=== PATIENT | female | born 1930 | race American Indian/Alaskan Native ===

== ENCOUNTER 2016-11-18 17:43 | Inpatient (IN) | payer MEDICARE, MEDICAID ==
[2016-11-18 17:51] VITALS: BMI 23.0
[2016-11-18] MEDS ORDERED: Acetaminophen 650mg/20.3ml solution UD ONE (18:01)
[2016-11-18] MEDS ORDERED: Acetaminophen 650mg/20.3ml solution UD PO STA (18:05)
--- NOTE | 2016-11-18 18:18 | C.PDOC ---
History Of Present Illness 86 y/o F c PMHx Afib on Eliquis, HTN, CHF p/w tactile fever, confusion, dyspnea x 2 days. Mild cough only. Denies pain, vomiting, malodorous urine. Time Seen by Provider: 11/18/16 17:59 Chief Complaint (Nursing): Shortness Of Breath Past Medical History Vital Signs: Last Vital Signs Temp 101.9 F H 11/18/16 18:11 Pulse 102 H 11/18/16 18:11 Resp 39 H 11/18/16 18:11 BP 111/70 11/18/16 17:50 Pulse Ox 100 11/18/16 18:43 - Medical History PMH: Anemia, Atrial Fibrillation, 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'), Gastritis, HTN, Hyperlipidemia Denies: Chronic Kidney Disease Surgical History: Cholecystectomy - [facility] Procedures INSERTION OF INTRALUM DEV INTO R VENTRICLE, PERC APPROACH (02/29/16) MEASURE CARDIAC SAMPL & PRESSURE, BILATERAL, PERC (02/29/16) PERFORMANCE OF CARDIAC PACING, CONTINUOUS (02/29/16) PLAIN RADIOGRAPHY OF MULT COR ART USING OTH CONTRAST (02/29/16) PLAIN RADIOGRAPHY OF RIGHT AND LEFT HEART USING OTH CONTRAST (02/29/16) Family History: States: Unknown Family Hx - Social History Hx Alcohol Use: No Hx Substance Use: No - Immunization History Hx Tetanus Toxoid Vaccination: No Hx Influenza Vaccination: No Hx Pneumococcal Vaccination: No Review Of Systems Except As Marked, All Systems Reviewed And Found Negative. Constitutional: Positive for: Fever Cardiovascular: Negative for: Chest Pain Respiratory: Positive for: Shortness of Breath Physical Exam - Physical Exam Additional Physical Exam Comments: Constitutional: No acute distress. Warm to touch Head: Normocephalic. Atraumatic. Eyes: PERRL. EOMI ENT: Moist mucous membranes. Neck: Supple. Cardiovascular: Radial pulses 2+ bilaterally. Tachycardic, irregular rhythm Chest: No tenderness. Respiratory: Clear to auscultation bilaterally. GI: Soft. Nontender. Nondistended. Back: No CVA tenderness. No midline tenderness. Musculoskeletal: No tenderness or swelling of extremities. Skin: No rash. Neurologic: Alert, no focal deficit. ED Course And Treatment - Laboratory Results Result Diagrams: 11/18/16 18:25 11/18/16 18:25 O2 Sat by Pulse Oximetry: 100 Medical Decision Making Medical Decision Making: EKG shows irregular rhythm, 110 rate, atrial and ventricular beats, no obvious ST elevations. Patient with fever, tachycardia, tachypnea, will send sepsis labs. No hypotension, will not give IVF bolus as patient with CHF and daughter states she does not wish for patient to be intubated again. CXR +PNA as read by me. Started on broad spectrum antibiotics. Lactate negative. +leukocytosis without bandemia. No acidosis. Also severely anemic, transfuse 2 units slowly due to CHF. Lasix administered. Dr. Arteaga accepts patient to his service. Disposition Discussed With : Alvarez Arteaga Doctor Will See Patient In The: Hospital - Disposition Disposition: HOSPITALIZED Disposition Time: 19:15 Condition: GUARDED - POA Core Measure Indicators: Pneumonia - Clinical Impression Clinical Impression: Congestive heart failure, Pneumonia, Sepsis, Anemia
[2016-11-18] MEDS ORDERED: Cefepime IV 2 gm in Dextrose 100 ML IVPB STA (18:26)
[2016-11-18] MEDS ORDERED: Vancomycin 1 gm/NS 200 ml 200 ML IVPB STA (18:26)
[2016-11-18] MEDS ORDERED: Moxifloxacin IV 400mg/250ml NS 250 ML IVPB STA (18:26)
[2016-11-18 18:32] LABS: VENOUS BLOOD GAS BASE EXCESS -12.4 mmol/L (0.0-2.0); VENOUS BLOOD GAS PCO2 16 mmHg (40-60); VENOUS BLOOD PH 7.39 (7.32-7.43)
[2016-11-18 18:35] LABS: HEMATOCRIT 20.2 % (34.0-47.0); LYMPH # 0.8 K/uL (1.0-4.3); MEAN PLATELET VOLUME 8.7 fL (7.2-11.7); PLATELET COUNT 178 K/uL (130-400)
[2016-11-18 18:37] LABS: RBC URINE 3 /hpf (0-3); URINE BACTERIA RARE (<OCC); URINE BILIRUBIN NEGATIVE (NEGATIVE); URINE BLOOD NEGATIVE (NEGATIVE); URINE COLOR Yellow (YELLOW); URINE GLUCOSE (UA) NORMAL (Normal); URINE KETONE NEGATIVE (NEGATIVE); URINE LEUKOCYTE ESTERASE NEG Leu/uL (Negative); URINE PROTEIN NEGATIVE (NEGATIVE); URINE UROBILINOGEN NORMAL mg/dL (0.2-1.0); WBC URINE 2 /hpf (0-5)
[2016-11-18 18:40] LABS: BASO % 0.3 % (0.0-2.0); EOS % 0.1 % (0.0-4.0); LYMPH % 5.1 % (20.0-40.0); MEAN CELL VOLUME 77.8 fL (81.0-99.0); MEAN CORPUSCULAR HGB CONC 30.9 g/dL (33.0-37.0); MONO # 0.7 K/uL (0.0-0.8); MONO % 4.6 % (0.0-10.0); RED CELL DISTRIBUTION WIDTH 22.4 % (11.5-14.5)
[2016-11-18] MEDS ORDERED: Moxifloxacin IV 400mg/250ml NS 250 ML IVPB ONE (18:41)
[2016-11-18 18:43] LABS: INR 1.7; POTASSIUM 4.2 mmol/L (3.6-5.2)
[2016-11-18 18:45] LABS: ALB/GLOB RATIO 0.7 (1.0-2.1); PHOSPHOROUS 3.7 mg/dL (2.5-4.5); TOTAL PROTEIN 6.3 g/dL (6.3-8.3)
[2016-11-18 18:46] LABS: MAGNESIUM 2.1 mg/dL (1.6-2.3)
[2016-11-18 18:58] LABS: TROPONIN I 0.068 ng/mL (0.00-0.120)
[2016-11-18 19:31] LABS: NEUTROPHIL 90 % (50-75); TOTAL CELLS COUNTED 100
[2016-11-18 19:32] LABS: LARGE PLATELETS PRESENT
[2016-11-18] MEDS ORDERED: ELIQUIS 2.5 MG PO SCH (21:15)
--- NOTE | 2016-11-19 08:12 | RAD ---
HISTORY: dyspnea COMPARISON: 03/19/2016 FINDINGS: LUNGS: Moderate to severe venous congestion with confluent airspace opacification in the right hilar region and bilateral lung bases. Small to moderate left and small right pleural effusion. Biapical pleural thickening with upper lobe granulomatous changes. More confluent masslike consolidation in the medial right upper lung zone. PLEURA: As above. CARDIOVASCULAR: Cardiomegaly. Left-sided pacemaker. OSSEOUS STRUCTURES: Degenerative changes in the spine and shoulders. VISUALIZED UPPER ABDOMEN: Normal. OTHER FINDINGS: Curvilinear metallic density projects over the left lung apex of uncertain clinical etiology. Clinical correlation. IMPRESSION: Moderate to severe venous congestion with confluent airspace opacification in the right hilar region and bilateral lung bases. Small to moderate left and small right pleural effusion. Biapical pleural thickening with upper lobe granulomatous changes. More confluent masslike consolidation in the medial right upper lung zone.
--- NOTE | 2016-11-19 08:24 | CP.PCM.HP ---
History of Present Illness - History of Present Illness History of Present Illness: 86 y/o male with Hypertrophic Cardiomyopathy, At fib and OPD. patient had noted to be very weak in days. Pr t daughter did lad and with low Hg. In ER she was noted to have an infiltrate ? mass. Pt asmittied for CHF and Pneumonia. Present on Admission - Present on Admission Any Indicators Present on Admission: Yes History of DVT/PE: No History of Uncontrolled Diabetes: No Urinary Catheter: Yes Decubitus Ulcer Present: Yes Decubitus Ulcer Stage: II Review of Systems - Review of Systems Systems not reviewed;Unavailable: Acuity of Condition - Constitutional Constitutional: Lethargy, Malaise, Weight Loss, Weakness - EENT Eyes: absent: Change in Vision, Loss of Peripheral Vision, Sees Flashes, Loss of Vision Ears: Dizziness. absent: Ear Discharge, Ear Pain - Cardiovascular Cardiovascular: Lightheadedness. absent: Chest Pain, Diaphoresis, Leg Edema, Orthopnea, Palpitations, Pedal Edema - Respiratory Respiratory: Cough, Dyspnea on Exertion, Wheezing, Chest Congestion. absent: Pain on Inspiration, Excessive Mucous Production, Change in Mucous Color - Gastrointestinal Gastrointestinal: Bloating. absent: Coffee Ground Emesis, Dysphagia, Excessive Flatus, Hematochezia - Genitourinary Genitourinary: absent: Dysuria, Urinary Hesitance, Urinary Urgency - Integumentary Integumentary: absent: Change in Hair, Lesions, Striae, Swelling - Neurological Neurological: Abnormal Hearing, Dizziness, Lack of Coordination. absent: Focal Weakness, Loss of Vision, Radicular Pain, Tremor Past Patient History - Infectious Disease Hx of Infectious Diseases: None - Past Medical History & Family History Past Medical History?: Yes - Past Social History Smoking Status: Never Smoked - CARDIAC Hx Atrial Fibrillation: Yes Hx Congestive Heart Failure: Yes ('fluid in lungs and heart years ago') Hx Hypertension: Yes - PULMONARY Hx Respiratory Disorders: No - NEUROLOGICAL Hx Neurological Disorder: Yes Hx Dizziness: Yes - HEENT Hx HEENT Problems: Yes Hx Cataracts: Yes (Had surgery) Other/Comment: uses reading glasses - RENAL Hx Chronic Kidney Disease: No - ENDOCRINE/METABOLIC Hx Endocrine Disorders: No - HEMATOLOGICAL/ONCOLOGICAL Hx Anemia: Yes - INTEGUMENTARY Hx Dermatological Problems: No - MUSCULOSKELETAL/RHEUMATOLOGICAL Hx Musculoskeletal Disorders: Yes Hx Falls: Yes - GASTROINTESTINAL Hx Gastritis: Yes - GENITOURINARY/GYNECOLOGICAL Hx Genitourinary Disorders: No - PSYCHIATRIC Hx Substance Use: No - SURGICAL HISTORY Hx Cholecystectomy: Yes - ANESTHESIA Hx Anesthesia: Yes Hx Anesthesia Reactions: No Hx Malignant Hyperthermia: No Meds Allergies/Adverse Reactions: Allergies Allergy/AdvReac Type Severity Reaction Status Date / Time No Known Allergies Allergy Verified 11/18/16 17:47 Physical Exam - Constitutional Appears: No Acute Distress - Eye Exam Eye Exam: Normal appearance - ENT Exam ENT Exam: Mucous Membranes Moist - Neck Exam Neck exam: Positive for: Full Rom. Negative for: Lymphadenopathy, Thyromegaly - Respiratory Exam Respiratory Exam: Decreased Breath Sounds, Rales, Rhonchi. absent: Wheezes, Respiratory Distress - Cardiovascular Exam Cardiovascular Exam: Irregular Rhythm, JVD, +S1, +S2, Systolic Murmur. absent: Gallop - GI/Abdominal Exam GI & Abdominal Exam: Soft. absent: Mass, Rigid, Tenderness - Extremities Exam Extremities exam: Positive for: normal capillary refill. Negative for: joint swelling, pedal edema, tenderness Results - Vital Signs Recent Vital Signs: Last Vital Signs Temp 97.9 F 11/19/16 08:06 Pulse 79 11/19/16 08:06 Resp 18 11/19/16 08:06 BP 99/53 L 11/19/16 08:06 Pulse Ox 100 11/18/16 23:45 - Labs Result Diagrams: 11/18/16 18:25 11/18/16 18:25 - EKG Data EKG Interpreted by: Myself Rate: Tachycardia - EKG Data EKG comments: AF; Tachycardic w/ aberrant conduction, IVCD w RBBB pattern, no ischemic change noted Assessment & Plan - Assessment and Plan (Free Text) Assessment: Congestive heart Failure; At Fib/ cardiomyopathy Anemia; Sacral Decubitus Pneumonia vs mass Cardio on board; Cont cardiac meds Pulmonary consult On Zozyn + Duo neb Finishing transfusion of 2 units PRBC
[2016-11-19] MEDS: Pantoprazole 40 mg EC Tab PO SCH (09:33)
[2016-11-19] MEDS: Metoprolol Succinate 50 mg XL Tab PO SCH (09:34)
[2016-11-19] MEDS: Silver Sulfadiazine 1% Cream (20 gm) TOP SCH (09:43)
[2016-11-19] MEDS ORDERED: METOPROLOL TARTRATE 50 MG PO SCH (10:00)
[2016-11-19] MEDS ORDERED: Piperacillin/Tazobact 3.375 GM in Sodium Chloride 100 ML IVPB SCH (10:00)
[2016-11-19] MEDS: Albuterol-Ipratrop 3 mg / 0.5 (3 ml) UD INH SCH ×3 (11:19→19:12)
[2016-11-19] MEDS: Piperacill/Tazo 3.375gm in Dex 50 ML IVPB SCH ×2 (13:29→23:54)
[2016-11-19 13:59] LABS: BASO # 0.1 K/uL (0.0-0.2); BASO % 0.7 % (0.0-2.0); EOS # 0.1 K/uL (0.0-0.7); EOS % 1.1 % (0.0-4.0); HEMATOCRIT 24.6 % (34.0-47.0); LYMPH # 1.3 K/uL (1.0-4.3); LYMPH % 11.8 % (20.0-40.0); MEAN CELL VOLUME 79.4 fL (81.0-99.0); MEAN CORPUSCULAR HEMOGLOBIN 26.4 pg (27.0-31.0); MEAN CORPUSCULAR HGB CONC 33.3 g/dL (33.0-37.0); MEAN PLATELET VOLUME 8.6 fL (7.2-11.7); MONO # 0.8 K/uL (0.0-0.8); MONO % 7.4 % (0.0-10.0); NRBC % 0.3 % (0.0-2.0); WHITE BLOOD COUNT 11.1 K/uL (4.8-10.8)
[2016-11-19 14:07] LABS: POTASSIUM 3.9 mmol/L (3.6-5.2)
[2016-11-19 14:09] LABS: ALB/GLOB RATIO 0.6 (1.0-2.1); TOTAL PROTEIN 5.8 g/dL (6.3-8.3)
[2016-11-19 14:10] LABS: CALCIUM 8.3 mg/dl (8.6-10.4)
--- NOTE | 2016-11-19 14:21 | CP.PCM.CON ---
History of Present Illness - History of Present Illness History of Present Illness: 85 F female PMH of HOCM, CHF, HTN, hyperlipidemia, AFib, breast cancer with mets? and pacemaker, who presents with confusion and lethargy. Pt with family at bed side state that for the past few days she has been getting more confused and more lethargic. The family states that her last blood work that her primary doctor did last month showed she was anemic but the patient refused blood transfusion. Family states that the patient also has been losing weight close to 60 pounds in the last 6 months. Denies any chest shyann, or shortness of breath. Denies headaches, dizziness, f/c, cp, abd pain, urinary or bm changes. PMH:: As above PSH: Pericardial window 18 y/o for endocarditis?, Cholecystectomy Med: Refer to [facility]: NKA SH: Denies any smoking, alcohol, or drugs Review of Systems - Review of Systems All systems: reviewed and no additional remarkable complaints except (HPI) Past Patient History - Infectious Disease Hx of Infectious Diseases: None - Past Medical History & Family History Past Medical History?: Yes - Past Social History Smoking Status: Never Smoked Alcohol: None Drugs: Denies - CARDIAC Hx Atrial Fibrillation: Yes Hx Congestive Heart Failure: Yes ('fluid in lungs and heart years ago') Hx Hypertension: Yes - PULMONARY Hx Respiratory Disorders: No - NEUROLOGICAL Hx Neurological Disorder: Yes Hx Dizziness: Yes - HEENT Hx HEENT Problems: Yes Hx Cataracts: Yes (Had surgery) Other/Comment: uses reading glasses - RENAL Hx Chronic Kidney Disease: No - ENDOCRINE/METABOLIC Hx Endocrine Disorders: No - HEMATOLOGICAL/ONCOLOGICAL Hx Anemia: Yes - INTEGUMENTARY Hx Dermatological Problems: No - MUSCULOSKELETAL/RHEUMATOLOGICAL Hx Musculoskeletal Disorders: Yes Hx Falls: Yes - GASTROINTESTINAL Hx Gastritis: Yes - GENITOURINARY/GYNECOLOGICAL Hx Genitourinary Disorders: No - PSYCHIATRIC Hx Substance Use: No - SURGICAL HISTORY Hx Cholecystectomy: Yes - ANESTHESIA Hx Anesthesia: Yes Hx Anesthesia Reactions: No Hx Malignant Hyperthermia: No Meds Allergies/Adverse Reactions: Allergies Allergy/AdvReac Type Severity Reaction Status Date / Time No Known Allergies Allergy Verified 11/18/16 17:47 - Medications Medications: Current Medications Albuterol/Ipratropium (Duoneb 3 Mg/0.5 Mg (3 Ml) Ud) 3 ml INH RQID [facility] Last Admin: 11/19/16 11:19 Dose: 3 ml Apixaban (Eliquis) 2.5 mg PO BID [facility] Last Admin: 11/19/16 09:33 Dose: 2.5 mg Ferrous Sulfate (Feosol) 325 mg PO DAILY [facility] Last Admin: 11/19/16 09:33 Dose: 325 mg Furosemide (Lasix) 20 mg PO DAILY [facility] Last Admin: 11/19/16 09:33 Dose: 20 mg Piperacillin Sod/Tazobactam Sod (Zosyn 3.375 Gm Iv Premix) 50 mls @ 100 mls/hr IVPB Q8H [facility] Last Admin: 11/19/16 13:29 Dose: 100 mls/hr Metoprolol Succinate (Toprol Xl) 50 mg PO DAILY [facility] Last Admin: 11/19/16 09:34 Dose: Not Given Mirtazapine (Remeron) 15 mg PO DAILY [facility] Last Admin: 11/19/16 09:33 Dose: 15 mg Pantoprazole Sodium (Protonix Ec Tab) 40 mg PO DAILY [facility] Last Admin: 11/19/16 09:33 Dose: 40 mg Silver Sulfadiazine (Silvadene 1% 20 Gm) 0 ea TOP DAILY [facility] Stop: 11/22/16 23:59 Last Admin: 11/19/16 09:43 Dose: 1 applic Physical Exam - Constitutional Appears: No Acute Distress - Head Exam Head Exam: ATRAUMATIC, NORMAL INSPECTION, NORMOCEPHALIC - Eye Exam Eye Exam: EOMI, Normal appearance, PERRL Pupil Exam: NORMAL ACCOMODATION, PERRL - ENT Exam ENT Exam: Mucous Membranes Moist, Normal Exam - Neck Exam Neck exam: Positive for: Normal Inspection - Respiratory Exam Respiratory Exam: Clear to Auscultation Bilateral, NORMAL BREATHING PATTERN. absent: Rales, Rhonchi, Wheezes - Cardiovascular Exam Cardiovascular Exam: REGULAR RHYTHM, RRR, +S1, +S2 - GI/Abdominal Exam GI & Abdominal Exam: Normal Bowel Sounds, Soft. absent: Distended, Tenderness - Extremities Exam Extremities exam: Positive for: normal inspection - Back Exam Back exam: NORMAL INSPECTION - Neurological Exam Neurological exam: Alert, CN II-XII Intact, Normal Gait, Oriented x3, Reflexes Normal - Psychiatric Exam Psychiatric exam: Normal Affect, Normal Mood - Skin Skin Exam: Dry, Intact, Normal Color, Warm Results - Vital Signs Recent Vital Signs: Last Vital Signs Temp 97.9 F 11/19/16 08:06 Pulse 79 11/19/16 08:06 Resp 18 11/19/16 08:06 BP 103/60 11/19/16 09:33 Pulse Ox 95 11/19/16 07:15 - Labs Result Diagrams: 11/19/16 13:42 11/18/16 18:25 Labs: Laboratory Results - last 24 hr 11/19/16 13:42 WBC 11.1 H RBC 3.11 L Hgb 8.2 L Hct 24.6 L MCV 79.4 L MCH 26.4 L MCHC 33.3 RDW 19.0 H Plt Count 146 MPV 8.6 Neut % (Auto) 79.0 H Lymph % (Auto) 11.8 L [place] % (Auto) 7.4 Eos % (Auto) 1.1 Baso % (Auto) 0.7 Neut # 8.8 H Lymph # 1.3 [place] # 0.8 Eos # 0.1 Baso # 0.1 Assessment & Plan - Assessment and Plan (Free Text) Assessment: 85 F female PMH of HOCM, CHF, HTN, hyperlipidemia, AFib, breast cancer with mets? and pacemaker, who presents with confusion and lethargy found to be anemic Hb 6.3 s/p 2 units PRBC now hb 8.2. - Hb 8.2 S/p 2 units PRBC - F/u EKG and Echo - CXR - mod to severe pulm vasc congestion, mild- mod L pleural effusion - F/u CT chest official read - Cont Lasix 20mg PO and metoprolol 50mg PO - Cont Eliquis for afib - Cont Zosyn - Cont Ferrous sulfate - GI/DVT ppx with Protonix and Eliquis Thank you for the consult. Will follow closely. Case & plan was seen, reviewed, and discussed with Dr Mendoza.
[2016-11-20] MEDS: Piperacill/Tazo 3.375gm in Dex 50 ML IVPB SCH ×3 (06:07→21:19)
--- NOTE | 2016-11-20 06:37 | CP.PCM.PN ---
Subjective - Date & Time of Evaluation Date of Evaluation: 11/20/16 Time of Evaluation: 06:20 Objective - Vital Signs/Intake and Output Vital Signs (last 24 hours): Temp Pulse Resp BP Pulse Ox 97.6 F 72 20 90/61 L 95 11/19/16 23:50 11/20/16 00:00 11/19/16 23:50 11/19/16 23:50 11/19/16 23:50 Intake and Output: 11/19/16 11/20/16 18:59 06:59 Intake Total 375 Output Total 200 325 Balance 175 -325 - Medications Medications: Current Medications Albuterol/Ipratropium (Duoneb 3 Mg/0.5 Mg (3 Ml) Ud) 3 ml INH RQID [facility] Last Admin: 11/19/16 19:12 Dose: 3 ml Apixaban (Eliquis) 2.5 mg PO BID [facility] Last Admin: 11/19/16 17:29 Dose: 2.5 mg Ferrous Sulfate (Feosol) 325 mg PO DAILY [facility] Last Admin: 11/19/16 09:33 Dose: 325 mg Furosemide (Lasix) 20 mg PO DAILY [facility] Last Admin: 11/19/16 09:33 Dose: 20 mg Piperacillin Sod/Tazobactam Sod (Zosyn 3.375 Gm Iv Premix) 50 mls @ 100 mls/hr IVPB Q8H [facility] Last Admin: 11/20/16 06:07 Dose: 100 mls/hr Metoprolol Succinate (Toprol Xl) 50 mg PO DAILY [facility] Last Admin: 11/19/16 09:34 Dose: Not Given Mirtazapine (Remeron) 15 mg PO DAILY [facility] Last Admin: 11/19/16 09:33 Dose: 15 mg Pantoprazole Sodium (Protonix Ec Tab) 40 mg PO DAILY [facility] Last Admin: 11/19/16 09:33 Dose: 40 mg Silver Sulfadiazine (Silvadene 1% 20 Gm) 0 ea TOP DAILY [facility] Stop: 11/22/16 23:59 Last Admin: 11/19/16 09:43 Dose: 1 applic - Labs Labs: 11/19/16 13:42 11/19/16 13:42 PT 19.1 SECONDS (9.7-12.2) H 11/18/16 18:25 INR 1.7 02/23/17 18:25 APTT 25 SECONDS (21-34) 11/18/16 18:25
[2016-11-20] MEDS: Albuterol-Ipratrop 3 mg / 0.5 (3 ml) UD INH SCH ×4 (07:40→21:55)
--- NOTE | 2016-11-20 07:54 | CP.PCM.PN ---
Subjective - Date & Time of Evaluation Date of Evaluation: 11/20/16 Time of Evaluation: 08:40 - Subjective Subjective: Pt feels weaker today; Denies CP, no SOB, no palpitation; (+) cough but no mucus No diarrhea, no n/v Objective - Vital Signs/Intake and Output Vital Signs (last 24 hours): Temp Pulse Resp BP Pulse Ox 97.6 F 72 20 124/60 95 11/19/16 23:50 11/20/16 06:45 11/19/16 23:50 11/20/16 06:45 11/19/16 23:50 Intake and Output: 11/20/16 11/20/16 06:59 18:59 Output Total 925 Balance -925 - Medications Medications: Current Medications Albuterol/Ipratropium (Duoneb 3 Mg/0.5 Mg (3 Ml) Ud) 3 ml INH RQID [facility] Last Admin: 11/20/16 07:40 Dose: 3 ml Apixaban (Eliquis) 2.5 mg PO BID [facility] Last Admin: 11/19/16 17:29 Dose: 2.5 mg Ferrous Sulfate (Feosol) 325 mg PO DAILY [facility] Last Admin: 11/19/16 09:33 Dose: 325 mg Furosemide (Lasix) 20 mg PO DAILY [facility] Last Admin: 11/19/16 09:33 Dose: 20 mg Piperacillin Sod/Tazobactam Sod (Zosyn 3.375 Gm Iv Premix) 50 mls @ 100 mls/hr IVPB Q8H [facility] Last Admin: 11/20/16 06:07 Dose: 100 mls/hr Metoprolol Succinate (Toprol Xl) 50 mg PO DAILY [facility] Last Admin: 11/19/16 09:34 Dose: Not Given Mirtazapine (Remeron) 15 mg PO DAILY [facility] Last Admin: 11/19/16 09:33 Dose: 15 mg Pantoprazole Sodium (Protonix Ec Tab) 40 mg PO DAILY [facility] Last Admin: 11/19/16 09:33 Dose: 40 mg Silver Sulfadiazine (Silvadene 1% 20 Gm) 0 ea TOP DAILY [facility] Stop: 11/22/16 23:59 Last Admin: 11/19/16 09:43 Dose: 1 applic - Labs Labs: 11/19/16 13:42 11/19/16 13:42 PT 19.1 SECONDS (9.7-12.2) H 11/18/16 18:25 INR 1.7 11/18/16 18:25 APTT 25 SECONDS (21-34) 11/18/16 18:25 - Eye Exam Eye Exam: Normal appearance - ENT Exam ENT Exam: Mucous Membranes Moist - Respiratory Exam Respiratory Exam: Decreased Breath Sounds. absent: Rales, Rhonchi, Wheezes - Cardiovascular Exam Cardiovascular Exam: Irregular Rhythm, JVD, +S1, Murmur. absent: Gallop, REGULAR RHYTHM - GI/Abdominal Exam GI & Abdominal Exam: Soft. absent: Tenderness, Mass - Extremities Exam Extremities Exam: Calf Tenderness, Normal Capillary Refill, Pedal Edema. absent : Full ROM Assessment and Plan - Assessment and Plan (Free Text) Plan: Pneumonia w/ CHF Hypertrophic cardiomyopathy Anemia; Sacral decubitus Cont meds/ Await CT and cardio output
--- NOTE | 2016-11-20 08:13 | CP.PCM.CON ---
History of Present Illness - History of Present Illness History of Present Illness: Reason for consultation: Shortness of breath and cough 85-year-old female with history of hypertrophic cardiomyopathy, CHF, hypertension, atrial fibrillation, breast cancer with metastases, hyperlipidemia and pacemaker presented to emergency room with confusion, shortness of breath, fever and cough for the past few days. Family states that the patient has been losing weight in the last 6 months. Chest x-ray consistent with bilateral infiltrate. PMH:: As above PSH: Pericardial window 18 y/o for endocarditis?, Cholecystectomy Med: Refer to [facility]: NKA SH: Denies any smoking, alcohol, or drugs Review of Systems - Review of Systems Systems not reviewed;Unavailable: Dementia Past Patient History - Infectious Disease Hx of Infectious Diseases: None - Past Medical History & Family History Past Medical History?: Yes - Past Social History Smoking Status: Never Smoked Alcohol: None Drugs: Denies - CARDIAC Hx Atrial Fibrillation: Yes Hx Congestive Heart Failure: Yes ('fluid in lungs and heart years ago') Hx Hypertension: Yes - PULMONARY Hx Respiratory Disorders: No - NEUROLOGICAL Hx Neurological Disorder: Yes Hx Dizziness: Yes - HEENT Hx HEENT Problems: Yes Hx Cataracts: Yes (Had surgery) Other/Comment: uses reading glasses - RENAL Hx Chronic Kidney Disease: No - ENDOCRINE/METABOLIC Hx Endocrine Disorders: No - HEMATOLOGICAL/ONCOLOGICAL Hx Anemia: Yes - INTEGUMENTARY Hx Dermatological Problems: No - MUSCULOSKELETAL/RHEUMATOLOGICAL Hx Musculoskeletal Disorders: Yes Hx Falls: Yes - GASTROINTESTINAL Hx Gastritis: Yes - GENITOURINARY/GYNECOLOGICAL Hx Genitourinary Disorders: No - PSYCHIATRIC Hx Substance Use: No - SURGICAL HISTORY Hx Cholecystectomy: Yes - ANESTHESIA Hx Anesthesia: Yes Hx Anesthesia Reactions: No Hx Malignant Hyperthermia: No Meds Allergies/Adverse Reactions: Allergies Allergy/AdvReac Type Severity Reaction Status Date / Time No Known Allergies Allergy Verified 11/18/16 17:47 - Medications Medications: Current Medications Albuterol/Ipratropium (Duoneb 3 Mg/0.5 Mg (3 Ml) Ud) 3 ml INH RQID [facility] Last Admin: 11/20/16 07:40 Dose: 3 ml Apixaban (Eliquis) 2.5 mg PO BID [facility] Last Admin: 11/19/16 17:29 Dose: 2.5 mg Ferrous Sulfate (Feosol) 325 mg PO DAILY [facility] Last Admin: 11/19/16 09:33 Dose: 325 mg Furosemide (Lasix) 20 mg PO DAILY [facility] Last Admin: 11/19/16 09:33 Dose: 20 mg Piperacillin Sod/Tazobactam Sod (Zosyn 3.375 Gm Iv Premix) 50 mls @ 100 mls/hr IVPB Q8H [facility] Last Admin: 11/20/16 06:07 Dose: 100 mls/hr Metoprolol Succinate (Toprol Xl) 50 mg PO DAILY [facility] Last Admin: 11/19/16 09:34 Dose: Not Given Mirtazapine (Remeron) 15 mg PO DAILY [facility] Last Admin: 11/19/16 09:33 Dose: 15 mg Pantoprazole Sodium (Protonix Ec Tab) 40 mg PO DAILY [facility] Last Admin: 11/19/16 09:33 Dose: 40 mg Silver Sulfadiazine (Silvadene 1% 20 Gm) 0 ea TOP DAILY [facility] Stop: 11/22/16 23:59 Last Admin: 11/19/16 09:43 Dose: 1 applic Physical Exam - Head Exam Head Exam: ATRAUMATIC, NORMOCEPHALIC - ENT Exam ENT Exam: Mucous Membranes Moist - Neck Exam Neck exam: Positive for: Normal Inspection - Respiratory Exam Respiratory Exam: Rales, Rhonchi - Cardiovascular Exam Cardiovascular Exam: Irregular Rhythm - GI/Abdominal Exam GI & Abdominal Exam: Normal Bowel Sounds, Soft - Extremities Exam Extremities exam: Positive for: normal inspection - Neurological Exam Neurological exam: Altered Results - Vital Signs Recent Vital Signs: Last Vital Signs Temp 97.6 F 11/19/16 23:50 Pulse 72 11/20/16 06:45 Resp 20 11/19/16 23:50 BP 124/60 11/20/16 06:45 Pulse Ox 95 11/19/16 23:50 - Labs Result Diagrams: 11/19/16 13:42 11/19/16 13:42 Labs: Laboratory Results - last 24 hr 11/19/16 13:42 WBC 11.1 H RBC 3.11 L Hgb 8.2 L Hct 24.6 L MCV 79.4 L MCH 26.4 L MCHC 33.3 RDW 19.0 H Plt Count 146 MPV 8.6 Neut % (Auto) 79.0 H Lymph % (Auto) 11.8 L [place] % (Auto) 7.4 Eos % (Auto) 1.1 Baso % (Auto) 0.7 Neut # 8.8 H Lymph # 1.3 [place] # 0.8 Eos # 0.1 Baso # 0.1 Sodium 139 Potassium 3.9 Chloride 102 Carbon Dioxide 27 Anion Gap 15 BUN 33 H Creatinine 1.2 Est GFR ( Amer) 52 Est GFR (Non-Af Amer) 43 Random Glucose 99 Calcium 8.3 L Total Bilirubin 1.0 AST 51 H ALT 45 Alkaline Phosphatase 51 Total Protein 5.8 L Albumin 2.1 L Globulin 3.7 Albumin/Globulin Ratio 0.6 L Assessment & Plan (1) Pneumonia Status: Acute Comment: Continue antibiotics. Culture and sensitivity. CAT scan of the chest consistent with bilateral pleural effusion and infiltrate. Consistent with CHF and possible pneumonia (2) Congestive heart failure Status: Acute (3) Cardiomyopathy Status: Acute
[2016-11-20] MEDS: Pantoprazole 40 mg EC Tab PO SCH (11:11)
[2016-11-20] MEDS: Metoprolol Succinate 50 mg XL Tab PO SCH (11:17)
[2016-11-20] MEDS: Silver Sulfadiazine 1% Cream (20 gm) TOP SCH (11:17)
--- NOTE | 2016-11-20 11:54 | CARD ---
APPROVED REPORT EKG Measurement Heart [id number] ID [id number] <Conclusion> Atrial-sensed ventricular-paced rhythm with premature supraventricular complexes Abnormal ECG
[2016-11-20 19:37] LABS: ABG ALLEN TEST UNABLE; ARTERIAL BLOOD HGB O2 SAT 96.6 % (95.0-98.0); CARBOXYHEMOGLOBIN 1.7 % (0.5-1.5); DRAW SITE RR; HHB 0.4 % (0.0-5.0); METHEMOGLOBIN 1.2 % (0.0-3.0)
[2016-11-21] MEDS: Piperacill/Tazo 3.375gm in Dex 50 ML IVPB SCH ×2 (04:31→12:36)
[2016-11-21] MEDS: Albuterol-Ipratrop 3 mg / 0.5 (3 ml) UD INH SCH ×3 (07:42→20:15)
[2016-11-21] MEDS: Pantoprazole 40 mg EC Tab PO SCH (10:59)
[2016-11-21] MEDS: Silver Sulfadiazine 1% Cream (20 gm) TOP SCH (11:00)
[2016-11-21 14:32] LABS: BASO # 0.1 K/uL (0.0-0.2); BASO % 0.8 % (0.0-2.0); EOS # 0.2 K/uL (0.0-0.7); EOS % 1.9 % (0.0-4.0); HEMATOCRIT 24.4 % (34.0-47.0); LYMPH % 12.5 % (20.0-40.0); MEAN CELL VOLUME 81.4 fL (81.0-99.0); MEAN CORPUSCULAR HGB CONC 33.2 g/dL (33.0-37.0); MEAN PLATELET VOLUME 8.7 fL (7.2-11.7); MONO # 0.6 K/uL (0.0-0.8); MONO % 7.4 % (0.0-10.0); NRBC % 0.2 % (0.0-2.0); RED CELL DISTRIBUTION WIDTH 19.3 % (11.5-14.5); WHITE BLOOD COUNT 8.1 K/uL (4.8-10.8)
--- NOTE | 2016-11-21 14:33 | CP.PCM.PN ---
Subjective - Date & Time of Evaluation Date of Evaluation: 11/21/16 Time of Evaluation: 14:30 - Subjective Subjective: S: Bedridden. No complaints. C/o weakness. No SOB. No fever. Objective - Vital Signs/Intake and Output Vital Signs (last 24 hours): Temp Pulse Resp BP Pulse Ox 98 F 69 20 93/51 L 100 11/21/16 11:04 11/21/16 11:04 11/21/16 11:04 11/21/16 11:04 11/21/16 11:04 Intake and Output: 11/21/16 11/21/16 06:59 18:59 Output Total 200 Balance -200 - Medications Medications: Current Medications Albuterol/Ipratropium (Duoneb 3 Mg/0.5 Mg (3 Ml) Ud) 3 ml INH RQID [facility] Last Admin: 11/21/16 13:00 Dose: 3 ml Apixaban (Eliquis) 2.5 mg PO BID [facility] Last Admin: 11/21/16 10:59 Dose: 2.5 mg Ferrous Sulfate (Feosol) 325 mg PO DAILY [facility] Last Admin: 11/21/16 11:01 Dose: 325 mg Furosemide (Lasix) 20 mg PO DAILY [facility] Piperacillin Sod/Tazobactam (Sod 3.375 gm/ Sodium Chloride) 100 mls @ 100 mls/ hr IVPB Q8H [facility] Metoprolol Tartrate (Lopressor) 25 mg PO BID [facility] Mirtazapine (Remeron) 15 mg PO DAILY [facility] Last Admin: 11/21/16 12:26 Dose: Not Given Pantoprazole Sodium (Protonix Ec Tab) 40 mg PO DAILY [facility] Last Admin: 11/21/16 10:59 Dose: 40 mg Silver Sulfadiazine (Silvadene 1% 20 Gm) 0 ea TOP DAILY [facility] Stop: 11/22/16 23:59 Last Admin: 11/21/16 11:00 Dose: 1 applic - Labs Labs: 11/19/16 13:42 11/19/16 13:42 PT 19.1 SECONDS (9.7-12.2) H 11/18/16 18:25 INR 1.7 11/18/16 18:25 APTT 25 SECONDS (21-34) 11/18/16 18:25 - Constitutional Appears: Chronically Ill - Head Exam Head Exam: NORMAL INSPECTION - ENT Exam ENT Exam: Normal Exam - Neck Exam Neck Exam: Normal Inspection - Respiratory Exam Respiratory Exam: Decreased Breath Sounds - Cardiovascular Exam Cardiovascular Exam: REGULAR RHYTHM - GI/Abdominal Exam GI & Abdominal Exam: Soft - Rectal Exam Rectal Exam: Deferred - Extremities Exam Extremities Exam: absent: Pedal Edema Assessment and Plan (1) Bacterial pneumonia Status: Acute (2) Congestive heart failure Status: Acute (3) Anemia Status: Acute (4) Cardiomyopathy Status: Chronic - Assessment and Plan (Free Text) Assessment: A Plan: P: Continue medications. Physical therapy evaluation.
--- NOTE | 2016-11-21 16:41 | CP.PCM.PN ---
Subjective - Date & Time of Evaluation Date of Evaluation: 11/21/16 Time of Evaluation: 16:00 - Subjective Subjective: Patient seen and examined. Lying comfortably in no acute distress More responsive Afebrile Objective - Vital Signs/Intake and Output Vital Signs (last 24 hours): Temp Pulse Resp BP Pulse Ox 98 F 69 20 93/51 L 100 11/21/16 11:04 11/21/16 11:04 11/21/16 11:04 11/21/16 11:04 11/21/16 11:04 Intake and Output: 11/21/16 11/21/16 06:59 18:59 Intake Total 530 Output Total 200 Balance -200 530 - Medications Medications: Current Medications Albuterol/Ipratropium (Duoneb 3 Mg/0.5 Mg (3 Ml) Ud) 3 ml INH RQID [facility] Last Admin: 11/21/16 13:00 Dose: 3 ml Apixaban (Eliquis) 2.5 mg PO BID [facility] Last Admin: 11/21/16 10:59 Dose: 2.5 mg Ferrous Sulfate (Feosol) 325 mg PO DAILY [facility] Last Admin: 11/21/16 11:01 Dose: 325 mg Furosemide (Lasix) 20 mg PO DAILY [facility] Piperacillin Sod/Tazobactam (Sod 3.375 gm/ Sodium Chloride) 100 mls @ 100 mls/ hr IVPB Q8H [facility] Metoprolol Tartrate (Lopressor) 25 mg PO BID [facility] Mirtazapine (Remeron) 15 mg PO DAILY [facility] Last Admin: 11/21/16 12:26 Dose: Not Given Pantoprazole Sodium (Protonix Ec Tab) 40 mg PO DAILY [facility] Last Admin: 11/21/16 10:59 Dose: 40 mg Silver Sulfadiazine (Silvadene 1% 20 Gm) 0 ea TOP DAILY [facility] Stop: 11/22/16 23:59 Last Admin: 11/21/16 11:00 Dose: 1 applic - Labs Labs: 11/21/16 14:20 11/19/16 13:42 PT 19.1 SECONDS (9.7-12.2) H 11/18/16 18:25 INR 1.7 11/18/16 18:25 APTT 25 SECONDS (21-34) 11/18/16 18:25 - Head Exam Head Exam: ATRAUMATIC, NORMOCEPHALIC - ENT Exam ENT Exam: Mucous Membranes Moist - Neck Exam Neck Exam: Normal Inspection - Respiratory Exam Respiratory Exam: Rales - GI/Abdominal Exam GI & Abdominal Exam: Soft, Normal Bowel Sounds - Extremities Exam Extremities Exam: Pedal Edema Assessment and Plan (1) Pneumonia Assessment & Plan: CAT scan of the chest consistent with bilateral pleural effusion and possible infiltrate Continue antibiotics Status: Acute (2) Congestive heart failure Assessment & Plan: Continue Lasix as needed Status: Acute (3) Cardiomyopathy Status: Chronic
--- NOTE | 2016-11-21 20:18 | CP.PCM.PN ---
Subjective - Date & Time of Evaluation Date of Evaluation: 11/21/16 Time of Evaluation: 15:30 - Subjective Subjective: Patient seen and evaluated Feels better today 85-year-old female with history of hypertrophic cardiomyopathy, CHF, hypertension, atrial fibrillation, breast cancer with metastases, hyperlipidemia and pacemaker presented to emergency room with confusion, shortness of breath, fever and cough for the past few days. Family states that the patient has been losing weight in the last 6 months. Chest x-ray consistent with bilateral infiltrate. PMH:: As above PSH: Cholecystectomy Med: Refer to [facility] ALL: NKA SH: Denies any smoking, alcohol, or drugs Review of Systems - Review of Systems Systems not reviewed;Unavailable: Dementia Past Patient History - Infectious Disease Hx of Infectious Diseases: None - Past Medical History & Family History Past Medical History?: Yes - Past Social History Smoking Status: Never Smoked Alcohol: None Drugs: Denies - CARDIAC Hx Atrial Fibrillation: Yes Hx Congestive Heart Failure: Yes ('fluid in lungs and heart years ago') Hx Hypertension: Yes - PULMONARY Hx Respiratory Disorders: No - NEUROLOGICAL Hx Neurological Disorder: Yes Hx Dizziness: Yes - HEENT Hx HEENT Problems: Yes Hx Cataracts: Yes (Had surgery) Other/Comment: uses reading glasses - RENAL Hx Chronic Kidney Disease: No - ENDOCRINE/METABOLIC Hx Endocrine Disorders: No - HEMATOLOGICAL/ONCOLOGICAL Hx Anemia: Yes - INTEGUMENTARY Hx Dermatological Problems: No - MUSCULOSKELETAL/RHEUMATOLOGICAL Hx Musculoskeletal Disorders: Yes Hx Falls: Yes - GASTROINTESTINAL Hx Gastritis: Yes - GENITOURINARY/GYNECOLOGICAL Hx Genitourinary Disorders: No - PSYCHIATRIC Hx Substance Use: No - SURGICAL HISTORY Hx Cholecystectomy: Yes - ANESTHESIA Hx Anesthesia: Yes Hx Anesthesia Reactions: No Hx Malignant Hyperthermia: No Meds Allergies/Adverse Reactions: Allergies Allergy/AdvReac Type Severity Reaction Status Date / Time No Known Allergies Allergy Verified 11/18/16 17:47 - Medications Medications: Current Medications Albuterol/Ipratropium (Duoneb 3 Mg/0.5 Mg (3 Ml) Ud) 3 ml INH RQID [facility] Last Admin: 11/20/16 07:40 Dose: 3 ml Apixaban (Eliquis) 2.5 mg PO BID [facility] Last Admin: 11/19/16 17:29 Dose: 2.5 mg Ferrous Sulfate (Feosol) 325 mg PO DAILY [facility] Last Admin: 02/24/17 09:33 Dose: 325 mg Furosemide (Lasix) 20 mg PO DAILY [facility] Last Admin: 11/19/16 09:33 Dose: 20 mg Piperacillin Sod/Tazobactam Sod (Zosyn 3.375 Gm Iv Premix) 50 mls @ 100 mls/hr IVPB Q8H [facility] Last Admin: 11/20/16 06:07 Dose: 100 mls/hr Metoprolol Succinate (Toprol Xl) 50 mg PO DAILY [facility] Last Admin: 11/19/16 09:34 Dose: Not Given Mirtazapine (Remeron) 15 mg PO DAILY [facility] Last Admin: 11/19/16 09:33 Dose: 15 mg Pantoprazole Sodium (Protonix Ec Tab) 40 mg PO DAILY [facility] Last Admin: 11/19/16 09:33 Dose: 40 mg Silver Sulfadiazine (Silvadene 1% 20 Gm) 0 ea TOP DAILY [facility] Stop: 11/22/16 23:59 Last Admin: 11/19/16 09:43 Dose: 1 applic Physical Exam - Head Exam Head Exam: ATRAUMATIC, NORMOCEPHALIC - ENT Exam ENT Exam: Mucous Membranes Moist - Neck Exam Neck exam: Positive for: Normal Inspection - Respiratory Exam Respiratory Exam: Rales, Rhonchi - Cardiovascular Exam Cardiovascular Exam: Irregular Rhythm - GI/Abdominal Exam GI & Abdominal Exam: Normal Bowel Sounds, Soft - Extremities Exam Extremities exam: Positive for: normal inspection - Neurological Exam Neurological exam: Altered Objective - Vital Signs/Intake and Output Vital Signs (last 24 hours): Temp Pulse Resp BP Pulse Ox 97.9 F 75 20 105/53 L 100 11/21/16 16:40 11/21/16 17:09 11/21/16 16:40 11/21/16 18:06 11/21/16 16:40 Intake and Output: 11/21/16 11/22/16 18:59 06:59 Intake Total 530 Balance 530 - Medications Medications: Current Medications Albuterol/Ipratropium (Duoneb 3 Mg/0.5 Mg (3 Ml) Ud) 3 ml INH RQID [facility] Last Admin: 11/21/16 20:15 Dose: 3 ml Apixaban (Eliquis) 2.5 mg PO BID [facility] Last Admin: 11/21/16 18:06 Dose: 2.5 mg Ferrous Sulfate (Feosol) 325 mg PO DAILY [facility] Last Admin: 11/21/16 11:01 Dose: 325 mg Furosemide (Lasix) 20 mg PO DAILY [facility] Piperacillin Sod/Tazobactam (Sod 3.375 gm/ Sodium Chloride) 100 mls @ 100 mls/ hr IVPB Q8H [facility] Metoprolol Tartrate (Lopressor) 25 mg PO BID [facility] Last Admin: 11/21/16 18:06 Dose: 25 mg Mirtazapine (Remeron) 15 mg PO HS [facility] Pantoprazole Sodium (Protonix Ec Tab) 40 mg PO DAILY [facility] Last Admin: 11/21/16 10:59 Dose: 40 mg Silver Sulfadiazine (Silvadene 1% 20 Gm) 0 ea TOP DAILY [facility] Stop: 11/22/16 23:59 Last Admin: 11/21/16 11:00 Dose: 1 applic - Labs Labs: 11/21/16 14:20 11/19/16 13:42 PT 19.1 SECONDS (9.7-12.2) H 11/18/16 18:25 INR 1.7 11/18/16 18:25 APTT 25 SECONDS (21-34) 11/18/16 18:25 Assessment and Plan - Assessment and Plan (Free Text) Assessment: (1) Pneumonia Status: Acute Comment: Continue antibiotics. Culture and sensitivity. CAT scan of the chest consistent with bilateral pleural effusion and infiltrate. Consistent with CHF and possible pneumonia (2) Congestive heart failure (Distolic Status: Continue Lasix (3) Hypertrophic Cardiomyopathy Status: S/P PPM Medical therapy (4) Atrial Fib Status: On Eliquis 2.5 po bid B blockers (5) Metastatic Ca Status: Medical therapy
[2016-11-21] MEDS: Piperacillin/Tazobact 3.375 GM in Sodium Chloride 100 ML IVPB SCH (20:42)
--- NOTE | 2016-11-21 20:44 | CP.PCM.PN ---
Subjective - Date & Time of Evaluation Date of Evaluation: 11/21/16 Time of Evaluation: 07:10 Objective - Vital Signs/Intake and Output Vital Signs (last 24 hours): Temp Pulse Resp BP Pulse Ox 97.9 F 75 20 105/53 L 100 11/21/16 16:40 11/21/16 17:09 11/21/16 16:40 11/21/16 18:06 11/21/16 16:40 Intake and Output: 11/21/16 11/22/16 18:59 06:59 Intake Total 530 Balance 530 - Medications Medications: Current Medications Albuterol/Ipratropium (Duoneb 3 Mg/0.5 Mg (3 Ml) Ud) 3 ml INH RQID [facility] Last Admin: 11/21/16 20:15 Dose: 3 ml Apixaban (Eliquis) 2.5 mg PO BID [facility] Last Admin: 11/21/16 18:06 Dose: 2.5 mg Ferrous Sulfate (Feosol) 325 mg PO DAILY [facility] Last Admin: 11/21/16 11:01 Dose: 325 mg Furosemide (Lasix) 20 mg PO DAILY [facility] Piperacillin Sod/Tazobactam (Sod 3.375 gm/ Sodium Chloride) 100 mls @ 100 mls/ hr IVPB Q8H [facility] Last Admin: 11/21/16 20:42 Dose: 100 mls/hr Metoprolol Tartrate (Lopressor) 25 mg PO BID [facility] Last Admin: 11/21/16 18:06 Dose: 25 mg Mirtazapine (Remeron) 15 mg PO HS [facility] Pantoprazole Sodium (Protonix Ec Tab) 40 mg PO DAILY [facility] Last Admin: 11/21/16 10:59 Dose: 40 mg Silver Sulfadiazine (Silvadene 1% 20 Gm) 0 ea TOP DAILY [facility] Stop: 11/22/16 23:59 Last Admin: 11/21/16 11:00 Dose: 1 applic - Labs Labs: 11/21/16 14:20 11/19/16 13:42 PT 19.1 SECONDS (9.7-12.2) H 11/18/16 18:25 INR 1.7 11/18/16 18:25 APTT 25 SECONDS (21-34) 11/18/16 18:25
[2016-11-22] MEDS: Piperacillin/Tazobact 3.375 GM in Sodium Chloride 100 ML IVPB SCH (05:03)
[2016-11-22] MEDS: Albuterol-Ipratrop 3 mg / 0.5 (3 ml) UD INH SCH ×4 (07:27→21:51)
[2016-11-22 07:52] LABS: POTASSIUM 3.9 mmol/L (3.6-5.2)
[2016-11-22 07:54] LABS: ALB/GLOB RATIO 0.6 (1.0-2.1); BILIRUBIN,TOTAL 0.6 mg/dL (0.2-1.3); TOTAL PROTEIN 5.8 g/dL (6.3-8.3)
[2016-11-22 07:55] LABS: CALCIUM 8.6 mg/dl (8.6-10.4)
--- NOTE | 2016-11-22 09:00 | CP.PCM.PN ---
Subjective - Date & Time of Evaluation Date of Evaluation: 11/22/16 Time of Evaluation: 08:40 - Subjective Subjective: Pt feels well; no CP, no SOB, no palpitation (+) Still weak w/ fair appetite; (+) dry cough CT noted for no mass; Large infiltrate no N/V, no diarrhea, no abd pain Objective - Vital Signs/Intake and Output Vital Signs (last 24 hours): Temp Pulse Resp BP Pulse Ox 97.5 F L 60 20 93/53 L 100 11/22/16 07:15 11/22/16 07:15 11/22/16 07:15 11/22/16 07:15 11/22/16 07:15 Intake and Output: 11/22/16 11/22/16 06:59 18:59 Intake Total 210 Output Total 600 Balance -390 - Medications Medications: Current Medications Albuterol/Ipratropium (Duoneb 3 Mg/0.5 Mg (3 Ml) Ud) 3 ml INH RQID [facility] Last Admin: 11/22/16 07:27 Dose: 3 ml Ferrous Sulfate (Feosol) 325 mg PO DAILY [facility] Last Admin: 11/21/16 11:01 Dose: 325 mg Furosemide (Lasix) 20 mg PO DAILY [facility] Piperacillin Sod/Tazobactam (Sod 3.375 gm/ Sodium Chloride) 100 mls @ 100 mls/ hr IVPB Q8H [facility] Last Admin: 11/22/16 05:03 Dose: 100 mls/hr Metoprolol Tartrate (Lopressor) 25 mg PO BID [facility] Last Admin: 11/21/16 18:06 Dose: 25 mg Mirtazapine (Remeron) 15 mg PO HS [facility] Last Admin: 11/21/16 21:12 Dose: 15 mg Pantoprazole Sodium (Protonix Ec Tab) 40 mg PO DAILY [facility] Last Admin: 11/21/16 10:59 Dose: 40 mg Silver Sulfadiazine (Silvadene 1% 20 Gm) 0 ea TOP DAILY [facility] Stop: 11/22/16 23:59 Last Admin: 11/21/16 11:00 Dose: 1 applic - Labs Labs: 11/21/16 14:20 11/22/16 07:03 PT 19.1 SECONDS (9.7-12.2) H 11/18/16 18:25 INR 1.7 11/18/16 18:25 APTT 25 SECONDS (21-34) 11/18/16 18:25 - Constitutional Appears: No Acute Distress - Eye Exam Eye Exam: Normal appearance - ENT Exam ENT Exam: Mucous Membranes Moist - Neck Exam Neck Exam: Full ROM. absent: Lymphadenopathy, Thyromegaly - Respiratory Exam Respiratory Exam: Decreased Breath Sounds. absent: Rales, Rhonchi, Wheezes - Cardiovascular Exam Cardiovascular Exam: JVD, +S1, +S2, Murmur. absent: Gallop, REGULAR RHYTHM - GI/Abdominal Exam GI & Abdominal Exam: Soft. absent: Tenderness, Mass - Extremities Exam Extremities Exam: Full ROM, Normal Capillary Refill. absent: Calf Tenderness, Joint Swelling, Pedal Edema Assessment and Plan - Assessment and Plan (Free Text) Assessment: Pneumonia; CHF Cardiomyopathy; Gen Debility Cont meds/ Phy therapy For 2-D Echo
--- NOTE | 2016-11-22 10:15 | CP.PCM.PN ---
Subjective - Date & Time of Evaluation Date of Evaluation: 11/22/16 Time of Evaluation: 09:30 - Subjective Subjective: Progress note for Dr Mendoza: Pt seen and examined at bedside. No acute events overnight. Pt denies any chest pain or sob at this time. Denies any headaches, dizziness, f/c, sob, cp, palpitations, n/v, abd pain, bm or urinary changes. Objective - Vital Signs/Intake and Output Vital Signs (last 24 hours): Temp Pulse Resp BP Pulse Ox 97.5 F L 60 20 93/53 L 100 11/22/16 07:15 11/22/16 07:15 11/22/16 07:15 11/22/16 07:15 11/22/16 07:15 Intake and Output: 11/22/16 11/22/16 06:59 18:59 Intake Total 210 Output Total 600 Balance -390 - Medications Medications: Current Medications Albuterol/Ipratropium (Duoneb 3 Mg/0.5 Mg (3 Ml) Ud) 3 ml INH RQID [facility] Last Admin: 11/22/16 07:27 Dose: 3 ml Ferrous Sulfate (Feosol) 325 mg PO DAILY [facility] Last Admin: 11/21/16 11:01 Dose: 325 mg Furosemide (Lasix) 20 mg PO DAILY [facility] Piperacillin Sod/Tazobactam Sod (Zosyn 2.25 Gm Iv Premix) 50 mls @ 100 mls/hr IVPB Q6H [facility] Metoprolol Tartrate (Lopressor) 25 mg PO BID [facility] Last Admin: 11/21/16 18:06 Dose: 25 mg Mirtazapine (Remeron) 15 mg PO HS [facility] Last Admin: 11/21/16 21:12 Dose: 15 mg Pantoprazole Sodium (Protonix Ec Tab) 40 mg PO DAILY [facility] Last Admin: 11/21/16 10:59 Dose: 40 mg Polyethylene Glycol (Miralax) 17 gm PO HS [facility] Silver Sulfadiazine (Silvadene 1% 20 Gm) 0 ea TOP DAILY [facility] Stop: 11/22/16 23:59 Last Admin: 11/21/16 11:00 Dose: 1 applic - Labs Labs: 11/21/16 14:20 11/22/16 07:03 PT 19.1 SECONDS (9.7-12.2) H 11/18/16 18:25 INR 1.7 02/23/17 18:25 APTT 25 SECONDS (21-34) 11/18/16 18:25 - Constitutional Appears: No Acute Distress - Head Exam Head Exam: ATRAUMATIC, NORMAL INSPECTION, NORMOCEPHALIC - Eye Exam Eye Exam: EOMI, Normal appearance, PERRL Pupil Exam: NORMAL ACCOMODATION, PERRL - ENT Exam ENT Exam: Mucous Membranes Moist, Normal Exam - Neck Exam Neck Exam: Full ROM, Normal Inspection. absent: Lymphadenopathy - Respiratory Exam Respiratory Exam: Clear to Ausculation Bilateral, NORMAL BREATHING PATTERN. absent: Wheezes - Cardiovascular Exam Cardiovascular Exam: REGULAR RHYTHM, RRR, +S1, +S2. absent: Murmur - Extremities Exam Extremities Exam: Full ROM, Normal Capillary Refill, Normal Inspection. absent : Joint Swelling, Pedal Edema - Back Exam Back Exam: NORMAL INSPECTION - Neurological Exam Neurological Exam: Alert, Awake, CN II-XII Intact, Normal Gait, Oriented x3 - Psychiatric Exam Psychiatric exam: Normal Affect, Normal Mood - Skin Skin Exam: Dry, Intact, Normal Color, Warm Assessment and Plan - Assessment and Plan (Free Text) Assessment: 85 F female PMH of HOCM, CHF, HTN, hyperlipidemia, AFib, breast cancer with mets? and pacemaker, who presents with confusion and lethargy found to be anemic Hb 6.3 s/p 2 units PRBC now hb 8.1, with possible pneumonia vs CHF. - F/u Echo today - Cont ABX - Zosyn - Hb 8.2 S/p 2 units PRBC - CXR - mod to severe pulm vasc congestion, mild- mod L pleural effusion and infiltrate - F/u CT chest awaiting official read - Cont Lasix 20mg PO and metoprolol 25mg PO BID - Metastatic dx f/u medical work up - GI/DVT ppx Case & plan was seen, reviewed, and discussed in detail with Dr Mendoza.
[2016-11-22] MEDS: Pantoprazole 40 mg EC Tab PO SCH (10:37)
--- NOTE | 2016-11-22 11:01 | CP.PCM.PN ---
Subjective - Date & Time of Evaluation Date of Evaluation: 11/22/16 Time of Evaluation: 08:20 - Subjective Subjective: Patient seen and examined. Lying comfortably in no acute distress " Afebrile awake Objective - Vital Signs/Intake and Output Vital Signs (last 24 hours): Temp Pulse Resp BP Pulse Ox 97.5 F L 60 20 93/53 L 100 11/22/16 07:15 11/22/16 07:15 11/22/16 07:15 11/22/16 07:15 11/22/16 07:15 Intake and Output: 11/22/16 11/22/16 06:59 18:59 Intake Total 210 Output Total 600 Balance -390 - Medications Medications: Current Medications Albuterol/Ipratropium (Duoneb 3 Mg/0.5 Mg (3 Ml) Ud) 3 ml INH RQID [facility] Last Admin: 11/22/16 07:27 Dose: 3 ml Ferrous Sulfate (Feosol) 325 mg PO DAILY [facility] Last Admin: 11/21/16 11:01 Dose: 325 mg Furosemide (Lasix) 20 mg PO DAILY [facility] Piperacillin Sod/Tazobactam Sod (Zosyn 2.25 Gm Iv Premix) 50 mls @ 100 mls/hr IVPB Q6H [facility] Metoprolol Tartrate (Lopressor) 25 mg PO BID [facility] Last Admin: 11/21/16 18:06 Dose: 25 mg Mirtazapine (Remeron) 15 mg PO HS [facility] Last Admin: 11/21/16 21:12 Dose: 15 mg Pantoprazole Sodium (Protonix Ec Tab) 40 mg PO DAILY [facility] Last Admin: 11/21/16 10:59 Dose: 40 mg Polyethylene Glycol (Miralax) 17 gm PO HS [facility] Silver Sulfadiazine (Silvadene 1% 20 Gm) 0 ea TOP DAILY [facility] Stop: 11/22/16 23:59 Last Admin: 11/21/16 11:00 Dose: 1 applic - Labs Labs: 11/21/16 14:20 11/22/16 07:03 PT 19.1 SECONDS (9.7-12.2) H 11/18/16 18:25 INR 1.7 11/18/16 18:25 APTT 25 SECONDS (21-34) 11/18/16 18:25 - Constitutional Appears: No Acute Distress - Head Exam Head Exam: ATRAUMATIC, NORMOCEPHALIC - Eye Exam Eye Exam: Normal appearance - Neck Exam Neck Exam: Normal Inspection - Respiratory Exam Respiratory Exam: Rales - Cardiovascular Exam Cardiovascular Exam: REGULAR RHYTHM - GI/Abdominal Exam GI & Abdominal Exam: Soft, Normal Bowel Sounds - Extremities Exam Extremities Exam: Normal Inspection - Neurological Exam Neurological Exam: Awake Assessment and Plan (1) Pneumonia Assessment & Plan: Continue Zosyn for now Chest x-ray Continue treatment for CHF Status: Acute (2) Congestive heart failure Status: Acute (3) Cardiomyopathy Status: Chronic
[2016-11-22] MEDS: Piperacill/Tazo 2.25gm in Dex 50 ML IVPB SCH ×3 (11:48→22:36)
[2016-11-22] MEDS: Silver Sulfadiazine 1% Cream (20 gm) TOP SCH (12:04)
--- NOTE | 2016-11-22 17:06 | CT ---
PROCEDURE: CT Chest without contrast HISTORY: lung mass COMPARISON: Comparison is made to the previous study dated 03/09/2016 TECHNIQUE: Contiguous axial images were obtained through the chest without intravenous contrast enhancement. Sagittal and coronal reconstructions were performed. Radiation dose (DLP): 391.04 mGy-cm. FINDINGS: LUNGS: Partial consolidation of the right lower lobe could be atelectasis due to pleural effusion. The possibility of pneumonia cannot be excluded. Small opacities at the left lower lobe. Moderate pulmonary vascular congestion. No evidence of suspicious mass in the upper lobes. MEDIASTINUM: The thoracic aorta is ectatic and tortuous. The heart is moderately enlarged. Main pulmonary artery is moderately to markedly enlarged. Mild mediastinal lymphadenopathy seen. PLEURA: Moderate right and small left pleural effusion BONES: Interval appearance of cortical defects in the mid and lower thoracic spine since the previous exam may represent degenerative changes. Other etiology is not totally excluded. UPPER ABDOMEN: Grossly unremarkable. OTHER FINDINGS: None. IMPRESSION: Cardiomegaly. [id number] right and small left pleural effusion. Right lower lobe airspace consolidation may represent atelectasis due to pleural effusion. Underline infiltrate or pneumonia is not totally excluded. Moderate pulmonary vascular congestion. Opacities at the left lower lobe likely scar tissue and atelectasis. Interval appearance of endplate irregularity and defects at the mid and lower thoracic spine vertebrae since the previous exam of uncertain etiology.
--- NOTE | 2016-11-22 18:42 | CP.PCM.CON ---
History of Present Illness - History of Present Illness History of Present Illness: 85-year-old female with history of hypertrophic cardiomyopathy, CHF, hypertension, atrial fibrillation, breast cancer with metastases, hyperlipidemia and pacemaker presented to emergency room with confusion, shortness of breath, fever and cough for the past few days. Family states that the patient has been losing weight in the last 6 months. Chest x-ray consistent with bilateral infiltrate. PMH:: As above PSH: Pericardial window 18 y/o for endocarditis?, Cholecystectomy Med: Refer to NOV ALL: NKA SH: Denies any smoking, alcohol, or drugs Review of Systems - Review of Systems All systems: reviewed and no additional remarkable complaints except - Constitutional Constitutional: absent: As Per HPI, Anorexia, Chills, Daytime Sleepiness, Excessive Sweating, Fatigue, Fever, Frequent Falls, Headache, Increased Appetite , Lethargy, Malaise, Night Sweats, Snoring, Sleep Apnea, Weight Gain, Weight Loss, Weakness, Other - EENT Eyes: absent: As Per HPI, Blind Spots, Blurred Vision, Change in Vision, Decreased Night Vision, Diplopia, Discharge, Dry Eye, Exophthalmos, Floaters, Irritation, Itchy Eyes, Loss of Peripheral Vision, Pain, Photophobia, Requires Corrective Lenses, Sees Flashes, Spots in Vision, Tunnel Vision, Other Visual Disturbances, Loss of Vision, Other Ears: absent: As Per HPI, Decreased Hearing, Ear Discharge, Ear Pain, Tinnitus, Abnormal Hearing, Disequilibrium, Dizziness, Other Nose/Mouth/Throat: absent: As Per HPI, Epistaxis, Nasal Congestion, Nasal Discharge, Nasal Obstruction, Nasal Trauma, Nose Pain, Post Nasal Drip, Sinus Pain, Sinus Pressure, Bleeding Gums, Change in Voice, Dental Pain, Dry Mouth, Dysphagia, Halitosis, Hoarsness, Lip Swelling, Mouth Lesions, Mouth Pain, Odynophagia, Sore Throat, Throat Swelling, Tongue Swelling, Facial Pain, Neck Pain, Neck Mass, Other - Breasts Breasts: absent: As Per HPI, Change in Shape, Mass, Pain, Nipple Discharge, Nipple Inversion, Skin Changes, Swelling, Other - Cardiovascular Cardiovascular: As Per HPI - Respiratory Respiratory: As Per HPI, Cough. absent: Hemoptysis - Gastrointestinal Gastrointestinal: absent: As Per HPI, Abdominal Pain, Belching, Bloating, Change in Bowel Habits, Change in Stool Character, Coffee Ground Emesis, Constipation, Cramping, Diarrhea, Dyspepsia, Dysphagia, Early Satiety, Excessive Flatus, Fecal Incontinence, Heartburn, Hematemesis, Hematochezia, Loose Stools, Melena, Nausea, Odynophagia, Temesmus, Vomiting, Other - Genitourinary Genitourinary: absent: As Per HPI, Change in Urinary Stream, Difficulty Urinating, Dysuria, Flank Pain, Hematuria, Pyuria, Nocturia, Urinary Incontinence, Urinary Frequency, Urinary Hesitance, Urinary Urgency, Voiding Freq/Small Amts, Freq UTI, Hx Renal/Bladder Calculi, Hx /Renal Surgery, Bladder Distension, Other - Reproductive: Female Reproductive:Female: absent: As Per HPI, Amenorrhea, Amenorrhea/ Control, Currently Menstual, Cycle <21 Days, Cycle >35 Days, Cycle Variable, Menses 1-7 Days, Menses >/= 8 Days, Menses Variable, Cycle > 4 Weeks Between, No Menses for 6 Months, Heavy Menses, Light Menses, Normal Menses, Spotting Between Cycles , S/P Hysterectomy, Menopausal, Post Menopausal, Premenarche, Abnormal Vaginal Bleeding, Dysmenorrhea, Dyspareunia, Genital Lesions, Genital Pruritis, Pelvic Pain, Prolapse Symptoms, Sexual Dysfunction, Vaginal Discharge, Vaginal Dryness , Vaginal Odor, Vaginal Pruritis, Other - Menstruation Menstruation: absent: As Per HPI, Amenorrhea, Amenorrhea/ Control, Currently Menstual, Cycle <21 Days, Cycle >35 Days, Cycle Variable, Menses 1-7 Days, Menses >/= 8 Days, Menses Variable, Cycle > 4 Weeks Between, No Menses for 6 Months, Heavy Menses, Light Menses, Normal Menses, Spotting Between Cycles , S/P Hysterectomy, Menopausal, Post Menopausal, Premenarche, Abnormal Vaginal Bleeding, Dysmenorrhea, Other - Musculoskeletal Musculoskeletal: absent: As Per HPI, Abnormal Gait, Arthralgias, Atrophy, Back Pain, Deformity, Joint Swelling, Limited Range of Motion, Loss of Height, Muscle Cramps, Muscle Weakness, Myalgias, Neck Pain, Numbness, Radiating Pain into Limb, Stiffness, Tingling, Other - Integumentary Integumentary: absent: As Per HPI, Acne, Alopecia, Bleeding Lesions, Change in Hair, Change in Nails, Change in Pigmentation, Changing Lesions, Dry Skin, Erythema, Furuncle, Hirsutism, Lesions, New Lesions, Non-Healing Lesions, Photosensitivity, Pruritus, Rash, Skin Pain, Skin Ulcer, Sores, Striae, Swelling , Unusual Bruising, Wounds, Jaundice, Other - Neurological Neurological: absent: As Per HPI, Abnormal Gait, Abnormal Hearing, Abnormal Movements, Abnormal Speech, Behavioral Changes, Burning Sensations, Confusion, Convulsions, Disequilibrium, Dizziness, Numbness, Focal Weakness, Frequent Falls , Headaches, Lack of Coordination, Loss of Vision, Memory Loss, Paresthesias, Radicular Pain, Restless Legs, Sensory Deficit, Syncope, Tingling, Tremor, Vertigo, Weakness, Other Visual Disturbances, Other - Psychiatric Psychiatric: absent: As Per HPI, Abnormal Sleep Pattern, Anhedonia, Anxiety, Auditory Hallucinations, Behavioral Changes, Change in Appetite, Change in Libido, Confusion, Depression, Difficulty Concentrating, Hallucinations, Homicidal Ideation, Hopelessness, Irritability, Memory Loss, Mood Swings, Panic Attacks, Paranoia, Suicidal Ideation, Visual Hallucinations, Tactile Hallucinations, Other - Endocrine Endocrine: absent: As Per HPI, Change in Body Appearance, Change in Libido, Cold Intolorance, Deepening of Voice, Excessive Sweating, Fatigue, Flushing, Heat Intolorance, Increase in Ring/Shoe/Hat Size, Palpitations, Polydipsia, Polyphagia, Polyuria, Other - Hematologic/Lymphatic Hematologic: absent: As Per HPI, Easy Bleeding, Easy Bruising, Lymphadenopathy, Other Past Patient History - Infectious Disease Hx of Infectious Diseases: None - Past Medical History & Family History Past Medical History?: Yes - Past Social History Smoking Status: Never Smoked Alcohol: None Drugs: Denies - CARDIAC Hx Atrial Fibrillation: Yes Hx Congestive Heart Failure: Yes ('fluid in lungs and heart years ago') Hx Hypertension: Yes - PULMONARY Hx Respiratory Disorders: No - NEUROLOGICAL Hx Neurological Disorder: Yes Hx Dizziness: Yes - HEENT Hx HEENT Problems: Yes Hx Cataracts: Yes (Had surgery) Other/Comment: uses reading glasses - RENAL Hx Chronic Kidney Disease: No - ENDOCRINE/METABOLIC Hx Endocrine Disorders: No - HEMATOLOGICAL/ONCOLOGICAL Hx Anemia: Yes - INTEGUMENTARY Hx Dermatological Problems: No - MUSCULOSKELETAL/RHEUMATOLOGICAL Hx Musculoskeletal Disorders: Yes Hx Falls: Yes - GASTROINTESTINAL Hx Gastritis: Yes - GENITOURINARY/GYNECOLOGICAL Hx Genitourinary Disorders: No - PSYCHIATRIC Hx Substance Use: No - SURGICAL HISTORY Hx Cholecystectomy: Yes - ANESTHESIA Hx Anesthesia: Yes Hx Anesthesia Reactions: No Hx Malignant Hyperthermia: No Meds Allergies/Adverse Reactions: Allergies Allergy/AdvReac Type Severity Reaction Status Date / Time No Known Allergies Allergy Verified 11/18/16 17:47 - Medications Medications: Current Medications Albuterol/Ipratropium (Duoneb 3 Mg/0.5 Mg (3 Ml) Ud) 3 ml INH RQID [facility] Last Admin: 11/22/16 16:23 Dose: 3 ml Ferrous Sulfate (Feosol) 325 mg PO DAILY [facility] Last Admin: 11/22/16 10:37 Dose: 325 mg Furosemide (Lasix) 20 mg PO DAILY [facility] Last Admin: 11/22/16 10:38 Dose: Not Given Piperacillin Sod/Tazobactam Sod (Zosyn 2.25 Gm Iv Premix) 50 mls @ 100 mls/hr IVPB Q6H [facility] Last Admin: 11/22/16 17:00 Dose: 100 mls/hr Metoprolol Tartrate (Lopressor) 25 mg PO BID [facility] Last Admin: 11/22/16 17:58 Dose: Not Given Mirtazapine (Remeron) 15 mg PO HS [facility] Last Admin: 11/21/16 21:12 Dose: 15 mg Pantoprazole Sodium (Protonix Ec Tab) 40 mg PO DAILY [facility] Last Admin: 11/22/16 10:37 Dose: 40 mg Polyethylene Glycol (Miralax) 17 gm PO HS [facility] Silver Sulfadiazine (Silvadene 1% 20 Gm) 0 ea TOP DAILY [facility] Stop: 11/22/16 23:59 Last Admin: 11/22/16 12:04 Dose: 1 applic Physical Exam - Constitutional Appears: Non-toxic, Cachectic, Chronically Ill - Head Exam Head Exam: ATRAUMATIC, NORMAL INSPECTION, NORMOCEPHALIC - Eye Exam Eye Exam: EOMI, PERRL. absent: Scleral icterus - ENT Exam ENT Exam: Mucous Membranes Dry, Normal External Ear Exam, Normal Oropharynx - Neck Exam Neck exam: Negative for: Lymphadenopathy, Thyromegaly - Respiratory Exam Respiratory Exam: Decreased Breath Sounds, Rhonchi - Cardiovascular Exam Cardiovascular Exam: REGULAR RHYTHM, +S1, +S2 - GI/Abdominal Exam GI & Abdominal Exam: Diminished Bowel Sounds, Soft. absent: Tenderness - Rectal Exam Rectal Exam: Deferred - Exam Exam: NORMAL INSPECTION - Extremities Exam Extremities exam: Negative for: calf tenderness, pedal edema - Back Exam Back exam: absent: CVA tenderness (L), CVA tenderness (R) - Neurological Exam Neurological exam: Alert, CN II-XII Intact, Oriented x3 - Psychiatric Exam Psychiatric exam: Normal Mood - Skin Skin Exam: Dry Results - Vital Signs Recent Vital Signs: Last Vital Signs Temp 98.3 F 11/22/16 15:49 Pulse 72 11/22/16 16:00 Resp 20 11/22/16 15:49 BP 122/66 11/22/16 15:49 Pulse Ox 99 11/22/16 15:49 - Labs Result Diagrams: 11/21/16 14:20 11/22/16 07:03 Labs: Laboratory Results - last 24 hr 11/22/16 07:03 Sodium 135 Potassium 3.9 Chloride 99 Carbon Dioxide 28 Anion Gap 12 BUN 20 H Creatinine 1.1 Est GFR ( Amer) 57 Est GFR (Non-Af Amer) 47 Random Glucose 80 Calcium 8.6 Total Bilirubin 0.6 AST 40 H D ALT 40 Alkaline Phosphatase 43 NT-Pro-B Natriuret Pep 50949 H Total Protein 5.8 L Albumin 2.2 L Globulin 3.5 Albumin/Globulin Ratio 0.6 L Assessment & Plan (1) Anemia Status: Acute (2) Bacterial pneumonia Status: Acute (3) Congestive heart failure Status: Acute (4) Pneumonia Status: Acute (5) Sepsis Status: Acute (6) 2Nd degree AV block Status: Acute - Assessment and Plan (Free Text) Assessment: 2/2 SETS + FOR COCCI WILL LIKELY NEED AMNA DR PIRES TO EVALUATE
--- NOTE | 2016-11-22 22:07 | CP.PCM.PN ---
Subjective - Date & Time of Evaluation Date of Evaluation: 11/22/16 Time of Evaluation: 18:00 - Subjective Subjective: Patient seen and evaluated No cardiac events noted Objective - Vital Signs/Intake and Output Vital Signs (last 24 hours): Temp Pulse Resp BP Pulse Ox 98.3 F 72 20 122/66 99 11/22/16 15:49 11/22/16 16:00 11/22/16 15:49 11/22/16 15:49 11/22/16 15:49 Intake and Output: 11/22/16 11/23/16 18:59 06:59 Output Total 400 Balance -400 - Medications Medications: Current Medications Albuterol/Ipratropium (Duoneb 3 Mg/0.5 Mg (3 Ml) Ud) 3 ml INH RQID [facility] Last Admin: 11/22/16 21:51 Dose: Not Given Ferrous Sulfate (Feosol) 325 mg PO DAILY [facility] Last Admin: 11/22/16 10:37 Dose: 325 mg Furosemide (Lasix) 20 mg PO DAILY [facility] Last Admin: 11/22/16 10:38 Dose: Not Given Piperacillin Sod/Tazobactam Sod (Zosyn 2.25 Gm Iv Premix) 50 mls @ 100 mls/hr IVPB Q6H [facility] Last Admin: 11/22/16 17:00 Dose: 100 mls/hr Vancomycin HCl 1,000 mg/ (Sodium Chloride) 250 mls @ 166.667 mls/hr IVPB Q12H [facility] Last Admin: 11/22/16 20:24 Dose: 166.667 mls/hr Metoprolol Tartrate (Lopressor) 25 mg PO BID [facility] Last Admin: 11/22/16 17:58 Dose: Not Given Mirtazapine (Remeron) 15 mg PO HS [facility] Last Admin: 11/21/16 21:12 Dose: 15 mg Pantoprazole Sodium (Protonix Ec Tab) 40 mg PO DAILY [facility] Last Admin: 11/22/16 10:37 Dose: 40 mg Polyethylene Glycol (Miralax) 17 gm PO HS [facility] Silver Sulfadiazine (Silvadene 1% 20 Gm) 0 ea TOP DAILY [facility] Stop: 11/22/16 23:59 Last Admin: 11/22/16 12:04 Dose: 1 applic - Labs Labs: 11/21/16 14:20 11/22/16 07:03 PT 19.1 SECONDS (9.7-12.2) H 11/18/16 18:25 INR 1.7 11/18/16 18:25 APTT 25 SECONDS (21-34) 11/18/16 18:25
[2016-11-22] MEDS: POLYETHYLENE GLYCOL 3350 17 GM/Dose PACKET PO SCH (22:36)
[2016-11-23] MEDS: Piperacill/Tazo 2.25gm in Dex 50 ML IVPB SCH ×4 (06:47→22:18)
[2016-11-23 07:17] LABS: HEMATOCRIT 26.8 % (34.0-47.0); MEAN CORPUSCULAR HEMOGLOBIN 27.4 pg (27.0-31.0); MEAN CORPUSCULAR HGB CONC 33.8 g/dL (33.0-37.0); MEAN PLATELET VOLUME 8.1 fL (7.2-11.7); RED CELL DISTRIBUTION WIDTH 19.8 % (11.5-14.5); WHITE BLOOD COUNT 8.7 K/uL (4.8-10.8)
[2016-11-23] MEDS: Albuterol-Ipratrop 3 mg / 0.5 (3 ml) UD INH SCH ×4 (08:02→20:10)
[2016-11-23 08:10] LABS: CHLORIDE 101 mmol/L (98-107); POTASSIUM 3.8 mmol/L (3.6-5.2); SODIUM 137 mmol/L (132-148)
[2016-11-23 08:13] LABS: BLOOD UREA NITROGEN 14 mg/dL (7-17); CARBON DIOXIDE 26 mmol/L (22-30); GFR AFRICAN-AMERICAN > 60; GLUCOSE,RANDOM 83 mg/dL (65-105)
[2016-11-23 08:14] LABS: CALCIUM 8.7 mg/dl (8.6-10.4)
--- NOTE | 2016-11-23 09:06 | CP.PCM.PN ---
Subjective - Date & Time of Evaluation Date of Evaluation: 11/23/16 Time of Evaluation: 08:40 - Subjective Subjective: Pt seem weaker today; no SOB, no n/v, no diarrhea ID note reviewed and appreciate inc 9.1 Objective - Vital Signs/Intake and Output Vital Signs (last 24 hours): Temp Pulse Resp BP Pulse Ox 98.0 F 83 18 107/48 L 98 11/23/16 07:17 11/23/16 07:17 11/23/16 07:17 11/23/16 07:17 11/23/16 07:17 Intake and Output: 11/23/16 11/23/16 06:59 18:59 Intake Total 250 Output Total 800 Balance -550 - Medications Medications: Current Medications Albuterol/Ipratropium (Duoneb 3 Mg/0.5 Mg (3 Ml) Ud) 3 ml INH RQID [facility] Last Admin: 11/23/16 08:02 Dose: 3 ml Ferrous Sulfate (Feosol) 325 mg PO DAILY [facility] Last Admin: 11/22/16 10:37 Dose: 325 mg Furosemide (Lasix) 20 mg PO DAILY [facility] Last Admin: 11/22/16 10:38 Dose: Not Given Piperacillin Sod/Tazobactam Sod (Zosyn 2.25 Gm Iv Premix) 50 mls @ 100 mls/hr IVPB Q6H [facility] Last Admin: 11/23/16 06:47 Dose: 100 mls/hr Vancomycin HCl 1,000 mg/ (Sodium Chloride) 250 mls @ 166.667 mls/hr IVPB Q12H [facility] Last Admin: 11/23/16 07:31 Dose: 166.667 mls/hr Metoprolol Tartrate (Lopressor) 25 mg PO BID [facility] Last Admin: 11/22/16 17:58 Dose: Not Given Mirtazapine (Remeron) 15 mg PO HS [facility] Last Admin: 11/22/16 22:36 Dose: 15 mg Pantoprazole Sodium (Protonix Ec Tab) 40 mg PO DAILY [facility] Last Admin: 11/22/16 10:37 Dose: 40 mg Polyethylene Glycol (Miralax) 17 gm PO HS [facility] Last Admin: 11/22/16 22:36 Dose: 17 gm - Labs Labs: 11/23/16 07:11 11/23/16 07:11 PT 19.1 SECONDS (9.7-12.2) H 11/18/16 18:25 INR 1.7 11/18/16 18:25 APTT 25 SECONDS (21-34) 11/18/16 18:25 - Constitutional Appears: No Acute Distress - Eye Exam Eye Exam: Normal appearance - ENT Exam ENT Exam: Mucous Membranes Moist - Neck Exam Neck Exam: Full ROM. absent: Lymphadenopathy, Thyromegaly - Respiratory Exam Respiratory Exam: Decreased Breath Sounds, Rhonchi. absent: Rales, Wheezes - Cardiovascular Exam Cardiovascular Exam: Irregular Rhythm, +S1, +S2, Murmur - GI/Abdominal Exam GI & Abdominal Exam: Soft. absent: Tenderness, Mass - Extremities Exam Extremities Exam: Full ROM, Normal Capillary Refill. absent: Calf Tenderness, Joint Swelling, Pedal Edema Assessment and Plan - Assessment and Plan (Free Text) Assessment: Sepsis; Pneumonia Hypertrophic Cardiomyopathy Cont meds/ supportive care Await ID of Gm ( On Vanco & Zosukhiyn)
--- NOTE | 2016-11-23 10:16 | CP.PCM.PN ---
Subjective - Date & Time of Evaluation Date of Evaluation: 11/23/16 Time of Evaluation: 08:40 - Subjective Subjective: Progress note for Dr Mendoza: Pt seen and examined at bedside. No acute events overnight. Pt denies any chest pain or sob at this time. Denies any headaches, dizziness, f/c, sob, cp, palpitations, n/v, abd pain, bm or urinary changes. Objective - Vital Signs/Intake and Output Vital Signs (last 24 hours): Temp Pulse Resp BP Pulse Ox 98.0 F 83 18 107/48 L 98 11/23/16 07:17 11/23/16 07:17 11/23/16 07:17 11/23/16 07:17 11/23/16 07:17 Intake and Output: 11/23/16 11/23/16 06:59 18:59 Intake Total 250 Output Total 800 Balance -550 - Medications Medications: Current Medications Albuterol/Ipratropium (Duoneb 3 Mg/0.5 Mg (3 Ml) Ud) 3 ml INH RQID [facility] Last Admin: 11/23/16 08:02 Dose: 3 ml Ferrous Sulfate (Feosol) 325 mg PO DAILY [facility] Last Admin: 11/22/16 10:37 Dose: 325 mg Furosemide (Lasix) 20 mg PO DAILY [facility] Last Admin: 11/22/16 10:38 Dose: Not Given Piperacillin Sod/Tazobactam Sod (Zosyn 2.25 Gm Iv Premix) 50 mls @ 100 mls/hr IVPB Q6H [facility] Last Admin: 11/23/16 06:47 Dose: 100 mls/hr Vancomycin HCl 1,000 mg/ (Sodium Chloride) 250 mls @ 166.667 mls/hr IVPB Q12H [facility] Last Admin: 11/23/16 07:31 Dose: 166.667 mls/hr Metoprolol Tartrate (Lopressor) 25 mg PO BID [facility] Last Admin: 11/22/16 17:58 Dose: Not Given Mirtazapine (Remeron) 15 mg PO [facility] Last Admin: 11/22/16 22:36 Dose: 15 mg Pantoprazole Sodium (Protonix Ec Tab) 40 mg PO DAILY [facility] Last Admin: 11/22/16 10:37 Dose: 40 mg Polyethylene Glycol (Miralax) 17 gm PO [facility] Last Admin: 11/22/16 22:36 Dose: 17 gm - Labs Labs: 11/23/16 07:11 11/23/16 07:11 PT 19.1 SECONDS (9.7-12.2) H 11/18/16 18:25 INR 1.7 11/18/16 18:25 APTT 25 SECONDS (21-34) 11/18/16 18:25 - Constitutional Appears: No Acute Distress - Head Exam Head Exam: ATRAUMATIC, NORMAL INSPECTION, NORMOCEPHALIC - Eye Exam Eye Exam: EOMI, Normal appearance, PERRL - ENT Exam ENT Exam: Mucous Membranes Moist, Normal Exam - Neck Exam Neck Exam: Full ROM, Normal Inspection. absent: Lymphadenopathy - Respiratory Exam Respiratory Exam: Clear to Ausculation Bilateral, NORMAL BREATHING PATTERN. absent: Wheezes - Cardiovascular Exam Cardiovascular Exam: REGULAR RHYTHM, RRR, +S1, +S2. absent: Murmur - GI/Abdominal Exam GI & Abdominal Exam: Soft, Normal Bowel Sounds. absent: Distended, Tenderness - Extremities Exam Extremities Exam: Full ROM, Normal Capillary Refill, Normal Inspection. absent : Joint Swelling, Pedal Edema - Back Exam Back Exam: NORMAL INSPECTION - Neurological Exam Neurological Exam: Alert, Awake, CN II-XII Intact, Normal Gait, Oriented x3 - Psychiatric Exam Psychiatric exam: Normal Affect, Normal Mood - Skin Skin Exam: Dry, Intact, Normal Color, Warm Assessment and Plan - Assessment and Plan (Free Text) Assessment: 85 F female PMH of HOCM, CHF, HTN, hyperlipidemia, AFib, breast cancer with mets? and pacemaker, who presents with confusion and lethargy found to be anemic Hb 6.3 s/p 2 units PRBC now hb 8.1, with possible pneumonia vs CHF. - Echo done EF 77% f/u read - CT chest - cardiomegally, mod - large R and small L pleural effusion, RLL airspace consolidation may represent atelectasis, underlying pneumonia non excluded mod pul congestion. - Cont ABX - Vanc and Zosyn - Cont Duoneb - H/H stable - CXR - mod to severe pulm vasc congestion, mild- mod L pleural effusion and infiltrate - F/u CT chest awaiting official read - Cont Lasix 20mg PO and metoprolol 25mg PO BID - Metastatic dx f/u medical work up - GI/DVT ppx Case & plan was seen, reviewed, and discussed in detail with Dr Mendoza.
[2016-11-23] MEDS: Pantoprazole 40 mg EC Tab PO SCH (10:24)
[2016-11-23] MEDS ORDERED: Silver Sulfadiazine 1% Cream (20 gm) TOP SCH (10:30)
--- NOTE | 2016-11-23 12:12 | CP.PCM.PN ---
Subjective - Date & Time of Evaluation Date of Evaluation: 11/23/16 Time of Evaluation: 11:00 - Subjective Subjective: Patient was seen and evaluated at bedside. Patient is in no acute distress. Afebrile, cooperative Objective - Vital Signs/Intake and Output Vital Signs (last 24 hours): Temp Pulse Resp BP Pulse Ox 98.0 F 83 18 104/35 L 98 11/23/16 07:17 11/23/16 07:17 11/23/16 07:17 11/23/16 10:23 11/23/16 07:17 Intake and Output: 11/23/16 11/23/16 06:59 18:59 Intake Total 250 Output Total 800 Balance -550 - Medications Medications: Current Medications Albuterol/Ipratropium (Duoneb 3 Mg/0.5 Mg (3 Ml) Ud) 3 ml INH RQID [facility] Last Admin: 11/23/16 11:23 Dose: 3 ml Ferrous Sulfate (Feosol) 325 mg PO DAILY [facility] Last Admin: 11/23/16 10:22 Dose: 325 mg Furosemide (Lasix) 20 mg PO DAILY [facility] Last Admin: 11/23/16 10:23 Dose: 20 mg Piperacillin Sod/Tazobactam Sod (Zosyn 2.25 Gm Iv Premix) 50 mls @ 100 mls/hr IVPB Q6H [facility] Last Admin: 11/23/16 10:24 Dose: 100 mls/hr Vancomycin HCl 1,000 mg/ (Sodium Chloride) 250 mls @ 166.667 mls/hr IVPB Q12H [facility] Last Admin: 11/23/16 07:31 Dose: 166.667 mls/hr Metoprolol Tartrate (Lopressor) 25 mg PO BID [facility] Last Admin: 11/23/16 10:23 Dose: 25 mg Mirtazapine (Remeron) 15 mg PO HS [facility] Last Admin: 11/22/16 22:36 Dose: 15 mg Pantoprazole Sodium (Protonix Ec Tab) 40 mg PO DAILY [facility] Last Admin: 11/23/16 10:24 Dose: 40 mg Polyethylene Glycol (Miralax) 17 gm PO HS [facility] Last Admin: 11/22/16 22:36 Dose: 17 gm Silver Sulfadiazine (Silvadene 1% 20 Gm) 1 ea TOP DAILY [facility] Last Admin: 11/23/16 11:18 Dose: 20 gm - Labs Labs: 11/23/16 07:11 11/23/16 07:11 PT 19.1 SECONDS (9.7-12.2) H 11/18/16 18:25 INR 1.7 11/18/16 18:25 APTT 25 SECONDS (21-34) 11/18/16 18:25 - Constitutional Appears: Confused - Head Exam Head Exam: NORMAL INSPECTION - Eye Exam Eye Exam: Normal appearance - ENT Exam ENT Exam: Mucous Membranes Moist - Respiratory Exam Respiratory Exam: Rales - Cardiovascular Exam Cardiovascular Exam: REGULAR RHYTHM - Neurological Exam Neurological Exam: Awake Assessment and Plan (1) Pneumonia Assessment & Plan: Continue Zosyn Chest x-ray Continue treatment for CHF Status: Acute (2) Congestive heart failure Status: Acute (3) Cardiomyopathy Status: Chronic
--- NOTE | 2016-11-23 12:18 | CP.PCM.PN ---
Subjective - Date & Time of Evaluation Date of Evaluation: 11/23/16 Time of Evaluation: 08:00 - Subjective Subjective: blood + strep viridens needs AMNA r/o endocarditis Objective - Vital Signs/Intake and Output Vital Signs (last 24 hours): Temp Pulse Resp BP Pulse Ox 98.0 F 83 18 104/35 L 98 11/23/16 07:17 11/23/16 07:17 11/23/16 07:17 11/23/16 10:23 11/23/16 07:17 Intake and Output: 11/23/16 11/23/16 06:59 18:59 Intake Total 250 Output Total 800 Balance -550 - Medications Medications: Current Medications Albuterol/Ipratropium (Duoneb 3 Mg/0.5 Mg (3 Ml) Ud) 3 ml INH RQID [facility] Last Admin: 11/23/16 11:23 Dose: 3 ml Ferrous Sulfate (Feosol) 325 mg PO DAILY [facility] Last Admin: 11/23/16 10:22 Dose: 325 mg Furosemide (Lasix) 20 mg PO DAILY [facility] Last Admin: 11/23/16 10:23 Dose: 20 mg Piperacillin Sod/Tazobactam Sod (Zosyn 2.25 Gm Iv Premix) 50 mls @ 100 mls/hr IVPB Q6H [facility] Last Admin: 11/23/16 10:24 Dose: 100 mls/hr Vancomycin HCl 1,000 mg/ (Sodium Chloride) 250 mls @ 166.667 mls/hr IVPB Q12H [facility] Last Admin: 11/23/16 07:31 Dose: 166.667 mls/hr Metoprolol Tartrate (Lopressor) 25 mg PO BID [facility] Last Admin: 11/23/16 10:23 Dose: 25 mg Mirtazapine (Remeron) 15 mg PO HS [facility] Last Admin: 11/22/16 22:36 Dose: 15 mg Pantoprazole Sodium (Protonix Ec Tab) 40 mg PO DAILY [facility] Last Admin: 11/23/16 10:24 Dose: 40 mg Polyethylene Glycol (Miralax) 17 gm PO HS [facility] Last Admin: 11/22/16 22:36 Dose: 17 gm Silver Sulfadiazine (Silvadene 1% 20 Gm) 1 ea TOP DAILY [facility] Last Admin: 11/23/16 11:18 Dose: 20 gm - Labs Labs: 11/23/16 07:11 11/23/16 07:11 PT 19.1 SECONDS (9.7-12.2) H 11/18/16 18:25 INR 1.7 11/18/16 18:25 APTT 25 SECONDS (21-34) 11/18/16 18:25 - Constitutional Appears: Non-toxic, Cachectic, Chronically Ill - Head Exam Head Exam: NORMOCEPHALIC - Eye Exam Eye Exam: absent: Scleral icterus - ENT Exam ENT Exam: Mucous Membranes Dry - Neck Exam Neck Exam: absent: Lymphadenopathy - Respiratory Exam Respiratory Exam: Decreased Breath Sounds, Clear to Ausculation Bilateral - Cardiovascular Exam Cardiovascular Exam: REGULAR RHYTHM, +S1, +S2 - GI/Abdominal Exam GI & Abdominal Exam: Distended, Soft - Rectal Exam Rectal Exam: Deferred - Exam Exam: NORMAL INSPECTION Assessment and Plan (1) Anemia Status: Acute (2) Bacterial pneumonia Status: Acute (3) Congestive heart failure Status: Acute (4) Pneumonia Status: Acute (5) Sepsis Status: Acute (6) 2Nd degree AV block Status: Acute
[2016-11-23] MEDS: POLYETHYLENE GLYCOL 3350 17 GM/Dose PACKET PO SCH (22:16)
--- NOTE | 2016-11-23 22:25 | CP.PCM.PN ---
Subjective - Date & Time of Evaluation Date of Evaluation: 11/23/16 Time of Evaluation: 17:00 - Subjective Subjective: Patient seen and evaluated Feels better Positive blood culture. Strep Viridans ID recommends AMNA Scheduled for tomorrow Objective - Vital Signs/Intake and Output Vital Signs (last 24 hours): Temp Pulse Resp BP Pulse Ox 97.9 F 80 20 113/57 L 99 11/23/16 17:30 11/23/16 17:30 11/23/16 17:30 11/23/16 17:30 11/23/16 17:30 Intake and Output: 11/23/16 11/24/16 18:59 06:59 Intake Total 280 Output Total 320 Balance -40 - Medications Medications: Current Medications Albuterol/Ipratropium (Duoneb 3 Mg/0.5 Mg (3 Ml) Ud) 3 ml INH RQID [facility] Last Admin: 11/23/16 20:10 Dose: 3 ml Ferrous Sulfate (Feosol) 325 mg PO DAILY [facility] Last Admin: 11/23/16 10:22 Dose: 325 mg Furosemide (Lasix) 20 mg PO DAILY [facility] Last Admin: 11/23/16 10:23 Dose: 20 mg Piperacillin Sod/Tazobactam Sod (Zosyn 2.25 Gm Iv Premix) 50 mls @ 100 mls/hr IVPB Q6H [facility] Last Admin: 11/23/16 22:18 Dose: 100 mls/hr Metoprolol Tartrate (Lopressor) 25 mg PO BID [facility] Last Admin: 11/23/16 17:24 Dose: Not Given Mirtazapine (Remeron) 15 mg PO HS [facility] Last Admin: 11/23/16 22:17 Dose: 15 mg Pantoprazole Sodium (Protonix Ec Tab) 40 mg PO DAILY [facility] Last Admin: 11/23/16 10:24 Dose: 40 mg Polyethylene Glycol (Miralax) 17 gm PO HS [facility] Last Admin: 11/23/16 22:16 Dose: 17 gm Silver Sulfadiazine (Silvadene 1% 20 Gm) 1 ea TOP DAILY [facility] Last Admin: 11/23/16 11:18 Dose: 20 gm - Labs Labs: 11/23/16 07:11 11/23/16 07:11 PT 19.1 SECONDS (9.7-12.2) H 11/18/16 18:25 INR 1.7 11/18/16 18:25 APTT 25 SECONDS (21-34) 11/18/16 18:25
[2016-11-24] MEDS: Piperacill/Tazo 2.25gm in Dex 50 ML IVPB SCH ×4 (05:42→22:39)
[2016-11-24 07:27] LABS: INR 1.3
[2016-11-24 07:31] LABS: HEMATOCRIT 25.5 % (34.0-47.0); MEAN CELL VOLUME 81.9 fL (81.0-99.0); MEAN CORPUSCULAR HEMOGLOBIN 27.3 pg (27.0-31.0); MEAN CORPUSCULAR HGB CONC 33.3 g/dL (33.0-37.0); MEAN PLATELET VOLUME 8.7 fL (7.2-11.7); RED CELL DISTRIBUTION WIDTH 20.7 % (11.5-14.5); WHITE BLOOD COUNT 7.4 K/uL (4.8-10.8)
[2016-11-24 07:49] LABS: CHLORIDE 100 mmol/L (98-107); POTASSIUM 3.7 mmol/L (3.6-5.2); SODIUM 137 mmol/L (132-148)
[2016-11-24] MEDS: Albuterol-Ipratrop 3 mg / 0.5 (3 ml) UD INH SCH ×4 (07:49→19:48)
[2016-11-24 07:51] LABS: BLOOD UREA NITROGEN 12 mg/dL (7-17); CARBON DIOXIDE 28 mmol/L (22-30); GFR AFRICAN-AMERICAN > 60
[2016-11-24 07:52] LABS: CALCIUM 8.5 mg/dl (8.6-10.4); GLUCOSE,RANDOM 80 mg/dL (65-105)
--- NOTE | 2016-11-24 08:34 | CP.PCM.PN ---
Subjective - Date & Time of Evaluation Date of Evaluation: 11/24/16 Time of Evaluation: 08:05 - Subjective Subjective: Patient no complain; remains weak but answer simple question States she is alright. No CP, no SOB, no abd pain, no n/V (+) very min cough; no dysuria, (+) incontinent Objective - Vital Signs/Intake and Output Vital Signs (last 24 hours): Temp Pulse Resp BP Pulse Ox 98.7 F 76 18 119/62 99 11/24/16 07:05 11/24/16 07:05 11/24/16 07:05 11/24/16 08:19 11/24/16 07:05 Intake and Output: 11/24/16 11/24/16 06:59 18:59 Output Total 400 Balance -400 - Medications Medications: Current Medications Albuterol/Ipratropium (Duoneb 3 Mg/0.5 Mg (3 Ml) Ud) 3 ml INH RQID [facility] Last Admin: 11/24/16 07:49 Dose: 3 ml Ferrous Sulfate (Feosol) 325 mg PO DAILY [facility] Last Admin: 11/23/16 10:22 Dose: 325 mg Furosemide (Lasix) 20 mg PO DAILY [facility] Last Admin: 11/23/16 10:23 Dose: 20 mg Piperacillin Sod/Tazobactam Sod (Zosyn 2.25 Gm Iv Premix) 50 mls @ 100 mls/hr IVPB Q6H [facility] Last Admin: 11/24/16 05:42 Dose: 100 mls/hr Metoprolol Tartrate (Lopressor) 25 mg PO BID [facility] Last Admin: 11/24/16 08:19 Dose: 25 mg Mirtazapine (Remeron) 15 mg PO HS [facility] Last Admin: 11/23/16 22:17 Dose: 15 mg Pantoprazole Sodium (Protonix Ec Tab) 40 mg PO DAILY [facility] Last Admin: 11/23/16 10:24 Dose: 40 mg Polyethylene Glycol (Miralax) 17 gm PO HS [facility] Last Admin: 11/23/16 22:16 Dose: 17 gm Silver Sulfadiazine (Silvadene 1% 20 Gm) 1 ea TOP DAILY [facility] Last Admin: 11/23/16 11:18 Dose: 20 gm - Labs Labs: 11/24/16 07:15 11/24/16 07:15 PT 14.2 SECONDS (9.7-12.2) H 11/24/16 07:15 INR 1.3 11/24/16 07:15 APTT 25 SECONDS (21-34) 11/18/16 18:25 - Constitutional Appears: No Acute Distress - Eye Exam Eye Exam: Normal appearance - ENT Exam ENT Exam: Mucous Membranes Moist - Neck Exam Neck Exam: Full ROM. absent: Lymphadenopathy, Normal Inspection, Thyromegaly - Respiratory Exam Respiratory Exam: Decreased Breath Sounds, Rhonchi. absent: Rales, Wheezes - Cardiovascular Exam Cardiovascular Exam: Irregular Rhythm, +S1, +S2, Murmur. absent: Gallop, JVD - GI/Abdominal Exam GI & Abdominal Exam: Soft. absent: Tenderness, Mass - Extremities Exam Extremities Exam: Full ROM, Normal Capillary Refill. absent: Calf Tenderness, Joint Swelling, Pedal Edema Assessment and Plan - Assessment and Plan (Free Text) Assessment: Strep viridan Sepsis Pneumonia Cardiomyopathy w/ CHD; Gen Debility Sacral decubitus for AMNA Cont antibiotic/ neb Tx Cont meds/ supportive care
--- NOTE | 2016-11-24 08:48 | CARD ---
APPROVED REPORT EXAM: Two-dimensional and M-mode echocardiogram with Doppler and color Doppler. Other Information Quality : GoodRhythm : NSR INDICATION Fatigue Atrial Fibrillation HYPERTHROPHY CARDIOMYOPATHY Surgery/Intervention Pacemaker: M-Mode DIMENSIONS RVDd2.05 (2.1-3.2cm)Left Atrium (MM)5.59 (2.5-4.0cm) IVSd1.63 (0.7-1.1cm)Aortic Root2.53 (2.2-3.7cm) LVDd4.30 (4.0-5.6cm)Aortic Cusp Exc.1.98 (1.5-2.0cm) PWd1.18 (0.7-1.1cm)FS (%) 45 % LVDs2.36 (2.0-3.8cm)LVEF (%)77 (>50%) Aortic Valve AoV Peak Iihawquq167.9cm/Amna Peak GR.167mmHgLVOT Peak Owlcjcbc879.1cm/s Mitral Valve MV E Srtpofoy279.5cm/sMV A Wshviydf781.9cm/sE/A ratio1.2 TDI E/Lateral E'0.0E/Medial E'0.0 Tricuspid Valve TR Peak Pnlglkpm381ax/sTR Peak Gr.[id number] LEFT VENTRICLE The left ventricle is normal size. There is mild to moderate concentric left ventricular hypertrophy. LV UNDERFILLED WITH COMPLETE COLLAPSE EF = 70-75% The left ventricular function is normal. The left ventricular ejection fraction is within the normal range. There is normal LV segmental wall motion. Transmitral Doppler flow pattern is Grade II-pseudonormal filling dynamics. RIGHT VENTRICLE The right ventricle is normal size. There is normal right ventricular wall thickness. The right ventricular systolic function is normal. DUAL CHAMBER DEVICE LEADS NOTED IN RA AND RV ATRIA The left atrium is severely dilated. The right atrium is MILD TO MOD dilated. The interatrial septum is intact with no evidence for an atrial septal defect. AORTIC VALVE The aortic valve is normal in structure AND FUNCTION. TRILEAFLET No aortic regurgitation is present. There is no aortic valvular stenosis. THERE IS TURBULENT FLOW IN LVOT WITH ELEVATED VELOCITIES HOWEVER NO STEP UP IN GRADIENT THROUGHOUT THE LVOT OR AV. MITRAL VALVE The mitral valve is thickened but opens well. the MV annulous is dilated with poor cusp coaptation and torrential MR. The LV is underfilled leading to late systolic proximity to the anterior MV leaflet, however there is no evidence of early systolic outflow obstruction from MV in outflow tract. NO HOCM THERE IS TURBULENT FLOW IN LVOT WITH ELEVATED VELOCITIES HOWEVER NO STEP UP IN GRADIENT THROUGHOUT THE LVOT OR AV. There is no evidence of mitral valve prolapse. There is no mitral valve stenosis. TRICUSPID VALVE The tricuspid valve is normal in structure. There is mild tricuspid regurgitation. There is moderate pulmonary hypertension. PAP 50-60 PULMONIC VALVE The pulmonary valve is normal in structure. There is trace pulmonic valvular regurgitation. There is no pulmonic valvular stenosis. GREAT VESSELS The aortic root is normal in size. The pulmonary artery is normal. The IVC is normal in size and collapses >50% with inspiration. PERICARDIAL EFFUSION There is no pericardial effusion. <Conclusion> EF = 70-75% There is mild to moderate concentric left ventricular hypertrophy. LV UNDERFILLED WITH COMPLETE COLLAPSE Transmitral Doppler flow pattern is Grade II-pseudonormal filling dynamics. The left atrium is severely dilated. The right atrium is MILD TO MOD dilated. The mitral valve is thickened but opens well. the MV annulous is dilated with poor cusp coaptation and torrential MR. The LV is underfilled leading to late systolic proximity to the anterior MV leaflet, however there is no evidence of early systolic outflow obstruction from MV in outflow tract. NO HOCM The aortic valve is normal in structure AND FUNCTION. TRILEAFLET THERE IS TURBULENT FLOW IN LVOT WITH ELEVATED VELOCITIES HOWEVER NO STEP UP IN GRADIENT THROUGHOUT THE LVOT OR AV. There is mild tricuspid regurgitation. There is moderate pulmonary hypertension. PAP 50-60
--- NOTE | 2016-11-24 10:23 | CP.PCM.PN ---
Subjective - Date & Time of Evaluation Date of Evaluation: 11/24/16 Time of Evaluation: 08:40 - Subjective Subjective: Progress note for Dr Mendoza: Pt seen and examined at bedside. No acute events overnight. Pt denies any chest pain or sob. NPO after midnight plan. Plan for AMNA for positive blood cx with strep viridins. Denies any headaches, dizziness, f/c, sob, cp, palpitations, n/v , abd pain, bm or urinary changes. Objective - Vital Signs/Intake and Output Vital Signs (last 24 hours): Temp Pulse Resp BP Pulse Ox 98.7 F 76 18 119/62 99 11/24/16 07:05 11/24/16 08:30 11/24/16 07:05 11/24/16 08:19 11/24/16 07:05 Intake and Output: 11/24/16 11/24/16 06:59 18:59 Output Total 400 Balance -400 - Medications Medications: Current Medications Albuterol/Ipratropium (Duoneb 3 Mg/0.5 Mg (3 Ml) Ud) 3 ml INH RQID [facility] Last Admin: 11/24/16 07:49 Dose: 3 ml Ferrous Sulfate (Feosol) 325 mg PO DAILY [facility] Last Admin: 11/23/16 10:22 Dose: 325 mg Furosemide (Lasix) 20 mg PO DAILY [facility] Last Admin: 11/23/16 10:23 Dose: 20 mg Piperacillin Sod/Tazobactam Sod (Zosyn 2.25 Gm Iv Premix) 50 mls @ 100 mls/hr IVPB Q6H [facility] Last Admin: 11/24/16 05:42 Dose: 100 mls/hr Metoprolol Tartrate (Lopressor) 25 mg PO BID [facility] Last Admin: 11/24/16 08:19 Dose: 25 mg Mirtazapine (Remeron) 15 mg PO HS [facility] Last Admin: 11/23/16 22:17 Dose: 15 mg Pantoprazole Sodium (Protonix Ec Tab) 40 mg PO DAILY [facility] Last Admin: 11/23/16 10:24 Dose: 40 mg Polyethylene Glycol (Miralax) 17 gm PO HS [facility] Last Admin: 11/23/16 22:16 Dose: 17 gm Silver Sulfadiazine (Silvadene 1% 20 Gm) 1 ea TOP DAILY [facility] Last Admin: 11/23/16 11:18 Dose: 20 gm - Labs Labs: 11/24/16 07:15 11/24/16 07:15 PT 14.2 SECONDS (9.7-12.2) H 11/24/16 07:15 INR 1.3 11/24/16 07:15 APTT 25 SECONDS (21-34) 11/18/16 18:25 - Constitutional Appears: No Acute Distress - Head Exam Head Exam: ATRAUMATIC, NORMAL INSPECTION, NORMOCEPHALIC - Eye Exam Eye Exam: EOMI, Normal appearance, PERRL Pupil Exam: NORMAL ACCOMODATION, PERRL - ENT Exam ENT Exam: Mucous Membranes Moist, Normal Exam - Neck Exam Neck Exam: Full ROM, Normal Inspection. absent: Lymphadenopathy - Respiratory Exam Respiratory Exam: Clear to Ausculation Bilateral, NORMAL BREATHING PATTERN. absent: Wheezes - Cardiovascular Exam Cardiovascular Exam: REGULAR RHYTHM, +S1, +S2. absent: Murmur - GI/Abdominal Exam GI & Abdominal Exam: Soft, Normal Bowel Sounds. absent: Distended - Extremities Exam Extremities Exam: Full ROM, Normal Capillary Refill, Normal Inspection. absent : Joint Swelling, Pedal Edema - Back Exam Back Exam: NORMAL INSPECTION - Neurological Exam Neurological Exam: Alert, Awake, CN II-XII Intact, Normal Gait, Oriented x3 - Psychiatric Exam Psychiatric exam: Normal Affect, Normal Mood - Skin Skin Exam: Dry, Intact, Normal Color, Warm Assessment and Plan - Assessment and Plan (Free Text) Assessment: 85 F with PMHx of HOCM, CHF, HTN, hyperlipidemia, AFib, breast cancer with mets ? and pacemaker, who presents with confusion and lethargy found to be anemic Hb 6.3 s/p 2 units PRBC now hb 8.1, with possible pneumonia vs CHF. Pt also bacteremic with Strep Viridins. Plan for AMNA today. - Blood cx positive for Strep viridins. ID recommends AMNA. - NPO after midnight Plan for AMNA today - Echo done EF 77% f/u read - CT chest - cardiomegally, mod - large R and small L pleural effusion, RLL airspace consolidation may represent atelectasis, underlying pneumonia non excluded mod pul congestion. - Cont ABX - Zosyn per medical team - Cont Duoneb, Lasix 20mg PO and metoprolol 25mg PO BID - Metastatic dx f/u medical work up - GI/DVT ppx Case & plan was seen, reviewed, and discussed in detail with Dr Mendoza.
[2016-11-24] MEDS ORDERED: Propofol 10 mg/ml Inj (20 ML) ONE (11:13)
[2016-11-24] MEDS ORDERED: Lidocaine 4% (Laryng-O-Jet) Kit MM ONE (11:19)
[2016-11-24] MEDS: Pantoprazole 40 mg EC Tab PO SCH (12:26)
--- NOTE | 2016-11-24 15:01 | CP.PCM.PN ---
Subjective - Date & Time of Evaluation Date of Evaluation: 11/24/16 Time of Evaluation: 09:00 - Subjective Subjective: Patient seen and examined. Lying comfortably in no acute distress possible AMNA today to rule out endocarditis for positive blood cultures strep viridans No respiratory distress Objective - Vital Signs/Intake and Output Vital Signs (last 24 hours): Temp Pulse Resp BP Pulse Ox 98.7 F 76 18 119/62 99 11/24/16 07:05 11/24/16 14:09 11/24/16 07:05 11/24/16 08:19 11/24/16 07:05 Intake and Output: 11/24/16 11/24/16 06:59 18:59 Output Total 400 Balance -400 - Medications Medications: Current Medications Albuterol/Ipratropium (Duoneb 3 Mg/0.5 Mg (3 Ml) Ud) 3 ml INH RQID [facility] Last Admin: 11/24/16 11:25 Dose: Not Given Ferrous Sulfate (Feosol) 325 mg PO DAILY [facility] Last Admin: 11/24/16 12:25 Dose: Not Given Furosemide (Lasix) 20 mg PO DAILY [facility] Last Admin: 11/24/16 12:25 Dose: Not Given Piperacillin Sod/Tazobactam Sod (Zosyn 2.25 Gm Iv Premix) 50 mls @ 100 mls/hr IVPB Q6H [facility] Last Admin: 11/24/16 12:40 Dose: 100 mls/hr Metoprolol Tartrate (Lopressor) 25 mg PO BID [facility] Last Admin: 11/24/16 08:19 Dose: 25 mg Mirtazapine (Remeron) 15 mg PO HS [facility] Last Admin: 11/23/16 22:17 Dose: 15 mg Pantoprazole Sodium (Protonix Ec Tab) 40 mg PO DAILY [facility] Last Admin: 11/24/16 12:26 Dose: Not Given Polyethylene Glycol (Miralax) 17 gm PO HS [facility] Last Admin: 11/23/16 22:16 Dose: 17 gm Silver Sulfadiazine (Silvadene 1% 20 Gm) 1 ea TOP DAILY [facility] Last Admin: 11/23/16 11:18 Dose: 20 gm - Labs Labs: 11/24/16 07:15 11/24/16 07:15 PT 14.2 SECONDS (9.7-12.2) H 11/24/16 07:15 INR 1.3 03/01/17 07:15 APTT 25 SECONDS (21-34) 11/18/16 18:25 - Head Exam Head Exam: ATRAUMATIC, NORMOCEPHALIC - Eye Exam Eye Exam: Normal appearance, PERRL - ENT Exam ENT Exam: Mucous Membranes Moist - Neck Exam Neck Exam: Normal Inspection - Respiratory Exam Respiratory Exam: Clear to Ausculation Bilateral - Cardiovascular Exam Cardiovascular Exam: REGULAR RHYTHM - GI/Abdominal Exam GI & Abdominal Exam: Soft, Normal Bowel Sounds Assessment and Plan (1) Pneumonia Assessment & Plan: Continue antibiotics per ID Blood culture positive for strep viridans For AMNA Status: Acute (2) Congestive heart failure Status: Acute (3) Cardiomyopathy Status: Chronic
--- NOTE | 2016-11-24 15:11 | CP.PCM.PN ---
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 Obstructive Cardiomyopathy 4. Normal EF D/W Roula (Daughter who is a RN at [employer]) about the findings. She does not want surgery for Mitral valve disease or Obstructive CMP Medical management for now Endocarditis treatment as per Dr. Swain Full AMNA report to follow Objective - Vital Signs/Intake and Output Vital Signs (last 24 hours): Temp Pulse Resp BP Pulse Ox 98.7 F 76 18 119/62 99 11/24/16 07:05 11/24/16 14:09 11/24/16 07:05 11/24/16 08:19 11/24/16 07:05 Intake and Output: 11/24/16 11/24/16 06:59 18:59 Output Total 400 Balance -400 - Medications Medications: Current Medications Albuterol/Ipratropium (Duoneb 3 Mg/0.5 Mg (3 Ml) Ud) 3 ml INH RQID [facility] Last Admin: 11/24/16 11:25 Dose: Not Given Ferrous Sulfate (Feosol) 325 mg PO DAILY [facility] Last Admin: 11/24/16 12:25 Dose: Not Given Furosemide (Lasix) 20 mg PO DAILY [facility] Last Admin: 11/24/16 12:25 Dose: Not Given Piperacillin Sod/Tazobactam Sod (Zosyn 2.25 Gm Iv Premix) 50 mls @ 100 mls/hr IVPB Q6H [facility] Last Admin: 11/24/16 12:40 Dose: 100 mls/hr Metoprolol Tartrate (Lopressor) 25 mg PO BID [facility] Last Admin: 11/24/16 08:19 Dose: 25 mg Mirtazapine (Remeron) 15 mg PO HS [facility] Last Admin: 11/23/16 22:17 Dose: 15 mg Pantoprazole Sodium (Protonix Ec Tab) 40 mg PO DAILY [facility] Last Admin: 11/24/16 12:26 Dose: Not Given Polyethylene Glycol (Miralax) 17 gm PO HS [facility] Last Admin: 11/23/16 22:16 Dose: 17 gm Silver Sulfadiazine (Silvadene 1% 20 Gm) 1 ea TOP DAILY [facility] Last Admin: 11/23/16 11:18 Dose: 20 gm - Labs Labs: 11/24/16 07:15 11/24/16 07:15 PT 14.2 SECONDS (9.7-12.2) H 11/24/16 07:15 INR 1.3 11/24/16 07:15 APTT 25 SECONDS (21-34) 11/18/16 18:25
--- NOTE | 2016-11-24 18:34 | CARD ---
APPROVED REPORT EXAM: Transesophageal echocardiogram with color flow Doppler. INDICATION Infection : Rule out subacute bacterial endocarditis Mitral Valve E/A ratio0.0 TDI E/Lateral E'0.0E/Medial E'0.0 Reason For Test : Rule out endocarditis. PROCEDURE After obtaining informed consent, patient underwent transesophageal echo in the [employer]. Type of Sedation : Conscious Sedation Sedation was provided by anesthesiologist. Sedation was administered by Dr. Weaver. Sedation was achieved with intravenously. The AMNA was performed complications. Throughout the procedure, the blood pressure, pulse oximetry, cardiac rhythm, and rate were monitored. The patient tolerated the procedure without adverse effects. Recovery from conscious sedation was uneventful and vital signs were stable. LEFT VENTRICLE The left ventricle is normal size. There is moderate concentric left ventricular hypertrophy. The left ventricular function is normal. The left ventricular ejection fraction is within the normal range. There is normal LV segmental wall motion. No left ventricle thrombus noted on this study. There is no ventricular septal defect visualized. There is no left ventricular aneurysm. RIGHT VENTRICLE The right ventricle is normal size. The right ventricular systolic function is normal. ATRIA Left Atrium dilated The right atrium is moderately dilated. The interatrial septum is intact with no evidence for an atrial septal defect. AORTIC VALVE The aortic valve is mildly thickened. No aortic regurgitation is present. There is no aortic valvular stenosis. There is no aortic valvular vegetation. MITRAL VALVE Vegetation 1.1cm x 1cm vegetation noted on Anterior Mitral Leaflet suggestive of Endocarditis There is no evidence of mitral valve prolapse. There is no mitral valve stenosis. Mitral regurgitation is severe. TRICUSPID VALVE The tricuspid valve is normal in structure. There is mild tricuspid regurgitation. There is no tricuspid valve prolapse or vegetation. PULMONIC VALVE The pulmonary valve is normal in structure. There is mild pulmonic valvular regurgitation. There is no pulmonic valvular stenosis. GREAT VESSELS The aortic root is normal in size. The ascending aorta is normal in size. Moderate Pulmonary HTN <Conclusion> There is moderate concentric left ventricular hypertrophy. The left ventricular function is normal. The left ventricular ejection fraction is within the normal range. Left Atrium dilated Left Atrium dilated Vegetation 1.1cm x 1cm noted on Anterior Mitral Leaflet suggestive of Endocarditis Mitral regurgitation is severe.
--- NOTE | 2016-11-24 19:10 | CP.PCM.PN ---
Subjective - Date & Time of Evaluation Date of Evaluation: 11/24/16 Time of Evaluation: 07:00 - Subjective Subjective: no new complaints +AMNA Objective - Vital Signs/Intake and Output Vital Signs (last 24 hours): Temp Pulse Resp BP Pulse Ox 98.3 F 65 18 104/65 99 11/24/16 15:25 11/24/16 16:21 11/24/16 16:21 11/24/16 16:21 11/24/16 16:21 - Medications Medications: Current Medications Albuterol/Ipratropium (Duoneb 3 Mg/0.5 Mg (3 Ml) Ud) 3 ml INH RQID [facility] Last Admin: 11/24/16 15:55 Dose: 3 ml Ferrous Sulfate (Feosol) 325 mg PO DAILY [facility] Last Admin: 11/24/16 12:25 Dose: Not Given Furosemide (Lasix) 20 mg PO DAILY [facility] Last Admin: 11/24/16 12:25 Dose: Not Given Piperacillin Sod/Tazobactam Sod (Zosyn 2.25 Gm Iv Premix) 50 mls @ 100 mls/hr IVPB Q6H [facility] Last Admin: 11/24/16 17:33 Dose: 100 mls/hr Metoprolol Tartrate (Lopressor) 25 mg PO BID [facility] Last Admin: 11/24/16 08:19 Dose: 25 mg Mirtazapine (Remeron) 15 mg PO HS [facility] Last Admin: 11/23/16 22:17 Dose: 15 mg Pantoprazole Sodium (Protonix Ec Tab) 40 mg PO DAILY [facility] Last Admin: 11/24/16 12:26 Dose: Not Given Polyethylene Glycol (Miralax) 17 gm PO HS [facility] Last Admin: 11/23/16 22:16 Dose: 17 gm Silver Sulfadiazine (Silvadene 1% 20 Gm) 1 ea TOP DAILY [facility] Last Admin: 11/23/16 11:18 Dose: 20 gm - Labs Labs: 11/24/16 07:15 11/24/16 07:15 PT 14.2 SECONDS (9.7-12.2) H 11/24/16 07:15 INR 1.3 11/24/16 07:15 APTT 25 SECONDS (21-34) 11/18/16 18:25 - Constitutional Appears: Non-toxic - Head Exam Head Exam: NORMOCEPHALIC - Eye Exam Eye Exam: absent: Scleral icterus - ENT Exam ENT Exam: Mucous Membranes Dry - Neck Exam Neck Exam: absent: Lymphadenopathy - Respiratory Exam Respiratory Exam: Decreased Breath Sounds, Clear to Ausculation Bilateral - Cardiovascular Exam Cardiovascular Exam: REGULAR RHYTHM, +S1, +S2 - GI/Abdominal Exam GI & Abdominal Exam: Distended, Soft - Rectal Exam Rectal Exam: Deferred - Exam Exam: NORMAL INSPECTION - Extremities Exam Extremities Exam: absent: Pedal Edema - Back Exam Back Exam: absent: CVA tenderness (L), CVA tenderness (R) - Neurological Exam Neurological Exam: Alert, Awake, Oriented x3 Assessment and Plan (1) Anemia Status: Acute (2) Bacterial pneumonia Status: Acute (3) Congestive heart failure Status: Acute (4) Pneumonia Status: Acute (5) Sepsis Status: Acute (6) 2Nd degree AV block Status: Acute
[2016-11-24] MEDS: POLYETHYLENE GLYCOL 3350 17 GM/Dose PACKET PO SCH (21:21)
[2016-11-25] MEDS: Piperacill/Tazo 2.25gm in Dex 50 ML IVPB SCH ×3 (05:10→17:16)
--- NOTE | 2016-11-25 08:33 | CP.PCM.PN ---
Subjective - Date & Time of Evaluation Date of Evaluation: 11/25/16 Time of Evaluation: 08:25 - Subjective Subjective: Pt (+) weak but oriented No CP, no SOB, no edema, (+) min cough Objective - Vital Signs/Intake and Output Vital Signs (last 24 hours): Temp Pulse Resp BP Pulse Ox 98.1 F 72 18 106/54 L 100 11/25/16 07:05 11/25/16 07:05 11/25/16 07:05 11/25/16 07:05 11/25/16 07:05 Intake and Output: 11/25/16 11/25/16 06:59 18:59 Output Total 600 Balance -600 - Medications Medications: Current Medications Albuterol/Ipratropium (Duoneb 3 Mg/0.5 Mg (3 Ml) Ud) 3 ml INH RQID [facility] Last Admin: 11/24/16 19:48 Dose: 3 ml Ferrous Sulfate (Feosol) 325 mg PO DAILY [facility] Last Admin: 11/24/16 12:25 Dose: Not Given Furosemide (Lasix) 20 mg PO DAILY [facility] Last Admin: 11/24/16 12:25 Dose: Not Given Piperacillin Sod/Tazobactam Sod (Zosyn 2.25 Gm Iv Premix) 50 mls @ 100 mls/hr IVPB Q6H [facility] Last Admin: 11/25/16 05:10 Dose: 100 mls/hr Metoprolol Tartrate (Lopressor) 25 mg PO BID [facility] Last Admin: 11/24/16 19:59 Dose: Not Given Mirtazapine (Remeron) 15 mg PO HS [facility] Last Admin: 11/24/16 21:20 Dose: 15 mg Pantoprazole Sodium (Protonix Ec Tab) 40 mg PO DAILY [facility] Last Admin: 11/24/16 12:26 Dose: Not Given Polyethylene Glycol (Miralax) 17 gm PO HS [facility] Last Admin: 11/24/16 21:21 Dose: 17 gm Silver Sulfadiazine (Silvadene 1% 20 Gm) 1 ea TOP DAILY [facility] Last Admin: 11/23/16 11:18 Dose: 20 gm - Labs Labs: 11/24/16 07:15 11/24/16 07:15 PT 14.2 SECONDS (9.7-12.2) H 11/24/16 07:15 INR 1.3 11/24/16 07:15 APTT 25 SECONDS (21-34) 11/18/16 18:25 - Constitutional Appears: No Acute Distress - Eye Exam Eye Exam: Normal appearance - ENT Exam ENT Exam: Mucous Membranes Moist - Neck Exam Neck Exam: absent: Full ROM, Lymphadenopathy, Tenderness - Respiratory Exam Respiratory Exam: Clear to Ausculation Bilateral. absent: Rales, Rhonchi, Wheezes - Cardiovascular Exam Cardiovascular Exam: Diastolic murmur, Irregular Rhythm, +S1, +S2, Murmur. absent: Gallop - GI/Abdominal Exam GI & Abdominal Exam: Soft. absent: Tenderness, Mass - Extremities Exam Extremities Exam: Full ROM, Normal Capillary Refill. absent: Calf Tenderness, Pedal Edema Assessment and Plan - Assessment and Plan (Free Text) Assessment: Mtral Valve endocarditis ; Pneumonia Cardiomyopathy; anemia For terminal manager Antibiotic as per ID choice for Pick line
[2016-11-25] MEDS: Albuterol-Ipratrop 3 mg / 0.5 (3 ml) UD INH SCH ×4 (08:34→20:40)
--- NOTE | 2016-11-25 10:34 | CP.PCM.PN ---
Subjective - Date & Time of Evaluation Date of Evaluation: 11/25/16 Time of Evaluation: 09:00 - Subjective Subjective: Patient seen and examined. Lying comfortably in no acute distress but having slight cough Being treated for mitral valve endocarditis Blood culture positive strep viridans Objective - Vital Signs/Intake and Output Vital Signs (last 24 hours): Temp Pulse Resp BP Pulse Ox 98.1 F 72 18 106/54 L 100 11/25/16 07:05 11/25/16 07:05 11/25/16 07:05 11/25/16 07:05 11/25/16 07:05 Intake and Output: 11/25/16 11/25/16 06:59 18:59 Output Total 600 Balance -600 - Medications Medications: Current Medications Albuterol/Ipratropium (Duoneb 3 Mg/0.5 Mg (3 Ml) Ud) 3 ml INH RQID [facility] Last Admin: 11/25/16 08:34 Dose: 3 ml Ferrous Sulfate (Feosol) 325 mg PO DAILY [facility] Last Admin: 11/24/16 12:25 Dose: Not Given Furosemide (Lasix) 20 mg PO DAILY [facility] Last Admin: 11/24/16 12:25 Dose: Not Given Piperacillin Sod/Tazobactam Sod (Zosyn 2.25 Gm Iv Premix) 50 mls @ 100 mls/hr IVPB Q6H [facility] Last Admin: 11/25/16 05:10 Dose: 100 mls/hr Metoprolol Tartrate (Lopressor) 25 mg PO BID [facility] Last Admin: 11/24/16 19:59 Dose: Not Given Mirtazapine (Remeron) 15 mg PO HS [facility] Last Admin: 11/24/16 21:20 Dose: 15 mg Pantoprazole Sodium (Protonix Ec Tab) 40 mg PO DAILY [facility] Last Admin: 11/24/16 12:26 Dose: Not Given Polyethylene Glycol (Miralax) 17 gm PO HS [facility] Last Admin: 11/24/16 21:21 Dose: 17 gm - Labs Labs: 11/24/16 07:15 11/24/16 07:15 PT 14.2 SECONDS (9.7-12.2) H 11/24/16 07:15 INR 1.3 11/24/16 07:15 APTT 25 SECONDS (21-34) 11/18/16 18:25 - Constitutional Appears: No Acute Distress - Head Exam Head Exam: ATRAUMATIC, NORMOCEPHALIC - Eye Exam Eye Exam: Normal appearance - ENT Exam ENT Exam: Mucous Membranes Moist - Neck Exam Neck Exam: Normal Inspection - Respiratory Exam Respiratory Exam: Clear to Ausculation Bilateral - GI/Abdominal Exam GI & Abdominal Exam: Soft, Normal Bowel Sounds - Extremities Exam Extremities Exam: Normal Inspection - Neurological Exam Neurological Exam: Awake Assessment and Plan (1) Endocarditis Assessment & Plan: Being treated for mitral valve endocarditis having slight cough Continue antibiotics Status: Acute (2) Pneumonia Status: Acute (3) Congestive heart failure Status: Acute (4) Cardiomyopathy Status: Chronic
[2016-11-25] MEDS: Pantoprazole 40 mg EC Tab PO SCH (11:36)
--- NOTE | 2016-11-25 19:08 | CP.PCM.PN ---
Subjective - Date & Time of Evaluation Date of Evaluation: 11/25/16 Time of Evaluation: 08:00 - Subjective Subjective: Lying comfortably in no acute distress but having slight cough Being treated for mitral valve endocarditis Blood culture positive strep viridans Objective - Vital Signs/Intake and Output Vital Signs (last 24 hours): Temp Pulse Resp BP Pulse Ox 98.5 F 72 20 117/61 100 11/25/16 15:07 11/25/16 15:07 11/25/16 15:07 11/25/16 15:07 11/25/16 15:07 Intake and Output: 11/25/16 11/26/16 18:59 06:59 Intake Total 290 Balance 290 - Medications Medications: Current Medications Albuterol/Ipratropium (Duoneb 3 Mg/0.5 Mg (3 Ml) Ud) 3 ml INH RQID [facility] Last Admin: 11/25/16 11:52 Dose: 3 ml Ferrous Sulfate (Feosol) 325 mg PO DAILY [facility] Last Admin: 11/25/16 11:34 Dose: 325 mg Furosemide (Lasix) 20 mg PO DAILY [facility] Last Admin: 11/25/16 11:35 Dose: Not Given Piperacillin Sod/Tazobactam Sod (Zosyn 2.25 Gm Iv Premix) 50 mls @ 100 mls/hr IVPB Q6H [facility] Last Admin: 11/25/16 17:16 Dose: 100 mls/hr Metoprolol Tartrate (Lopressor) 25 mg PO BID [facility] Last Admin: 11/25/16 11:35 Dose: Not Given Mirtazapine (Remeron) 15 mg PO HS [facility] Last Admin: 11/24/16 21:20 Dose: 15 mg Pantoprazole Sodium (Protonix Ec Tab) 40 mg PO DAILY [facility] Last Admin: 11/25/16 11:36 Dose: 40 mg Polyethylene Glycol (Miralax) 17 gm PO HS [facility] Last Admin: 11/24/16 21:21 Dose: 17 gm - Labs Labs: 11/24/16 07:15 11/24/16 07:15 PT 14.2 SECONDS (9.7-12.2) H 11/24/16 07:15 INR 1.3 11/24/16 07:15 APTT 25 SECONDS (21-34) 11/18/16 18:25 - Constitutional Appears: Non-toxic, Chronically Ill - Head Exam Head Exam: NORMOCEPHALIC - Eye Exam Eye Exam: PERRL. absent: Scleral icterus - ENT Exam ENT Exam: Mucous Membranes Dry - Neck Exam Neck Exam: absent: Lymphadenopathy - Respiratory Exam Respiratory Exam: Decreased Breath Sounds, Clear to Ausculation Bilateral - Cardiovascular Exam Cardiovascular Exam: REGULAR RHYTHM - GI/Abdominal Exam GI & Abdominal Exam: Distended, Soft - Rectal Exam Rectal Exam: Deferred - Exam Exam: NORMAL INSPECTION - Extremities Exam Extremities Exam: absent: Pedal Edema - Back Exam Back Exam: absent: CVA tenderness (L), CVA tenderness (R) - Neurological Exam Neurological Exam: Alert, Awake Assessment and Plan (1) Anemia Status: Acute (2) Bacterial pneumonia Status: Acute (3) Congestive heart failure Status: Acute (4) Pneumonia Status: Acute (5) Sepsis Status: Acute (6) 2Nd degree AV block Status: Acute
[2016-11-25] MEDS: POLYETHYLENE GLYCOL 3350 17 GM/Dose PACKET PO SCH (21:32)
--- NOTE | 2016-11-26 00:21 | CP.PCM.PN ---
Subjective - Date & Time of Evaluation Date of Evaluation: 11/25/16 Time of Evaluation: 10:10 - Subjective Subjective: Patient seen and evaluated Denies chest pain and dyspnea Objective - Vital Signs/Intake and Output Vital Signs (last 24 hours): Temp Pulse Resp BP Pulse Ox 98.5 F 72 20 117/61 100 11/25/16 15:07 11/25/16 15:07 11/25/16 15:07 11/25/16 19:32 11/25/16 15:07 Intake and Output: 11/25/16 11/26/16 18:59 06:59 Intake Total 290 300 Output Total 100 Balance 290 200 - Medications Medications: Current Medications Albuterol/Ipratropium (Duoneb 3 Mg/0.5 Mg (3 Ml) Ud) 3 ml INH RQID [facility] Last Admin: 11/25/16 20:40 Dose: 3 ml Ferrous Sulfate (Feosol) 325 mg PO DAILY [facility] Last Admin: 11/25/16 11:34 Dose: 325 mg Furosemide (Lasix) 20 mg PO DAILY [facility] Last Admin: 11/25/16 11:35 Dose: Not Given Ceftriaxone Sodium 2 gm/ (Sodium Chloride) 100 mls @ 100 mls/hr IVPB DAILY [facility] Metoprolol Tartrate (Lopressor) 25 mg PO BID [facility] Last Admin: 11/25/16 19:32 Dose: 25 mg Mirtazapine (Remeron) 15 mg PO HS [facility] Last Admin: 11/25/16 21:32 Dose: 15 mg Pantoprazole Sodium (Protonix Ec Tab) 40 mg PO DAILY [facility] Last Admin: 11/25/16 11:36 Dose: 40 mg Polyethylene Glycol (Miralax) 17 gm PO HS [facility] Last Admin: 11/25/16 21:32 Dose: 17 gm - Labs Labs: 11/24/16 07:15 11/24/16 07:15 PT 14.2 SECONDS (9.7-12.2) H 11/24/16 07:15 INR 1.3 11/24/16 07:15 APTT 25 SECONDS (21-34) 11/18/16 18:25
[2016-11-26] MEDS: Albuterol-Ipratrop 3 mg / 0.5 (3 ml) UD INH SCH ×4 (08:05→19:43)
--- NOTE | 2016-11-26 08:27 | CP.PCM.PN ---
Subjective - Date & Time of Evaluation Date of Evaluation: 11/26/16 Time of Evaluation: 08:15 - Subjective Subjective: Pt no complain exc cold; no CP, no SOB, no palpitation Appetite is "fair", almost no cough Objective - Vital Signs/Intake and Output Vital Signs (last 24 hours): Temp Pulse Resp BP Pulse Ox 98.0 F 68 18 126/67 100 11/26/16 07:15 11/26/16 07:15 11/26/16 07:15 11/26/16 07:15 11/26/16 07:15 Intake and Output: 11/26/16 11/26/16 06:59 18:59 Intake Total 300 Output Total 300 Balance 0 - Medications Medications: Current Medications Albuterol/Ipratropium (Duoneb 3 Mg/0.5 Mg (3 Ml) Ud) 3 ml INH RQID [facility] Last Admin: 11/26/16 08:05 Dose: 3 ml Ferrous Sulfate (Feosol) 325 mg PO DAILY [facility] Last Admin: 11/25/16 11:34 Dose: 325 mg Furosemide (Lasix) 20 mg PO DAILY [facility] Last Admin: 11/25/16 11:35 Dose: Not Given Ceftriaxone Sodium 2 gm/ (Sodium Chloride) 100 mls @ 100 mls/hr IVPB DAILY [facility] Metoprolol Tartrate (Lopressor) 25 mg PO BID [facility] Last Admin: 11/25/16 19:32 Dose: 25 mg Mirtazapine (Remeron) 15 mg PO HS [facility] Last Admin: 11/25/16 21:32 Dose: 15 mg Pantoprazole Sodium (Protonix Ec Tab) 40 mg PO DAILY [facility] Last Admin: 11/25/16 11:36 Dose: 40 mg Polyethylene Glycol (Miralax) 17 gm PO HS [facility] Last Admin: 11/25/16 21:32 Dose: 17 gm - Labs Labs: 11/24/16 07:15 11/24/16 07:15 PT 14.2 SECONDS (9.7-12.2) H 11/24/16 07:15 INR 1.3 11/24/16 07:15 APTT 25 SECONDS (21-34) 11/18/16 18:25 - Constitutional Appears: No Acute Distress - Eye Exam Eye Exam: Normal appearance - ENT Exam ENT Exam: Mucous Membranes Moist - Neck Exam Neck Exam: Full ROM. absent: Lymphadenopathy, Meningismus, Normal Inspection - Respiratory Exam Respiratory Exam: Decreased Breath Sounds. absent: Rales, Rhonchi, Wheezes - Cardiovascular Exam Cardiovascular Exam: Diastolic murmur, Gallop, Irregular Rhythm, +S1, +S2, Murmur. absent: JVD - GI/Abdominal Exam GI & Abdominal Exam: Soft. absent: Tenderness, Mass - Extremities Exam Extremities Exam: Full ROM, Normal Capillary Refill. absent: Calf Tenderness, Joint Swelling Assessment and Plan - Assessment and Plan (Free Text) Assessment: Mitral Valve Endocarditis Pneumonia; COPD Cardiomyopathy; Sacral Decubitus Cont meds C/C reviewed and S to all PCN group & [facility]
[2016-11-26] MEDS: Pantoprazole 40 mg EC Tab PO SCH (10:06)
[2016-11-26] MEDS: cefTRIAXone 2 GM in Sodium Chloride 0.9% 100 ML IVPB SCH (10:18)
--- NOTE | 2016-11-26 11:23 | CP.PCM.PN ---
Subjective - Date & Time of Evaluation Date of Evaluation: 11/26/16 Time of Evaluation: 10:00 - Subjective Subjective: Patient seen and evaluated at bedside Patient appears to be in No Acute Distress. Patient undergoing antibiotic treatment for strep Viridans endocarditis. Patient is resting comfortably, and denies any symptoms of CP or SOB. Patient states that she rested well and maintains an apatite. Objective - Vital Signs/Intake and Output Vital Signs (last 24 hours): Temp Pulse Resp BP Pulse Ox 98.0 F 68 18 120/53 L 100 11/26/16 07:15 11/26/16 07:15 11/26/16 07:15 11/26/16 10:07 11/26/16 07:15 Intake and Output: 11/26/16 11/26/16 06:59 18:59 Intake Total 300 Output Total 300 Balance 0 - Medications Medications: Current Medications Albuterol/Ipratropium (Duoneb 3 Mg/0.5 Mg (3 Ml) Ud) 3 ml INH RQID [facility] Last Admin: 11/26/16 08:05 Dose: 3 ml Ferrous Sulfate (Feosol) 325 mg PO DAILY [facility] Last Admin: 11/26/16 10:06 Dose: 325 mg Furosemide (Lasix) 20 mg PO DAILY [facility] Last Admin: 11/26/16 10:06 Dose: 20 mg Ceftriaxone Sodium 2 gm/ (Sodium Chloride) 100 mls @ 100 mls/hr IVPB DAILY [facility] Last Admin: 11/26/16 10:18 Dose: 100 mls/hr Metoprolol Tartrate (Lopressor) 25 mg PO BID [facility] Last Admin: 11/26/16 10:07 Dose: 25 mg Mirtazapine (Remeron) 15 mg PO HS [facility] Last Admin: 11/25/16 21:32 Dose: 15 mg Pantoprazole Sodium (Protonix Ec Tab) 40 mg PO DAILY [facility] Last Admin: 11/26/16 10:06 Dose: 40 mg Polyethylene Glycol (Miralax) 17 gm PO HS [facility] Last Admin: 11/25/16 21:32 Dose: 17 gm - Labs Labs: 11/24/16 07:15 11/24/16 07:15 PT 14.2 SECONDS (9.7-12.2) H 11/24/16 07:15 INR 1.3 11/24/16 07:15 APTT 25 SECONDS (21-34) 11/18/16 18:25 - Constitutional Appears: Non-toxic - Head Exam Head Exam: NORMAL INSPECTION - Eye Exam Eye Exam: Normal appearance - ENT Exam ENT Exam: Mucous Membranes Moist - Respiratory Exam Respiratory Exam: Clear to Ausculation Bilateral. absent: Chest Wall Tenderness - Cardiovascular Exam Cardiovascular Exam: +S1, +S2 - Neurological Exam Neurological Exam: Alert, Awake Assessment and Plan (1) Endocarditis Assessment & Plan: Continue antibiotic regiment for endocarditis monitor patient for changes in respiratory symptoms, CP, or SOB Status: Acute (2) Pneumonia Status: Acute (3) Congestive heart failure Status: Acute (4) Cardiomyopathy Status: Chronic
--- NOTE | 2016-11-26 12:24 | RAD ---
HISTORY: verify right PICC COMPARISON: 11/18/2016 FINDINGS: LUNGS: Hazy opacity in the right lung base. PLEURA: Layering pleural effusions bilaterally. CARDIOVASCULAR: Enlarged cardiomediastinal silhouette. Findings likely consistent with enlarged pulmonary artery. OSSEOUS STRUCTURES: The osseous structures demonstrate degenerative changes. VISUALIZED UPPER ABDOMEN: Upper abdomen is suboptimally evaluated. OTHER FINDINGS: Interval introduction of right-sided PICC with the distal tip of the catheter overlying the projection of the SVC/right atrial junction. Curvilinear wirelike object projecting over the left upper lung remains stable. Stable left-sided pacemaker. IMPRESSION: Interval reduction of right-sided PICC with the distal tip of the catheter overlying the projection of the SVC/right atrial junction. Bilateral pleural effusions with associated compressive atelectasis and/or pneumonia. This remains unchanged.
--- NOTE | 2016-11-26 17:38 | CP.PCM.PN ---
Subjective - Date & Time of Evaluation Date of Evaluation: 11/26/16 Time of Evaluation: 08:00 - Subjective Subjective: Patient comfortable On IV antibiotics for Endocarditis Severe MR on medical management Patient and family do not want surgery due to high rsik particularly age Continue current medical therapy Objective - Vital Signs/Intake and Output Vital Signs (last 24 hours): Temp Pulse Resp BP Pulse Ox 98.5 F 67 20 127/61 100 11/26/16 16:00 11/26/16 17:15 11/26/16 16:00 11/26/16 17:15 11/26/16 16:00 Intake and Output: 11/26/16 11/26/16 06:59 18:59 Intake Total 300 500 Output Total 300 600 Balance 0 -100 - Medications Medications: Current Medications Albuterol/Ipratropium (Duoneb 3 Mg/0.5 Mg (3 Ml) Ud) [address] [facility] Last Admin: 11/26/16 11:30 Dose: 3 ml Ferrous Sulfate (Feosol) [address] [facility] Last Admin: 11/26/16 10:06 Dose: 325 mg Furosemide (Lasix) [address] [facility] Last Admin: 11/26/16 10:06 Dose: 20 mg Ceftriaxone Sodium 2 gm/ (Sodium Chloride) 100 mls @ 100 mls/hr IVPB DAILY [facility] Last Admin: 11/26/16 10:18 Dose: 100 mls/hr Metoprolol Tartrate (Lopressor) [address] [facility] Last Admin: 11/26/16 17:34 Dose: Not Given Mirtazapine (Remeron) [address] [facility] Last Admin: 11/25/16 21:32 Dose: 15 mg Pantoprazole Sodium (Protonix Ec Tab) [address] [facility] Last Admin: 11/26/16 10:06 Dose: 40 mg Polyethylene Glycol (Miralax) [address] [facility] Last Admin: 11/25/16 21:32 Dose: 17 gm - Labs Labs: 11/24/16 07:15 11/24/16 07:15 PT 14.2 SECONDS (9.7-12.2) H 11/24/16 07:15 INR 1.3 11/24/16 07:15 APTT 25 SECONDS (21-34) 11/18/16 18:25
--- NOTE | 2016-11-26 17:59 | CP.PCM.PN ---
Subjective - Date & Time of Evaluation Date of Evaluation: 11/26/16 Time of Evaluation: 09:00 - Subjective Subjective: rx in progress for endocarditis awake and responsive appetitte fair cont rx Objective - Vital Signs/Intake and Output Vital Signs (last 24 hours): Temp Pulse Resp BP Pulse Ox 98.5 F 67 20 127/61 100 11/26/16 16:00 11/26/16 17:15 11/26/16 16:00 11/26/16 17:15 11/26/16 16:00 Intake and Output: 11/26/16 11/26/16 06:59 18:59 Intake Total 300 500 Output Total 300 600 Balance 0 -100 - Medications Medications: Current Medications Albuterol/Ipratropium (Duoneb 3 Mg/0.5 Mg (3 Ml) Ud) 3 ml INH RQID [facility] Last Admin: 11/26/16 11:30 Dose: 3 ml Ferrous Sulfate (Feosol) 325 mg PO DAILY [facility] Last Admin: 11/26/16 10:06 Dose: 325 mg Furosemide (Lasix) 20 mg PO DAILY [facility] Last Admin: 11/26/16 10:06 Dose: 20 mg Ceftriaxone Sodium 2 gm/ (Sodium Chloride) 100 mls @ 100 mls/hr IVPB DAILY [facility] Last Admin: 11/26/16 10:18 Dose: 100 mls/hr Metoprolol Tartrate (Lopressor) 25 mg PO BID [facility] Last Admin: 11/26/16 17:34 Dose: Not Given Mirtazapine (Remeron) 15 mg PO [facility] Last Admin: 11/25/16 21:32 Dose: 15 mg Pantoprazole Sodium (Protonix Ec Tab) 40 mg PO DAILY [facility] Last Admin: 11/26/16 10:06 Dose: 40 mg Polyethylene Glycol (Miralax) 17 gm PO HS [facility] Last Admin: 11/25/16 21:32 Dose: 17 gm - Labs Labs: 11/24/16 07:15 11/24/16 07:15 PT 14.2 SECONDS (9.7-12.2) H 11/24/16 07:15 INR 1.3 11/24/16 07:15 APTT 25 SECONDS (21-34) 11/18/16 18:25 - Constitutional Appears: Non-toxic, Cachectic, Chronically Ill - Head Exam Head Exam: NORMOCEPHALIC - Eye Exam Eye Exam: PERRL. absent: Scleral icterus - Neck Exam Neck Exam: absent: Lymphadenopathy - Respiratory Exam Respiratory Exam: Decreased Breath Sounds, Clear to Ausculation Bilateral - Cardiovascular Exam Cardiovascular Exam: REGULAR RHYTHM, +S1, +S2, Murmur - GI/Abdominal Exam GI & Abdominal Exam: Distended, Soft. absent: Tenderness - Rectal Exam Rectal Exam: Deferred - Exam Exam: NORMAL INSPECTION - Extremities Exam Extremities Exam: absent: Calf Tenderness, Pedal Edema - Back Exam Back Exam: absent: CVA tenderness (L), CVA tenderness (R) - Neurological Exam Neurological Exam: Alert, Awake, CN II-XII Intact - Psychiatric Exam Psychiatric exam: Normal Mood Assessment and Plan (1) Anemia Status: Acute (2) Bacterial pneumonia Status: Acute (3) Congestive heart failure Status: Acute (4) Pneumonia Status: Acute (5) Sepsis Status: Acute (6) 2Nd degree AV block Status: Acute
[2016-11-26] MEDS: POLYETHYLENE GLYCOL 3350 17 GM/Dose PACKET PO SCH (21:46)
[2016-11-27] MEDS: Albuterol-Ipratrop 3 mg / 0.5 (3 ml) UD INH SCH ×4 (08:10→20:30)
--- NOTE | 2016-11-27 08:33 | CP.PCM.PN ---
Subjective - Date & Time of Evaluation Date of Evaluation: 11/27/16 Time of Evaluation: 08:30 - Subjective Subjective: Pt with better appetite on antibiotics. No VT Objective - Vital Signs/Intake and Output Vital Signs (last 24 hours): Temp Pulse Resp BP Pulse Ox 98.4 F 87 20 151/70 H 100 11/27/16 08:02 11/27/16 08:02 11/27/16 08:02 11/27/16 08:02 11/27/16 08:02 Intake and Output: 11/27/16 11/27/16 06:59 18:59 Intake Total 350 Output Total 450 Balance -100 - Medications Medications: Current Medications Albuterol/Ipratropium (Duoneb 3 Mg/0.5 Mg (3 Ml) Ud) 3 ml INH RQID [facility] Last Admin: 11/27/16 08:10 Dose: 3 ml Ferrous Sulfate (Feosol) 325 mg PO DAILY [facility] Last Admin: 11/26/16 10:06 Dose: 325 mg Furosemide (Lasix) 20 mg PO DAILY [facility] Last Admin: 11/26/16 10:06 Dose: 20 mg Ceftriaxone Sodium 2 gm/ (Sodium Chloride) 100 mls @ 100 mls/hr IVPB DAILY [facility] Last Admin: 11/26/16 10:18 Dose: 100 mls/hr Metoprolol Tartrate (Lopressor) 25 mg PO BID [facility] Last Admin: 11/26/16 17:34 Dose: Not Given Mirtazapine (Remeron) 15 mg PO [facility] Last Admin: 11/26/16 21:46 Dose: 15 mg Pantoprazole Sodium (Protonix Ec Tab) 40 mg PO DAILY [facility] Last Admin: 11/26/16 10:06 Dose: 40 mg Polyethylene Glycol (Miralax) 17 gm PO [facility] Last Admin: 11/26/16 21:46 Dose: 17 gm - Labs Labs: 11/24/16 07:15 11/24/16 07:15 PT 14.2 SECONDS (9.7-12.2) H 11/24/16 07:15 INR 1.3 11/24/16 07:15 APTT 25 SECONDS (21-34) 11/18/16 18:25 - Constitutional Appears: Non-toxic - Eye Exam Eye Exam: Normal appearance - ENT Exam ENT Exam: Mucous Membranes Moist - Respiratory Exam Respiratory Exam: NORMAL BREATHING PATTERN - Cardiovascular Exam Cardiovascular Exam: REGULAR RHYTHM, +S1, +S2, Murmur - GI/Abdominal Exam GI & Abdominal Exam: Normal Bowel Sounds - Exam External exam: absent: Ecchymosis - Extremities Exam Extremities Exam: Pedal Edema - Neurological Exam Neurological Exam: Alert - Psychiatric Exam Psychiatric exam: Normal Mood - Skin Skin Exam: Intact Assessment and Plan (1) Congestive heart failure Assessment & Plan: No vegetration on tricuspid RV lead stable on AMNA vegetation on mitral valve continue abx IV strep viridans Status: Acute (2) Endocarditis Status: Acute (3) 2Nd degree AV block Status: Acute
[2016-11-27] MEDS: Pantoprazole 40 mg EC Tab PO SCH (09:50)
[2016-11-27] MEDS: cefTRIAXone 2 GM in Sodium Chloride 0.9% 100 ML IVPB SCH (09:51)
[2016-11-27 13:20] LABS: BASO # 0.1 K/uL (0.0-0.2); BASO % 0.7 % (0.0-2.0); EOS % 0.6 % (0.0-4.0); HEMATOCRIT 26.8 % (34.0-47.0); LYMPH # 0.6 K/uL (1.0-4.3); LYMPH % 7.1 % (20.0-40.0); MEAN CELL VOLUME 82.5 fL (81.0-99.0); MEAN CORPUSCULAR HEMOGLOBIN 25.8 pg (27.0-31.0); MEAN CORPUSCULAR HGB CONC 31.3 g/dL (33.0-37.0); MEAN PLATELET VOLUME 8.2 fL (7.2-11.7); MONO # 0.4 K/uL (0.0-0.8); MONO % 5.5 % (0.0-10.0); PLATELET COUNT 163 K/uL (130-400); RED CELL DISTRIBUTION WIDTH 19.3 % (11.5-14.5)
[2016-11-27 13:34] LABS: CHLORIDE 100 mmol/L (98-107); SODIUM 138 mmol/L (132-148)
[2016-11-27 13:35] LABS: POTASSIUM 3.5 mmol/L (3.6-5.2)
[2016-11-27 13:37] LABS: ALB/GLOB RATIO 0.7 (1.0-2.1); ALKALINE PHOSPHATASE 42 U/L (38-126); ALT/SGPT 23 U/L (9-52); AST/SGOT 25 U/L (14-36); BILIRUBIN,TOTAL 0.2 mg/dL (0.2-1.3); BLOOD UREA NITROGEN 12 mg/dL (7-17); CARBON DIOXIDE 29 mmol/L (22-30); GFR AFRICAN-AMERICAN > 60; GLUCOSE,RANDOM 115 mg/dL (65-105); TOTAL PROTEIN 5.8 g/dL (6.3-8.3)
[2016-11-27 13:38] LABS: CALCIUM 8.4 mg/dl (8.6-10.4)
[2016-11-27 13:41] LABS: NEUTROPHIL 89 % (50-75); TOTAL CELLS COUNTED 100
[2016-11-27 13:42] LABS: LARGE PLATELETS PRESENT
--- NOTE | 2016-11-27 16:06 | CP.PCM.PN ---
Subjective - Date & Time of Evaluation Date of Evaluation: 11/27/16 Time of Evaluation: 16:04 - Subjective Subjective: S: Awake. Confuse. Bedridden Objective - Vital Signs/Intake and Output Vital Signs (last 24 hours): Temp Pulse Resp BP Pulse Ox 98.4 F 91 H 20 148/64 100 11/27/16 08:02 11/27/16 08:41 11/27/16 08:02 11/27/16 11:56 11/27/16 08:02 Intake and Output: 11/27/16 11/27/16 06:59 18:59 Intake Total 350 Output Total 450 Balance -100 - Medications Medications: Current Medications Albuterol/Ipratropium (Duoneb 3 Mg/0.5 Mg (3 Ml) Ud) 3 ml INH RQID [facility] Last Admin: 11/27/16 11:25 Dose: Not Given Ferrous Sulfate (Feosol) 325 mg PO DAILY [facility] Last Admin: 11/27/16 09:50 Dose: 325 mg Furosemide (Lasix) 20 mg PO DAILY [facility] Last Admin: 11/27/16 09:50 Dose: 20 mg Ceftriaxone Sodium 2 gm/ (Sodium Chloride) 100 mls @ 100 mls/hr IVPB DAILY [facility] Last Admin: 11/27/16 09:51 Dose: 100 mls/hr Metoprolol Tartrate (Lopressor) 25 mg PO BID [facility] Last Admin: 11/27/16 11:56 Dose: 25 mg Pantoprazole Sodium (Protonix Ec Tab) 40 mg PO DAILY [facility] Last Admin: 11/27/16 09:50 Dose: 40 mg - Labs Labs: 11/27/16 13:15 11/27/16 13:15 PT 14.2 SECONDS (9.7-12.2) H 11/24/16 07:15 INR 1.3 11/24/16 07:15 APTT 25 SECONDS (21-34) 11/18/16 18:25 - Constitutional Appears: Cachectic, Chronically Ill - Head Exam Head Exam: NORMAL INSPECTION - Eye Exam Eye Exam: Normal appearance - ENT Exam ENT Exam: Normal External Ear Exam - Neck Exam Neck Exam: Normal Inspection - Respiratory Exam Respiratory Exam: NORMAL BREATHING PATTERN - Cardiovascular Exam Cardiovascular Exam: REGULAR RHYTHM, Murmur - GI/Abdominal Exam GI & Abdominal Exam: Soft - Rectal Exam Rectal Exam: Deferred - Extremities Exam Extremities Exam: absent: Pedal Edema - Back Exam Back Exam: tenderness (sacral decubitus noted) Assessment and Plan (1) Bacterial pneumonia Status: Acute (2) Congestive heart failure Status: Acute (3) Anemia Status: Acute (4) Cardiomyopathy Status: Chronic (5) Diarrhea Status: Acute (6) Endocarditis Status: Acute - Assessment and Plan (Free Text) Plan: P: D/c Miralax, Remerone. Continue IV antibiotic. Continue medications
--- NOTE | 2016-11-28 00:49 | CP.PCM.PN ---
Subjective - Date & Time of Evaluation Date of Evaluation: 11/27/16 Time of Evaluation: 18:00 - Subjective Subjective: Patient seen and evaluated Eliquis stopped due to Guiac positive stool Endocarditis and Severe MR Family reluctant for surgery eval Objective - Vital Signs/Intake and Output Vital Signs (last 24 hours): Temp Pulse Resp BP Pulse Ox 98.0 F 85 20 110/60 96 11/27/16 23:05 11/27/16 23:05 11/27/16 23:05 11/27/16 23:05 11/27/16 23:05 Intake and Output: 11/27/16 11/28/16 18:59 06:59 Output Total 725 Balance -725 - Medications Medications: Current Medications Albuterol/Ipratropium (Duoneb 3 Mg/0.5 Mg (3 Ml) Ud) 3 ml INH RQID [facility] Last Admin: 11/27/16 20:30 Dose: 3 ml Ferrous Sulfate (Feosol) 325 mg PO DAILY [facility] Last Admin: 11/27/16 09:50 Dose: 325 mg Furosemide (Lasix) 20 mg PO DAILY [facility] Last Admin: 11/27/16 09:50 Dose: 20 mg Ceftriaxone Sodium 2 gm/ (Sodium Chloride) 100 mls @ 100 mls/hr IVPB DAILY [facility] Last Admin: 11/27/16 09:51 Dose: 100 mls/hr Metoprolol Tartrate (Lopressor) 25 mg PO BID [facility] Last Admin: 11/27/16 18:34 Dose: 25 mg Pantoprazole Sodium (Protonix Ec Tab) 40 mg PO DAILY [facility] Last Admin: 11/27/16 09:50 Dose: 40 mg - Labs Labs: 11/27/16 13:15 11/27/16 13:15 PT 14.2 SECONDS (9.7-12.2) H 11/24/16 07:15 INR 1.3 11/24/16 07:15 APTT 25 SECONDS (21-34) 11/18/16 18:25
[2016-11-28 01:09] LABS: FOLATE 17.4 ng/mL
--- NOTE | 2016-11-28 06:52 | CP.PCM.PN ---
Subjective - Date & Time of Evaluation Date of Evaluation: 11/28/16 Time of Evaluation: 06:50 - Subjective Subjective: Pt more awake tolerating PO Objective - Vital Signs/Intake and Output Vital Signs (last 24 hours): Temp Pulse Resp BP Pulse Ox 98.9 F 86 20 93/44 L 100 11/27/16 23:52 11/28/16 00:15 11/27/16 23:52 11/27/16 23:52 11/27/16 23:52 Intake and Output: 11/27/16 11/28/16 18:59 06:59 Output Total 825 Balance -825 - Medications Medications: Current Medications Albuterol/Ipratropium (Duoneb 3 Mg/0.5 Mg (3 Ml) Ud) 3 ml INH RQID [facility] Last Admin: 11/27/16 20:30 Dose: 3 ml Ferrous Sulfate (Feosol) 325 mg PO DAILY [facility] Last Admin: 11/27/16 09:50 Dose: 325 mg Furosemide (Lasix) 20 mg PO DAILY [facility] Last Admin: 11/27/16 09:50 Dose: 20 mg Ceftriaxone Sodium 2 gm/ (Sodium Chloride) 100 mls @ 100 mls/hr IVPB DAILY [facility] Last Admin: 11/27/16 09:51 Dose: 100 mls/hr Metoprolol Tartrate (Lopressor) 25 mg PO BID [facility] Last Admin: 11/27/16 18:34 Dose: 25 mg Pantoprazole Sodium (Protonix Ec Tab) 40 mg PO DAILY [facility] Last Admin: 11/27/16 09:50 Dose: 40 mg - Labs Labs: 11/27/16 13:15 11/27/16 13:15 PT 14.2 SECONDS (9.7-12.2) H 11/24/16 07:15 INR 1.3 11/24/16 07:15 APTT 25 SECONDS (21-34) 11/18/16 18:25 - Constitutional Appears: Well - Head Exam Head Exam: ATRAUMATIC - Eye Exam Eye Exam: Normal appearance - ENT Exam ENT Exam: Mucous Membranes Moist - Respiratory Exam Respiratory Exam: NORMAL BREATHING PATTERN - Cardiovascular Exam Cardiovascular Exam: REGULAR RHYTHM, RRR, +S1, +S2, Murmur - GI/Abdominal Exam GI & Abdominal Exam: Normal Bowel Sounds - Exam External exam: absent: Ecchymosis - Extremities Exam Extremities Exam: absent: Pedal Edema - Neurological Exam Neurological Exam: Alert - Psychiatric Exam Psychiatric exam: Depressed - Skin Skin Exam: Dry Assessment and Plan (1) Congestive heart failure Assessment & Plan: Pt with PICC line tolerating IV antibiotics NO VT PPM function appr Status: Acute (2) Endocarditis Status: Acute (3) 2Nd degree AV block Status: Acute
[2016-11-28 06:59] LABS: CHLORIDE 99 mmol/L (98-107); POTASSIUM 3.6 mmol/L (3.6-5.2); SODIUM 141 mmol/L (132-148)
[2016-11-28 07:02] LABS: ALB/GLOB RATIO 0.6 (1.0-2.1); ALKALINE PHOSPHATASE 43 U/L (38-126); ALT/SGPT 27 U/L (9-52); AST/SGOT 28 U/L (14-36); BILIRUBIN,TOTAL 0.5 mg/dL (0.2-1.3); BLOOD UREA NITROGEN 11 mg/dL (7-17); CARBON DIOXIDE 31 mmol/L (22-30); GFR AFRICAN-AMERICAN > 60; GLUCOSE,RANDOM 77 mg/dL (65-105); TOTAL PROTEIN 5.9 g/dL (6.3-8.3)
[2016-11-28 07:03] LABS: CALCIUM 8.7 mg/dl (8.6-10.4)
[2016-11-28] MEDS: Albuterol-Ipratrop 3 mg / 0.5 (3 ml) UD INH SCH (07:38)
--- NOTE | 2016-11-28 09:15 | CT ---
PROCEDURE: CT HEAD WITHOUT CONTRAST. HISTORY: stroke Vs degeneration COMPARISON: Comparison is made to the previous study dated 03/19/2016 TECHNIQUE: Axial computed tomography images were obtained through the head/brain without intravenous contrast. Radiation dose: Total exam DLP = 835.02 mGy-cm. FINDINGS: HEMORRHAGE: No intracranial hemorrhage. BRAIN: No mass effect or edema. No atrophy or chronic microvascular ischemic changes. VENTRICLES: Unremarkable. No hydrocephalus. CALVARIUM: Unremarkable. PARANASAL SINUSES: Unremarkable as visualized. No significant inflammatory changes. MASTOID AIR CELLS: Unremarkable as visualized. No inflammatory changes. OTHER FINDINGS: None. IMPRESSION: No evidence of acute intracranial hemorrhage intracranial collection mass effect or midline shift. No CT evidence of territorial acute infarct. If clinically warranted further assessment by follow-up CT may be obtained.
[2016-11-28] MEDS: Pantoprazole 40 mg EC Tab PO SCH (09:50)
[2016-11-28] MEDS: cefTRIAXone 2 GM in Sodium Chloride 0.9% 100 ML IVPB SCH (09:52)
--- NOTE | 2016-11-28 10:37 | PN ---
DATE: 11/28/2016 LOCATION: 651, bed B. This is an 86-year-old female seen for GI consultation originally on 11/27/2016, examined again today, appears to be awake and alert, tolerating oral intake. The entire chart is reviewed, including but not limited to most recent lab and radiology study result s, current and previous medication lists, current and the previous medical events. Case discussed at length with the staff on the floor. Most recent lab results showed hemoglobin low of 8.4, hematocrit 26.8 with normal platelet count wit h increased sedimentation rate as well as mildly elevated PT 14.2 with increased CO2 content 31, tee cative of mild respiratory alkalosis with low total protein 5.6 and low albumin 2.2 with stool positi ve for occult blood. CAT scan of the head done yesterday indicative of no evidence of acute intracranial bleeding. PHYSICAL EXAMINATION: GENERAL: An 86-year-old female, awake, alert, oriented. VITAL SIGNS: Afebrile with pulse of 74, respiratory rate 20-22, blood pressure of 120/72. HEENT: Showed pale, dry oral mucoid membrane. Nonicteric sclerae. LUNGS: Few scattered crepitation, decreased air entry at bases. HEART: Positive S1 and S2. ABDOMEN: Soft. Bowel sounds are present. No mass or organomegaly. No rebound tenderness or guardi ng. EXTREMITIES: No reported new neurologic deficits, sensory or motor. IMPRESSION: 1. Anemia with guaiac positive stool indicative of gastrointestinal blood loss, upper versus lower. 2. Known past medical history including but not limited to hypertension, hyperlipidemia, congestive heart failure, atrial fibrillation and anemia as well as status post cholecystectomy. 3. Reported history of endocarditis. 4. Reported history of secondary degree AV block. It has to be mentioned that the case was discussed at length with the [facility] consultant, Dr. Anibal Cruz. SUGGESTION: 1. Cancer markers. 2. Proton pump inhibitors 3. Endoscopic evaluation of the upper GI tract, then subsequent evaluation of the colon if the patie nt is able to tolerate the preparation. Further recommendations to follow. Zuleika Garcia MD cc: 14 TT: 11/28/2016 10:36:52 Confirmation # [id number] Dictation # [id number] rn
[2016-11-28 12:39] LABS: CARCINOEMBRYONIC ANTIGEN 2.7 ng/mL (0-3.0)
--- NOTE | 2016-11-28 15:14 | CP.PCM.PN ---
Subjective - Date & Time of Evaluation Date of Evaluation: 11/28/16 Time of Evaluation: 08:00 - Subjective Subjective: Eliquis stopped due to Guiac positive stool Endocarditis and Severe MR Family reluctant for surgery eval Objective - Vital Signs/Intake and Output Vital Signs (last 24 hours): Temp Pulse Resp BP Pulse Ox 97.7 F 79 20 124/70 98 11/28/16 07:23 11/28/16 12:37 11/28/16 07:23 11/28/16 09:51 11/28/16 07:23 Intake and Output: 11/28/16 11/28/16 06:59 18:59 Intake Total 200 Output Total 1175 Balance -975 - Medications Medications: Current Medications Ferrous Sulfate (Feosol) 325 mg PO DAILY [facility] Last Admin: 11/28/16 09:50 Dose: 325 mg Furosemide (Lasix) 20 mg PO DAILY [facility] Last Admin: 11/28/16 09:50 Dose: 20 mg Ceftriaxone Sodium 2 gm/ (Sodium Chloride) 100 mls @ 100 mls/hr IVPB DAILY [facility] Last Admin: 11/28/16 09:52 Dose: 100 mls/hr Metoprolol Tartrate (Lopressor) 25 mg PO BID [facility] Last Admin: 11/28/16 09:51 Dose: 25 mg Pantoprazole Sodium (Protonix Ec Tab) 40 mg PO DAILY [facility] Last Admin: 11/28/16 09:50 Dose: 40 mg - Labs Labs: 11/27/16 13:15 11/28/16 06:35 PT 14.2 SECONDS (9.7-12.2) H 11/24/16 07:15 INR 1.3 11/24/16 07:15 APTT 25 SECONDS (21-34) 11/18/16 18:25 - Constitutional Appears: Non-toxic, Chronically Ill - Head Exam Head Exam: NORMOCEPHALIC - Eye Exam Eye Exam: absent: Scleral icterus - Neck Exam Neck Exam: absent: Lymphadenopathy - Respiratory Exam Respiratory Exam: Decreased Breath Sounds, Clear to Ausculation Bilateral - Cardiovascular Exam Cardiovascular Exam: REGULAR RHYTHM - GI/Abdominal Exam GI & Abdominal Exam: Distended, Soft - Rectal Exam Rectal Exam: Deferred - Exam Exam: NORMAL INSPECTION - Extremities Exam Extremities Exam: absent: Pedal Edema - Back Exam Back Exam: absent: CVA tenderness (L), CVA tenderness (R) Assessment and Plan (1) Anemia Status: Acute (2) Bacterial pneumonia Status: Acute (3) Congestive heart failure Status: Acute (4) Pneumonia Status: Acute (5) Sepsis Status: Acute (6) 2Nd degree AV block Status: Acute
--- NOTE | 2016-11-28 15:40 | CON ---
DATE: 11/28/2016 ATTENDING PHYSICIAN: Israel Cruz MD ROOM: 651, bed B. REASON FOR CONSULTATION: Change in mental status. CHIEF COMPLAINT: The patient was brought in to [facility] with a history of shortness of breath with a change in mental status. During the hospital course, patient was found to have her mental status is unchanged. From neurological point of view, I was called in to evaluate her for further management. HISTORY OF PRESENTING ILLNESS: The patient is an 86-year-old, right-handed, cachectic, -[place] Citizen female brought into [facility] with a history of change in mental status. No history of fall, no history of trauma, no history of involuntary movements have been documented. No similar episodes happened in the past. At present, the patient is arousable and she is complaining of weak. Speech is intact. PAST MEDICAL HISTORY: Anemia, congestive heart failure, endocarditis, pneumonia , heart block, status post pacemaker, cardiomyopathy. MEDICATIONS: Ceftriaxone, iron supplement, Lasix, metoprolol, pantoprazole. PHYSICAL EXAMINATION: VITAL SIGNS: Blood pressure 124/70, mean arterial pressure of 88, respiratory rate 18, temperature 97.7 with a pulse rate of 79, irregular. NECK: Supple, no carotid bruit. HEART SOUNDS: Ejection systolic murmur. EXTREMITIES: Under splint. NEUROLOGIC EXAMINATION: MENTAL STATUS: She is arousable on calling her name. She does not know where she is. However, she admits she is tired. She follows 1-step commands. Significant right and left confusion. MOTOR: She moves all 4 extremities. However, the upper extremities are better than the lower extremities. Increased tone in both lower extremities. Deep tendon reflexes are absent. Plantars are downgoing. SENSORY: Responds to pain symmetrically on both sides. CRANIAL NERVES: Visual field intact. Pupils reactive to light. No facial sensory deficit. No facial asymmetry. Hearing seems to be intact. COORDINATION AND GAIT: Deferred at this time. 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 No evidence of infectious process now . WORKUP: CT of the head reviewed, no acute pathology. BLOOD WORKUP: WBC 8.0, hemoglobin 8.4, hematocrit 26.8, platelets 163. PT 14.2 , INR 1.3. Sodium 141, potassium 3.6, chloride 99, bicarbonate 31, BUN 11, creatinine 0.8, GFR more than 60. CRP 5.9. Ammonia level 9. CA 19-9, 7.0. CA -125, 19.2. B12, 946. Prolactin 16.6. RPR nonreactive. RECOMMENDATIONS: 1. Continue the present management. Keep the optimum blood pressure. I agree with no antiplatelets for now because of her anemia associating with occult blood in the stool. 2. Electroencephalogram as requested. From neurological point of view, no further intervention is needed except electroencephalogram. The patient will be followed closely with you. Willis Rhoades MD cc: [id number] TT: 11/28/2016 15:40:05 Confirmation # [id number] Dictation # [id number] MTDD
--- NOTE | 2016-11-28 16:58 | CP.PCM.PN ---
Subjective - Date & Time of Evaluation Date of Evaluation: 11/28/16 Time of Evaluation: 16:56 - Subjective Subjective: S: Sleeping. No diarrhea. No fever Objective - Vital Signs/Intake and Output Vital Signs (last 24 hours): Temp Pulse Resp BP Pulse Ox 97.7 F 79 20 124/70 98 11/28/16 07:23 11/28/16 12:37 11/28/16 07:23 11/28/16 09:51 11/28/16 07:23 Intake and Output: 11/28/16 11/28/16 06:59 18:59 Intake Total 200 Output Total 1175 Balance -975 - Medications Medications: Current Medications Ferrous Sulfate (Feosol) 325 mg PO DAILY [facility] Last Admin: 11/28/16 09:50 Dose: 325 mg Furosemide (Lasix) 20 mg PO DAILY [facility] Last Admin: 11/28/16 09:50 Dose: 20 mg Ceftriaxone Sodium 2 gm/ (Sodium Chloride) 100 mls @ 100 mls/hr IVPB DAILY [facility] Last Admin: 11/28/16 09:52 Dose: 100 mls/hr Metoprolol Tartrate (Lopressor) 25 mg PO BID [facility] Last Admin: 11/28/16 09:51 Dose: 25 mg Pantoprazole Sodium (Protonix Ec Tab) 40 mg PO DAILY [facility] Last Admin: 11/28/16 09:50 Dose: 40 mg - Labs Labs: 11/27/16 13:15 11/28/16 06:35 PT 14.2 SECONDS (9.7-12.2) H 11/24/16 07:15 INR 1.3 11/24/16 07:15 APTT 25 SECONDS (21-34) 11/18/16 18:25 - Constitutional Appears: Chronically Ill - Head Exam Head Exam: NORMAL INSPECTION - Eye Exam Eye Exam: Normal appearance - ENT Exam ENT Exam: Normal Exam - Neck Exam Neck Exam: Normal Inspection - Respiratory Exam Respiratory Exam: NORMAL BREATHING PATTERN - Cardiovascular Exam Cardiovascular Exam: REGULAR RHYTHM, Murmur - GI/Abdominal Exam GI & Abdominal Exam: Soft - Rectal Exam Rectal Exam: Deferred - Extremities Exam Extremities Exam: absent: Pedal Edema Assessment and Plan (1) Bacterial pneumonia Status: Acute (2) Congestive heart failure Status: Acute (3) Anemia Status: Acute (4) Cardiomyopathy Status: Chronic (5) Diarrhea Status: Acute (6) Endocarditis Status: Acute - Assessment and Plan (Free Text) Plan: P: Continue medications
--- NOTE | 2016-11-28 20:01 | CP.PCM.PN ---
Subjective - Date & Time of Evaluation Date of Evaluation: 11/28/16 Time of Evaluation: 09:00 - Subjective Subjective: Patient seen and evaluated Resting comfortably. Not in distress Objective - Vital Signs/Intake and Output Vital Signs (last 24 hours): Temp Pulse Resp BP Pulse Ox 97.3 F L 68 20 118/64 100 11/28/16 16:00 11/28/16 19:11 11/28/16 16:00 11/28/16 18:13 11/28/16 16:00 - Medications Medications: Current Medications Ferrous Sulfate (Feosol) 325 mg PO DAILY [facility] Last Admin: 11/28/16 09:50 Dose: 325 mg Furosemide (Lasix) 20 mg PO DAILY [facility] Last Admin: 11/28/16 09:50 Dose: 20 mg Ceftriaxone Sodium 2 gm/ (Sodium Chloride) 100 mls @ 100 mls/hr IVPB DAILY [facility] Last Admin: 11/28/16 09:52 Dose: 100 mls/hr Metoprolol Tartrate (Lopressor) 25 mg PO BID [facility] Last Admin: 11/28/16 18:13 Dose: 25 mg Pantoprazole Sodium (Protonix Ec Tab) 40 mg PO DAILY [facility] Last Admin: 11/28/16 09:50 Dose: 40 mg - Labs Labs: 11/27/16 13:15 11/28/16 06:35 PT 14.2 SECONDS (9.7-12.2) H 11/24/16 07:15 INR 1.3 11/24/16 07:15 APTT 25 SECONDS (21-34) 11/18/16 18:25
--- NOTE | 2016-11-28 22:14 | CON ---
DATE: 11/27/[address] Zuleika Garcia to Dr. Pietro Arteaga I was called for GI consultation by the admitting medical team. The patient is seen and fully examin ed on 11/27/16 for GI consultation. The entire chart is reviewed, including but not limited to most recent lab and radiology study results, current and the previous medication list, current and the pre vious medical events, allergies to medications list as well as all the available current and the prev ious medical records. Case discussed at length with the admitting MD, as well as the retail sales consultant on the case. HISTORY OF PRESENT ILLNESS: This is an 86-year-old female with multiple past medical history, who wa s admitted to the hospital with intermittent period of mild chest tightness and cough with a complain t of less oral intake, mild generalized weakness and malaise. Was found to have a very low hemoglobi n and hematocrit at the time of the admission and reported to have guaiac positive stool. No hemetemesis reported. The patient reported also mild but recent body weight loss. PAST MEDICAL HISTORY: Including but not limited to: 1. Hypertension. 2. Atrial fibrillation. 3. Congestive heart failure. 4. Peptic ulcer disease. 5. Hyperlipidemia. 6. Status post cholecystectomy. FAMILY HISTORY: Unknown. SOCIAL HISTORY: Denied any recent history of cigarette smoking or alcohol intake. CURRENT MEDICATIONS: Medication lists were reviewed. ALLERGY TO MEDICATION: Unclear. LABORATORY DATA: Initial blood workup showed hemoglobin of 6.3 with hematocrit 20.2 and leukocytosis of 15.0 with subsequent drop of hemoglobin and hematocrit furthermore, required blood transfusion. There was increase of blood glucose level with increased BUN to 37, but creatinine 1.2 initially. PHYSICAL EXAMINATION: GENERAL: An 86-year-old female, appeared to be for me awake, alert, oriented at the time of my physi david examination. VITAL SIGNS: Afebrile with pulse of 96, respiratory rate of 22-24 with blood pressure 126/74. HEENT: Showed pale, dry mucoid membrane. Nonicteric sclerae. LUNGS: Few scattered crepitation, decreased air entry at bases. HEART: Positive S1 and S2. ABDOMEN: Soft with mild generalized tenderness. No mass or organomegaly. No rebound tenderness or guarding. RECTAL: The patient refused. EXTREMITIES: With mild lower extremity edematous changes. No clubbing or cyanosis. NEUROLOGIC: No focal neurological deficit, sensory or motor. IMPRESSION: 1. Severe anemia with guaiac positive stool, rule out upper versus lower gastrointestinal blood loss . 2. Rule out occult gastrointestinal malignancy. 3. Known history of, but not limited to, atrial fibrillation, hypertension, congestive heart failure as well as hyperlipidemia. 4. Episodes of hyperglycemia. SUGGESTION: 1. Agree with your plan. 2. Cancer markers including CEA. 3. Abdominal ultrasound. 4. Proton pump inhibitors. 5. The patient may need endoscopic evaluation of the GI tract when she is more stable, mainly upper GI endoscopy in the meantime. Thank you for letting me participate in your patient's case management. Further recommendation to jodi hammond. Zuleika Garcia MD cc: 14 TT: 11/28/2016 22:13:39 Confirmation # [id number] Dictation # [id number]
--- NOTE | 2016-11-29 08:01 | PN ---
DATE: 11/29/2016 TIME OF EVALUATION: 6:55 a.m. 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 PHYSICAL EXAMINATION: VITAL SIGNS: Blood pressure 107/61, mean arterial pressure of 76, respiratory rate 16, temperature 9 7.5, pulse rate 73. NEUROLOGIC: The patient is awake. Eyes are open. Speech is mumbling. She claims her leg pain, kiley k pain. She did not have sleep. She moves upper extremities more than lower extremities. The patient's examination is unchanged. The patient is requested to have an electroencephalogram and metabolic workup as requested earlier. The patient will be followed closely with you. Willis Rhoades MD cc: [id number] TT: 11/29/2016 08:00:48 Confirmation # [id number] Dictation # [id number] radha
--- NOTE | 2016-11-29 08:16 | CP.PCM.PN ---
Subjective - Date & Time of Evaluation Date of Evaluation: 11/29/16 Time of Evaluation: 08:00 - Subjective Subjective: Pt complain of low back and right d foot pain. pain is continuous, 05/05 Scheduled for EGD after 11 AM No CP, no SOB, no palpitation, no cough Objective - Vital Signs/Intake and Output Vital Signs (last 24 hours): Temp Pulse Resp BP Pulse Ox 98 F 78 20 100/58 L 100 11/29/16 07:15 11/29/16 07:15 11/29/16 07:15 11/29/16 07:15 11/29/16 07:15 Intake and Output: 11/29/16 11/29/16 06:59 18:59 Intake Total 200 Output Total 600 Balance -400 - Medications Medications: Current Medications Acetaminophen (Tylenol 325mg Tab) 325 mg PO BID [facility] Ferrous Sulfate (Feosol) 325 mg PO DAILY [facility] Last Admin: 11/28/16 09:50 Dose: 325 mg Furosemide (Lasix) 20 mg PO DAILY [facility] Last Admin: 11/28/16 09:50 Dose: 20 mg Ceftriaxone Sodium 2 gm/ (Sodium Chloride) 100 mls @ 100 mls/hr IVPB DAILY [facility] Last Admin: 11/28/16 09:52 Dose: 100 mls/hr Metoprolol Tartrate (Lopressor) 25 mg PO BID [facility] Last Admin: 11/28/16 18:13 Dose: 25 mg Pantoprazole Sodium (Protonix Ec Tab) 40 mg PO DAILY [facility] Last Admin: 11/28/16 09:50 Dose: 40 mg Tramadol HCl (Ultram) 50 mg PO BID [facility] - Labs Labs: 11/27/16 13:15 11/28/16 06:35 PT 14.2 SECONDS (9.7-12.2) H 11/24/16 07:15 INR 1.3 11/24/16 07:15 APTT 25 SECONDS (21-34) 11/18/16 18:25 - Constitutional Appears: No Acute Distress - Eye Exam Eye Exam: Normal appearance - ENT Exam ENT Exam: Mucous Membranes Moist - Neck Exam Neck Exam: Full ROM. absent: Normal Inspection, Tenderness - Respiratory Exam Respiratory Exam: Decreased Breath Sounds. absent: Rales, Rhonchi, Wheezes, Respiratory Distress - Cardiovascular Exam Cardiovascular Exam: Diastolic murmur, Irregular Rhythm, +S1, +S2. absent: Gallop, JVD, Rubs - GI/Abdominal Exam GI & Abdominal Exam: Soft. absent: Tenderness, Mass - Extremities Exam Extremities Exam: Full ROM, Normal Capillary Refill. absent: Calf Tenderness, Joint Swelling, Pedal Edema Assessment and Plan - Assessment and Plan (Free Text) Assessment: GI Bleed; Mitral Valve Endocarditis Cardiomyopathy s/p PM placement LBP; R foot pain Add Ultracet Continue IV Rocephin' On going GI work up
[2016-11-29] MEDS: Tramadol 25 mg PO SCH ×2 (09:56→17:28)
[2016-11-29] MEDS: cefTRIAXone 2 GM in Sodium Chloride 0.9% 100 ML IVPB SCH (09:57)
--- NOTE | 2016-11-29 10:58 | CP.PCM.PN ---
Subjective - Date & Time of Evaluation Date of Evaluation: 11/29/16 Time of Evaluation: 08:00 - Subjective Subjective: Progress note for Dr Mendoza: Pt seen and examined at bedside. No acute events overnight. NPO for EGD this AM. Pt denies any shortness of breath or chest pain. Denies any headaches, dizziness, f/c, sob, cp, palpitations, abd pain, n/v, urinary or bm changes. Objective - Vital Signs/Intake and Output Vital Signs (last 24 hours): Temp Pulse Resp BP Pulse Ox 98 F 76 20 93/45 L 100 11/29/16 07:15 11/29/16 10:03 11/29/16 07:15 11/29/16 10:04 11/29/16 07:15 Intake and Output: 11/29/16 11/29/16 06:59 18:59 Intake Total 200 Output Total 600 Balance -400 - Medications Medications: Current Medications Acetaminophen (Tylenol 325mg Tab) 325 mg PO BID [facility] Last Admin: 11/29/16 09:56 Dose: 325 mg Ferrous Sulfate (Feosol) 325 mg PO DAILY [facility] Last Admin: 11/28/16 09:50 Dose: 325 mg Furosemide (Lasix) 20 mg PO DAILY [facility] Last Admin: 11/29/16 10:04 Dose: Not Given Ceftriaxone Sodium 2 gm/ (Sodium Chloride) 100 mls @ 100 mls/hr IVPB DAILY [facility] Last Admin: 11/29/16 09:57 Dose: 100 mls/hr Metoprolol Tartrate (Lopressor) 25 mg PO BID [facility] Last Admin: 11/29/16 10:04 Dose: Not Given Pantoprazole Sodium (Protonix Ec Tab) 40 mg PO DAILY [facility] Last Admin: 11/28/16 09:50 Dose: 40 mg Tramadol HCl (Ultram) 25 mg PO BID [facility] Last Admin: 11/29/16 09:56 Dose: 25 mg - Labs Labs: 11/27/16 13:15 11/28/16 06:35 PT 14.2 SECONDS (9.7-12.2) H 11/24/16 07:15 INR 1.3 11/24/16 07:15 APTT 25 SECONDS (21-34) 11/18/16 18:25 - Constitutional Appears: No Acute Distress - Head Exam Head Exam: ATRAUMATIC, NORMAL INSPECTION, NORMOCEPHALIC - Eye Exam Eye Exam: EOMI, Normal appearance, PERRL Pupil Exam: NORMAL ACCOMODATION, PERRL - ENT Exam ENT Exam: Mucous Membranes Moist, Normal Exam - Neck Exam Neck Exam: Full ROM, Normal Inspection. absent: Lymphadenopathy - Respiratory Exam Respiratory Exam: Clear to Ausculation Bilateral, NORMAL BREATHING PATTERN. absent: Wheezes - Cardiovascular Exam Cardiovascular Exam: REGULAR RHYTHM, RRR, +S1, +S2. absent: Murmur - GI/Abdominal Exam GI & Abdominal Exam: Soft, Normal Bowel Sounds. absent: Distended, Tenderness - Extremities Exam Extremities Exam: Full ROM, Normal Capillary Refill, Normal Inspection. absent : Joint Swelling, Pedal Edema - Back Exam Back Exam: NORMAL INSPECTION - Neurological Exam Neurological Exam: Alert, Awake, CN II-XII Intact, Normal Gait, Oriented x3 - Psychiatric Exam Psychiatric exam: Normal Affect, Normal Mood - Skin Skin Exam: Dry, Intact, Normal Color, Warm Assessment and Plan - Assessment and Plan (Free Text) Assessment: 85 F with PMHx of HOCM, CHF, HTN, hyperlipidemia, AFib, breast cancer with mets ? and pacemaker, who presents with confusion and lethargy found to be anemic Hb 6.3 s/p 2 units PRBC now hb 8.4, with possible pneumonia vs CHF. Pt found to be bacteremic with Strep Viridins. AMNA showed vegetation on ant Mitral leaflet suggesting endocarditis requiring [employer] antibiotics. Pt is now NPO for EGD this AM due to GI bleed + Guaic test. - AMNA showed vegetation on ant Mitral leaflet suggesting endocarditis requiring assisted antibiotics - + Guaic - NPO after midnight Plan for EGD today - Echo done EF 77% f/u read - Cont ABX - Rocephin per medical team - Cont Lasix 20mg PO and metoprolol 25mg PO BID - Metastatic dx f/u medical work up - GI/DVT ppx Case & plan was seen, reviewed, and discussed in detail with Dr Mendoza.
--- NOTE | 2016-11-29 11:57 | CP.PCM.PN ---
Subjective - Date & Time of Evaluation Date of Evaluation: 11/29/16 Time of Evaluation: 09:00 - Subjective Subjective: family refuseds surgery rx in progress repeated blood c/s Objective - Vital Signs/Intake and Output Vital Signs (last 24 hours): Temp Pulse Resp BP Pulse Ox 98.4 F 70 20 102/56 L 100 11/29/16 10:45 11/29/16 10:45 11/29/16 10:45 11/29/16 10:45 11/29/16 10:45 Intake and Output: 11/29/16 11/29/16 06:59 18:59 Intake Total 200 Output Total 600 Balance -400 - Medications Medications: Current Medications Acetaminophen (Tylenol 325mg Tab) [address] [facility] Last Admin: 11/29/16 09:56 Dose: 325 mg Ferrous Sulfate (Feosol) [address] [facility] Last Admin: 11/28/16 09:50 Dose: 325 mg Furosemide (Lasix) [address] [facility] Last Admin: 11/29/16 10:04 Dose: Not Given Ceftriaxone Sodium 2 gm/ (Sodium Chloride) 100 mls @ 100 mls/hr IVPB DAILY [facility] Last Admin: 11/29/16 09:57 Dose: 100 mls/hr Metoprolol Tartrate (Lopressor) [address] [facility] Last Admin: 11/29/16 10:04 Dose: Not Given Pantoprazole Sodium (Protonix Ec Tab) [address] [facility] Last Admin: 11/28/16 09:50 Dose: 40 mg Tramadol HCl (Ultram) [address] [facility] Last Admin: 11/29/16 09:56 Dose: 25 mg - Labs Labs: 11/27/16 13:15 11/28/16 06:35 PT 14.2 SECONDS (9.7-12.2) H 11/24/16 07:15 INR 1.3 11/24/16 07:15 APTT 25 SECONDS (21-34) 11/18/16 18:25 - Constitutional Appears: Cachectic, Chronically Ill - Head Exam Head Exam: NORMOCEPHALIC - Eye Exam Eye Exam: absent: Scleral icterus - ENT Exam ENT Exam: Mucous Membranes Dry - Neck Exam Neck Exam: absent: Lymphadenopathy - Respiratory Exam Respiratory Exam: Decreased Breath Sounds, Rhonchi - Cardiovascular Exam Cardiovascular Exam: REGULAR RHYTHM, +S1, +S2 - GI/Abdominal Exam GI & Abdominal Exam: Distended, Soft - Rectal Exam Rectal Exam: Deferred - Exam Exam: NORMAL INSPECTION - Extremities Exam Extremities Exam: absent: Pedal Edema - Back Exam Back Exam: absent: CVA tenderness (L), CVA tenderness (R) Assessment and Plan (1) Anemia Status: Acute (2) Bacterial pneumonia Status: Acute (3) Congestive heart failure Status: Acute (4) Pneumonia Status: Acute (5) Sepsis Status: Acute (6) 2Nd degree AV block Status: Acute
[2016-11-29] MEDS: Pantoprazole 40 mg EC Tab PO SCH (12:50)
[2016-11-29] MEDS ORDERED: Peg-Electrolyte Oral Soln 4L (Golytely) PO ONE (13:00)
--- NOTE | 2016-11-29 14:06 | CP.PCM.PN ---
Subjective - Date & Time of Evaluation Date of Evaluation: 11/29/16 Time of Evaluation: 10:00 - Subjective Subjective: Patient seen and evaluated at bedside Patient appears to be in No Acute Distress and is breathing comfortably. Patient vaguely points to her chest as a source of discomfort, describing it as "clogged" Patient continues to undergo antibiotic treatment for strep Viridans endocarditis. Patient scheduled for Upper GI Endoscopy today Objective - Vital Signs/Intake and Output Vital Signs (last 24 hours): Temp Pulse Resp BP Pulse Ox 97.3 F L 70 18 121/63 100 11/29/16 12:52 11/29/16 12:52 11/29/16 12:52 11/29/16 12:52 11/29/16 12:52 Intake and Output: 11/29/16 11/29/16 06:59 18:59 Intake Total 200 100 Output Total 600 Balance -400 100 - Medications Medications: Current Medications Acetaminophen (Tylenol 325mg Tab) 325 mg PO BID [facility] Last Admin: 11/29/16 09:56 Dose: 325 mg Bisacodyl (Dulcolax) 10 mg PO ONCE ONE Stop: 11/29/16 17:01 Ferrous Sulfate (Feosol) 325 mg PO DAILY [facility] Last Admin: 11/29/16 12:50 Dose: 325 mg Furosemide (Lasix) 20 mg PO DAILY [facility] Last Admin: 11/29/16 10:04 Dose: Not Given Ceftriaxone Sodium 2 gm/ (Sodium Chloride) 100 mls @ 100 mls/hr IVPB DAILY [facility] Last Admin: 11/29/16 09:57 Dose: 100 mls/hr Metoclopramide HCl (Reglan) 5 mg IVP ACHS [facility] Metoprolol Tartrate (Lopressor) 25 mg PO BID [facility] Last Admin: 11/29/16 10:04 Dose: Not Given Pantoprazole Sodium (Protonix Ec Tab) 40 mg PO DAILY [facility] Last Admin: 11/29/16 12:50 Dose: 40 mg Tramadol HCl (Ultram) 25 mg PO BID [facility] Last Admin: 11/29/16 09:56 Dose: 25 mg - Labs Labs: 11/27/16 13:15 11/28/16 06:35 PT 14.2 SECONDS (9.7-12.2) H 11/24/16 07:15 INR 1.3 11/24/16 07:15 APTT 25 SECONDS (21-34) 11/18/16 18:25 - Constitutional Appears: No Acute Distress - Head Exam Head Exam: NORMAL INSPECTION - Eye Exam Eye Exam: Normal appearance - ENT Exam ENT Exam: Mucous Membranes Moist - Respiratory Exam Respiratory Exam: Clear to Ausculation Bilateral, NORMAL BREATHING PATTERN - Cardiovascular Exam Cardiovascular Exam: REGULAR RHYTHM, +S1, +S2 - Neurological Exam Neurological Exam: Alert, Awake. absent: Oriented x3 - Skin Skin Exam: Dry, Intact, Normal Color, Warm Assessment and Plan (1) Endocarditis Assessment & Plan: Continue ABX regiment for endocarditis Follow up with results of Upper GI Endoscopy continue to monitor for symptoms of CP and SOB Status: Acute (2) Pneumonia Status: Acute (3) Congestive heart failure Status: Acute (4) Cardiomyopathy Status: Chronic
[2016-11-29] MEDS ORDERED: Bisacodyl 5mg EC Tab PO ONE (17:00)
--- NOTE | 2016-11-29 22:58 | CP.PCM.PN ---
Subjective - Date & Time of Evaluation Date of Evaluation: 11/29/16 Time of Evaluation: 12:10 - Subjective Subjective: Patient seen and evaluated Comfortable Hypotensive this morning and now resolved Objective - Vital Signs/Intake and Output Vital Signs (last 24 hours): Temp Pulse Resp BP Pulse Ox 97.5 F L 70 20 144/77 100 11/29/16 15:09 11/29/16 16:00 11/29/16 15:09 11/29/16 17:29 11/29/16 15:09 Intake and Output: 11/29/16 11/30/16 18:59 06:59 Intake Total 400 Output Total 200 Balance 200 - Medications Medications: Current Medications Acetaminophen (Tylenol 325mg Tab) 325 mg PO BID [facility] Last Admin: 11/29/16 17:29 Dose: 325 mg Ferrous Sulfate (Feosol) 325 mg PO DAILY [facility] Last Admin: 11/29/16 12:50 Dose: 325 mg Furosemide (Lasix) 20 mg PO DAILY [facility] Last Admin: 11/29/16 10:04 Dose: Not Given Ceftriaxone Sodium 2 gm/ (Sodium Chloride) 100 mls @ 100 mls/hr IVPB DAILY [facility] Last Admin: 11/29/16 09:57 Dose: 100 mls/hr Metoclopramide HCl (Reglan) 5 mg IVP ACHS [facility] Last Admin: 11/29/16 21:37 Dose: 5 mg Metoprolol Tartrate (Lopressor) 25 mg PO BID [facility] Last Admin: 11/29/16 17:29 Dose: 25 mg Pantoprazole Sodium (Protonix Ec Tab) 40 mg PO DAILY [facility] Last Admin: 11/29/16 12:50 Dose: 40 mg Tramadol HCl (Ultram) 25 mg PO BID [facility] Last Admin: 11/29/16 17:28 Dose: 25 mg - Labs Labs: 11/27/16 13:15 11/28/16 06:35 PT 14.2 SECONDS (9.7-12.2) H 11/24/16 07:15 INR 1.3 11/24/16 07:15 APTT 25 SECONDS (21-34) 11/18/16 18:25
--- NOTE | 2016-11-30 08:34 | CP.PCM.PN ---
Subjective - Date & Time of Evaluation Date of Evaluation: 11/30/16 Time of Evaluation: 08:15 - Subjective Subjective: Pt confuse; talking in aust[place] language Hypotension yesterday but resolve by stoping med Unable to get ROS c/o very confuse Objective - Vital Signs/Intake and Output Vital Signs (last 24 hours): Temp Pulse Resp BP Pulse Ox 99.0 F 99 H 20 167/72 H 99 11/30/16 07:20 11/30/16 07:20 11/30/16 07:20 11/30/16 07:20 11/30/16 07:20 Intake and Output: 11/30/16 11/30/16 06:59 18:59 Intake Total 0 Output Total 250 Balance -250 - Medications Medications: Current Medications Acetaminophen (Tylenol 325mg Tab) 325 mg PO BID [facility] Last Admin: 11/29/16 17:29 Dose: 325 mg Ferrous Sulfate (Feosol) 325 mg PO DAILY [facility] Last Admin: 11/29/16 12:50 Dose: 325 mg Furosemide (Lasix) 20 mg PO DAILY [facility] Last Admin: 11/29/16 10:04 Dose: Not Given Ceftriaxone Sodium 2 gm/ (Sodium Chloride) 100 mls @ 100 mls/hr IVPB DAILY [facility] Last Admin: 11/29/16 09:57 Dose: 100 mls/hr Metoclopramide HCl (Reglan) 5 mg IVP ACHS [facility] Last Admin: 11/30/16 08:22 Dose: 5 mg Metoprolol Tartrate (Lopressor) 25 mg PO BID [facility] Last Admin: 11/29/16 17:29 Dose: 25 mg Pantoprazole Sodium (Protonix Ec Tab) 40 mg PO DAILY [facility] Last Admin: 11/29/16 12:50 Dose: 40 mg Tramadol HCl (Ultram) 25 mg PO BID [facility] Last Admin: 11/29/16 17:28 Dose: 25 mg - Labs Labs: 11/27/16 13:15 11/28/16 06:35 PT 14.2 SECONDS (9.7-12.2) H 11/24/16 07:15 INR 1.3 11/24/16 07:15 APTT 25 SECONDS (21-34) 11/18/16 18:25 - Constitutional Appears: No Acute Distress - Eye Exam Eye Exam: Normal appearance - ENT Exam ENT Exam: Mucous Membranes Moist - Neck Exam Neck Exam: Full ROM. absent: Normal Inspection, Tenderness - Respiratory Exam Respiratory Exam: Decreased Breath Sounds. absent: Rales, Rhonchi, Wheezes - Cardiovascular Exam Cardiovascular Exam: REGULAR RHYTHM, +S1, +S2, Murmur. absent: Gallop, JVD, Rubs - GI/Abdominal Exam GI & Abdominal Exam: Soft. absent: Tenderness, Mass - Extremities Exam Extremities Exam: Full ROM, Normal Capillary Refill. absent: Calf Tenderness, Joint Swelling, Pedal Edema Assessment and Plan - Assessment and Plan (Free Text) Assessment: Dementia w/ Confusion Cardiomyopathy; Endocarditis w/ Abn CXR h/o o Breast cancer Family definitely - "nothing too invasive c/o surgery" Want procrit ? but unsure c/o if appropriate - Call [facility] Continue meds/ supportive care on going GI work up
[2016-11-30] MEDS ORDERED: Propofol 10 mg/ml Inj (20 ML) ONE (09:56)
[2016-11-30] MEDS ORDERED: Magnesium Citrate Oral SOL (300 ml) PO ONE (10:12)
--- NOTE | 2016-11-30 10:49 | CP.PCM.PN ---
Subjective - Date & Time of Evaluation Date of Evaluation: 11/30/16 Time of Evaluation: 08:00 - Subjective Subjective: Progress note for Dr Mendoza: Pt seen and examined at bedside. No acute events overnight. Pt is confused and disoriented but she denies any shortness of breath or chest pain at this time. NPO for colonsocopy this AM. Denies any headaches, dizziness, f/c, sob, cp, palpitations, abd pain, n/v, urinary or bm changes. Objective - Vital Signs/Intake and Output Vital Signs (last 24 hours): Temp Pulse Resp BP Pulse Ox 97.8 F 90 21 140/59 L 100 11/30/16 10:20 11/30/16 10:35 11/30/16 10:35 11/30/16 10:35 11/30/16 10:35 Intake and Output: 11/30/16 11/30/16 06:59 18:59 Intake Total 0 200 Output Total 250 Balance -250 200 - Medications Medications: Current Medications Acetaminophen (Tylenol 325mg Tab) 325 mg PO BID [facility] Last Admin: 11/29/16 17:29 Dose: 325 mg Bisacodyl (Dulcolax) 10 mg PO ONCE ONE Stop: 12/01/16 13:01 Ferrous Sulfate (Feosol) 325 mg PO DAILY [facility] Last Admin: 11/29/16 12:50 Dose: 325 mg Furosemide (Lasix) 20 mg PO DAILY [facility] Last Admin: 11/29/16 10:04 Dose: Not Given Ceftriaxone Sodium 2 gm/ (Sodium Chloride) 100 mls @ 100 mls/hr IVPB DAILY [facility] Last Admin: 11/29/16 09:57 Dose: 100 mls/hr Metoclopramide HCl (Reglan) 5 mg IVP ACHS [facility] Last Admin: 11/30/16 08:20 Dose: Not Given Metoprolol Tartrate (Lopressor) 25 mg PO BID [facility] Last Admin: 11/29/16 17:29 Dose: 25 mg Pantoprazole Sodium (Protonix Ec Tab) 40 mg PO DAILY [facility] Last Admin: 11/29/16 12:50 Dose: 40 mg Tramadol HCl (Ultram) 25 mg PO BID [facility] Last Admin: 11/29/16 17:28 Dose: 25 mg - Labs Labs: 11/27/16 13:15 03/05/17 06:35 PT 14.2 SECONDS (9.7-12.2) H 11/24/16 07:15 INR 1.3 11/24/16 07:15 APTT 25 SECONDS (21-34) 11/18/16 18:25 - Constitutional Appears: No Acute Distress - Head Exam Head Exam: ATRAUMATIC, NORMAL INSPECTION, NORMOCEPHALIC - Eye Exam Eye Exam: EOMI, Normal appearance, PERRL Pupil Exam: NORMAL ACCOMODATION, PERRL - ENT Exam ENT Exam: Mucous Membranes Moist, Normal Exam - Neck Exam Neck Exam: Full ROM, Normal Inspection. absent: Lymphadenopathy - Respiratory Exam Respiratory Exam: Accessory Muscle Use, Clear to Ausculation Bilateral. absent : Rales, Wheezes - Cardiovascular Exam Cardiovascular Exam: REGULAR RHYTHM, RRR, +S1, +S2. absent: Murmur - GI/Abdominal Exam GI & Abdominal Exam: Soft, Normal Bowel Sounds. absent: Distended, Tenderness - Back Exam Back Exam: NORMAL INSPECTION - Neurological Exam Neurological Exam: Alert, Awake, CN II-XII Intact, Normal Gait Additional comments: Alert only to person - Psychiatric Exam Psychiatric exam: Normal Affect, Normal Mood - Skin Skin Exam: Dry, Intact, Normal Color, Warm Assessment and Plan - Assessment and Plan (Free Text) Assessment: 85 F with PMHx of HOCM, CHF, HTN, hyperlipidemia, AFib, breast cancer with mets ? and pacemaker, who presented with confusion and lethargy found to be anemic Hb 6.3 s/p 2 units PRBC now hb 8.4, with possible pneumonia vs CHF. Pt found to be bacteremic with Strep Viridins. AMNA showed vegetation on ant Mitral leaflet suggesting endocarditis requiring long-term antibiotics. EGD revealed LA grade B candidiasis esophagitis, small hiatal hernia, erythromatous mucosa in antrum, and single gastric polyp. NPO for colonscopy today. - + Guaic - NPO for colonscopy this AM - EGD - revealed LA grade B candidiasis esophagitis, small hiatal hernia, erythromatous mucousa in antrum, and single gastric polyp - F/u GI recs - AMNA showed vegetation on ant Mitral leaflet suggesting endocarditis requiring long-term antibiotics - Cont ABX - Rocephin per medical team - Cont Lasix 20mg PO and Metoprolol - Metastatic dx f/u medical work up - GI/DVT ppx Case & plan was seen, reviewed, and discussed in detail with Dr Mendoza.
[2016-11-30] MEDS: cefTRIAXone 2 GM in Sodium Chloride 0.9% 100 ML IVPB SCH (11:55)
[2016-11-30] MEDS: Pantoprazole 40 mg EC Tab PO SCH (11:56)
[2016-11-30] MEDS: Tramadol 25 mg PO SCH ×2 (12:04→17:10)
[2016-11-30 14:11] LABS: IMMUNOGLOBULIN G 1846.1 mg/dL (700.0-1600.0)
--- NOTE | 2016-11-30 22:29 | CP.PCM.PN ---
Subjective - Date & Time of Evaluation Date of Evaluation: 11/30/16 Time of Evaluation: 10:00 - Subjective Subjective: Patient seen and evaluated Not in distress Patient and family refusing CT surgery for MVR Continue medical management Objective - Vital Signs/Intake and Output Vital Signs (last 24 hours): Temp Pulse Resp BP Pulse Ox 98.2 F 79 20 131/64 99 11/30/16 15:00 11/30/16 16:00 11/30/16 15:00 11/30/16 17:11 11/30/16 15:00 Intake and Output: 11/30/16 12/01/16 18:59 06:59 Intake Total 550 Output Total 250 Balance 300 - Medications Medications: Current Medications Acetaminophen (Tylenol 325mg Tab) 325 mg PO BID [facility] Last Admin: 11/30/16 17:11 Dose: Not Given Ferrous Sulfate (Feosol) 325 mg PO DAILY [facility] Last Admin: 11/30/16 11:57 Dose: 325 mg Furosemide (Lasix) 20 mg PO DAILY [facility] Last Admin: 11/30/16 11:56 Dose: 20 mg Ceftriaxone Sodium 2 gm/ (Sodium Chloride) 100 mls @ 100 mls/hr IVPB DAILY [facility] Last Admin: 11/30/16 11:55 Dose: 100 mls/hr Metoclopramide HCl (Reglan) 5 mg IVP ACHS [facility] Last Admin: 11/30/16 21:35 Dose: Not Given Metoprolol Tartrate (Lopressor) 25 mg PO BID [facility] Last Admin: 11/30/16 17:11 Dose: 25 mg Pantoprazole Sodium (Protonix Ec Tab) 40 mg PO DAILY [facility] Last Admin: 11/30/16 11:56 Dose: 40 mg Tramadol HCl (Ultram) 25 mg PO BID [facility] Last Admin: 11/30/16 17:10 Dose: 25 mg - Labs Labs: 11/27/16 13:15 11/28/16 06:35 PT 14.2 SECONDS (9.7-12.2) H 11/24/16 07:15 INR 1.3 11/24/16 07:15 APTT 25 SECONDS (21-34) 11/18/16 18:25
[2016-12-01 04:30] LABS: IGG,SERUM 1900 mg/dL (694-1618); IGM,SERUM 129 mg/dL (48-271)
--- NOTE | 2016-12-01 08:43 | CP.PCM.PN ---
Subjective - Date & Time of Evaluation Date of Evaluation: 12/01/16 Time of Evaluation: 08:25 - Subjective Subjective: Pt answer appropriately to simple question; No counh, no CP, no SOB, no diarrhea, no palpitatio; Refuse repeat colonoscopy Objective - Vital Signs/Intake and Output Vital Signs (last 24 hours): Temp Pulse Resp BP Pulse Ox 99.0 F 67 20 122/61 100 12/01/16 07:02 12/01/16 07:02 12/01/16 07:02 12/01/16 07:02 12/01/16 07:02 Intake and Output: 12/01/16 12/01/16 06:59 18:59 Intake Total 150 Output Total 300 Balance -150 - Medications Medications: Current Medications Acetaminophen (Tylenol 325mg Tab) 325 mg PO BID [facility] Last Admin: 11/30/16 17:11 Dose: Not Given Ferrous Sulfate (Feosol) 325 mg PO DAILY [facility] Last Admin: 11/30/16 11:57 Dose: 325 mg Furosemide (Lasix) 20 mg PO DAILY [facility] Last Admin: 11/30/16 11:56 Dose: 20 mg Ceftriaxone Sodium 2 gm/ (Sodium Chloride) 100 mls @ 100 mls/hr IVPB DAILY [facility] Last Admin: 11/30/16 11:55 Dose: 100 mls/hr Metoclopramide HCl (Reglan) 5 mg IVP ACHS [facility] Last Admin: 12/01/16 08:27 Dose: 5 mg Metoprolol Tartrate (Lopressor) 25 mg PO BID [facility] Last Admin: 11/30/16 17:11 Dose: 25 mg Pantoprazole Sodium (Protonix Ec Tab) 40 mg PO DAILY [facility] Last Admin: 11/30/16 11:56 Dose: 40 mg Tramadol HCl (Ultram) 25 mg PO BID [facility] Last Admin: 11/30/16 17:10 Dose: 25 mg - Labs Labs: 11/27/16 13:15 11/28/16 06:35 PT 14.2 SECONDS (9.7-12.2) H 11/24/16 07:15 INR 1.3 11/24/16 07:15 APTT 25 SECONDS (21-34) 11/18/16 18:25 - Constitutional Appears: No Acute Distress - Eye Exam Eye Exam: Normal appearance - ENT Exam ENT Exam: Mucous Membranes Moist - Neck Exam Neck Exam: Full ROM. absent: Lymphadenopathy, Thyromegaly - Respiratory Exam Respiratory Exam: Chest Wall Tenderness, Decreased Breath Sounds. absent: Rales , Rhonchi, Wheezes - Cardiovascular Exam Cardiovascular Exam: +S1, +S2. absent: Gallop - GI/Abdominal Exam GI & Abdominal Exam: Soft, Normal Bowel Sounds. absent: Tenderness - Extremities Exam Extremities Exam: Full ROM, Normal Capillary Refill. absent: Calf Tenderness, Joint Swelling, Pedal Edema Assessment and Plan - Assessment and Plan (Free Text) Assessment: Mitral valve Endocarditis Hypertensive Cardiomyopathy GI Bleed ? Gastric Polyps Discuss w/ Roula - Want EGD w/ removal of Polyps Cont meds
--- NOTE | 2016-12-01 09:05 | PN ---
DATE: 12/01/2016 DATE OF EVALUATION: 12/01/2016 TIME OF EVALUATION: 6:05 a.m. NEUROLOGICAL PROBLEM: Change in mental status. PHYSICAL EXAMINATION: VITAL SIGNS: Blood pressure 127/61,, respiratory rate 16, temperature afebrile. The patient is sleepy, not arousable verbally. On tactile stimulation, the patient is arousable mumbling. He does not want to answer complex question. The patient seems to be lethargic. NECK: Supple. We EEG shows diffuse slow activities. There are no paroxysmal activity is noted. RECOMMENDATIONS: Continue the present management. The patient will be followed closely with you. Willis Rhoades MD cc: [id number] TT: 12/01/2016 09:04:04 Confirmation # [id number] Dictation # [id number] MTDD
[2016-12-01] MEDS ORDERED: Tramadol 25 mg PO PRN (09:23)
--- NOTE | 2016-12-01 10:19 | CP.PCM.PN ---
Subjective - Date & Time of Evaluation Date of Evaluation: 12/01/16 Time of Evaluation: 07:50 - Subjective Subjective: Progress note for Dr Mendoza: Pt seen and examined at bedside. No acute events overnight. Pt less confused today. Denies any shortness of breath or chest pain at this time. Denies any headaches, dizziness, f/c, sob, cp, palpitations, abd pain, n/v, urinary or bm changes. Objective - Vital Signs/Intake and Output Vital Signs (last 24 hours): Temp Pulse Resp BP Pulse Ox 99.0 F 67 20 122/61 100 12/01/16 07:02 12/01/16 07:02 12/01/16 07:02 12/01/16 07:02 12/01/16 07:02 Intake and Output: 12/01/16 12/01/16 06:59 18:59 Intake Total 150 Output Total 300 Balance -150 - Medications Medications: Current Medications Acetaminophen (Tylenol 325mg Tab) 325 mg PO Q12 PRN PRN Reason: Pain Ferrous Sulfate (Feosol) 325 mg PO DAILY [facility] Last Admin: 11/30/16 11:57 Dose: 325 mg Furosemide (Lasix) 20 mg PO DAILY [facility] Last Admin: 11/30/16 11:56 Dose: 20 mg Ceftriaxone Sodium 2 gm/ (Sodium Chloride) 100 mls @ 100 mls/hr IVPB DAILY [facility] Last Admin: 11/30/16 11:55 Dose: 100 mls/hr Metoclopramide HCl (Reglan) 5 mg IVP ACHS [facility] Last Admin: 12/01/16 08:27 Dose: 5 mg Metoprolol Tartrate (Lopressor) 25 mg PO BID [facility] Last Admin: 11/30/16 17:11 Dose: 25 mg Pantoprazole Sodium (Protonix Ec Tab) 40 mg PO DAILY [facility] Last Admin: 11/30/16 11:56 Dose: 40 mg Tramadol HCl (Ultram) 25 mg PO Q12 PRN PRN Reason: Pain - Labs Labs: 11/27/16 13:15 11/28/16 06:35 PT 14.2 SECONDS (9.7-12.2) H 11/24/16 07:15 INR 1.3 11/24/16 07:15 APTT 25 SECONDS (21-34) 11/18/16 18:25 - Constitutional Appears: No Acute Distress - Head Exam Head Exam: ATRAUMATIC, NORMAL INSPECTION, NORMOCEPHALIC - Eye Exam Eye Exam: EOMI, Normal appearance, PERRL Pupil Exam: NORMAL ACCOMODATION, PERRL - ENT Exam ENT Exam: Mucous Membranes Moist, Normal Exam - Neck Exam Neck Exam: Full ROM, Normal Inspection. absent: Lymphadenopathy - Respiratory Exam Respiratory Exam: Clear to Ausculation Bilateral, NORMAL BREATHING PATTERN. absent: Wheezes - Cardiovascular Exam Cardiovascular Exam: REGULAR RHYTHM, RRR, +S1, +S2. absent: Murmur - GI/Abdominal Exam GI & Abdominal Exam: Soft, Normal Bowel Sounds. absent: Tenderness - Extremities Exam Extremities Exam: Full ROM, Normal Capillary Refill, Normal Inspection. absent : Joint Swelling, Pedal Edema - Back Exam Back Exam: NORMAL INSPECTION - Neurological Exam Neurological Exam: Alert, Awake, CN II-XII Intact, Normal Gait, Oriented x3 - Psychiatric Exam Psychiatric exam: Normal Affect, Normal Mood - Skin Skin Exam: Dry, Intact, Normal Color, Warm Assessment and Plan - Assessment and Plan (Free Text) Assessment: 85 F with PMHx of HOCM, CHF, HTN, hyperlipidemia, AFib, breast cancer with mets ? and pacemaker, who presented with confusion and lethargy found to be anemic Hb 6.3 s/p 2 units PRBC now hb 8.4, with possible pneumonia vs CHF. Pt found to be bacteremic with Strep Viridins. AMNA showed vegetation on ant Mitral leaflet suggesting endocarditis requiring terminal carman antibiotics. EGD revealed LA grade B candidiasis esophagitis, small hiatal hernia, erythromatous mucosa in antrum, and single gastric polyp. Repeat colonoscopy was recommended due to poor bowel prep. -+ [place] -Repeat colonoscopy was recommended due to poor bowel prep - EGD - revealed LA grade B candidiasis esophagitis, small hiatal hernia, erythromatous mucousa in antrum, and single gastric polyp - F/u GI recs - AMNA showed vegetation on ant Mitral leaflet suggesting endocarditis requiring [facility] antibiotics - Cont ABX - Rocephin per medical team - Blood cx x 48hr negative thus far - Cont Lasix 20mg PO and Metoprolol - Metastatic dx f/u medical work up - GI/DVT ppx Case & plan was seen, reviewed, and discussed in detail with Dr Mendoza.
[2016-12-01] MEDS: cefTRIAXone 2 GM in Sodium Chloride 0.9% 100 ML IVPB SCH (10:38)
[2016-12-01] MEDS: Pantoprazole 40 mg EC Tab PO SCH (10:38)
--- NOTE | 2016-12-01 10:46 | PN ---
DATE: 12/01/2016 LOCATION: 651, bed B. This is an 86-year-old female seen and examined in rounds today without significant clinical changes and no reported active bleeding. Case discussed at length with the building consultant on the case , Dr. Israel Cruz, as well as the patient's daughters who refused to repeat colonoscopy. There was a main concern about the findings of the upper endoscopy of a gastric polyp for which surgical consul tation to be ordered. Biopsy from the gastric mucosa showed positive for Helicobacter pylori and the patient is to receive brief PEG. The entire chart is reviewed including, but not limited to, the most recent lab and radiology study r esults, current and previous medication lists, current and the previous medical events as well as all the available current and the previous medical records, and the patient still has low albumin and lo w total protein as well as low hemoglobin and hematocrit. Case discussed with the staff at length. PHYSICAL EXAMINATION: GENERAL: An 86-year-old female, appears to be awake, alert. Reported no chest or abdominal pain at this point. HEENT: Showed pale, dry oral mucoid membrane. Nonicteric sclerae. LUNGS: A few scattered crepitations. Decreased air entry at bases. HEART: Positive S1 and S2. ABDOMEN: Soft with positive bowel sounds. No mass or organomegaly. No rebound tenderness or guardi ng. EXTREMITIES: Without significant edema, clubbing or cyanosis. NEUROLOGIC: No reported neurological deficits, sensory or motor. IMPRESSION: 1. Known history of hypertensive cardiomyopathy. 2. Mitral valve endocarditis as per cardiology evaluation. 3. Anemia with gastrointestinal blood loss. 4. Left-sided colitis with internal hemorrhoids. 5. Gastritis with gastric polyps of unclear etiology. 6. Malnutrition with hypoalbuminemia, hypoproteinemia. 7. Second degree atrioventricular block by history. 8. Known history of atrial fibrillation, congestive heart failure, hyperlipidemia as well as status post cholecystectomy. SUGGESTION: 1. Agree with your plan. 2. Brief PEG if it is available in the hospital. 3. Surgical consultation. Continue current management with peripheral hyperalimentation. Zuleika Garcia MD cc: 14 TT: 12/01/2016 10:45:30 Confirmation # [id number] Dictation # [id number] mn
--- NOTE | 2016-12-01 12:49 | EEG ---
DATE: 11/29/2016 This is a 16-channel electroencephalogram of awake and lethargic adult. During the study, photic sti mulation was performed. Hyperventilation was not performed. The resting electroencephalogram consists of 30-40 microvolt, 5-6 Hz theta activities followed with h igh amplitude delta activity seen in bilateral cortical leads. Intermittent muscle artifact contamin ated the background rhythm. The photic stimulation did not evoke driving response noted at 2-20 Hz. IMPRESSION: This is abnormal electroencephalogram because of persistent slowing throughout the recor d suggestive of bilateral cerebral dysfunction. This is probably secondary to metabolic, vascular or degenerative process. Please correlate the finding with the neurological and radiological studies. Willis Rhoades MD cc: [id number] TT: 12/01/2016 10:54:09 Confirmation # [id number] Dictation # [id number] tn
[2016-12-01] MEDS ORDERED: Bisacodyl 5mg EC Tab PO ONE (13:00)
--- NOTE | 2016-12-01 15:30 | CP.PCM.PN ---
Subjective - Date & Time of Evaluation Date of Evaluation: 12/01/16 Time of Evaluation: 10:00 - Subjective Subjective: blood cultures positive will repeat blood c/s Objective - Vital Signs/Intake and Output Vital Signs (last 24 hours): Temp Pulse Resp BP Pulse Ox 99.0 F 66 20 113/65 100 12/01/16 07:02 12/01/16 10:36 12/01/16 07:02 12/01/16 10:38 12/01/16 07:02 Intake and Output: 12/01/16 12/01/16 06:59 18:59 Intake Total 150 350 Output Total 300 300 Balance -150 50 - Medications Medications: Current Medications Acetaminophen (Tylenol 325mg Tab) 325 mg PO Q12 PRN PRN Reason: Pain Ferrous Sulfate (Feosol) 325 mg PO DAILY [facility] Last Admin: 12/01/16 10:38 Dose: 325 mg Furosemide (Lasix) 20 mg PO DAILY [facility] Last Admin: 12/01/16 10:37 Dose: 20 mg Ceftriaxone Sodium 2 gm/ (Sodium Chloride) 100 mls @ 100 mls/hr IVPB DAILY [facility] Last Admin: 12/01/16 10:38 Dose: 100 mls/hr Metoclopramide HCl (Reglan) 5 mg IVP ACHS [facility] Last Admin: 12/01/16 10:38 Dose: 5 mg Metoprolol Tartrate (Lopressor) 25 mg PO BID [facility] Last Admin: 12/01/16 10:38 Dose: 25 mg Pantoprazole Sodium (Protonix Ec Tab) 40 mg PO DAILY [facility] Last Admin: 12/01/16 10:38 Dose: 40 mg Tramadol HCl (Ultram) 25 mg PO Q12 PRN PRN Reason: Pain - Labs Labs: 11/27/16 13:15 11/28/16 06:35 PT 14.2 SECONDS (9.7-12.2) H 11/24/16 07:15 INR 1.3 11/24/16 07:15 APTT 25 SECONDS (21-34) 11/18/16 18:25 - Constitutional Appears: Non-toxic, Cachectic, Chronically Ill - Head Exam Head Exam: NORMOCEPHALIC - Eye Exam Eye Exam: absent: Scleral icterus - ENT Exam ENT Exam: Mucous Membranes Dry - Neck Exam Neck Exam: absent: Lymphadenopathy - Respiratory Exam Respiratory Exam: Decreased Breath Sounds, Rhonchi - Cardiovascular Exam Cardiovascular Exam: REGULAR RHYTHM, +S1, +S2 - GI/Abdominal Exam GI & Abdominal Exam: Distended, Soft. absent: Tenderness - Rectal Exam Rectal Exam: Deferred - Exam Exam: NORMAL INSPECTION - Extremities Exam Extremities Exam: absent: Calf Tenderness, Pedal Edema - Back Exam Back Exam: absent: CVA tenderness (L), CVA tenderness (R) - Neurological Exam Neurological Exam: Alert, Altered, Awake - Psychiatric Exam Psychiatric exam: Normal Mood Assessment and Plan (1) Anemia Status: Acute (2) Bacterial pneumonia Status: Acute (3) Congestive heart failure Status: Acute (4) Pneumonia Status: Acute (5) Sepsis Status: Acute (6) 2Nd degree AV block Status: Acute
--- NOTE | 2016-12-01 15:56 | CON ---
DATE: 12/01/2016 The patient is an 86-year-old woman with anemia. She gives a very poor history, she is not really ab le to tell me much. PHYSICAL EXAMINATION: SKIN: No petechiae, no bruises. HEENT: Anicteric. No telangiectasia noted. NODES: None palpable in the axillary, cervical or supraclavicular regions. LUNGS: Clear at present. No vertebral tenderness. The patient is able to lie flat. HEART: S1, S2, irregularly irregular. ABDOMEN: Shows ____. BREAST: No mass, discharge. EXTREMITIES: Shows no edema. CENTRAL NERVOUS SYSTEM: Plantars are downgoing bilaterally. On 11/18, the patient had a hemoglobin of 6.3, MCV of 77 and positive for occult blood. She is on Xa relto for the atrial fibrillation and she underwent an endoscopy yesterday, we will see how the resul ts are. In the meantime, the patient now has hemoglobin of 8.5 and MCV of 82. The renal function is normal with a GFR of 60. 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 So at this point, I think she had a GI bleed causing the anemia and a combination of Xarelt o, Eliquis etc., and we will observe her. Consideration should be given to possibly giving her iron in pill form or as an intravenous 1 or 2 injections just to keep her hemoglobin up, but otherwise, we will await the GI evaluation. Mamadou Del Castillo MD cc: [id number] TT: 12/01/2016 11:12:30 Confirmation # [id number] Dictation # [id number] 12/01/2016 14:55:35
[2016-12-01 21:20] LABS: IRON 77 ug/dL (37-170)
--- NOTE | 2016-12-01 21:28 | CP.PCM.PN ---
Subjective - Date & Time of Evaluation Date of Evaluation: 12/01/16 Time of Evaluation: 11:00 - Subjective Subjective: Patient seen and evaluated Denies chest pain and dyspnea Objective - Vital Signs/Intake and Output Vital Signs (last 24 hours): Temp Pulse Resp BP Pulse Ox 97.5 F L 60 20 108/51 L 99 12/01/16 15:51 12/01/16 15:51 12/01/16 15:51 12/01/16 18:45 12/01/16 15:51 Intake and Output: 12/01/16 12/02/16 18:59 06:59 Intake Total 350 Output Total 300 Balance 50 - Medications Medications: Current Medications Acetaminophen (Tylenol 325mg Tab) 325 mg PO Q12 PRN PRN Reason: Pain Ferrous Sulfate (Feosol) 325 mg PO DAILY [facility] Last Admin: 12/01/16 10:38 Dose: 325 mg Furosemide (Lasix) 20 mg PO DAILY [facility] Last Admin: 12/01/16 10:37 Dose: 20 mg Ceftriaxone Sodium 2 gm/ (Sodium Chloride) 100 mls @ 100 mls/hr IVPB DAILY [facility] Last Admin: 12/01/16 10:38 Dose: 100 mls/hr Metoclopramide HCl (Reglan) 5 mg IVP ACHS [facility] Last Admin: 12/01/16 18:02 Dose: 5 mg Metoprolol Tartrate (Lopressor) 25 mg PO BID [facility] Last Admin: 12/01/16 18:45 Dose: Not Given Pantoprazole Sodium (Protonix Ec Tab) 40 mg PO DAILY [facility] Last Admin: 12/01/16 10:38 Dose: 40 mg Tramadol HCl (Ultram) 25 mg PO Q12 PRN PRN Reason: Pain - Labs Labs: 11/27/16 13:15 11/28/16 06:35 PT 14.2 SECONDS (9.7-12.2) H 11/24/16 07:15 INR 1.3 11/24/16 07:15 APTT 25 SECONDS (21-34) 11/18/16 18:25
--- NOTE | 2016-12-02 08:33 | CP.PCM.PN ---
Subjective - Date & Time of Evaluation Date of Evaluation: 12/02/16 Time of Evaluation: 08:30 - Subjective Subjective: Pt no complain; want to go home Denies CP, (+) feels weak, no SOB, no cough. no diarrhea, no n/v Objective - Vital Signs/Intake and Output Vital Signs (last 24 hours): Temp Pulse Resp BP Pulse Ox 98.8 F 20 L 20 127/67 100 12/02/16 07:57 12/02/16 07:57 12/02/16 07:57 12/02/16 07:57 12/02/16 00:10 Intake and Output: 12/02/16 12/02/16 06:59 18:59 Intake Total 220 Output Total 300 Balance -80 - Medications Medications: Current Medications Acetaminophen (Tylenol 325mg Tab) 325 mg PO Q12 PRN PRN Reason: Pain Ferrous Sulfate (Feosol) 325 mg PO DAILY [facility] Last Admin: 12/01/16 10:38 Dose: 325 mg Furosemide (Lasix) 20 mg PO DAILY [facility] Last Admin: 12/01/16 10:37 Dose: 20 mg Ceftriaxone Sodium 2 gm/ (Sodium Chloride) 100 mls @ 100 mls/hr IVPB DAILY [facility] Last Admin: 12/01/16 10:38 Dose: 100 mls/hr Metoclopramide HCl (Reglan) 5 mg IVP ACHS [facility] Last Admin: 12/01/16 21:33 Dose: 5 mg Metoprolol Tartrate (Lopressor) 25 mg PO BID [facility] Last Admin: 12/01/16 18:45 Dose: Not Given Pantoprazole Sodium (Protonix Ec Tab) 40 mg PO DAILY [facility] Last Admin: 12/01/16 10:38 Dose: 40 mg Tramadol HCl (Ultram) 25 mg PO Q12 PRN PRN Reason: Pain - Labs Labs: 11/27/16 13:15 11/28/16 06:35 PT 14.2 SECONDS (9.7-12.2) H 11/24/16 07:15 INR 1.3 11/24/16 07:15 APTT 25 SECONDS (21-34) 11/18/16 18:25 - Constitutional Appears: No Acute Distress - Eye Exam Eye Exam: Normal appearance - ENT Exam ENT Exam: Mucous Membranes Moist - Neck Exam Neck Exam: Full ROM. absent: Lymphadenopathy, Normal Inspection, Tenderness - Respiratory Exam Respiratory Exam: Decreased Breath Sounds. absent: Rales, Rhonchi, Wheezes - Cardiovascular Exam Cardiovascular Exam: Diastolic murmur, +S1, +S2, Murmur. absent: Gallop, JVD - GI/Abdominal Exam GI & Abdominal Exam: Soft. absent: Tenderness, Mass - Extremities Exam Extremities Exam: Full ROM, Normal Capillary Refill. absent: Calf Tenderness, Joint Swelling, Pedal Edema Assessment and Plan - Assessment and Plan (Free Text) Assessment: Endocarditis; Cardiomyopath Gastric polyps For excision of Gastric polyp cont meds
[2016-12-02] MEDS: Pantoprazole 40 mg EC Tab PO SCH (09:36)
[2016-12-02] MEDS: cefTRIAXone 2 GM in Sodium Chloride 0.9% 100 ML IVPB SCH (09:36)
[2016-12-02] MEDS ORDERED: Phytonadione 10 mg/ml Inj (Adult) SC STA (10:11)
--- NOTE | 2016-12-02 10:11 | CP.PCM.PN ---
Subjective - Date & Time of Evaluation Date of Evaluation: 12/02/16 Time of Evaluation: 07:00 - Subjective Subjective: Progress note for Dr Mendoza: Pt seen and examined at bedside. No acute events overnight. Denies any shortness of breath or chest pain. Denies any headaches, dizziness, f/c, sob, cp , palpitations, abd pain, n/v, urinary or bm changes. Objective - Vital Signs/Intake and Output Vital Signs (last 24 hours): Temp Pulse Resp BP Pulse Ox 98.8 F 20 L 20 131/63 100 12/02/16 07:57 12/02/16 07:57 12/02/16 07:57 12/02/16 09:44 12/02/16 00:10 Intake and Output: 12/02/16 12/02/16 06:59 18:59 Intake Total 220 Output Total 300 Balance -80 - Medications Medications: Current Medications Acetaminophen (Tylenol 325mg Tab) 325 mg PO Q12 PRN PRN Reason: Pain Ferrous Sulfate (Feosol) 325 mg PO DAILY [facility] Last Admin: 12/02/16 09:36 Dose: 325 mg Furosemide (Lasix) 20 mg PO DAILY [facility] Last Admin: 12/02/16 09:44 Dose: 20 mg Ceftriaxone Sodium 2 gm/ (Sodium Chloride) 100 mls @ 100 mls/hr IVPB DAILY [facility] Last Admin: 12/02/16 09:36 Dose: 100 mls/hr Metoclopramide HCl (Reglan) 5 mg IVP ACHS [facility] Last Admin: 12/02/16 08:00 Dose: Not Given Metoprolol Tartrate (Lopressor) 25 mg PO BID [facility] Last Admin: 12/02/16 09:36 Dose: 25 mg Pantoprazole Sodium (Protonix Ec Tab) 40 mg PO DAILY [facility] Last Admin: 12/02/16 09:36 Dose: 40 mg Tramadol HCl (Ultram) 25 mg PO Q12 PRN PRN Reason: Pain - Labs Labs: 11/27/16 13:15 11/28/16 06:35 PT 14.2 SECONDS (9.7-12.2) H 11/24/16 07:15 INR 1.3 11/24/16 07:15 APTT 25 SECONDS (21-34) 11/18/16 18:25 - Constitutional Appears: No Acute Distress - Head Exam Head Exam: ATRAUMATIC, NORMAL INSPECTION, NORMOCEPHALIC - Eye Exam Eye Exam: EOMI, Normal appearance, PERRL - ENT Exam ENT Exam: Mucous Membranes Moist, Normal Exam - Neck Exam Neck Exam: Full ROM, Normal Inspection. absent: Lymphadenopathy - Respiratory Exam Respiratory Exam: Clear to Ausculation Bilateral, NORMAL BREATHING PATTERN. absent: Wheezes - Cardiovascular Exam Cardiovascular Exam: REGULAR RHYTHM, RRR, +S1, +S2. absent: Murmur - GI/Abdominal Exam GI & Abdominal Exam: Soft, Normal Bowel Sounds. absent: Distended, Tenderness - Extremities Exam Extremities Exam: Full ROM, Normal Capillary Refill, Normal Inspection. absent : Joint Swelling, Pedal Edema - Back Exam Back Exam: NORMAL INSPECTION - Neurological Exam Neurological Exam: Alert, Awake, CN II-XII Intact, Normal Gait, Oriented x3 - Psychiatric Exam Psychiatric exam: Normal Affect, Normal Mood - Skin Skin Exam: Dry, Intact, Normal Color, Warm Assessment and Plan - Assessment and Plan (Free Text) Assessment: 85 F with PMHx of HOCM, CHF, HTN, hyperlipidemia, AFib, breast cancer with mets ? and pacemaker, who presented with confusion and lethargy found to be anemic Hb 6.3 s/p 2 units PRBC now hb 8.4, with possible pneumonia vs CHF. Pt found to be bacteremic with Strep Viridins. AMNA showed vegetation on ant Mitral leaflet suggesting endocarditis requiring retirement antibiotics. EGD revealed LA grade B candidiasis esophagitis, small hiatal hernia, erythromatous mucosa in antrum, and single gastric polyp. Repeat colonoscopy was recommended due to poor bowel prep. - HR been stable 60-90s - F/u Repeat colonoscopy which was recommended by GI due to poor bowel prep - EGD - revealed LA grade B candidiasis esophagitis, small hiatal hernia, erythromatous mucousa in antrum, and single gastric polyp - F/u GI recs - AMNA showed vegetation on anterior Mitral leaflet suggesting endocarditis requiring retirement antibiotics - Cont ABX - Rocephin per medical team - As per ID will repeat blood cx - Cont Lasix 20mg PO and Metoprolol - GI/DVT ppx Case & plan was seen, reviewed, and discussed in detail with Dr Mendoza.
--- NOTE | 2016-12-02 10:50 | PN ---
DATE: 12/02/2016 LOCATION: 651, bed B. This is an 86-year-old female seen and examined in rounds without significant clinical changes or rep orted active bleeding. The entire chart is reviewed, including but not limited to the most recent la b and radiology study results, current and the previous medication list, current and the previous med ical events, and the case was discussed at length with the staff on the floor, as well as Dr. Alec chambers, the systems management consultant on the case, and the patient for an upper endoscopy tomorrow in the OR in the presence of Dr. Serrano. Case is to be discussed again with the family. PHYSICAL EXAMINATION: GENERAL: Showed no significant clinical changes and no reported active bleeding or chest pain. VITAL SIGNS: The patient has stable vital signs so far. She is afebrile with pulse of 64, respiratory rate 20-22 with blood pressure of 136/66. IMPRESSION: 1. Anemia. 2. Gastric polyp, to be removed endoscopically. 3. Mitral valve endocarditis. 4. Left-sided colitis with internal hemorrhoids. 5. Hypoalbuminemia with malnutrition. 6. Known history of atrial fibrillation, congestive heart failure secondary degree atrioventricular block, hyperlipidemia with status post cholecystectomy. Case is to be discussed with the family. Zuleika Garcia MD cc: 14 TT: 12/02/2016 10:49:01 Confirmation # [id number] Dictation # [id number] niki
[2016-12-02 11:35] LABS: BASO # 0.1 K/uL (0.0-0.2); BASO % 1.8 % (0.0-2.0); EOS # 0.1 K/uL (0.0-0.7); EOS % 1.5 % (0.0-4.0); HEMATOCRIT 26.6 % (34.0-47.0); LYMPH # 0.9 K/uL (1.0-4.3); LYMPH % 13.9 % (20.0-40.0); MEAN CELL VOLUME 81.5 fL (81.0-99.0); MEAN CORPUSCULAR HEMOGLOBIN 26.4 pg (27.0-31.0); MEAN CORPUSCULAR HGB CONC 32.4 g/dL (33.0-37.0); MEAN PLATELET VOLUME 8.3 fL (7.2-11.7); MONO # 0.3 K/uL (0.0-0.8); MONO % 5.3 % (0.0-10.0); RED CELL DISTRIBUTION WIDTH 18.3 % (11.5-14.5); WHITE BLOOD COUNT 6.4 K/uL (4.8-10.8)
[2016-12-02 11:43] LABS: CHLORIDE 98 mmol/L (98-107); POTASSIUM 3.3 mmol/L (3.6-5.2); SODIUM 138 mmol/L (132-148)
[2016-12-02 11:45] LABS: BILIRUBIN,TOTAL 0.5 mg/dL (0.2-1.3); GFR AFRICAN-AMERICAN > 60
[2016-12-02 11:46] LABS: ALB/GLOB RATIO 0.7 (1.0-2.1); ALKALINE PHOSPHATASE 55 U/L (38-126); ALT/SGPT 22 U/L (9-52); AST/SGOT 30 U/L (14-36); BLOOD UREA NITROGEN 10 mg/dL (7-17); CARBON DIOXIDE 29 mmol/L (22-30); GLUCOSE,RANDOM 129 mg/dL (65-105); TOTAL PROTEIN 6.1 g/dL (6.3-8.3)
[2016-12-02 11:47] LABS: CALCIUM 8.6 mg/dl (8.6-10.4)
--- NOTE | 2016-12-02 16:37 | PN ---
DATE: 12/02/2016 TIME OF EVALUATION: 6:45 a.m. NEUROLOGICAL PROBLEM: Change in mental status, possible metabolic Vs toxic encephalopathy. PHYSICAL EXAMINATION: VITAL SIGNS: Blood pressure 127/67, mean arterial pressure of 87, respiratory rate 16, temperature afebrile. NEUROLOGIC: The patient is awake, communicable. Speech is intact. She moves all 4 extremities. She is somewhat improved to compare with my previous exam. Rest of the examination is unchanged. We will continue the present management. The patient will be followed closely while she is in the hospital. Willis Rhoades MD cc: [id number] TT: 12/02/2016 16:36:08 Confirmation # [id number] Dictation # [id number] MTDD
[2016-12-02] MEDS ORDERED: Potassium Chloride 20 mEq 100 ML IVPB ONE ×2 (20:00→22:00)
--- NOTE | 2016-12-02 23:20 | CP.PCM.PN ---
Subjective - Date & Time of Evaluation Date of Evaluation: 12/02/16 Time of Evaluation: 07:10 - Subjective Subjective: Patient seen and evaluated Denies chest pain and dyspnea Objective - Vital Signs/Intake and Output Vital Signs (last 24 hours): Temp Pulse Resp BP Pulse Ox 98.9 F 69 18 112/66 100 12/02/16 15:25 12/02/16 15:25 12/02/16 15:25 12/02/16 18:21 12/02/16 15:25 Intake and Output: 12/02/16 12/03/16 18:59 06:59 Intake Total 350 440 Output Total 300 150 Balance 50 290 - Medications Medications: Current Medications Acetaminophen (Tylenol 325mg Tab) 325 mg PO Q12 PRN PRN Reason: Pain Ferrous Sulfate (Feosol) 325 mg PO DAILY [facility] Last Admin: 12/02/16 09:36 Dose: 325 mg Furosemide (Lasix) 20 mg PO DAILY [facility] Last Admin: 12/02/16 09:44 Dose: 20 mg Ceftriaxone Sodium 2 gm/ (Sodium Chloride) 100 mls @ 100 mls/hr IVPB DAILY [facility] Last Admin: 12/02/16 09:36 Dose: 100 mls/hr Potassium Chloride (Potassium Chloride 20 Meq/100 Ml) 100 mls @ 50 mls/hr IVPB ONCE ONE Stop: 12/02/16 23:59 Last Admin: 12/02/16 22:08 Dose: 50 mls/hr Metoclopramide HCl (Reglan) 5 mg IVP ACHS [facility] Last Admin: 12/02/16 22:09 Dose: 5 mg Metoprolol Tartrate (Lopressor) 25 mg PO BID [facility] Last Admin: 12/02/16 18:21 Dose: 25 mg Pantoprazole Sodium (Protonix Ec Tab) 40 mg PO DAILY [facility] Last Admin: 12/02/16 09:36 Dose: 40 mg Tramadol HCl (Ultram) 25 mg PO Q12 PRN PRN Reason: Pain - Labs Labs: 12/02/16 11:27 12/02/16 11:27 PT 14.2 SECONDS (9.7-12.2) H 11/24/16 07:15 INR 1.3 11/24/16 07:15 APTT 25 SECONDS (21-34) 11/18/16 18:25
--- NOTE | 2016-12-03 08:14 | CP.PCM.PN ---
Subjective - Date & Time of Evaluation Date of Evaluation: 12/03/16 Time of Evaluation: 07:55 - Subjective Subjective: Pt no complain; minimal pain on low back but not moving No CP, no SOB, no palpitation, no more cough, no n/v, no diarrhea Objective - Vital Signs/Intake and Output Vital Signs (last 24 hours): Temp Pulse Resp BP Pulse Ox 98.8 F 68 20 125/59 L 100 12/02/16 23:05 12/02/16 23:05 12/02/16 23:05 12/02/16 23:05 12/02/16 23:05 Intake and Output: 12/03/16 12/03/16 06:59 18:59 Intake Total 440 Output Total 290 Balance 150 - Medications Medications: Current Medications Acetaminophen (Tylenol 325mg Tab) 325 mg PO Q12 PRN PRN Reason: Pain Ferrous Sulfate (Feosol) 325 mg PO DAILY [facility] Last Admin: 12/02/16 09:36 Dose: 325 mg Furosemide (Lasix) 20 mg PO DAILY [facility] Last Admin: 12/02/16 09:44 Dose: 20 mg Ceftriaxone Sodium 2 gm/ (Sodium Chloride) 100 mls @ 100 mls/hr IVPB DAILY [facility] Last Admin: 12/02/16 09:36 Dose: 100 mls/hr Metoclopramide HCl (Reglan) 5 mg IVP ACHS [facility] Last Admin: 12/02/16 22:09 Dose: 5 mg Metoprolol Tartrate (Lopressor) 25 mg PO BID [facility] Last Admin: 12/02/16 18:21 Dose: 25 mg Pantoprazole Sodium (Protonix Ec Tab) 40 mg PO DAILY [facility] Last Admin: 12/02/16 09:36 Dose: 40 mg Tramadol HCl (Ultram) 25 mg PO Q12 PRN PRN Reason: Pain - Labs Labs: 12/02/16 11:27 12/02/16 11:27 PT 14.2 SECONDS (9.7-12.2) H 11/24/16 07:15 INR 1.3 11/24/16 07:15 APTT 25 SECONDS (21-34) 11/18/16 18:25 - Constitutional Appears: No Acute Distress - Eye Exam Eye Exam: Normal appearance - ENT Exam ENT Exam: Mucous Membranes Moist - Neck Exam Neck Exam: Full ROM. absent: Lymphadenopathy, Normal Inspection - Respiratory Exam Respiratory Exam: Clear to Ausculation Bilateral. absent: Rales, Rhonchi, Wheezes - Cardiovascular Exam Cardiovascular Exam: Diastolic murmur, +S1, +S2, Murmur. absent: Gallop, REGULAR RHYTHM - GI/Abdominal Exam GI & Abdominal Exam: Soft. absent: Tenderness, Mass - Extremities Exam Extremities Exam: Full ROM, Normal Capillary Refill. absent: Joint Swelling, Pedal Edema Assessment and Plan - Assessment and Plan (Free Text) Assessment: Cardiomyopathy; Mitral valve Endocarditis Hypokalemia; anemia w/ GI bleed Cont meds; still waiting for repeat EGD
[2016-12-03 09:21] LABS: CHLORIDE 101 mmol/L (98-107); POTASSIUM 3.9 mmol/L (3.6-5.2); SODIUM 139 mmol/L (132-148)
[2016-12-03 09:24] LABS: BLOOD UREA NITROGEN 9 mg/dL (7-17); CARBON DIOXIDE 30 mmol/L (22-30); GFR AFRICAN-AMERICAN > 60; GLUCOSE,RANDOM 77 mg/dL (65-105)
[2016-12-03 09:25] LABS: CALCIUM 8.9 mg/dl (8.6-10.4)
[2016-12-03] MEDS: Pantoprazole 40 mg EC Tab PO SCH (09:46)
[2016-12-03] MEDS: cefTRIAXone 2 GM in Sodium Chloride 0.9% 100 ML IVPB SCH (09:47)
--- NOTE | 2016-12-03 10:40 | CP.PCM.PN ---
<Angelo Song - Last Filed: 12/03/16 10:36> Subjective - Date & Time of Evaluation Date of Evaluation: 12/03/16 Time of Evaluation: 08:10 - Subjective Subjective: Progress note for Dr Mendoza: Pt seen and examined at bedside. No acute events overnight. No shortness of breath or chest pain. NPO after midnight for repeat endoscopy. Denies any headaches, dizziness, f/c, sob, cp, palpitations, abd pain, n/v, urinary or bm changes. Objective - Vital Signs/Intake and Output Vital Signs (last 24 hours): Temp Pulse Resp BP Pulse Ox 98.6 F 75 18 105/49 L 100 12/03/16 07:05 12/03/16 09:57 12/03/16 07:05 12/03/16 09:57 12/03/16 07:05 Intake and Output: 12/03/16 12/03/16 06:59 18:59 Intake Total 440 Output Total 290 Balance 150 - Medications Medications: Current Medications Acetaminophen (Tylenol 325mg Tab) 325 mg PO Q12 PRN PRN Reason: Pain Ferrous Sulfate (Feosol) 325 mg PO DAILY [facility] Last Admin: 12/03/16 09:46 Dose: 325 mg Furosemide (Lasix) 20 mg PO DAILY [facility] Last Admin: 12/03/16 09:47 Dose: 20 mg Ceftriaxone Sodium 2 gm/ (Sodium Chloride) 100 mls @ 100 mls/hr IVPB DAILY [facility] Last Admin: 12/03/16 09:47 Dose: 100 mls/hr Metoclopramide HCl (Reglan) 5 mg IVP ACHS [facility] Last Admin: 12/03/16 08:22 Dose: 5 mg Metoprolol Tartrate (Lopressor) 25 mg PO BID [facility] Last Admin: 12/03/16 09:48 Dose: Not Given Pantoprazole Sodium (Protonix Ec Tab) 40 mg PO DAILY [facility] Last Admin: 12/03/16 09:46 Dose: 40 mg Tramadol HCl (Ultram) 25 mg PO Q12 PRN PRN Reason: Pain - Labs Labs: 12/02/16 11:27 12/03/16 09:07 PT 14.2 SECONDS (9.7-12.2) H 11/24/16 07:15 INR 1.3 11/24/16 07:15 APTT 25 SECONDS (21-34) 11/18/16 18:25 - Constitutional Appears: No Acute Distress - Head Exam Head Exam: ATRAUMATIC, NORMAL INSPECTION, NORMOCEPHALIC - Eye Exam Eye Exam: EOMI, Normal appearance, PERRL Pupil Exam: NORMAL ACCOMODATION, PERRL - ENT Exam ENT Exam: Mucous Membranes Moist, Normal Exam - Neck Exam Neck Exam: Full ROM, Normal Inspection. absent: Lymphadenopathy - Respiratory Exam Respiratory Exam: Clear to Ausculation Bilateral, NORMAL BREATHING PATTERN. absent: Wheezes - Cardiovascular Exam Cardiovascular Exam: REGULAR RHYTHM, +S1, +S2. absent: Murmur - GI/Abdominal Exam GI & Abdominal Exam: Soft, Normal Bowel Sounds. absent: Distended, Tenderness - Extremities Exam Extremities Exam: Full ROM, Normal Capillary Refill, Normal Inspection. absent : Joint Swelling, Pedal Edema - Back Exam Back Exam: NORMAL INSPECTION - Neurological Exam Neurological Exam: Alert, Awake, CN II-XII Intact, Normal Gait, Oriented x3 - Psychiatric Exam Psychiatric exam: Normal Affect, Normal Mood - Skin Skin Exam: Dry, Intact, Normal Color, Warm Assessment and Plan - Assessment and Plan (Free Text) Assessment: 85 F with PMHx of HOCM, CHF, HTN, hyperlipidemia, AFib, breast cancer with mets ? and pacemaker, who presented with confusion and lethargy found to be anemic Hb 6.3 s/p 2 units PRBC now hb 8.4, with possible pneumonia vs CHF. Pt found to be bacteremic with Strep Viridins. AMNA showed vegetation on ant Mitral leaflet suggesting endocarditis requiring vermin exterminator antibiotics. EGD revealed LA grade B candidiasis esophagitis, small hiatal hernia, erythromatous mucosa in antrum, and single gastric polyp. Repeat colonoscopy was recommended due to poor bowel prep. - NPO after midnight for repeat endoscopy today - HR been stable 60-95s - F/u Repeat colonoscopy which was recommended by GI due to poor bowel prep - EGD - revealed LA grade B candidiasis esophagitis, small hiatal hernia, erythromatous mucousa in antrum, and single gastric polyp - F/u GI recs - AMNA showed vegetation on anterior Mitral leaflet suggesting endocarditis requiring long-term antibiotics - Cont ABX - Rocephin per medical team - As per ID will repeat blood cx - Cont Lasix 20mg PO and Metoprolol - GI/DVT ppx Case & plan was seen, reviewed, and discussed in detail with Dr Mendoza. <Alana Mendoza - Last Filed: 12/08/16 09:47> Objective - Vital Signs/Intake and Output Vital Signs (last 24 hours): Temp Pulse Resp BP Pulse Ox 97.4 F L 88 16 126/63 100 12/08/16 08:00 12/08/16 06:52 12/08/16 06:52 12/08/16 06:52 12/08/16 06:52 Intake and Output: 12/08/16 12/08/16 06:59 18:59 Intake Total 1700 200 Output Total 1005 80 Balance 695 120 - Medications Medications: Current Medications Acetaminophen (Tylenol 325mg Tab) 325 mg PO Q12 PRN PRN Reason: Pain Famotidine (Pepcid) 20 mg IVP Q12 [facility] Last Admin: 12/07/16 22:04 Dose: 20 mg Hydromorphone HCl (Dilaudid) 0.5 mg IVP Q3H PRN PRN Reason: Pain, moderate (4-7) Last Admin: 12/07/16 22:56 Dose: 0.5 mg Ceftriaxone Sodium 2 gm/ (Sodium Chloride) 100 mls @ 100 mls/hr IVPB Q24H [facility] Last Admin: 12/07/16 09:49 Dose: 100 mls/hr Lactated Ringer's (Lactated Ringer's) 1,000 mls @ 100 mls/hr IV .Q10H [facility] Last Admin: 12/08/16 02:05 Dose: 100 mls/hr Potassium Chloride (Potassium Chloride 20 Meq/100 Ml) 100 mls @ 50 mls/hr IVPB ONCE ONE Stop: 12/08/16 10:59 Metoclopramide HCl (Reglan) 5 mg IVP Q8H [facility] Last Admin: 12/06/16 16:18 Dose: Not Given Sucralfate (Carafate Oral Susp) 1 gm PO ACBD [facility] Last Admin: 12/06/16 07:49 Dose: 1 gm Tetrahydrozoline HCl/Zinc Sulfate (Visine 0.05% Opht Soln) 0.01 ml OU BID PRN PRN Reason: Dry eyes Last Admin: 12/04/16 15:00 Dose: 1 drop Tramadol HCl (Ultram) 25 mg PO Q12 PRN PRN Reason: Pain - Labs Labs: 12/08/16 06:08 12/08/16 06:08 PT 14.2 SECONDS (9.7-12.2) H 11/24/16 07:15 INR 1.3 11/24/16 07:15 APTT 25 SECONDS (21-34) 11/18/16 18:25 Assessment and Plan (1) Congestive heart failure Status: Acute (2) Endocarditis Status: Acute (3) 2Nd degree AV block Status: Acute Attending/Attestation - Attestation I have personally seen and examined this patient.: Yes I have fully participated in the care of the patient.: Yes I have reviewed all pertinent clinical information, including history, physical exam and plan: Yes Notes (Text): 12/08/16 09:46 pt stable strep viridans continue abx IV no vt
[2016-12-03] MEDS ORDERED: Etomidate 20 mg/10ml Inj IV ONE (13:21)
[2016-12-03] MEDS ORDERED: Succinylcholine Chloride 20 mg/ml Syr (5 ml) IV ONE (13:23)
[2016-12-03] MEDS ORDERED: Propofol 10 mg/ml Inj (20 ML) ONE (13:35)
--- NOTE | 2016-12-03 14:16 | CP.PCM.PN ---
Subjective - Date & Time of Evaluation Date of Evaluation: 12/03/16 Time of Evaluation: 12:00 - Subjective Subjective: Patient seen and evaluated Comfortable Patient going for GI procedure today D/W Daughter and Son at bedside Objective - Vital Signs/Intake and Output Vital Signs (last 24 hours): Temp Pulse Resp BP Pulse Ox 98.6 F 75 18 105/49 L 100 12/03/16 13:22 12/03/16 13:22 12/03/16 13:22 12/03/16 13:22 12/03/16 13:22 Intake and Output: 12/03/16 12/03/16 06:59 18:59 Intake Total 440 300 Output Total 290 Balance 150 300 - Medications Medications: Current Medications Acetaminophen (Tylenol 325mg Tab) 325 mg PO Q12 PRN PRN Reason: Pain Ferrous Sulfate (Feosol) 325 mg PO DAILY [facility] Last Admin: 12/03/16 09:46 Dose: 325 mg Furosemide (Lasix) 20 mg PO DAILY [facility] Last Admin: 12/03/16 09:47 Dose: 20 mg Ceftriaxone Sodium 2 gm/ (Sodium Chloride) 100 mls @ 100 mls/hr IVPB DAILY [facility] Last Admin: 12/03/16 09:47 Dose: 100 mls/hr Metoclopramide HCl (Reglan) 5 mg IVP ACHS [facility] Last Admin: 12/03/16 08:22 Dose: 5 mg Metoprolol Tartrate (Lopressor) 25 mg PO BID [facility] Last Admin: 12/03/16 09:48 Dose: Not Given Pantoprazole Sodium (Protonix Ec Tab) 40 mg PO DAILY [facility] Last Admin: 12/03/16 09:46 Dose: 40 mg Sucralfate (Carafate Oral Susp) 1 gm PO ACBD [facility] Tramadol HCl (Ultram) 25 mg PO Q12 PRN PRN Reason: Pain - Labs Labs: 12/02/16 11:27 12/03/16 09:07 PT 14.2 SECONDS (9.7-12.2) H 11/24/16 07:15 INR 1.3 11/24/16 07:15 APTT 25 SECONDS (21-34) 11/18/16 18:25
--- NOTE | 2016-12-03 16:02 | CP.PCM.PN ---
Subjective - Date & Time of Evaluation Date of Evaluation: 12/03/16 Time of Evaluation: 08:00 - Subjective Subjective: comfortable nad vss weak blood c/s repeated Objective - Vital Signs/Intake and Output Vital Signs (last 24 hours): Temp Pulse Resp BP Pulse Ox 97.9 F 79 20 123/61 100 12/03/16 15:15 12/03/16 15:15 12/03/16 15:15 12/03/16 15:15 12/03/16 15:15 Intake and Output: 12/03/16 12/03/16 06:59 18:59 Intake Total 440 350 Output Total 290 700 Balance 150 -350 - Medications Medications: Current Medications Acetaminophen (Tylenol 325mg Tab) 325 mg PO Q12 PRN PRN Reason: Pain Ferrous Sulfate (Feosol) 325 mg PO DAILY [facility] Last Admin: 12/03/16 09:46 Dose: 325 mg Furosemide (Lasix) 20 mg PO DAILY [facility] Last Admin: 12/03/16 09:47 Dose: 20 mg Ceftriaxone Sodium 2 gm/ (Sodium Chloride) 100 mls @ 100 mls/hr IVPB DAILY [facility] Last Admin: 12/03/16 09:47 Dose: 100 mls/hr Metoclopramide HCl (Reglan) 5 mg IVP ACHS [facility] Last Admin: 12/03/16 08:22 Dose: 5 mg Metoprolol Tartrate (Lopressor) 25 mg PO BID [facility] Last Admin: 12/03/16 09:48 Dose: Not Given Pantoprazole Sodium (Protonix Ec Tab) 40 mg PO DAILY [facility] Last Admin: 12/03/16 09:46 Dose: 40 mg Sucralfate (Carafate Oral Susp) 1 gm PO ACBD [facility] Tramadol HCl (Ultram) 25 mg PO Q12 PRN PRN Reason: Pain - Labs Labs: 12/02/16 11:27 12/03/16 09:07 PT 14.2 SECONDS (9.7-12.2) H 11/24/16 07:15 INR 1.3 11/24/16 07:15 APTT 25 SECONDS (21-34) 11/18/16 18:25 - Constitutional Appears: Non-toxic, Cachectic, Chronically Ill - Head Exam Head Exam: NORMOCEPHALIC - Eye Exam Eye Exam: absent: Scleral icterus - ENT Exam ENT Exam: Mucous Membranes Dry - Neck Exam Neck Exam: absent: Lymphadenopathy - Respiratory Exam Respiratory Exam: Decreased Breath Sounds, Rhonchi - Cardiovascular Exam Cardiovascular Exam: REGULAR RHYTHM, +S1, +S2 - GI/Abdominal Exam GI & Abdominal Exam: Distended, Soft. absent: Tenderness - Rectal Exam Rectal Exam: Deferred - Exam Exam: NORMAL INSPECTION - Extremities Exam Extremities Exam: absent: Pedal Edema - Back Exam Back Exam: absent: CVA tenderness (L), CVA tenderness (R) - Neurological Exam Neurological Exam: Awake, CN II-XII Intact - Psychiatric Exam Psychiatric exam: Depressed - Skin Skin Exam: Dry Assessment and Plan (1) Anemia Status: Acute (2) Bacterial pneumonia Status: Acute (3) Congestive heart failure Status: Acute (4) Pneumonia Status: Acute (5) Sepsis Status: Acute (6) 2Nd degree AV block Status: Acute
[2016-12-03] MEDS: Sucralfate 1 gm/10 ml Oral Susp UD PO SCH (17:22)
[2016-12-04] MEDS: Sucralfate 1 gm/10 ml Oral Susp UD PO SCH ×2 (06:53→17:19)
--- NOTE | 2016-12-04 07:19 | CP.PCM.PN ---
Subjective - Date & Time of Evaluation Date of Evaluation: 12/04/16 Time of Evaluation: 07:18 - Subjective Subjective: Pt bp stable no cp Objective - Vital Signs/Intake and Output Vital Signs (last 24 hours): Temp Pulse Resp BP Pulse Ox 98.8 F 71 20 126/57 L 100 12/03/16 23:05 12/03/16 23:05 12/03/16 23:05 12/03/16 23:05 12/03/16 23:05 Intake and Output: 12/04/16 12/04/16 06:59 18:59 Intake Total 320 Output Total 500 Balance -180 - Medications Medications: Current Medications Acetaminophen (Tylenol 325mg Tab) 325 mg PO Q12 PRN PRN Reason: Pain Ferrous Sulfate (Feosol) 325 mg PO DAILY [facility] Last Admin: 12/03/16 09:46 Dose: 325 mg Furosemide (Lasix) 20 mg PO DAILY [facility] Last Admin: 12/03/16 09:47 Dose: 20 mg Ceftriaxone Sodium 2 gm/ (Sodium Chloride) 100 mls @ 100 mls/hr IVPB DAILY [facility] Last Admin: 12/03/16 09:47 Dose: 100 mls/hr Metoclopramide HCl (Reglan) 5 mg IVP ACHS [facility] Last Admin: 12/04/16 06:53 Dose: 5 mg Metoprolol Tartrate (Lopressor) 25 mg PO BID [facility] Last Admin: 12/03/16 17:23 Dose: 25 mg Pantoprazole Sodium (Protonix Ec Tab) 40 mg PO DAILY [facility] Last Admin: 12/03/16 09:46 Dose: 40 mg Sucralfate (Carafate Oral Susp) 1 gm PO ACBD [facility] Last Admin: 12/04/16 06:53 Dose: 1 gm Tramadol HCl (Ultram) 25 mg PO Q12 PRN PRN Reason: Pain - Labs Labs: 12/02/16 11:27 12/03/16 09:07 PT 14.2 SECONDS (9.7-12.2) H 11/24/16 07:15 INR 1.3 11/24/16 07:15 APTT 25 SECONDS (21-34) 11/18/16 18:25 - Constitutional Appears: Well - Head Exam Head Exam: ATRAUMATIC, NORMOCEPHALIC - Eye Exam Eye Exam: Normal appearance - ENT Exam ENT Exam: Mucous Membranes Moist - Respiratory Exam Respiratory Exam: NORMAL BREATHING PATTERN. absent: Rales - Cardiovascular Exam Cardiovascular Exam: REGULAR RHYTHM, RRR - GI/Abdominal Exam GI & Abdominal Exam: Soft, Normal Bowel Sounds - Extremities Exam Extremities Exam: absent: Pedal Edema - Neurological Exam Neurological Exam: Alert, Awake - Psychiatric Exam Psychiatric exam: Normal Affect, Normal Mood - Skin Skin Exam: Intact Assessment and Plan (1) Congestive heart failure Assessment & Plan: Pt feeling ok tolerating po ppm nl function abx as per medicine possible or Status: Acute (2) Endocarditis Status: Acute (3) 2Nd degree AV block Status: Acute
--- NOTE | 2016-12-04 07:57 | CP.PCM.PN ---
Subjective - Date & Time of Evaluation Date of Evaluation: 12/04/16 Time of Evaluation: 07:35 - Subjective Subjective: Pt no complain; want to go home. No CP, no SOB, no cough, no diarrhea, no n/v Had EGD w/ Dr Serrano - pulsatile mass and need surgery - Objective - Vital Signs/Intake and Output Vital Signs (last 24 hours): Temp Pulse Resp BP Pulse Ox 98.8 F 71 20 126/57 L 100 12/03/16 23:05 12/03/16 23:05 12/03/16 23:05 12/03/16 23:05 12/03/16 23:05 Intake and Output: 12/04/16 12/04/16 06:59 18:59 Intake Total 320 Output Total 500 Balance -180 - Medications Medications: Current Medications Acetaminophen (Tylenol 325mg Tab) 325 mg PO Q12 PRN PRN Reason: Pain Ferrous Sulfate (Feosol) 325 mg PO DAILY [facility] Last Admin: 12/03/16 09:46 Dose: 325 mg Furosemide (Lasix) 20 mg PO DAILY [facility] Last Admin: 12/03/16 09:47 Dose: 20 mg Ceftriaxone Sodium 2 gm/ (Sodium Chloride) 100 mls @ 100 mls/hr IVPB DAILY [facility] Last Admin: 12/03/16 09:47 Dose: 100 mls/hr Metoclopramide HCl (Reglan) 5 mg IVP ACHS [facility] Last Admin: 12/04/16 06:53 Dose: 5 mg Metoprolol Tartrate (Lopressor) 25 mg PO BID [facility] Last Admin: 12/03/16 17:23 Dose: 25 mg Pantoprazole Sodium (Protonix Ec Tab) 40 mg PO DAILY [facility] Last Admin: 12/03/16 09:46 Dose: 40 mg Sucralfate (Carafate Oral Susp) 1 gm PO ACBD [facility] Last Admin: 12/04/16 06:53 Dose: 1 gm Tramadol HCl (Ultram) 25 mg PO Q12 PRN PRN Reason: Pain - Labs Labs: 12/02/16 11:27 12/03/16 09:07 PT 14.2 SECONDS (9.7-12.2) H 11/24/16 07:15 INR 1.3 11/24/16 07:15 APTT 25 SECONDS (21-34) 11/18/16 18:25 - Constitutional Appears: Younger Than Stated Age - Eye Exam Eye Exam: Normal appearance - ENT Exam ENT Exam: Mucous Membranes Moist - Neck Exam Neck Exam: Full ROM, Normal Inspection. absent: Lymphadenopathy - Respiratory Exam Respiratory Exam: Clear to Ausculation Bilateral. absent: Decreased Breath Sounds, Rales, Rhonchi, Wheezes - Cardiovascular Exam Cardiovascular Exam: Diastolic murmur, +S1, +S2, Murmur. absent: Gallop, JVD - GI/Abdominal Exam GI & Abdominal Exam: Soft. absent: Tenderness, Mass - Extremities Exam Extremities Exam: Full ROM, Normal Capillary Refill. absent: Joint Swelling, Pedal Edema Assessment and Plan - Assessment and Plan (Free Text) Assessment: GI Bleed Cardiomyopathy; Mitral valve Endocarditis Cont meds supplement Need prep for surgery
--- NOTE | 2016-12-04 08:14 | CP.PCM.CON ---
History of Present Illness - History of Present Illness History of Present Illness: Surgery: Dr. Serrano Reason for consult: gastric polyp HPI: 86 F with PMH of Afib, CHF, hypertrophic cardiomyopathy, gastritis, HTN, hyperlipidemia, anemia and PSH of cholecystectomy who was referred to surgery team for evaluation of gastric polyp. Patient reportedly experienced epigastric pain and was subsequently sent for an EGD which revealed a single 15mm pedunculated sessile non-bleeding gastric polyp which could not be excised at that time. Polyp was tattooed upon second EGD for appropriate indentification upon surgical intervetnion. Patient is unable to provide history ; history obtained from prior notes. PMH: Afib, CHF, hypertrophic cardiomyopathy, gastritis, HTN, hyperlipidemia, anemia PSH: cholecystectomy All: NKDA Review of Systems - Review of Systems Systems not reviewed;Unavailable: Dementia Past Patient History - Infectious Disease Hx of Infectious Diseases: None - Past Medical History & Family History Past Medical History?: Yes - Past Social History Smoking Status: Never Smoked Alcohol: None Drugs: Denies - CARDIAC Hx Atrial Fibrillation: Yes Hx Congestive Heart Failure: Yes ('fluid in lungs and heart years ago') Hx Hypertension: Yes - PULMONARY Hx Respiratory Disorders: No - NEUROLOGICAL Hx Neurological Disorder: Yes Hx Dizziness: Yes - HEENT Hx HEENT Problems: Yes Hx Cataracts: Yes (Had surgery) Other/Comment: uses reading glasses - RENAL Hx Chronic Kidney Disease: No - ENDOCRINE/METABOLIC Hx Endocrine Disorders: No - HEMATOLOGICAL/ONCOLOGICAL Hx Anemia: Yes - INTEGUMENTARY Hx Dermatological Problems: No - MUSCULOSKELETAL/RHEUMATOLOGICAL Hx Musculoskeletal Disorders: Yes Hx Falls: Yes - GASTROINTESTINAL Hx Gastritis: Yes - GENITOURINARY/GYNECOLOGICAL Hx Genitourinary Disorders: No - PSYCHIATRIC Hx Substance Use: No - SURGICAL HISTORY Hx Cholecystectomy: Yes - ANESTHESIA Hx Anesthesia: Yes Hx Anesthesia Reactions: No Hx Malignant Hyperthermia: No Meds Allergies/Adverse Reactions: Allergies Allergy/AdvReac Type Severity Reaction Status Date / Time No Known Allergies Allergy Verified 11/18/16 17:47 - Medications Medications: Current Medications Acetaminophen (Tylenol 325mg Tab) 325 mg PO Q12 PRN PRN Reason: Pain Ferrous Sulfate (Feosol) 325 mg PO DAILY [facility] Last Admin: 12/03/16 09:46 Dose: 325 mg Furosemide (Lasix) 20 mg PO DAILY [facility] Last Admin: 12/03/16 09:47 Dose: 20 mg Ceftriaxone Sodium 2 gm/ (Sodium Chloride) 100 mls @ 100 mls/hr IVPB DAILY [facility] Last Admin: 12/03/16 09:47 Dose: 100 mls/hr Metoclopramide HCl (Reglan) 5 mg IVP ACHS [facility] Last Admin: 12/04/16 06:53 Dose: 5 mg Metoprolol Tartrate (Lopressor) 25 mg PO BID [facility] Last Admin: 12/03/16 17:23 Dose: 25 mg Pantoprazole Sodium (Protonix Ec Tab) 40 mg PO DAILY [facility] Last Admin: 12/03/16 09:46 Dose: 40 mg Sucralfate (Carafate Oral Susp) 1 gm PO ACBD [facility] Last Admin: 12/04/16 06:53 Dose: 1 gm Tramadol HCl (Ultram) 25 mg PO Q12 PRN PRN Reason: Pain Physical Exam - Constitutional Appears: Non-toxic, No Acute Distress, Cachectic - Head Exam Head Exam: ATRAUMATIC, NORMOCEPHALIC - Eye Exam Eye Exam: EOMI, Normal appearance - ENT Exam ENT Exam: Mucous Membranes Moist - Respiratory Exam Respiratory Exam: NORMAL BREATHING PATTERN. absent: Respiratory Distress - Cardiovascular Exam Cardiovascular Exam: REGULAR RHYTHM. absent: Tachycardia - GI/Abdominal Exam GI & Abdominal Exam: Hernia, Soft. absent: Distended, Tenderness - Extremities Exam Extremities exam: Negative for: calf tenderness - Neurological Exam Neurological exam: Alert Additional comments: not oriented - Skin Skin Exam: Dry, Intact, Warm Results - Vital Signs Recent Vital Signs: Last Vital Signs Temp 98.8 F 12/03/16 23:05 Pulse 71 12/03/16 23:05 Resp 20 12/03/16 23:05 BP 126/57 L 12/03/16 23:05 Pulse Ox 100 12/03/16 23:05 - Labs Result Diagrams: 12/02/16 11:27 12/03/16 09:07 Labs: Laboratory Results - last 24 hr 11/30/16 12/03/16 13:42 09:07 Sodium 139 Potassium 3.9 Chloride 101 Carbon Dioxide 30 Anion Gap 12 BUN 9 Creatinine 0.7 Est GFR ( Amer) > 60 Est GFR (Non-Af Amer) > 60 Random Glucose 77 Calcium 8.9 Urine Immunofixation See note Assessment & Plan - Assessment and Plan (Free Text) Assessment: 86 F with solitary gastric polyp Plan: -plan for OR on Tuesday -polyp tattooed upon recent EGD -NPO MN tuesday -type and cross -daily labs -medical management per primary -further recs per Dr. Zach Snider PGY1
[2016-12-04] MEDS: cefTRIAXone 2 GM in Sodium Chloride 0.9% 100 ML IVPB SCH (09:41)
[2016-12-04] MEDS: Pantoprazole 40 mg EC Tab PO SCH (09:43)
--- NOTE | 2016-12-04 13:39 | PN ---
DATE: 12/04/2016 LOCATION: 651, bed B. This is an 86-year-old female post upper endoscopy done in the OR in the presence of Dr. Serrano yes terday with blue ink tattooing of the gastric lesion, appears to be awake, alert, comfortable in bed and no reported significant abdominal pain, nausea, vomiting or active bleeding. The entire chart is reviewed including, but not limited to most recent lab and radiology study results, current and the previous medication lists, current and the previous medical events and the patient still has low hemo globin and hematocrit with low albumin and low total protein, but normal SMA-7 upper endoscopy. Case discussed at length with the staff on the floor as well as the patient's own family. PHYSICAL EXAMINATION: GENERAL: An 86-year-old female. VITAL SIGNS: Afebrile with pulse of 75, respiratory rate 20-22, blood pressure of 132/74. HEENT: Showed pale, dry oral mucoid membrane. Nonicteric sclerae. LUNGS: Few scattered crepitation, decreased air entry at bases. HEART: Positive S1 and S2. ABDOMEN: Soft. Bowel sounds are present with slight generalized tenderness. No mass or organomegal y. No rebound tenderness or guarding. EXTREMITIES: Without significant edema, clubbing or cyanosis. NEUROLOGIC: No reported new neurological deficits, sensory or motor. IMPRESSION: 1. Gastric polypoid mass lesion which could be a source of her gastrointestinal blood loss and anemi a. 2. Peptic ulcer disease. 3. Anemia. 4. Mitral valve endocarditis by history. 5. Malnutrition with hypoalbuminemia. 6. Left-sided colitis with internal hemorrhoids. 7. Past medical history of, but not limited to, atrial fibrillation, congestive heart failure, hyper lipidemia as well as second degree AV block. 8. Known history of status post cholecystectomy. SUGGESTION: 1. Agree with your plan. 2. The patient for potential surgically resecting gastric polypoid mass lesion as per Dr. Serrano. Case discussed with the family at length. Zuleika Garcia MD cc: 14 TT: 12/04/2016 13:38:49 Confirmation # [id number] Dictation # [id number] tn
[2016-12-04] MEDS: Tetrahydrozoline Opht 0.05% Sol (15 ml) OU PRN (15:00)
--- NOTE | 2016-12-04 18:06 | CP.PCM.PN ---
Subjective - Date & Time of Evaluation Date of Evaluation: 12/04/16 Time of Evaluation: 15:15 - Subjective Subjective: Patient seen and evaluated No chest pain or dyspnea For Polypectomy Tuesday Objective - Vital Signs/Intake and Output Vital Signs (last 24 hours): Temp Pulse Resp BP Pulse Ox 97.2 F L 67 20 133/57 L 95 12/04/16 15:46 12/04/16 15:46 12/04/16 15:46 12/04/16 15:46 12/04/16 15:46 Intake and Output: 12/04/16 12/04/16 06:59 18:59 Intake Total 320 340 Output Total 500 250 Balance -180 90 - Medications Medications: Current Medications Acetaminophen (Tylenol 325mg Tab) 325 mg PO Q12 PRN PRN Reason: Pain Furosemide (Lasix) 20 mg PO DAILY [facility] Last Admin: 12/04/16 09:41 Dose: 20 mg Ceftriaxone Sodium 2 gm/ (Sodium Chloride) 100 mls @ 100 mls/hr IVPB DAILY [facility] Last Admin: 12/04/16 09:41 Dose: 100 mls/hr Lactated Ringer's (Lactated Ringer's) 1,000 mls @ 65 mls/hr IV .[id number] [facility] Metoclopramide HCl (Reglan) 5 mg IVP ACHS [facility] Last Admin: 12/04/16 17:19 Dose: 5 mg Metoprolol Tartrate (Lopressor) 25 mg PO BID [facility] Last Admin: 12/04/16 09:42 Dose: 25 mg Sucralfate (Carafate Oral Susp) 1 gm PO ACBD [facility] Last Admin: 12/04/16 17:19 Dose: 1 gm Tetrahydrozoline HCl/Zinc Sulfate (Visine 0.05% Opht Soln) 0.01 ml OU BID PRN PRN Reason: Dry eyes Last Admin: 12/04/16 15:00 Dose: 1 drop Tramadol HCl (Ultram) 25 mg PO Q12 PRN PRN Reason: Pain - Labs Labs: 12/02/16 11:27 12/03/16 09:07 PT 14.2 SECONDS (9.7-12.2) H 11/24/16 07:15 INR 1.3 11/24/16 07:15 APTT 25 SECONDS (21-34) 11/18/16 18:25
--- NOTE | 2016-12-05 07:05 | CP.PCM.PN ---
Subjective - Date & Time of Evaluation Date of Evaluation: 12/05/16 Time of Evaluation: 07:30 - Subjective Subjective: Gen Surg Progress Note: Dr. Serrano Pt S&E this AM. Denies any abdominal pain. Denies n/v. NAEO. Scheduled for partial gastric resection Tuesday AM. Review of vitals is normal. +BM Objective - Vital Signs/Intake and Output Vital Signs (last 24 hours): Temp Pulse Resp BP Pulse Ox 97.9 F 67 20 157/71 H 97 12/04/16 23:15 12/04/16 23:30 12/04/16 23:15 12/04/16 23:15 12/04/16 23:15 Intake and Output: 12/05/16 12/05/16 06:59 18:59 Intake Total Output Total Balance - Medications Medications: Current Medications Acetaminophen (Tylenol 325mg Tab) 325 mg PO Q12 PRN PRN Reason: Pain Furosemide (Lasix) 20 mg PO DAILY [facility] Last Admin: 12/04/16 09:41 Dose: 20 mg Ceftriaxone Sodium 2 gm/ (Sodium Chloride) 100 mls @ 100 mls/hr IVPB DAILY [facility] Last Admin: 12/04/16 09:41 Dose: 100 mls/hr Lactated Ringer's (Lactated Ringer's) 1,000 mls @ 65 mls/hr IV .[id number] [facility] Metoclopramide HCl (Reglan) 5 mg IVP ACHS [facility] Last Admin: 12/04/16 21:46 Dose: 5 mg Metoprolol Tartrate (Lopressor) 25 mg PO BID [facility] Last Admin: 12/04/16 18:00 Dose: 25 mg Sucralfate (Carafate Oral Susp) 1 gm PO ACBD [facility] Last Admin: 12/04/16 17:19 Dose: 1 gm Tetrahydrozoline HCl/Zinc Sulfate (Visine 0.05% Opht Soln) 0.01 ml OU BID PRN PRN Reason: Dry eyes Last Admin: 12/04/16 15:00 Dose: 1 drop Tramadol HCl (Ultram) 25 mg PO Q12 PRN PRN Reason: Pain - Labs Labs: 12/02/16 11:27 12/03/16 09:07 PT 14.2 SECONDS (9.7-12.2) H 11/24/16 07:15 INR 1.3 11/24/16 07:15 APTT 25 SECONDS (21-34) 11/18/16 18:25 - Constitutional Appears: No Acute Distress - ENT Exam ENT Exam: Mucous Membranes Moist - Respiratory Exam Respiratory Exam: NORMAL BREATHING PATTERN - Cardiovascular Exam Cardiovascular Exam: +S1, +S2 - GI/Abdominal Exam GI & Abdominal Exam: Soft. absent: Tenderness - Neurological Exam Neurological Exam: Alert, Awake - Psychiatric Exam Psychiatric exam: Normal Mood - Skin Skin Exam: Dry, Intact Assessment and Plan - Assessment and Plan (Free Text) Assessment: 86 F with solitary gastric polyp -NPO after -OR Tuesday -C/w medical management per primary -D/w Dr. Serrano
[2016-12-05] MEDS: Sucralfate 1 gm/10 ml Oral Susp UD PO SCH ×2 (07:30→18:06)
[2016-12-05] MEDS: cefTRIAXone 2 GM in Sodium Chloride 0.9% 100 ML IVPB SCH (10:00)
--- NOTE | 2016-12-05 11:39 | PN ---
DATE: 12/05/2016 LOCATION: 653, bed B. This is an 86-year-old female, seen and examined in rounds early today without reported significant c linical changes, without reported active bleeding. The entire chart is reviewed including, but not limited to, the most recent lab and radiology study r esults, current and previous medication list, current and previous medical events and the case discus sed with the staff as well as the family members at bedside. Case discussed also at length again with the integrity consultant on the case, Dr. Serrano, for [facility] OR at a.m. The patient reported no nausea or vomiting this morning, tolerating oral intake well so far. Appeare d to be more awake and alert. PHYSICAL EXAMINATION: GENERAL: An 86-year-old female. VITAL SIGNS: Afebrile with pulse of 72, respiratory rate 20-22, blood pressure 164/66. HEENT: Showed pale, dry oral mucoid membrane. Nonicteric sclerae. LUNGS: Few scattered crepitation, decreased air entry at bases. HEART: Positive S1 and S2. ABDOMEN: Soft with mild generalized tenderness. No mass or organomegaly. No rebound tenderness or guarding. RECTAL: Positive tone. Vault is empty. EXTREMITIES: Without significant clubbing, cyanosis or edema. NEUROLOGIC: No new reported neurological deficits, sensory or motor. IMPRESSION: 1. Anemia, most likely secondary to gastrointestinal blood loss. 2. Gastric polypoid mass lesion, to be removed surgically. 3. Reexacerbation of peptic ulcer disease. 4. Malnutrition with hypoalbuminemia by recent history. 5. Known history of mitral valve endocarditis. 6. Left-sided colitis with internal hemorrhoids. 7. Known history of status post cholecystectomy. 8. Past medical history including mainly, but not limited to, atrial fibrillation, hypertension, con gestive heart failure, hyperlipidemia as well as reported second degree atrioventricular block. SUGGESTION: 1. Continue current management. 2. Cardiology reevaluation prior to surgery, took place already. 3. Further recommendation to follow post surgery. Zuleika Garcia MD cc: 14 TT: 12/05/2016 11:38:11 Confirmation # [id number] Dictation # [id number] en
--- NOTE | 2016-12-05 14:34 | PN ---
DATE: 12/05/2016 TIME OF EVALUATION: 1:45 p.m. NEUROLOGICAL PROBLEM: Metabolic encephalopathy superimposed with underlying senile dementia. PHYSICAL EXAMINATION: VITAL SIGNS: Blood pressure 128/65, pulse rate 68. GENERAL: The patient is sleepy. The patient is examined in the presence of her daughter. NEUROLOGIC: Verbally arousable, communicable, voice is low. Still, she follows commands. The rest of the examination is unchanged. Continue the present management. The patient tolerating present management. The patient will be fol lowed closely with you. Willis Rhoades MD cc: [id number] TT: 12/05/2016 14:33:24 Confirmation # [id number] Dictation # [id number] en
--- NOTE | 2016-12-05 15:07 | CP.PCM.PN ---
Subjective - Date & Time of Evaluation Date of Evaluation: 12/05/16 Time of Evaluation: 09:00 - Subjective Subjective: blood c/s still positive repeat c/s sent iv rx ordered prognosis remains guarded Objective - Vital Signs/Intake and Output Vital Signs (last 24 hours): Temp Pulse Resp BP Pulse Ox 98.5 F 68 20 128/65 97 12/05/16 07:20 12/05/16 07:30 12/05/16 07:20 12/05/16 10:15 12/05/16 07:20 Intake and Output: 12/05/16 12/05/16 06:59 18:59 Intake Total Output Total 450 Balance -450 - Medications Medications: Current Medications Acetaminophen (Tylenol 325mg Tab) 325 mg PO Q12 PRN PRN Reason: Pain Furosemide (Lasix) 20 mg PO DAILY [facility] Last Admin: 12/05/16 10:14 Dose: 20 mg Lactated Ringer's (Lactated Ringer's) 1,000 mls @ 65 mls/hr IV .[id number] [facility] Metoclopramide HCl (Reglan) 5 mg IVP ACHS [facility] Last Admin: 12/05/16 11:30 Dose: 5 mg Metoprolol Tartrate (Lopressor) 25 mg PO BID [facility] Last Admin: 12/05/16 10:15 Dose: 25 mg Sucralfate (Carafate Oral Susp) 1 gm PO ACBD [facility] Last Admin: 12/05/16 07:30 Dose: 1 gm Tetrahydrozoline HCl/Zinc Sulfate (Visine 0.05% Opht Soln) 0.01 ml OU BID PRN PRN Reason: Dry eyes Last Admin: 12/04/16 15:00 Dose: 1 drop Tramadol HCl (Ultram) 25 mg PO Q12 PRN PRN Reason: Pain - Labs Labs: 12/02/16 11:27 12/03/16 09:07 PT 14.2 SECONDS (9.7-12.2) H 11/24/16 07:15 INR 1.3 11/24/16 07:15 APTT 25 SECONDS (21-34) 11/18/16 18:25 - Constitutional Appears: Non-toxic, Cachectic, Chronically Ill - Head Exam Head Exam: NORMOCEPHALIC - Eye Exam Eye Exam: PERRL. absent: Scleral icterus - ENT Exam ENT Exam: Mucous Membranes Dry - Neck Exam Neck Exam: absent: Lymphadenopathy - Respiratory Exam Respiratory Exam: Decreased Breath Sounds, Clear to Ausculation Bilateral - Cardiovascular Exam Cardiovascular Exam: REGULAR RHYTHM, +S1, +S2, Murmur - GI/Abdominal Exam GI & Abdominal Exam: Distended, Soft. absent: Tenderness - Rectal Exam Rectal Exam: Deferred - Exam Exam: NORMAL INSPECTION - Extremities Exam Extremities Exam: absent: Calf Tenderness, Pedal Edema - Back Exam Back Exam: absent: CVA tenderness (L), CVA tenderness (R) - Neurological Exam Neurological Exam: Alert, Awake, Oriented x3 - Psychiatric Exam Psychiatric exam: Normal Mood - Skin Skin Exam: Dry Assessment and Plan (1) Anemia Status: Acute (2) Bacterial pneumonia Status: Acute (3) Congestive heart failure Status: Acute (4) Pneumonia Status: Acute (5) Sepsis Status: Acute (6) 2Nd degree AV block Status: Acute
--- NOTE | 2016-12-05 15:33 | CP.PCM.PN ---
Subjective - Date & Time of Evaluation Date of Evaluation: 12/05/16 Time of Evaluation: 15:31 - Subjective Subjective: S: Bedridden. No fever. Objective - Vital Signs/Intake and Output Vital Signs (last 24 hours): Temp Pulse Resp BP Pulse Ox 98.5 F 68 20 128/65 97 12/05/16 07:20 12/05/16 07:30 12/05/16 07:20 12/05/16 10:15 12/05/16 07:20 Intake and Output: 12/05/16 12/05/16 06:59 18:59 Intake Total Output Total 450 Balance -450 - Medications Medications: Current Medications Acetaminophen (Tylenol 325mg Tab) 325 mg PO Q12 PRN PRN Reason: Pain Furosemide (Lasix) 20 mg PO DAILY [facility] Last Admin: 12/05/16 10:14 Dose: 20 mg Lactated Ringer's (Lactated Ringer's) 1,000 mls @ 65 mls/hr IV .[id number] [facility] Ceftriaxone Sodium 2 gm/ (Sodium Chloride) 100 mls @ 100 mls/hr IVPB Q24H [facility] Metoclopramide HCl (Reglan) 5 mg IVP ACHS [facility] Last Admin: 12/05/16 11:30 Dose: 5 mg Metoprolol Tartrate (Lopressor) 25 mg PO BID [facility] Last Admin: 12/05/16 10:15 Dose: 25 mg Sucralfate (Carafate Oral Susp) 1 gm PO ACBD [facility] Last Admin: 12/05/16 07:30 Dose: 1 gm Tetrahydrozoline HCl/Zinc Sulfate (Visine 0.05% Opht Soln) 0.01 ml OU BID PRN PRN Reason: Dry eyes Last Admin: 12/04/16 15:00 Dose: 1 drop Tramadol HCl (Ultram) 25 mg PO Q12 PRN PRN Reason: Pain - Labs Labs: 12/02/16 11:27 12/03/16 09:07 PT 14.2 SECONDS (9.7-12.2) H 11/24/16 07:15 INR 1.3 11/24/16 07:15 APTT 25 SECONDS (21-34) 11/18/16 18:25 - Constitutional Appears: Chronically Ill - Head Exam Head Exam: NORMAL INSPECTION - Eye Exam Eye Exam: Normal appearance - Neck Exam Neck Exam: Normal Inspection - Respiratory Exam Respiratory Exam: Decreased Breath Sounds - Cardiovascular Exam Cardiovascular Exam: REGULAR RHYTHM - GI/Abdominal Exam GI & Abdominal Exam: Soft - Rectal Exam Rectal Exam: Deferred Assessment and Plan (1) Bacterial pneumonia Status: Acute (2) Congestive heart failure Status: Acute (3) Anemia Status: Acute (4) Cardiomyopathy Status: Chronic (5) Diarrhea Status: Acute (6) Endocarditis Status: Acute - Assessment and Plan (Free Text) Plan: Continue medications.
--- NOTE | 2016-12-05 21:36 | CP.PCM.PN ---
Subjective - Date & Time of Evaluation Date of Evaluation: 12/05/16 Time of Evaluation: 18:10 - Subjective Subjective: Patient seen and evaluated Comfortable Denies chest pain and dyspnea On antiobiotic therapy for Endocarditis Physical Examination - Constitutional Appears: No Acute Distress - Head Exam Head Exam: ATRAUMATIC, NORMAL INSPECTION, NORMOCEPHALIC - Eye Exam Eye Exam: EOMI, Normal appearance, PERRL Pupil Exam: NORMAL ACCOMODATION, PERRL - ENT Exam ENT Exam: Mucous Membranes Moist, Normal Exam - Neck Exam Neck Exam: Full ROM, Normal Inspection. absent: Lymphadenopathy - Respiratory Exam Respiratory Exam: Clear to Ausculation Bilateral, NORMAL BREATHING PATTERN. absent: Wheezes - Cardiovascular Exam Cardiovascular Exam: REGULAR RHYTHM, +S1, +S2. - GI/Abdominal Exam GI & Abdominal Exam: Soft, Normal Bowel Sounds. absent: Distended, Tenderness - Extremities Exam Extremities Exam: Full ROM, Normal Capillary Refill, Normal Inspection. absent : Joint Swelling, Pedal Edema - Back Exam Back Exam: NORMAL INSPECTION - Neurological Exam Neurological Exam: Alert, Awake, CN II-XII Intact, Normal Gait, Oriented x3 - Psychiatric Exam Psychiatric exam: Normal Affect, Normal Mood - Skin Skin Exam: Dry, Intact, Normal Color, Warm Objective - Vital Signs/Intake and Output Vital Signs (last 24 hours): Temp Pulse Resp BP Pulse Ox 97.3 F L 66 20 110/60 97 12/05/16 15:31 12/05/16 15:31 12/05/16 15:31 12/05/16 18:08 12/05/16 15:31 Intake and Output: 12/05/16 12/06/16 18:59 06:59 Output Total 450 Balance -450 - Medications Medications: Current Medications Acetaminophen (Tylenol 325mg Tab) 325 mg PO Q12 PRN PRN Reason: Pain Furosemide (Lasix) 20 mg PO DAILY [facility] Last Admin: 12/05/16 10:14 Dose: 20 mg Lactated Ringer's (Lactated Ringer's) 1,000 mls @ 65 mls/hr IV .[id number] [facility] Ceftriaxone Sodium 2 gm/ (Sodium Chloride) 100 mls @ 100 mls/hr IVPB Q24H [facility] Metoclopramide HCl (Reglan) 5 mg IVP ACHS [facility] Last Admin: 12/05/16 21:31 Dose: 5 mg Metoprolol Tartrate (Lopressor) 25 mg PO BID [facility] Last Admin: 12/05/16 18:08 Dose: 25 mg Sucralfate (Carafate Oral Susp) 1 gm PO ACBD [facility] Last Admin: 12/05/16 18:06 Dose: 1 gm Tetrahydrozoline HCl/Zinc Sulfate (Visine 0.05% Opht Soln) 0.01 ml OU BID PRN PRN Reason: Dry eyes Last Admin: 12/04/16 15:00 Dose: 1 drop Tramadol HCl (Ultram) 25 mg PO Q12 PRN PRN Reason: Pain - Labs Labs: 12/02/16 11:27 12/03/16 09:07 PT 14.2 SECONDS (9.7-12.2) H 11/24/16 07:15 INR 1.3 11/24/16 07:15 APTT 25 SECONDS (21-34) 11/18/16 18:25 Assessment and Plan - Assessment and Plan (Free Text) Assessment: (1) MV Endocarditis Status: Acute Comment: Continue antibiotics. (3) Hypertensive Heart Disease Status: S/P PPM Medical therapy (4) Hx Atrial Fib Status: Eliquis 2.5 po bid Held due to GI bleeding B blockers (5) ? Gastric Polyp/Ca Status: Medical therapy Vs. Surgery Patient has normal coronaries and normal EF. However has Severe MR and significant Pulmonary HTN Considered intermediate to high risk for cardiac events: include but not limited to Pulmonary edema, Respiratory Failure, Prolonged intubation, cardiac arrest and If benefits outweighs the risk please proceed with surgery (Gastric resection under general anaesthesia)
[2016-12-06] MEDS ORDERED: Lactated Ringer's 1,000 ML IV SCH ×4 (00:05→22:00)
[2016-12-06 07:40] LABS: CHLORIDE 99 mmol/L (98-107); POTASSIUM 3.4 mmol/L (3.6-5.2); SODIUM 140 mmol/L (132-148)
[2016-12-06 07:42] LABS: GFR AFRICAN-AMERICAN > 60
[2016-12-06 07:43] LABS: BLOOD UREA NITROGEN 8 mg/dL (7-17); CALCIUM 8.8 mg/dl (8.6-10.4); CARBON DIOXIDE 34 mmol/L (22-30); GLUCOSE,RANDOM 75 mg/dL (65-105)
[2016-12-06] MEDS: Sucralfate 1 gm/10 ml Oral Susp UD PO SCH (07:49)
[2016-12-06 08:21] LABS: BASO # 0.1 K/uL (0.0-0.2); EOS # 0.1 K/uL (0.0-0.7)
[2016-12-06 08:30] LABS: BASO % 1.5 % (0.0-2.0); EOS % 3.5 % (0.0-4.0); LYMPH # 0.9 K/uL (1.0-4.3); MEAN CELL VOLUME 82.7 fL (81.0-99.0); MEAN CORPUSCULAR HEMOGLOBIN 26.9 pg (27.0-31.0); MEAN CORPUSCULAR HGB CONC 32.5 g/dL (33.0-37.0); MEAN PLATELET VOLUME 8.4 fL (7.2-11.7); MONO # 0.4 K/uL (0.0-0.8); MONO % 9.3 % (0.0-10.0); NRBC % 0.2 % (0.0-2.0); RED CELL DISTRIBUTION WIDTH 17.4 % (11.5-14.5); WHITE BLOOD COUNT 4.3 K/uL (4.8-10.8)
--- NOTE | 2016-12-06 08:43 | CP.PCM.PN ---
Subjective - Date & Time of Evaluation Date of Evaluation: 12/06/16 Time of Evaluation: 08:20 - Subjective Subjective: Pt asleep and for surgery No events overnight and for surgery today Objective - Vital Signs/Intake and Output Vital Signs (last 24 hours): Temp Pulse Resp BP Pulse Ox 98.6 F 78 20 105/58 L 99 12/05/16 23:11 12/05/16 23:11 12/05/16 23:11 12/05/16 23:11 12/05/16 23:11 Intake and Output: 12/06/16 12/06/16 06:59 18:59 Intake Total 520 Output Total 600 Balance -80 - Medications Medications: Current Medications Acetaminophen (Tylenol 325mg Tab) 325 mg PO Q12 PRN PRN Reason: Pain Furosemide (Lasix) 20 mg PO DAILY [facility] Last Admin: 12/05/16 10:14 Dose: 20 mg Lactated Ringer's (Lactated Ringer's) 1,000 mls @ 65 mls/hr IV .[id number] [facility] Last Admin: 12/06/16 00:49 Dose: 65 mls/hr Ceftriaxone Sodium 2 gm/ (Sodium Chloride) 100 mls @ 100 mls/hr IVPB Q24H [facility] Metoclopramide HCl (Reglan) 5 mg IVP ACHS [facility] Last Admin: 12/06/16 07:50 Dose: 5 mg Metoprolol Tartrate (Lopressor) 25 mg PO BID [facility] Last Admin: 12/05/16 18:08 Dose: 25 mg Sucralfate (Carafate Oral Susp) 1 gm PO ACBD [facility] Last Admin: 12/06/16 07:49 Dose: 1 gm Tetrahydrozoline HCl/Zinc Sulfate (Visine 0.05% Opht Soln) 0.01 ml OU BID PRN PRN Reason: Dry eyes Last Admin: 12/04/16 15:00 Dose: 1 drop Tramadol HCl (Ultram) 25 mg PO Q12 PRN PRN Reason: Pain - Labs Labs: 12/06/16 08:03 12/06/16 07:16 PT 14.2 SECONDS (9.7-12.2) H 11/24/16 07:15 INR 1.3 11/24/16 07:15 APTT 25 SECONDS (21-34) 11/18/16 18:25 - Constitutional Appears: No Acute Distress - Eye Exam Eye Exam: Normal appearance - ENT Exam ENT Exam: Mucous Membranes Moist - Respiratory Exam Respiratory Exam: Decreased Breath Sounds. absent: Rales, Rhonchi, Wheezes - GI/Abdominal Exam GI & Abdominal Exam: Soft. absent: Tenderness, Mass - Extremities Exam Extremities Exam: Full ROM, Normal Capillary Refill. absent: Calf Tenderness, Joint Swelling, Pedal Edema Assessment and Plan - Assessment and Plan (Free Text) Assessment: GI Bleed; Gastric pulsatile polyp Cardiomyopathy; Mitral valve Endocarditis DJD Cont meds/ For Surgery
[2016-12-06] MEDS ORDERED: Potassium Chloride 20 mEq 100 ML IVPB ONE (09:12)
[2016-12-06] MEDS: cefTRIAXone 2 GM in Sodium Chloride 0.9% 100 ML IVPB SCH (09:57)
[2016-12-06] MEDS ORDERED: Lactated Ringer's 1,000 ML IV ONE ×3 (10:20→14:19)
[2016-12-06] MEDS ORDERED: Midazolam 2 MG/2 ML VIAL ONE (10:24)
[2016-12-06] MEDS ORDERED: Propofol 10 mg/ml Inj (20 ML) ONE (10:24)
[2016-12-06] MEDS ORDERED: Phenylephrine 10 mg/ml Inj ONE (10:25)
[2016-12-06] MEDS ORDERED: ePHEDrine 50 mg/ml Inj ONE (10:25)
[2016-12-06] MEDS ORDERED: Lidocaine Hydrochloride 5 ML INJ ONE (10:25)
[2016-12-06] MEDS ORDERED: Etomidate 20 mg/10ml Inj IV ONE (10:31)
[2016-12-06] MEDS ORDERED: ceFAZolin IV 1 gm in Dextrose 50 ML IVPB ONE (10:51)
--- NOTE | 2016-12-06 11:00 | PN ---
DATE: 12/06/2016 LOCATION: 653, bed B. This is an 86-year-old female, seen and examined in rounds without reported active bleeding or signif icant changes of clinical status. The patient is for OR today due to the polypoid mass lesion in her stomach. The entire chart is reviewed, including, but not limited to, most recent lab and radiology study resu lts, current and previous medication list, current and previous medical events. Case discussed at [facility] with the staff as well as the business intelligence consultant on the case. The latest blood workup today sh owed pancytopenia with low white blood cells 4.3, low hemoglobin 8.4, low hematocrit 26.[address] atelet counts 118, but normal blood glucose level with low albumin and low total protein. PHYSICAL EXAMINATION: GENERAL: An 86-year-old female. VITAL SIGNS: Afebrile with a pulse of 80, respiratory rate 20-22, blood pressure of 118/76. HEENT: Showed pale, dry oral mucoid membrane. Nonicteric sclerae. LUNGS: Scattered mild crepitation, decreased air entry at bases. HEART: Positive S1 and S2. ABDOMEN: Soft with slight generalized tenderness. No mass or organomegaly. No rebound tenderness o r guarding. EXTREMITIES: With lower extremity mild edematous changes. IMPRESSION: 1. Gastric polypoid mass lesion for operating room today. 2. Anemia, most likely secondary to above. 3. Peptic ulcer disease. 4. Known history of mitral valve endocarditis. 5. Known history of status post cholecystectomy. 6. Past medical history including mainly, but not limited to, hypertension, atrial fibrillation, con gestive heart failure with hyperlipidemia. SUGGESTION: 1. Continue current management. 2. IV Flagyl. 3. I will follow up post surgery. Zuleika Garcia MD cc: 14 TT: 12/06/2016 10:59:27 Confirmation # [id number] Dictation # [id number] en
--- NOTE | 2016-12-06 11:38 | CP.PCM.PN ---
Subjective - Date & Time of Evaluation Date of Evaluation: 12/05/16 Time of Evaluation: 09:00 - Subjective Subjective: Pt no complaints tolerating PO Objective - Vital Signs/Intake and Output Vital Signs (last 24 hours): Temp Pulse Resp BP Pulse Ox 98.6 F 78 20 124/73 99 12/05/16 23:11 12/05/16 23:11 12/05/16 23:11 12/06/16 09:51 12/05/16 23:11 Intake and Output: 12/06/16 12/06/16 06:59 18:59 Intake Total 520 Output Total 600 Balance -80 - Medications Medications: Current Medications Acetaminophen (Tylenol 325mg Tab) 325 mg PO Q12 PRN PRN Reason: Pain Lactated Ringer's (Lactated Ringer's) 1,000 mls @ 65 mls/hr IV .[id number] [facility] Last Admin: 12/06/16 00:49 Dose: 65 mls/hr Ceftriaxone Sodium 2 gm/ (Sodium Chloride) 100 mls @ 100 mls/hr IVPB Q24H [facility] Last Admin: 12/06/16 09:57 Dose: 100 mls/hr Metoclopramide HCl (Reglan) 5 mg IVP ACHS [facility] Last Admin: 12/06/16 07:50 Dose: 5 mg Sucralfate (Carafate Oral Susp) 1 gm PO ACBD [facility] Last Admin: 12/06/16 07:49 Dose: 1 gm Tetrahydrozoline HCl/Zinc Sulfate (Visine 0.05% Opht Soln) 0.01 ml OU BID PRN PRN Reason: Dry eyes Last Admin: 12/04/16 15:00 Dose: 1 drop Tramadol HCl (Ultram) 25 mg PO Q12 PRN PRN Reason: Pain - Labs Labs: 12/06/16 08:03 12/06/16 07:16 PT 14.2 SECONDS (9.7-12.2) H 11/24/16 07:15 INR 1.3 11/24/16 07:15 APTT 25 SECONDS (21-34) 11/18/16 18:25 - Constitutional Appears: Well - Head Exam Head Exam: ATRAUMATIC - Eye Exam Eye Exam: Normal appearance - ENT Exam ENT Exam: Mucous Membranes Moist - Respiratory Exam Respiratory Exam: NORMAL BREATHING PATTERN - Cardiovascular Exam Cardiovascular Exam: REGULAR RHYTHM - GI/Abdominal Exam GI & Abdominal Exam: Normal Bowel Sounds - Extremities Exam Extremities Exam: Normal Inspection. absent: Pedal Edema - Back Exam Back Exam: Full ROM. absent: rash noted - Neurological Exam Neurological Exam: Alert, Awake - Psychiatric Exam Psychiatric exam: Normal Affect - Skin Skin Exam: Intact. absent: Erythema Assessment and Plan (1) Congestive heart failure Assessment & Plan: Pt stable no VT tolerating PO Status: Acute (2) Endocarditis Status: Acute (3) 2Nd degree AV block Status: Acute
--- NOTE | 2016-12-06 11:57 | CP.PCM.PN ---
Subjective - Date & Time of Evaluation Date of Evaluation: 12/06/16 Time of Evaluation: 08:00 - Subjective Subjective: LATEST CULTURES STILL + Objective - Vital Signs/Intake and Output Vital Signs (last 24 hours): Temp Pulse Resp BP Pulse Ox 98.6 F 69 18 124/73 99 12/05/16 23:11 12/06/16 09:50 12/06/16 09:50 12/06/16 09:55 12/06/16 09:50 Intake and Output: 12/06/16 12/06/16 06:59 18:59 Intake Total 520 Output Total 600 Balance -80 - Medications Medications: Current Medications Acetaminophen (Tylenol 325mg Tab) 325 mg PO Q12 PRN PRN Reason: Pain Lactated Ringer's (Lactated Ringer's) 1,000 mls @ 65 mls/hr IV .[id number] [facility] Last Admin: 12/06/16 00:49 Dose: 65 mls/hr Ceftriaxone Sodium 2 gm/ (Sodium Chloride) 100 mls @ 100 mls/hr IVPB Q24H [facility] Last Admin: 12/06/16 09:57 Dose: 100 mls/hr Metoclopramide HCl (Reglan) 5 mg IVP ACHS [facility] Last Admin: 12/06/16 11:34 Dose: Not Given Sucralfate (Carafate Oral Susp) 1 gm PO ACBD [facility] Last Admin: 12/06/16 07:49 Dose: 1 gm Tetrahydrozoline HCl/Zinc Sulfate (Visine 0.05% Opht Soln) 0.01 ml OU BID PRN PRN Reason: Dry eyes Last Admin: 12/04/16 15:00 Dose: 1 drop Tramadol HCl (Ultram) 25 mg PO Q12 PRN PRN Reason: Pain - Labs Labs: 12/06/16 08:03 12/06/16 07:16 PT 14.2 SECONDS (9.7-12.2) H 11/24/16 07:15 INR 1.3 11/24/16 07:15 APTT 25 SECONDS (21-34) 11/18/16 18:25 - Constitutional Appears: Non-toxic, Chronically Ill - Head Exam Head Exam: NORMOCEPHALIC - Eye Exam Eye Exam: absent: Scleral icterus - Neck Exam Neck Exam: absent: Lymphadenopathy - Respiratory Exam Respiratory Exam: Decreased Breath Sounds - Cardiovascular Exam Cardiovascular Exam: REGULAR RHYTHM - GI/Abdominal Exam GI & Abdominal Exam: Distended, Soft Assessment and Plan (1) Anemia Status: Acute (2) Bacterial pneumonia Status: Acute (3) Congestive heart failure Status: Acute (4) Pneumonia Status: Acute (5) Sepsis Status: Acute (6) 2Nd degree AV block Status: Acute (7) Endocarditis determined by echocardiography Status: Acute
--- NOTE | 2016-12-06 12:13 | OP ---
PROCEDURE DATE: 12/06/2016 PREOPERATIVE DIAGNOSIS: Gastric polyp. POSTOPERATIVE DIAGNOSIS: Gastric polyp. PROCEDURE CARRIED OUT: 1. Partial gastrectomy. 2. Repair of chronically incarcerated incisional/ventral hernia. SURGEON: Ayan Serrano Jr., MD. DRILL PRESS OPERATOR NUMERICAL CONTROL: ____ and Dr. Rogers, residents. ANESTHESIOLOGIST: ____ and Mr. Holland. INDICATIONS: The patient is an elderly woman who presents with bleeding, found to have a large gastr ic polyp, and after evaluation by the copier operator, with my visualization, this was felt this w as not amenable to endoscopic polypectomy. OPERATIVE FINDINGS: This was on the greater curvature. It was excised with clean margins. It was s ent to the pathologist for frozen section, and they recommended against frozen section saying it woul d contaminate the permanent markings, but margins appeared to be clear. Due to the patient's poor general condition, we did not plan to proceed with a gastrectomy at this po int, regardless of the diagnosis. OPERATIVE FINDINGS: The liver and intra-abdominal cavity were free of significant occlusive disease . There were a lot of adhesions around the hiatus from the patient's previous pericardial window. T here were adhesions on the anterior abdominal wall, and a chronically incarcerated ventral hernia to the patient's right side, which was resected. The rest of the intraoperative findings were unremarka ble. PROCEDURE: The patient was given general anesthesia, intravenous antibiotics. Venodyne boots were a pplied. ____ midline incision was carried out. The ____ was identified, the greater omentum dissect ed away on the greater curvature. The area that had been marked, the polyp was identified. This was grasped. A TA 90 stapler was put across this, and this was excised. It was sent for examination by the pathologist with the above-mentioned discussion. We then checked for an air leak, and there was none. We then repaired the hernia without the use of a mesh, then resected the hernia sac. The abd omen was then closed with running sutures of V-Loc suture, and the skin was closed with skin clips. Blood loss for the procedure was less than 100 mL. OPERATION CARRIED OUT: Partial gastrectomy, repair of chronically incarcerated ventral incisional he rnia. Ayan Serrano Jr., MD cc: 56 TT: 12/06/2016 12:12:16 jn
[2016-12-06] MEDS ORDERED: HYDROmorphone 0.5 mg/0.5 ml ISec IVP PRN ×2 (12:18→12:19)
[2016-12-06] MEDS ORDERED: Naloxone 0.4 mg/ml Inj (Adult) IVP PRN (12:18)
--- NOTE | 2016-12-06 12:19 | PCM.SURG1 ---
Surgeon's Initial Post Op Note - Surgeon's Notes Surgeon: Dr. Serrano Escrow Manager: Dr. Bullard PGY3; Ken PGY2 Type of Anesthesia: General Endo Anesthesia Administered By: Fahad Pre-Operative Diagnosis: Gastric polyp Operative Findings: same Post-Operative Diagnosis: same Operation Performed: Partial Gastrectomy with wedge resection of stomach. Repair of chronically incarcerated ventral hernia Specimen/Specimens Removed: hernia sac. portion of stomach Estimated Blood Loss: EBL {In ML}: 100 Blood Products Given: N/A Drains Used: No Drains Post-Op Condition: Good Date of Surgery/Procedure: 12/06/16 Time of Surgery/Procedure: 11:00
--- NOTE | 2016-12-06 12:40 | CP.PCM.PN ---
<Daryl Sebastian - Last Filed: 12/06/16 15:07> Subjective - Date & Time of Evaluation Date of Evaluation: 12/06/16 Time of Evaluation: 09:00 - Subjective Subjective: Cardiology note- Dr. Mendoza' service Patient was seen and examined at bedside. Patient reports no acute complaints. No events overnight. Patient is scheduled for OR today. Objective - Vital Signs/Intake and Output Vital Signs (last 24 hours): Temp Pulse Resp BP Pulse Ox 98.6 F 69 18 124/73 99 12/05/16 23:11 12/06/16 09:50 12/06/16 09:50 12/06/16 09:55 12/06/16 09:50 Intake and Output: 12/06/16 12/06/16 06:59 18:59 Intake Total 520 Output Total 600 Balance -80 - Medications Medications: Current Medications Acetaminophen (Tylenol 325mg Tab) 325 mg PO Q12 PRN PRN Reason: Pain Hydromorphone HCl (Dilaudid) 0.5 mg IVP Q15M PRN PRN Reason: Pain, severe (8-10) Stop: 12/06/16 12:50 Hydromorphone HCl (Dilaudid) 0.5 mg IVP Q3H PRN PRN Reason: Pain, moderate (4-7) Lactated Ringer's (Lactated Ringer's) 1,000 mls @ 65 mls/hr IV .[id number] [facility] Last Admin: 12/06/16 00:49 Dose: 65 mls/hr Ceftriaxone Sodium 2 gm/ (Sodium Chloride) 100 mls @ 100 mls/hr IVPB Q24H [facility] Last Admin: 12/06/16 09:57 Dose: 100 mls/hr Metoclopramide HCl (Reglan) 5 mg IVP ACHS [facility] Last Admin: 12/06/16 11:34 Dose: Not Given Naloxone HCl (Narcan) 0.1 mg IVP Q2M PRN PRN Reason: Opiate reversal Stop: 12/06/16 14:20 Ondansetron HCl (Zofran Inj) 4 mg IVP ONCE PRN PRN Reason: Nausea/Vomiting Stop: 12/06/16 14:19 Sucralfate (Carafate Oral Susp) 1 gm PO ACBD [facility] Last Admin: 12/06/16 07:49 Dose: 1 gm Tetrahydrozoline HCl/Zinc Sulfate (Visine 0.05% Opht Soln) 0.01 ml OU BID PRN PRN Reason: Dry eyes Last Admin: 12/04/16 15:00 Dose: 1 drop Tramadol HCl (Ultram) 25 mg PO Q12 PRN PRN Reason: Pain - Labs Labs: 12/06/16 08:03 12/06/16 07:16 PT 14.2 SECONDS (9.7-12.2) H 11/24/16 07:15 INR 1.3 11/24/16 07:15 APTT 25 SECONDS (21-34) 11/18/16 18:25 - Constitutional Appears: Non-toxic, No Acute Distress - Head Exam Head Exam: ATRAUMATIC, NORMAL INSPECTION, NORMOCEPHALIC - Eye Exam Pupil Exam: NORMAL ACCOMODATION, PERRL - ENT Exam ENT Exam: Mucous Membranes Moist - Respiratory Exam Respiratory Exam: Clear to Ausculation Bilateral, NORMAL BREATHING PATTERN. absent: Prolonged Expiratory Phase, Rales, Rhonchi, Wheezes - Cardiovascular Exam Cardiovascular Exam: REGULAR RHYTHM, +S1, +S2 - GI/Abdominal Exam GI & Abdominal Exam: Soft, Normal Bowel Sounds. absent: Tenderness, Diminished Bowel Sounds, Hypoactive Bowel Sounds - Extremities Exam Extremities Exam: Normal Capillary Refill - Neurological Exam Neurological Exam: Alert, Awake, Oriented x3 - Psychiatric Exam Psychiatric exam: Normal Affect, Normal Mood - Skin Skin Exam: Dry, Intact, Normal Color, Warm Assessment and Plan - Assessment and Plan (Free Text) Assessment: 85 F with PMHx of HOCM, CHF, HTN, hyperlipidemia, AFib, breast cancer with mets ? and pacemaker, who presented with confusion and lethargy found to be anemic Hb 6.3 s/p 2 units PRBC now hb 8.4, with possible pneumonia vs CHF. Pt found to be bacteremic with Strep Viridins. AMNA showed vegetation on ant Mitral leaflet suggesting endocarditis requiring detention antibiotics. EGD revealed LA grade B candidiasis esophagitis, small hiatal hernia, erythromatous mucosa in antrum, and single gastric polyp. Repeat colonoscopy was recommended due to poor bowel prep. - Scheduled for OR today- partial gastrectomy- with Dr. Serrano - HR been stable 60-95s - F/u Repeat colonoscopy which was recommended by GI due to poor bowel prep - EGD - revealed LA grade B candidiasis esophagitis, small hiatal hernia, erythromatous mucousa in antrum, and single gastric polyp - F/u GI recs - AMNA showed vegetation on anterior Mitral leaflet suggesting endocarditis requiring oysterman antibiotics - Cont ABX - Rocephin per medical team - As per ID will repeat blood cx - Cont Lasix 20mg PO and Metoprolol - GI/DVT ppx Case & plan was seen, reviewed, and discussed in detail with Dr Mendoza. <Alana Mendoza - Last Filed: 12/08/16 09:42> Objective - Vital Signs/Intake and Output Vital Signs (last 24 hours): Temp Pulse Resp BP Pulse Ox 97.4 F L 88 16 126/63 100 12/08/16 08:00 12/08/16 06:52 12/08/16 06:52 12/08/16 06:52 12/08/16 06:52 Intake and Output: 12/08/16 12/08/16 06:59 18:59 Intake Total 1700 200 Output Total 1005 80 Balance 695 120 - Medications Medications: Current Medications Acetaminophen (Tylenol 325mg Tab) 325 mg PO Q12 PRN PRN Reason: Pain Famotidine (Pepcid) 20 mg IVP Q12 [facility] Last Admin: 12/07/16 22:04 Dose: 20 mg Hydromorphone HCl (Dilaudid) 0.5 mg IVP Q3H PRN PRN Reason: Pain, moderate (4-7) Last Admin: 12/07/16 22:56 Dose: 0.5 mg Ceftriaxone Sodium 2 gm/ (Sodium Chloride) 100 mls @ 100 mls/hr IVPB Q24H [facility] Last Admin: 12/07/16 09:49 Dose: 100 mls/hr Lactated Ringer's (Lactated Ringer's) 1,000 mls @ 100 mls/hr IV .Q10H [facility] Last Admin: 12/08/16 02:05 Dose: 100 mls/hr Potassium Chloride (Potassium Chloride 20 Meq/100 Ml) 100 mls @ 50 mls/hr IVPB ONCE ONE Stop: 12/08/16 10:59 Metoclopramide HCl (Reglan) 5 mg IVP Q8H [facility] Last Admin: 12/06/16 16:18 Dose: Not Given Sucralfate (Carafate Oral Susp) 1 gm PO ACBD [facility] Last Admin: 12/06/16 07:49 Dose: 1 gm Tetrahydrozoline HCl/Zinc Sulfate (Visine 0.05% Opht Soln) 0.01 ml OU BID PRN PRN Reason: Dry eyes Last Admin: 12/04/16 15:00 Dose: 1 drop Tramadol HCl (Ultram) 25 mg PO Q12 PRN PRN Reason: Pain - Labs Labs: 12/08/16 06:08 12/08/16 06:08 PT 14.2 SECONDS (9.7-12.2) H 11/24/16 07:15 INR 1.3 11/24/16 07:15 APTT 25 SECONDS (21-34) 11/18/16 18:25 Assessment and Plan (1) Congestive heart failure Status: Acute (2) Endocarditis Status: Acute (3) 2Nd degree AV block Status: Acute Attending/Attestation - Attestation I have personally seen and examined this patient.: Yes I have fully participated in the care of the patient.: Yes I have reviewed all pertinent clinical information, including history, physical exam and plan: Yes Notes (Text): 12/08/16 09:42 Pt stable schedule for OR today no cp
--- NOTE | 2016-12-06 16:26 | CP.PCM.CON ---
History of Present Illness - History of Present Illness History of Present Illness: ICU Consult Note 86 F with PMHx significant for Afib, CHF, hypertrophic cardiomyopathy, gastritis, HTN, hyperlipidemia, anemia and PSH of cholecystectomy presents s/p partial gastrectomy with wedge resection of stomach and repair of chronically incarcerated ventral hernia. Prior to surgery, patient reportedly experienced epigastric pain and was subsequently sent for an EGD which revealed a single 15mm pedunculated sessile non-bleeding gastric polyp which could not be excised at that time. Polyp was tattooed upon second EGD for appropriate indentification upon surgical intervetnion. Patient is unable to provide history follwing procedure but is able to nod accordingly. A thorough ROS could not be obtained as a result. History was supplemented with notes provided in chart. PMH: Afib, CHF, hypertrophic cardiomyopathy, gastritis, HTN, hyperlipidemia, anemia PSH: cholecystectomy All: NKDA Meds- Refer to medical chart Social Hx- Denies any smoking, alcohol or illicit drug use PMD- Unsure Review of Systems - Review of Systems Systems not reviewed;Unavailable: Language Barrier Review of Systems: Could not obtain at this time due to patient's grogginess post op. Patient was able to deny any pain at the time of evaluation. Past Patient History - Infectious Disease Hx of Infectious Diseases: None - Past Medical History & Family History Past Medical History?: Yes - Past Social History Smoking Status: Never Smoked Alcohol: None Drugs: Denies - CARDIAC Hx Atrial Fibrillation: Yes Hx Congestive Heart Failure: Yes ('fluid in lungs and heart years ago') Hx Hypertension: Yes - PULMONARY Hx Respiratory Disorders: No - NEUROLOGICAL Hx Neurological Disorder: Yes Hx Dizziness: Yes - HEENT Hx HEENT Problems: Yes Hx Cataracts: Yes (Had surgery) Other/Comment: uses reading glasses - RENAL Hx Chronic Kidney Disease: No - ENDOCRINE/METABOLIC Hx Endocrine Disorders: No - HEMATOLOGICAL/ONCOLOGICAL Hx Anemia: Yes - INTEGUMENTARY Hx Dermatological Problems: No - MUSCULOSKELETAL/RHEUMATOLOGICAL Hx Musculoskeletal Disorders: Yes Hx Falls: Yes - GASTROINTESTINAL Hx Gastritis: Yes - GENITOURINARY/GYNECOLOGICAL Hx Genitourinary Disorders: No - PSYCHIATRIC Hx Substance Use: No - SURGICAL HISTORY Hx Cholecystectomy: Yes - ANESTHESIA Hx Anesthesia: Yes Hx Anesthesia Reactions: No Hx Malignant Hyperthermia: No Meds Allergies/Adverse Reactions: Allergies Allergy/AdvReac Type Severity Reaction Status Date / Time No Known Allergies Allergy Verified 11/18/16 17:47 - Medications Medications: Current Medications Acetaminophen (Tylenol 325mg Tab) 325 mg PO Q12 PRN PRN Reason: Pain Hydromorphone HCl (Dilaudid) 0.5 mg IVP Q3H PRN PRN Reason: Pain, moderate (4-7) Ceftriaxone Sodium 2 gm/ (Sodium Chloride) 100 mls @ 100 mls/hr IVPB Q24H [facility] Last Admin: 12/06/16 09:57 Dose: 100 mls/hr Lactated Ringer's (Lactated Ringer's) 1,000 mls @ 65 mls/hr IV .[id number] [facility] Last Admin: 12/06/16 15:31 Dose: 65 mls/hr Metoclopramide HCl (Reglan) 5 mg IVP Q8H [facility] Last Admin: 12/06/16 16:18 Dose: Not Given Sucralfate (Carafate Oral Susp) 1 gm PO ACBD [facility] Last Admin: 12/06/16 07:49 Dose: 1 gm Tetrahydrozoline HCl/Zinc Sulfate (Visine 0.05% Opht Soln) 0.01 ml OU BID PRN PRN Reason: Dry eyes Last Admin: 12/04/16 15:00 Dose: 1 drop Tramadol HCl (Ultram) 25 mg PO Q12 PRN PRN Reason: Pain Physical Exam - Constitutional Appears: Non-toxic - Head Exam Head Exam: ATRAUMATIC, NORMAL INSPECTION, NORMOCEPHALIC - Eye Exam Eye Exam: EOMI, Normal appearance, PERRL Pupil Exam: NORMAL ACCOMODATION, PERRL - ENT Exam ENT Exam: Mucous Membranes Moist, Normal Exam - Neck Exam Neck exam: Positive for: Full Rom - Respiratory Exam Respiratory Exam: Clear to Auscultation Bilateral, NORMAL BREATHING PATTERN - Cardiovascular Exam Cardiovascular Exam: +S1, +S2 - GI/Abdominal Exam GI & Abdominal Exam: Soft Additional comments: midline abdominal scar noted. dressing site, c/d/i - Exam Additional comments: shaw cath in place - Extremities Exam Extremities exam: Positive for: pedal pulses present. Negative for: tenderness - Neurological Exam Neurological exam: CN II-XII Intact (grossly intact) Additional comments: groggy at time of evaluation- post op - Psychiatric Exam Psychiatric exam: Flat Affect - Skin Skin Exam: Dry, Intact Results - Vital Signs Recent Vital Signs: Last Vital Signs Temp 95.7 F L 12/06/16 15:00 Pulse 100 H 12/06/16 15:00 Resp 20 12/06/16 15:00 BP 107/57 L 12/06/16 15:00 Pulse Ox 100 12/06/16 15:00 - Labs Result Diagrams: 12/06/16 08:03 12/06/16 07:16 Labs: Laboratory Results - last 24 hr 12/06/16 12/06/16 12/06/16 07:16 08:03 09:55 WBC 4.3 L RBC 3.14 L Hgb 8.4 L Hct 26.0 L MCV 82.7 MCH 26.9 L MCHC 32.5 L RDW 17.4 H Plt Count 118 L D MPV 8.4 Neut % (Auto) 63.7 Lymph % (Auto) 22.0 [place] % (Auto) 9.3 Eos % (Auto) 3.5 Baso % (Auto) 1.5 Neut # 2.7 Lymph # 0.9 L [place] # 0.4 Eos # 0.1 Baso # 0.1 Differential Comment Sodium 140 Potassium 3.4 L Chloride 99 Carbon Dioxide 34 H Anion Gap 10 BUN 8 Creatinine 0.8 Est GFR ( Amer) > 60 Est GFR (Non-Af Amer) > 60 POC Glucose (mg/dL) 101 Random Glucose 75 Calcium 8.8 Assessment & Plan - Assessment and Plan (Free Text) Assessment: 86 year old female with PMHx significant for Afib, CHF, hypertrophic cardiomyopathy, gastritis, HTN, hyperlipidemia, anemia and PSH of cholecystectomy presents s/p day 0 partial gastrectomy with wedge resection of stomach and repair of chronically incarcerated ventral hernia. Plan: Neuro- awake and groggy post-op, cont to monitor Patient with known AMS changes prior to admission and during hospital course- No known history of falls or trauma. Management per Neuro/ Primary team- No antiplatelets due to anemia and stool occult positive Continue to monitor. 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 Mendoza recommendations- F/U Pulm- Incentive spirometer encouraged Endo- maintain euglycemia GI- s/p gastrectomy today Management per Surgery Dr. Serrano Cont to monitor vitals and responsiveness Carafate held Reglan held - shaw cath in place Monitor ins and outer Renal- BUN/Cr- stable Continue to monitor ID- Ceftriaxone 2 gm daily for positive blood venous cultures. MSK/Integument- Turn Q2H to prevent bed sores Prophylaxis- Incentive spirometer Pepcid Q12 Anticoag held due to positive stool occult
[2016-12-06] MEDS: Lactated Ringer's 1,000 ML IV SCH (21:00)
[2016-12-06 22:25] LABS: CHLORIDE 100 mmol/L (98-107); POTASSIUM 4.3 mmol/L (3.6-5.2); SODIUM 137 mmol/L (132-148)
[2016-12-06 22:28] LABS: BLOOD UREA NITROGEN 10 mg/dL (7-17); CARBON DIOXIDE 25 mmol/L (22-30); GFR AFRICAN-AMERICAN > 60; GLUCOSE,RANDOM 101 mg/dL (65-105)
[2016-12-06 22:29] LABS: CALCIUM 8.5 mg/dl (8.6-10.4); MAGNESIUM 1.4 mg/dL (1.6-2.3); PHOSPHOROUS 3.8 mg/dL (2.5-4.5)
--- NOTE | 2016-12-07 00:52 | CP.PCM.PN ---
Subjective - Date & Time of Evaluation Date of Evaluation: 12/06/16 Time of Evaluation: 18:00 - Subjective Subjective: Patient s/p surgery No cardiac events noted Objective - Vital Signs/Intake and Output Vital Signs (last 24 hours): Temp Pulse Resp BP Pulse Ox 97.6 F 92 H 18 128/44 L 100 12/06/16 20:00 12/07/16 00:00 12/07/16 00:00 12/06/16 23:55 12/07/16 00:00 Intake and Output: 12/06/16 12/07/16 18:59 06:59 Intake Total 905 2465 Output Total 280 35 Balance 625 2430 - Medications Medications: Current Medications Acetaminophen (Tylenol 325mg Tab) 325 mg PO Q12 PRN PRN Reason: Pain Famotidine (Pepcid) 20 mg IVP Q12 [facility] Hydromorphone HCl (Dilaudid) 0.5 mg IVP Q3H PRN PRN Reason: Pain, moderate (4-7) Ceftriaxone Sodium 2 gm/ (Sodium Chloride) 100 mls @ 100 mls/hr IVPB Q24H [facility] Last Admin: 12/06/16 09:57 Dose: 100 mls/hr Lactated Ringer's (Lactated Ringer's) 1,000 mls @ 100 mls/hr IV .Q10H [facility] Last Admin: 12/06/16 21:00 Dose: Not Given Metoclopramide HCl (Reglan) 5 mg IVP Q8H [facility] Last Admin: 12/06/16 16:18 Dose: Not Given Sucralfate (Carafate Oral Susp) 1 gm PO ACBD [facility] Last Admin: 12/06/16 07:49 Dose: 1 gm Tetrahydrozoline HCl/Zinc Sulfate (Visine 0.05% Opht Soln) 0.01 ml OU BID PRN PRN Reason: Dry eyes Last Admin: 12/04/16 15:00 Dose: 1 drop Tramadol HCl (Ultram) 25 mg PO Q12 PRN PRN Reason: Pain - Labs Labs: 12/06/16 08:03 12/06/16 22:09 PT 14.2 SECONDS (9.7-12.2) H 11/24/16 07:15 INR 1.3 11/24/16 07:15 APTT 25 SECONDS (21-34) 11/18/16 18:25
[2016-12-07] MEDS: Lactated Ringer's 1,000 ML IV SCH ×3 (03:40→15:50)
[2016-12-07 06:19] LABS: BASO % 0.5 % (0.0-2.0); EOS % 0.5 % (0.0-4.0); HEMATOCRIT 29.9 % (34.0-47.0); LYMPH # 1.2 K/uL (1.0-4.3); LYMPH % 14.3 % (20.0-40.0); MEAN CELL VOLUME 83.4 fL (81.0-99.0); MEAN CORPUSCULAR HEMOGLOBIN 26.6 pg (27.0-31.0); MEAN CORPUSCULAR HGB CONC 31.9 g/dL (33.0-37.0); MEAN PLATELET VOLUME 8.9 fL (7.2-11.7); MONO # 0.6 K/uL (0.0-0.8); MONO % 6.6 % (0.0-10.0); NRBC % 0.1 % (0.0-2.0); RED CELL DISTRIBUTION WIDTH 17.8 % (11.5-14.5); WHITE BLOOD COUNT 8.5 K/uL (4.8-10.8)
[2016-12-07] MEDS ORDERED: Lactated Ringer's 1,000 ML IV SCH ×2 (06:30→07:13)
[2016-12-07 06:35] LABS: CHLORIDE 101 mmol/L (98-107); POTASSIUM 4.5 mmol/L (3.6-5.2); SODIUM 138 mmol/L (132-148)
[2016-12-07 06:37] LABS: GFR AFRICAN-AMERICAN > 60
[2016-12-07 06:38] LABS: BLOOD UREA NITROGEN 11 mg/dL (7-17); CALCIUM 8.7 mg/dl (8.6-10.4); CARBON DIOXIDE 25 mmol/L (22-30); GLUCOSE,RANDOM 96 mg/dL (65-105); MAGNESIUM 1.4 mg/dL (1.6-2.3); PHOSPHOROUS 3.4 mg/dL (2.5-4.5)
--- NOTE | 2016-12-07 09:00 | CP.PCM.PN ---
Subjective - Date & Time of Evaluation Date of Evaluation: 12/07/16 Time of Evaluation: 07:20 - Subjective Subjective: General Surgery Pt S&E, Minimal UOP overnight. Received 3L fluid bolus in ICU, labs still look volume contracted. BP stable, BUN/Cr WNL. Pt offers no complaints. Objective - Vital Signs/Intake and Output Vital Signs (last 24 hours): Temp Pulse Resp BP Pulse Ox 98 F 103 H 23 151/62 H 100 12/07/16 08:00 12/07/16 08:00 12/07/16 08:00 12/07/16 07:51 12/07/16 08:00 Intake and Output: 12/07/16 12/07/16 06:59 18:59 Intake Total 4065 200 Output Total 80 0 Balance 3985 200 - Medications Medications: Current Medications Acetaminophen (Tylenol 325mg Tab) 325 mg PO Q12 PRN PRN Reason: Pain Famotidine (Pepcid) 20 mg IVP Q12 [facility] Hydromorphone HCl (Dilaudid) 0.5 mg IVP Q3H PRN PRN Reason: Pain, moderate (4-7) Ceftriaxone Sodium 2 gm/ (Sodium Chloride) 100 mls @ 100 mls/hr IVPB Q24H [facility] Last Admin: 12/06/16 09:57 Dose: 100 mls/hr Lactated Ringer's (Lactated Ringer's) 1,000 mls @ 100 mls/hr IV .Q10H [facility] Last Admin: 12/07/16 07:23 Dose: Not Given Magnesium Sulfate/Dextrose (Magnesium Sulfate 1 Gm/100 Ml D5w) 100 mls @ 100 mls/hr IVPB ONCE ONE Stop: 12/07/16 09:59 Last Admin: 12/07/16 08:22 Dose: 100 mls/hr Metoclopramide HCl (Reglan) 5 mg IVP Q8H [facility] Last Admin: 12/06/16 16:18 Dose: Not Given Sucralfate (Carafate Oral Susp) 1 gm PO ACBD [facility] Last Admin: 12/06/16 07:49 Dose: 1 gm Tetrahydrozoline HCl/Zinc Sulfate (Visine 0.05% Opht Soln) 0.01 ml OU BID PRN PRN Reason: Dry eyes Last Admin: 12/04/16 15:00 Dose: 1 drop Tramadol HCl (Ultram) 25 mg PO Q12 PRN PRN Reason: Pain - Labs Labs: 12/07/16 06:08 12/07/16 06:08 PT 14.2 SECONDS (9.7-12.2) H 11/24/16 07:15 INR 1.3 11/24/16 07:15 APTT 25 SECONDS (21-34) 11/18/16 18:25 - Constitutional Appears: Non-toxic, No Acute Distress - Head Exam Head Exam: ATRAUMATIC, NORMOCEPHALIC - Eye Exam Eye Exam: EOMI. absent: Scleral icterus - Respiratory Exam Respiratory Exam: NORMAL BREATHING PATTERN. absent: Respiratory Distress - Cardiovascular Exam Cardiovascular Exam: Tachycardia, +S1, +S2 - GI/Abdominal Exam GI & Abdominal Exam: Soft, Tenderness (at incision site). absent: Distended, Firm, Guarding, Rigid, Rebound - Neurological Exam Neurological Exam: Awake - Skin Skin Exam: Dry, Warm Assessment and Plan - Assessment and Plan (Free Text) Assessment: 86F with stomach polyp S/P Partial Gastrectomy with wedge resection of stomach. Repair of chronically incarcerated ventral hernia POD#1 Plan: Continue IVF Monitor UOP closely and bolus as needed Pain control NPO D/W Dr Zach Bullard PGY3
[2016-12-07] MEDS ORDERED: Sodium Chloride 0.9% 1,000 ML IV ONE ×2 (09:12→12:36)
[2016-12-07] MEDS: cefTRIAXone 2 GM in Sodium Chloride 0.9% 100 ML IVPB SCH (09:49)
[2016-12-07] MEDS ORDERED: Albumin Human 25% (12.5 gm/50 ml) IV ONE (10:00)
--- NOTE | 2016-12-07 17:22 | CP.CCUPN ---
CCU Subjective - Physician Review Subjective (Free Text): 12/07/16 17:51 Patient seen and examined in no acute distress. Patient attempting to speak in creole but unable to translate at the moment. Patient had minimal urine output overnight per nursing despite 3 liters of fluid bolus administered. An additional 1 liter given. Asked for bladder scan to be performed however patient only retaining 22cc. Otherwise no fevers, chills, nausea, vomiting or dyspnea noted. Critical Care Time Spent (in minutes): 33 CCU Objective - Vital Signs / Intake & Output Vital Signs (Last 4 hours): Vital Signs Temp Pulse Resp BP Pulse Ox 12/07/16 17:00 101 H 28 H 100 12/07/16 16:51 101 H 31 H 138/53 L 100 12/07/16 16:24 92 H 24 100 12/07/16 16:00 97.5 F L 93 H 25 H 100 12/07/16 15:51 94 H 24 128/55 L 100 12/07/16 15:05 95 H 25 H 100 12/07/16 15:00 94 H 27 H 100 12/07/16 14:52 94 H 21 127/50 L 100 12/07/16 14:35 94 H 24 100 12/07/16 14:00 95 H 26 H 100 12/07/16 13:55 94 H 25 H 133/61 100 12/07/16 13:53 96 H 25 H 100 12/07/16 13:52 99 H 25 H 133/61 100 12/07/16 13:42 147/59 L Intake and Output (Last 8hrs): Intake & Output 12/07/16 12/07/16 12/07/16 06:59 14:59 22:59 Intake Total 2800 2850 300 Output Total 45 38 995 Balance 2755 2812 -695 Weight 147 lb Intake: Intake, IV Amount 2800 2850 300 Right Upper arm 2800 800 300 Right Distal Port Upper 2050 arm Output: Gastric Amount 0 Right Nares 0 Urine 45 38 995 Urethral (Shaw) 45 38 995 Other: # Bowel Movements 0 0 - Physical Exam Head: Positive for: Atraumatic, Normocephalic Pupils: Positive for: PERRL Extroacular Muscles: Positive for: EOMI Conjunctiva: Positive for: Normal Ears: Positive for: Normal Mouth: Positive for: Moist Mucous Membranes Neck: Positive for: Normal Range of Motion Respiratory/Chest: Positive for: Clear to Auscultation Cardiovascular: Positive for: Regular Rate and Rhythm, Murmurs, Normal S1, S2 Abdomen: Positive for: Other (midline abdominal scar noted. dressing site, c/d/i , no erythema noted). Negative for: Tenderness, Distention Upper Extremity: Positive for: Normal Inspection Lower Extremity: Positive for: Normal Inspection Neurological: Positive for: CN II-XII Intact Skin: Positive for: Warm, Dry, Normal Color Psychiatric: Positive for: Alert - Medications Active Medications: Active Medications Generic Name Dose Route Start Last Admin Trade Name Freq PRN Reason Stop Dose Admin Acetaminophen 325 mg 12/01/16 09:24 Tylenol 325mg Tab PO Q12 PRN Pain Famotidine 20 mg 12/07/16 10:00 12/07/16 09:49 Pepcid IVP 20 mg Q12 BHAKTI Administration Hydromorphone HCl 0.5 mg 12/06/16 12:20 Dilaudid IVP Q3H PRN Pain, moderate (4-7) Ceftriaxone Sodium 2 gm/ 100 mls @ 100 mls/hr 12/06/16 10:00 12/07/16 09:49 Sodium Chloride IVPB 100 mls/hr Q24H BHAKTI Administration Lactated Ringer's 1,000 mls @ 100 mls/hr 12/06/16 20:49 12/07/16 15:50 Lactated Ringer's IV 100 mls/hr .Q10H BHAKTI Administration Metoclopramide HCl 5 mg 12/06/16 15:45 12/06/16 16:18 Reglan IVP Not Given Q8H BHAKTI Sucralfate 1 gm 12/03/16 16:30 12/06/16 07:49 Carafate Oral Susp PO 1 gm ACBD BHAKTI Administration Tetrahydrozoline HCl/Zinc Sulfate 0.01 ml 12/04/16 14:07 12/04/16 15:00 Visine 0.05% Opht Soln OU 1 drop BID PRN Administration Dry eyes Tramadol HCl 25 mg 12/01/16 09:23 Ultram PO Q12 PRN Pain - Patient Studies Lab Studies: Microbiology Studies 12/06/16 16:13 MRSA Culture (Admit) - Final Naris MRSA NOT DETECTED 12/04/16 14:15 Blood Culture - Preliminary Blood-Venous NO GROWTH AFTER 3 DAYS Lab Studies 12/07/16 12/06/16 Range/Units 06:08 22:09 WBC 8.5 D (4.8-10.8) K/uL RBC 3.58 L (3.80-5.20) Mil/uL Hgb 9.5 L (11.0-16.0) g/dL Hct 29.9 L (34.0-47.0) % MCV 83.4 (81.0-99.0) fL MCH 26.6 L (27.0-31.0) pg MCHC 31.9 L (33.0-37.0) g/dL RDW 17.8 H (11.5-14.5) % Plt Count 120 L (130-400) K/uL MPV 8.9 (7.2-11.7) fL Neut % (Auto) 78.1 H (50.0-75.0) % Lymph % (Auto) 14.3 L (20.0-40.0) % [place] % (Auto) 6.6 (0.0-10.0) % Eos % (Auto) 0.5 (0.0-4.0) % Baso % (Auto) 0.5 (0.0-2.0) % Neut # 6.7 (1.8-7.0) K/uL Lymph # 1.2 (1.0-4.3) K/uL [place] # 0.6 (0.0-0.8) K/uL Eos # 0.0 (0.0-0.7) K/uL Baso # 0.0 (0.0-0.2) K/uL Sodium 138 137 (132-148) mmol/L Potassium 4.5 4.3 (3.6-5.2) mmol/L Chloride 101 100 (98-107) mmol/L Carbon Dioxide 25 25 (22-30) mmol/L Anion Gap 17 16 (10-20) BUN 11 10 (7-17) mg/dL Creatinine 0.9 0.9 (0.7-1.2) MG/DL Est GFR ( Amer) > 60 > 60 Est GFR (Non-Af Amer) 60 60 Random Glucose 96 101 (65-105) mg/dL Calcium 8.7 8.5 L (8.6-10.4) mg/dl Phosphorus 3.4 3.8 (2.5-4.5) mg/dL Magnesium 1.4 L 1.4 L (1.6-2.3) mg/dL Albumin 2.2 L (3.5-5.0) g/dL Laboratory Results - last 24 hr 12/06/16 12/07/16 22:09 06:08 WBC 8.5 D RBC 3.58 L Hgb 9.5 L Hct 29.9 L MCV 83.4 MCH 26.6 L MCHC 31.9 L RDW 17.8 H Plt Count 120 L MPV 8.9 Neut % (Auto) 78.1 H Lymph % (Auto) 14.3 L [place] % (Auto) 6.6 Eos % (Auto) 0.5 Baso % (Auto) 0.5 Neut # 6.7 Lymph # 1.2 [place]land # 0.6 Eos # 0.0 Baso # 0.0 Sodium 137 138 Potassium 4.3 4.5 Chloride 100 101 Carbon Dioxide 25 25 Anion Gap 16 17 BUN 10 11 Creatinine 0.9 0.9 Est GFR ( Amer) > 60 > 60 Est GFR (Non-Af Amer) 60 60 Random Glucose 101 96 Calcium 8.5 L 8.7 Phosphorus 3.8 3.4 Magnesium 1.4 L 1.4 L Albumin 2.2 L Fingerstick Blood Sugar Results: 101 Review of Systems - Review of Systems Systems not reviewed;Unavailable: Language Barrier Review of Systems: as documented in the subjective- language barrier noted as well - EENT Eyes: absent: Change in Vision - Cardiovascular Cardiovascular: absent: Chest Pain, Chest Pain at Rest - Respiratory Respiratory: absent: Wheezing Critical Care Progress Note - Prophylaxis GI Prophylaxis GI: Pepsid - Nutrition Nutrition: Nutrition Category Date Time Status NPO Diet [DIET] Diets 12/06/16 Breakfast Active Assessment/Plan - Assessment and Plan (Free Text) Assessment: 86 year old female with PMHx significant for Afib, CHF, hypertrophic cardiomyopathy, gastritis, HTN, hyperlipidemia, anemia and PSH of cholecystectomy presents s/p day 1 partial gastrectomy with wedge resection of stomach and repair of chronically incarcerated ventral hernia. Plan: Neuro- awake, alert Patient with known AMS changes prior to admission and during hospital course- No known history of falls or trauma. Management per Neuro/ Primary team- No antiplatelets due to anemia and stool occult positive Continue to monitor. 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 Mendoza recommendations- F/U Pulm- Incentive spirometer encouraged Endo- maintain euglycemia GI- s/p gastrectomy 12/06/[address] Serrano: Pain control and NPO. Feeding advancements per surgery. Cont to monitor vitals and responsiveness Carafate held Reglan held - shaw cath in place Monitor ins and outs- decreased today; patient not retaining Renal- BUN/Cr- stable. Continue to monitor Hypomagnesemia- repleted ID- Ceftriaxone 2 gm daily for positive blood venous cultures. MSK/Integument- Turn Q2H to prevent bed sores Prophylaxis- Incentive spirometer Pepcid Q12 Anticoag held due to positive stool occult
--- NOTE | 2016-12-07 20:41 | CP.PCM.PN ---
Subjective - Date & Time of Evaluation Date of Evaluation: 12/07/16 Time of Evaluation: 16:00 - Subjective Subjective: Patient seen and evaluated Patient responded to hydration. Now able to make urine Denies chest pain and dyspnea Objective - Vital Signs/Intake and Output Vital Signs (last 24 hours): Temp Pulse Resp BP Pulse Ox 98 F 102 H 24 160/55 H 100 12/07/16 20:00 12/07/16 20:16 12/07/16 20:16 12/07/16 19:52 12/07/16 20:16 Intake and Output: 12/07/16 12/08/16 18:59 06:59 Intake Total 3250 200 Output Total 1148 475 Balance 2102 -275 - Medications Medications: Current Medications Acetaminophen (Tylenol 325mg Tab) 325 mg PO Q12 PRN PRN Reason: Pain Famotidine (Pepcid) 20 mg IVP Q12 [facility] Last Admin: 12/07/16 09:49 Dose: 20 mg Hydromorphone HCl (Dilaudid) 0.5 mg IVP Q3H PRN PRN Reason: Pain, moderate (4-7) Ceftriaxone Sodium 2 gm/ (Sodium Chloride) 100 mls @ 100 mls/hr IVPB Q24H [facility] Last Admin: 12/07/16 09:49 Dose: 100 mls/hr Lactated Ringer's (Lactated Ringer's) 1,000 mls @ 100 mls/hr IV .Q10H [facility] Last Admin: 12/07/16 15:50 Dose: 100 mls/hr Metoclopramide HCl (Reglan) 5 mg IVP Q8H [facility] Last Admin: 12/06/16 16:18 Dose: Not Given Sucralfate (Carafate Oral Susp) 1 gm PO ACBD [facility] Last Admin: 12/06/16 07:49 Dose: 1 gm Tetrahydrozoline HCl/Zinc Sulfate (Visine 0.05% Opht Soln) 0.01 ml OU BID PRN PRN Reason: Dry eyes Last Admin: 12/04/16 15:00 Dose: 1 drop Tramadol HCl (Ultram) 25 mg PO Q12 PRN PRN Reason: Pain - Labs Labs: 12/07/16 06:08 12/07/16 06:08 PT 14.2 SECONDS (9.7-12.2) H 11/24/16 07:15 INR 1.3 11/24/16 07:15 APTT 25 SECONDS (21-34) 11/18/16 18:25
[2016-12-07] MEDS: HYDROmorphone 0.5 mg/0.5 ml ISec IVP PRN (22:56)
[2016-12-08] MEDS: Lactated Ringer's 1,000 ML IV SCH ×2 (02:05→12:49)
[2016-12-08] MEDS ORDERED: Sodium Chloride 0.9% 500 ML IV ONE (04:08)
[2016-12-08 06:20] LABS: BASO % 0.7 % (0.0-2.0); EOS # 0.2 K/uL (0.0-0.7); EOS % 2.8 % (0.0-4.0); HEMATOCRIT 23.6 % (34.0-47.0); LYMPH # 0.8 K/uL (1.0-4.3); LYMPH % 13.2 % (20.0-40.0); MEAN CELL VOLUME 82.9 fL (81.0-99.0); MEAN CORPUSCULAR HEMOGLOBIN 26.5 pg (27.0-31.0); MEAN PLATELET VOLUME 8.8 fL (7.2-11.7); MONO # 0.5 K/uL (0.0-0.8); MONO % 7.9 % (0.0-10.0); RED CELL DISTRIBUTION WIDTH 17.3 % (11.5-14.5); WHITE BLOOD COUNT 5.8 K/uL (4.8-10.8)
[2016-12-08 06:29] LABS: CHLORIDE 101 mmol/L (98-107); POTASSIUM 3.4 mmol/L (3.6-5.2); SODIUM 139 mmol/L (132-148)
[2016-12-08 06:31] LABS: AST/SGOT 43 U/L (14-36); BILIRUBIN,TOTAL 0.3 mg/dL (0.2-1.3); CARBON DIOXIDE 27 mmol/L (22-30); GFR AFRICAN-AMERICAN > 60
[2016-12-08 06:32] LABS: ALKALINE PHOSPHATASE 60 U/L (38-126); ALT/SGPT 27 U/L (9-52); BLOOD UREA NITROGEN 8 mg/dL (7-17); CALCIUM 8.1 mg/dl (8.6-10.4); GLUCOSE,RANDOM 72 mg/dL (65-105); TOTAL PROTEIN 5.1 g/dL (6.3-8.3)
[2016-12-08 06:33] LABS: MAGNESIUM 1.6 mg/dL (1.6-2.3)
[2016-12-08 06:42] LABS: ALB/GLOB RATIO 0.6 (1.0-2.1)
--- NOTE | 2016-12-08 07:41 | CP.PCM.PN ---
Subjective - Date & Time of Evaluation Date of Evaluation: 12/08/16 Time of Evaluation: 07:37 - Subjective Subjective: General Surgery - Dr. Serrano Pt S&E. HERMELINDOO. Pt had low UOP yesterday, received total of 5L IVF over the past 24hrs, urine output has since improved >40cc/hr. Pt lethargic this morning , denies any significant abdominal pain. She remains NPO. No N/V, F/C, SOB/CP. Objective - Vital Signs/Intake and Output Vital Signs (last 24 hours): Temp Pulse Resp BP Pulse Ox 98.2 F 88 16 126/63 100 12/08/16 04:00 12/08/16 06:52 12/08/16 06:52 12/08/16 06:52 12/08/16 06:52 Intake and Output: 12/08/16 12/08/16 06:59 18:59 Intake Total 1700 100 Output Total 1005 45 Balance 695 55 - Medications Medications: Current Medications Acetaminophen (Tylenol 325mg Tab) 325 mg PO Q12 PRN PRN Reason: Pain Famotidine (Pepcid) 20 mg IVP Q12 [facility] Last Admin: 12/07/16 22:04 Dose: 20 mg Hydromorphone HCl (Dilaudid) 0.5 mg IVP Q3H PRN PRN Reason: Pain, moderate (4-7) Last Admin: 12/07/16 22:56 Dose: 0.5 mg Ceftriaxone Sodium 2 gm/ (Sodium Chloride) 100 mls @ 100 mls/hr IVPB Q24H [facility] Last Admin: 12/07/16 09:49 Dose: 100 mls/hr Lactated Ringer's (Lactated Ringer's) 1,000 mls @ 100 mls/hr IV .Q10H [facility] Last Admin: 12/08/16 02:05 Dose: 100 mls/hr Metoclopramide HCl (Reglan) 5 mg IVP Q8H [facility]AKTI Last Admin: 12/06/16 16:18 Dose: Not Given Sucralfate (Carafate Oral Susp) 1 gm PO ACBD [facility]AKTI Last Admin: 12/06/16 07:49 Dose: 1 gm Tetrahydrozoline HCl/Zinc Sulfate (Visine 0.05% Opht Soln) 0.01 ml OU BID PRN PRN Reason: Dry eyes Last Admin: 12/04/16 15:00 Dose: 1 drop Tramadol HCl (Ultram) 25 mg PO Q12 PRN PRN Reason: Pain - Labs Labs: 12/08/16 06:08 12/08/16 06:08 PT 14.2 SECONDS (9.7-12.2) H 11/24/16 07:15 INR 1.3 11/24/16 07:15 APTT 25 SECONDS (21-34) 11/18/16 18:25 - Constitutional Appears: No Acute Distress - Head Exam Head Exam: ATRAUMATIC, NORMAL INSPECTION, NORMOCEPHALIC - GI/Abdominal Exam GI & Abdominal Exam: Soft. absent: Distended, Guarding, Tenderness Additional comments: midline incision c/d/i with surgical dressing - Neurological Exam Neurological Exam: absent: Alert, Awake - Psychiatric Exam Psychiatric exam: Normal Affect, Normal Mood - Skin Skin Exam: Dry, Intact Assessment and Plan - Assessment and Plan (Free Text) Assessment: 86F s/p Partial Gastrectomy with wedge resection of stomach and repair of chronically incarcerated ventral hernia, POD#2 Plan: -Continue IVF and monitor urine output -Maintain NPO -Pain control -D/W Dr Zach Rogers PGY2
--- NOTE | 2016-12-08 08:53 | CP.PCM.PN ---
<Daryl Sebastian - Last Filed: 12/08/16 08:49> Subjective - Date & Time of Evaluation Date of Evaluation: 12/08/16 Time of Evaluation: 08:00 - Subjective Subjective: Cardiology Note- Dr. Mendoza' service Patient was seen and examined at bedside. Patient reports no acute complaints at this time. No events overnight, per nursing. Currently in ICU being observed post op day 2 from partial gastrectomy with wedge resection of stomach and repair of chronically incarcerated ventral hernia. Objective - Vital Signs/Intake and Output Vital Signs (last 24 hours): Temp Pulse Resp BP Pulse Ox 98.2 F 88 16 126/63 100 12/08/16 04:00 12/08/16 06:52 12/08/16 06:52 12/08/16 06:52 12/08/16 06:52 Intake and Output: 12/08/16 12/08/16 06:59 18:59 Intake Total 1700 200 Output Total 1005 80 Balance 695 120 - Medications Medications: Current Medications Acetaminophen (Tylenol 325mg Tab) 325 mg PO Q12 PRN PRN Reason: Pain Famotidine (Pepcid) 20 mg IVP Q12 [facility] Last Admin: 12/07/16 22:04 Dose: 20 mg Hydromorphone HCl (Dilaudid) 0.5 mg IVP Q3H PRN PRN Reason: Pain, moderate (4-7) Last Admin: 12/07/16 22:56 Dose: 0.5 mg Ceftriaxone Sodium 2 gm/ (Sodium Chloride) 100 mls @ 100 mls/hr IVPB Q24H [facility] Last Admin: 12/07/16 09:49 Dose: 100 mls/hr Lactated Ringer's (Lactated Ringer's) 1,000 mls @ 100 mls/hr IV .Q10H [facility] Last Admin: 12/08/16 02:05 Dose: 100 mls/hr Metoclopramide HCl (Reglan) 5 mg IVP Q8H [facility] Last Admin: 12/06/16 16:18 Dose: Not Given Sucralfate (Carafate Oral Susp) 1 gm PO ACBD [facility] Last Admin: 12/06/16 07:49 Dose: 1 gm Tetrahydrozoline HCl/Zinc Sulfate (Visine 0.05% Opht Soln) 0.01 ml OU BID PRN PRN Reason: Dry eyes Last Admin: 12/04/16 15:00 Dose: 1 drop Tramadol HCl (Ultram) 25 mg PO Q12 PRN PRN Reason: Pain - Labs Labs: 12/08/16 06:08 12/08/16 06:08 PT 14.2 SECONDS (9.7-12.2) H 11/24/16 07:15 INR 1.3 11/24/16 07:15 APTT 25 SECONDS (21-34) 11/18/16 18:25 - Constitutional Appears: Non-toxic, No Acute Distress - Head Exam Head Exam: ATRAUMATIC, NORMAL INSPECTION, NORMOCEPHALIC - Eye Exam Pupil Exam: NORMAL ACCOMODATION - ENT Exam ENT Exam: Mucous Membranes Moist - Respiratory Exam Respiratory Exam: Clear to Ausculation Bilateral, NORMAL BREATHING PATTERN. absent: Rhonchi, Wheezes - Cardiovascular Exam Cardiovascular Exam: REGULAR RHYTHM, +S1, +S2 - GI/Abdominal Exam GI & Abdominal Exam: Soft, Normal Bowel Sounds Additional comments: midline abdominal scar noted. dressing site, c/d/i, no erythema noted - Extremities Exam Extremities Exam: Normal Capillary Refill, Normal Inspection - Neurological Exam Neurological Exam: Alert, Awake, Oriented x3 - Psychiatric Exam Psychiatric exam: Normal Affect, Normal Mood - Skin Skin Exam: Dry, Intact, Normal Color, Warm Assessment and Plan - Assessment and Plan (Free Text) Assessment: 85 F with PMHx of HOCM, CHF, HTN, hyperlipidemia, AFib, breast cancer with mets ? and pacemaker, who presented with confusion and lethargy found to be anemic Hb 6.3 s/p 2 units PRBC now hb 8.4, with possible pneumonia vs CHF. Pt found to be bacteremic with Strep Viridins. AMNA showed vegetation on ant Mitral leaflet suggesting endocarditis requiring exterminator helper termite antibiotics. EGD revealed LA grade B candidiasis esophagitis, small hiatal hernia, erythromatous mucosa in antrum, and single gastric polyp. Patient underwent partial gastrectomy with wedge resection of stomach and repair of chronically incarcerated ventral hernia - POD #2 partial gastrectomy with hernia repair with Dr. Serrano - HR been stable 60-95s - EGD - revealed LA grade B candidiasis esophagitis, small hiatal hernia, erythromatous mucousa in antrum, and single gastric polyp - F/u GI recs - AMNA showed vegetation on anterior Mitral leaflet suggesting endocarditis requiring exterminator helper termite antibiotics - Cont ABX - Rocephin per medical team - As per ID will repeat blood cx - Cont Lasix 20mg PO and Metoprolol - GI/DVT ppx Case & plan was seen, reviewed, and discussed in detail with Dr Mendoza. <Alana Mendoza - Last Filed: 12/08/16 09:41> Objective - Vital Signs/Intake and Output Vital Signs (last 24 hours): Temp Pulse Resp BP Pulse Ox 97.4 F L 88 16 126/63 100 12/08/16 08:00 12/08/16 06:52 12/08/16 06:52 12/08/16 06:52 12/08/16 06:52 Intake and Output: 12/08/16 12/08/16 06:59 18:59 Intake Total 1700 200 Output Total 1005 80 Balance 695 120 - Medications Medications: Current Medications Acetaminophen (Tylenol 325mg Tab) 325 mg PO Q12 PRN PRN Reason: Pain Famotidine (Pepcid) 20 mg IVP Q12 [facility] Last Admin: 12/07/16 22:04 Dose: 20 mg Hydromorphone HCl (Dilaudid) 0.5 mg IVP Q3H PRN PRN Reason: Pain, moderate (4-7) Last Admin: 12/07/16 22:56 Dose: 0.5 mg Ceftriaxone Sodium 2 gm/ (Sodium Chloride) 100 mls @ 100 mls/hr IVPB Q24H [facility] Last Admin: 12/07/16 09:49 Dose: 100 mls/hr Lactated Ringer's (Lactated Ringer's) 1,000 mls @ 100 mls/hr IV .Q10H [facility] Last Admin: 12/08/16 02:05 Dose: 100 mls/hr Potassium Chloride (Potassium Chloride 20 Meq/100 Ml) 100 mls @ 50 mls/hr IVPB ONCE ONE Stop: 12/08/16 10:59 Metoclopramide HCl (Reglan) 5 mg IVP Q8H [facility] Last Admin: 12/06/16 16:18 Dose: Not Given Sucralfate (Carafate Oral Susp) 1 gm PO ACBD [facility] Last Admin: 12/06/16 07:49 Dose: 1 gm Tetrahydrozoline HCl/Zinc Sulfate (Visine 0.05% Opht Soln) 0.01 ml OU BID PRN PRN Reason: Dry eyes Last Admin: 12/04/16 15:00 Dose: 1 drop Tramadol HCl (Ultram) 25 mg PO Q12 PRN PRN Reason: Pain - Labs Labs: 12/08/16 06:08 12/08/16 06:08 PT 14.2 SECONDS (9.7-12.2) H 11/24/16 07:15 INR 1.3 11/24/16 07:15 APTT 25 SECONDS (21-34) 11/18/16 18:25 Assessment and Plan (1) Congestive heart failure Status: Acute (2) Endocarditis Status: Acute (3) 2Nd degree AV block Status: Acute Attending/Attestation - Attestation I have personally seen and examined this patient.: Yes I have fully participated in the care of the patient.: Yes I have reviewed all pertinent clinical information, including history, physical exam and plan: Yes Notes (Text): 12/08/16 09:40 Pt in good spirits this am after surgery path pending slightly tachy in ICU 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
--- NOTE | 2016-12-08 08:57 | CP.PCM.PN ---
Subjective - Date & Time of Evaluation Date of Evaluation: 12/08/16 Time of Evaluation: 08:30 - Subjective Subjective: Pt feels weak; no CP, no SOB, min cough, no n/v, no diarrhea Had fluid challenge; now/ good urine out put Objective - Vital Signs/Intake and Output Vital Signs (last 24 hours): Temp Pulse Resp BP Pulse Ox 97.4 F L 88 16 126/63 100 12/08/16 08:00 12/08/16 06:52 12/08/16 06:52 12/08/16 06:52 12/08/16 06:52 Intake and Output: 12/08/16 12/08/16 06:59 18:59 Intake Total 1700 200 Output Total 1005 80 Balance 695 120 - Medications Medications: Current Medications Acetaminophen (Tylenol 325mg Tab) 325 mg PO Q12 PRN PRN Reason: Pain Famotidine (Pepcid) 20 mg IVP Q12 [facility] Last Admin: 12/07/16 22:04 Dose: 20 mg Hydromorphone HCl (Dilaudid) 0.5 mg IVP Q3H PRN PRN Reason: Pain, moderate (4-7) Last Admin: 12/07/16 22:56 Dose: 0.5 mg Ceftriaxone Sodium 2 gm/ (Sodium Chloride) 100 mls @ 100 mls/hr IVPB Q24H [facility] Last Admin: 12/07/16 09:49 Dose: 100 mls/hr Lactated Ringer's (Lactated Ringer's) 1,000 mls @ 100 mls/hr IV .Q10H [facility] Last Admin: 12/08/16 02:05 Dose: 100 mls/hr Metoclopramide HCl (Reglan) 5 mg IVP Q8H [facility] Last Admin: 12/06/16 16:18 Dose: Not Given Sucralfate (Carafate Oral Susp) 1 gm PO ACBD [facility] Last Admin: 12/06/16 07:49 Dose: 1 gm Tetrahydrozoline HCl/Zinc Sulfate (Visine 0.05% Opht Soln) 0.01 ml OU BID PRN PRN Reason: Dry eyes Last Admin: 12/04/16 15:00 Dose: 1 drop Tramadol HCl (Ultram) 25 mg PO Q12 PRN PRN Reason: Pain - Labs Labs: 12/08/16 06:08 12/08/16 06:08 PT 14.2 SECONDS (9.7-12.2) H 11/24/16 07:15 INR 1.3 11/24/16 07:15 APTT 25 SECONDS (21-34) 11/18/16 18:25 - Constitutional Appears: No Acute Distress - Eye Exam Eye Exam: Normal appearance - ENT Exam ENT Exam: Mucous Membranes Moist - Neck Exam Neck Exam: Full ROM, Normal Inspection. absent: Lymphadenopathy - Respiratory Exam Respiratory Exam: Decreased Breath Sounds, Rales. absent: Rhonchi, Wheezes - Cardiovascular Exam Cardiovascular Exam: Tachycardia, Diastolic murmur, REGULAR RHYTHM, JVD, +S1, + S2. absent: Gallop - GI/Abdominal Exam GI & Abdominal Exam: Soft, Tenderness. absent: Mass - Extremities Exam Extremities Exam: Full ROM, Normal Capillary Refill. absent: Calf Tenderness, Joint Swelling, Pedal Edema Assessment and Plan - Assessment and Plan (Free Text) Assessment: s/p Excision of Gastric polyps w/ Ac kidney injury Cardiomyopathy Endocarditis ; DJD of L/S Cont meds recheck labs ?Marisa
[2016-12-08] MEDS ORDERED: Potassium Chloride 20 mEq 100 ML IVPB ONE (09:00)
--- NOTE | 2016-12-08 09:01 | RAD ---
HISTORY: rule out atelectasis, post op COMPARISON: 11/26/2016 FINDINGS: LUNGS: Increasing hazy opacity involving the entire right lung. PLEURA: Layering effusion seen bilaterally right greater than left.Biapical pleural parenchymal thickening noted. CARDIOVASCULAR: Enlarged cardiomediastinal silhouette slightly increased since the prior radiograph. There may be an element of pericardial effusion. OSSEOUS STRUCTURES: The osseous structures demonstrate degenerative changes. VISUALIZED UPPER ABDOMEN: Upper abdomen is suboptimally evaluated. Surgical caden projecting over the left upper quadrant of the abdomen. OTHER FINDINGS: Right-sided PICC with the distal tip overlying the projection of the expected location of the SVC. Left-sided dual lead pacemaker. Stable appearance of curvilinear wirelike opacity overlying the projection of the left upper lobe. IMPRESSION: Increasing hazy opacity involving the entire right lung. Bilateral layering pleural effusions right greater than left with associated compressive atelectasis and/or pneumonia. Possible pericardial effusion as there is an increase in size of the cardiomediastinal silhouette when compared to prior radiograph from 11/26/2016. Correlation with chest CT can be obtained if indicated. The findings as above.
[2016-12-08] MEDS: cefTRIAXone 2 GM in Sodium Chloride 0.9% 100 ML IVPB SCH (09:56)
--- NOTE | 2016-12-08 10:48 | CP.CCUPN ---
<CarleyAngelajeremy - Last Filed: 12/08/16 11:07> CCU Subjective - Physician Review Subjective (Free Text): 12/07/16 17:51 Patient seen and examined in no acute distress. Patient attempting to speak in creole but unable to translate at the moment. Patient had minimal urine output overnight per nursing despite 3 liters of fluid bolus administered. An additional 1 liter given. Asked for bladder scan to be performed however patient only retaining 22cc. Otherwise no fevers, chills, nausea, vomiting or dyspnea noted. 12/08/16 10:45 Pt seen and examined in no acute distress. Patient's urine output has improved; responding to fluids given. Patient somnolent for most of evaluation; however nursing noted moments of confusion and disorientation. Otherwise, no fevers, chills,nausea, vomiting, diarrhea or constipation noted. Critical Care Time Spent (in minutes): 35 CCU Objective - Vital Signs / Intake & Output Vital Signs (Last 4 hours): Vital Signs Temp Pulse Resp BP Pulse Ox 12/08/16 08:00 97.4 F L 12/08/16 06:52 88 16 126/63 100 Intake and Output (Last 8hrs): Intake & Output 12/07/16 12/08/16 12/08/16 22:59 06:59 14:59 Intake Total 800 1300 200 Output Total 1795 320 80 Balance -995 980 120 Weight 155 lb 3.2 oz Intake: Intake, IV Amount 800 1300 200 Right Upper arm 800 800 200 Right Distal Port Upper 500 arm Output: Urine 1795 320 80 Urethral (Shaw) 1795 320 80 Other: # Bowel Movements 0 - Physical Exam Physical Exam Limitations: Positive for: Other (altered at times) Head: Positive for: Atraumatic, Normocephalic Pupils: Positive for: PERRL Extroacular Muscles: Positive for: EOMI Conjunctiva: Positive for: Normal Ears: Positive for: Normal Mouth: Positive for: Moist Mucous Membranes Neck: Positive for: Normal Range of Motion Respiratory/Chest: Positive for: Clear to Auscultation Cardiovascular: Positive for: Regular Rate and Rhythm, Murmurs, Normal S1, S2 Abdomen: Positive for: Other (midline abdominal scar noted. dressing site, c/d/i , no erythema noted). Negative for: Tenderness, Distention Upper Extremity: Positive for: Normal Inspection Lower Extremity: Positive for: Normal Inspection, Edema (trace b/l) Neurological: Positive for: CN II-XII Intact Skin: Positive for: Warm, Dry, Normal Color Psychiatric: Positive for: Alert - Medications Active Medications: Active Medications Generic Name Dose Route Start Last Admin Trade Name Freq PRN Reason Stop Dose Admin Acetaminophen 325 mg 12/01/16 09:24 Tylenol 325mg Tab PO Q12 PRN Pain Famotidine 20 mg 12/07/16 10:00 12/08/16 09:55 Pepcid IVP 20 mg Q12 BHAKTI Administration Hydromorphone HCl 0.5 mg 12/06/16 12:20 12/07/16 22:56 Dilaudid IVP 0.5 mg Q3H PRN Administration Pain, moderate (4-7) Ceftriaxone Sodium 2 gm/ 100 mls @ 100 mls/hr 12/06/16 10:00 12/08/16 09:56 Sodium Chloride IVPB 100 mls/hr Q24H BHAKTI Administration Lactated Ringer's 1,000 mls @ 100 mls/hr 12/06/16 20:49 12/08/16 02:05 Lactated Ringer's IV 100 mls/hr .Q10H BHAKTI Administration Potassium Chloride 100 mls @ 50 mls/hr 12/08/16 09:00 12/08/16 09:54 Potassium Chloride 20 Meq/100 Ml IVPB 12/08/16 10:59 50 mls/hr ONCE ONE Administration Metoclopramide HCl 5 mg 12/06/16 15:45 12/06/16 16:18 Reglan IVP Not Given Q8H BHAKTI Sucralfate 1 gm 12/03/16 16:30 12/06/16 07:49 Carafate Oral Susp PO 1 gm ACBD BHAKTI Administration Tetrahydrozoline HCl/Zinc Sulfate 0.01 ml 12/04/16 14:07 12/04/16 15:00 Visine 0.05% Opht Soln OU 1 drop BID PRN Administration Dry eyes Tramadol HCl 25 mg 12/01/16 09:23 Ultram PO Q12 PRN Pain - Patient Studies Lab Studies: Microbiology Studies 12/07/16 04:30 Blood Culture - Preliminary Blood-Venous NO GROWTH AFTER 24 HOURS 12/07/16 04:00 Blood Culture - Preliminary Blood-Venous NO GROWTH AFTER 24 HOURS 12/06/16 16:13 MRSA Culture (Admit) - Final Naris MRSA NOT DETECTED 12/04/16 14:15 Blood Culture - Preliminary Blood-Venous NO GROWTH AFTER 3 DAYS Lab Studies 12/08/16 12/07/16 Range/Units 06:08 06:08 WBC 5.8 (4.8-10.8) K/uL RBC 2.85 L (3.80-5.20) Mil/uL Hgb 7.5 L D (11.0-16.0) g/dL Hct 23.6 L (34.0-47.0) % MCV 82.9 (81.0-99.0) fL MCH 26.5 L (27.0-31.0) pg MCHC 32.0 L (33.0-37.0) g/dL RDW 17.3 H (11.5-14.5) % Plt Count 100 L D (130-400) K/uL MPV 8.8 (7.2-11.7) fL Neut % (Auto) 75.4 H (50.0-75.0) % Lymph % (Auto) 13.2 L (20.0-40.0) % [place] % (Auto) 7.9 (0.0-10.0) % Eos % (Auto) 2.8 (0.0-4.0) % Baso % (Auto) 0.7 (0.0-2.0) % Neut # 4.4 (1.8-7.0) K/uL Lymph # 0.8 L (1.0-4.3) K/uL [place] # 0.5 (0.0-0.8) K/uL Eos # 0.2 (0.0-0.7) K/uL Baso # 0.0 (0.0-0.2) K/uL Sodium 139 (132-148) mmol/L Potassium 3.4 L (3.6-5.2) mmol/L Chloride 101 (98-107) mmol/L Carbon Dioxide 27 (22-30) mmol/L Anion Gap 14 (10-20) BUN 8 (7-17) mg/dL Creatinine 0.9 (0.7-1.2) MG/DL Est GFR ( Amer) > 60 Est GFR (Non-Af Amer) 60 Random Glucose 72 (65-105) mg/dL Calcium 8.1 L (8.6-10.4) mg/dl Phosphorus 3.0 (2.5-4.5) mg/dL Magnesium 1.6 (1.6-2.3) mg/dL Total Bilirubin 0.3 (0.2-1.3) mg/dL AST 43 H D (14-36) U/L ALT 27 (9-52) U/L Alkaline Phosphatase 60 (38-126) U/L Total Protein 5.1 L (6.3-8.3) g/dL Albumin 2.0 L 2.2 L (3.5-5.0) g/dL Globulin 3.1 (2.2-3.9) gm/dL Albumin/Globulin Ratio 0.6 L (1.0-2.1) Laboratory Results - last 24 hr 12/07/16 12/08/16 06:08 06:08 WBC 5.8 RBC 2.85 L Hgb 7.5 L D Hct 23.6 L MCV 82.9 MCH 26.5 L MCHC 32.0 L RDW 17.3 H Plt Count 100 L D MPV 8.8 Neut % (Auto) 75.4 H Lymph % (Auto) 13.2 L [place] % (Auto) 7.9 Eos % (Auto) 2.8 Baso % (Auto) 0.7 Neut # 4.4 Lymph # 0.8 L [place] # 0.5 Eos # 0.2 Baso # 0.0 Sodium 139 Potassium 3.4 L Chloride 101 Carbon Dioxide 27 Anion Gap 14 BUN 8 Creatinine 0.9 Est GFR ( Amer) > 60 Est GFR (Non-Af Amer) 60 Random Glucose 72 Calcium 8.1 L Phosphorus 3.0 Magnesium 1.6 Total Bilirubin 0.3 AST 43 H D ALT 27 Alkaline Phosphatase 60 Total Protein 5.1 L Albumin 2.2 L 2.0 L Globulin 3.1 Albumin/Globulin Ratio 0.6 L Fingerstick Blood Sugar Results: 101 Review of Systems - Review of Systems Review of Systems: as noted in subjective Critical Care Progress Note - Nutrition Nutrition: Nutrition Category Date Time Status NPO Diet [DIET] Diets 12/06/16 Breakfast Active Assessment/Plan - Assessment and Plan (Free Text) Assessment: 86 year old female with PMHx significant for Afib, CHF, hypertrophic cardiomyopathy, gastritis, HTN, hyperlipidemia, anemia and PSH of cholecystectomy presents s/p day 2 partial gastrectomy with wedge resection of stomach and repair of chronically incarcerated ventral hernia. Plan: Neuro- awake, alert; however altered at times Patient with known AMS changes prior to admission and during hospital course- No known history of falls or trauma. Management per Neuro/Primary team- No antiplatelets due to anemia and stool occult positive Continue to monitor. Cardio- HR and BP stable AMNA showed vegetation on anterior mitral valve leaflet suggestive of endocarditis which will require fdc abx Cont to monitor Dr. Mendoza recommendations- F/U Pulm- Incentive spirometer encouraged Endo- maintain euglycemia GI- s/p gastrectomy 12/06/[address] Serrano: Pain control and NPO. Feeding advancements per surgery. Cont to monitor vitals and responsiveness Carafate held Reglan held Heme Hgb/Hct- 7.5/23.6 -> 7.8/24.7 (will transfuse 1 unit PRBC) - shaw cath in place Monitor ins and outs- mildly improved Renal- BUN/Cr- stable. Continue to monitor Hypokalemia- repleted ID- Ceftriaxone 2 gm daily for positive blood venous cultures. MSK/Integument- Turn Q2H to prevent bed sores Prophylaxis- Incentive spirometer Pepcid IV Q12 Anticoag held due to positive stool occult SCDs in place <Micah Reyes S - Last Filed: 12/08/16 16:27> CCU Objective - Vital Signs / Intake & Output Vital Signs (Last 4 hours): Vital Signs Temp Pulse Resp BP Pulse Ox 12/08/16 15:10 90 20 146/62 100 12/08/16 15:00 91 H 19 100 12/08/16 14:40 93 H 21 140/62 100 12/08/16 14:38 96.8 F L 92 H 19 140/62 12/08/16 14:25 98 H 17 144/66 100 12/08/16 14:10 93 H 18 139/62 100 12/08/16 14:08 96.3 F L 95 H 17 139/62 12/08/16 14:00 96 H 20 100 12/08/16 13:57 95 H 22 124/58 L 100 12/08/16 13:55 94 H 19 137/59 L 100 12/08/16 13:54 94 H 20 100 12/08/16 13:53 96.2 F L 95 H 19 124/58 L 12/08/16 13:42 150/61 12/08/16 13:40 95 H 21 150/61 100 12/08/16 13:38 96.5 F L 95 H 18 137/59 L 12/08/16 13:00 94 H 20 100 12/08/16 12:52 95 H 19 134/57 L 100 Intake and Output (Last 8hrs): Intake & Output 12/08/16 12/08/16 12/08/16 06:59 14:59 22:59 Intake Total 1300 600 Output Total 320 522 325 Balance 980 78 -325 Weight 155 lb 3.2 oz Intake: Intake, IV Amount 1300 600 Right Upper arm 800 600 Right Distal Port Upper 500 arm Blood Product 0 Red Blood Cells Cpd As1 0 Lr Unit [id number] Output: Urine 320 522 325 Urethral (Shaw) 320 522 325 - Medications Active Medications: Active Medications Generic Name Dose Route Start Last Admin Trade Name Freq PRN Reason Stop Dose Admin Acetaminophen 325 mg 12/01/16 09:24 Tylenol 325mg Tab PO Q12 PRN Pain Famotidine 20 mg 12/07/16 10:00 12/08/16 09:55 Pepcid IVP 20 mg Q12 BHAKTI Administration Hydromorphone HCl 0.5 mg 12/06/16 12:20 12/07/16 22:56 Dilaudid IVP 0.5 mg Q3H PRN Administration Pain, moderate (4-7) Ceftriaxone Sodium 2 gm/ 100 mls @ 100 mls/hr 12/06/16 10:00 12/08/16 09:56 Sodium Chloride IVPB 100 mls/hr Q24H BHAKTI Administration Lactated Ringer's 1,000 mls @ 100 mls/hr 12/06/16 20:49 12/08/16 02:05 Lactated Ringer's IV 100 mls/hr .Q10H BHAKTI Administration Metoclopramide HCl 5 mg 12/06/16 15:45 12/06/16 16:18 Reglan IVP Not Given Q8H BHAKTI Sucralfate 1 gm 12/03/16 16:30 12/06/16 07:49 Carafate Oral Susp PO 1 gm ACBD BHAKTI Administration Tetrahydrozoline HCl/Zinc Sulfate 0.01 ml 12/04/16 14:07 12/04/16 15:00 Visine 0.05% Opht Soln OU 1 drop BID PRN Administration Dry eyes Tramadol HCl 25 mg 12/01/16 09:23 Ultram PO Q12 PRN Pain - Patient Studies Lab Studies: Microbiology Studies 12/04/16 14:15 Blood Culture - Preliminary Blood-Venous NO GROWTH AFTER 4 DAYS 12/07/16 04:30 Blood Culture - Preliminary Blood-Venous NO GROWTH AFTER 24 HOURS 12/07/16 04:00 Blood Culture - Preliminary Blood-Venous NO GROWTH AFTER 24 HOURS 12/06/16 16:13 MRSA Culture (Admit) - Final Naris MRSA NOT DETECTED Lab Studies 12/08/16 12/08/16 12/08/16 Range/Units 12:15 10:43 06:08 WBC 5.8 (4.8-10.8) K/uL RBC 2.85 L (3.80-5.20) Mil/uL Hgb 7.8 L 7.5 L D (11.0-16.0) g/dL Hct 24.7 L 23.6 L (34.0-47.0) % MCV 82.9 (81.0-99.0) fL MCH 26.5 L (27.0-31.0) pg MCHC 32.0 L (33.0-37.0) g/dL RDW 17.3 H (11.5-14.5) % Plt Count 100 L D (130-400) K/uL MPV 8.8 (7.2-11.7) fL Neut % (Auto) 75.4 H (50.0-75.0) % Lymph % (Auto) 13.2 L (20.0-40.0) % [place] % (Auto) 7.9 (0.0-10.0) % Eos % (Auto) 2.8 (0.0-4.0) % Baso % (Auto) 0.7 (0.0-2.0) % Neut # 4.4 (1.8-7.0) K/uL Lymph # 0.8 L (1.0-4.3) K/uL [place] # 0.5 (0.0-0.8) K/uL Eos # 0.2 (0.0-0.7) K/uL Baso # 0.0 (0.0-0.2) K/uL Sodium 139 (132-148) mmol/L Potassium 3.4 L (3.6-5.2) mmol/L Chloride 101 (98-107) mmol/L Carbon Dioxide 27 (22-30) mmol/L Anion Gap 14 (10-20) BUN 8 (7-17) mg/dL Creatinine 0.9 (0.7-1.2) MG/DL Est GFR ( Amer) > 60 Est GFR (Non-Af Amer) 60 Random Glucose 72 (65-105) mg/dL Calcium 8.1 L (8.6-10.4) mg/dl Phosphorus 3.0 (2.5-4.5) mg/dL Magnesium 1.6 (1.6-2.3) mg/dL Total Bilirubin 0.3 (0.2-1.3) mg/dL AST 43 H D (14-36) U/L ALT 27 (9-52) U/L Alkaline Phosphatase 60 (38-126) U/L Total Protein 5.1 L (6.3-8.3) g/dL Albumin 2.0 L (3.5-5.0) g/dL Globulin 3.1 (2.2-3.9) gm/dL Albumin/Globulin Ratio 0.6 L (1.0-2.1) Blood Type O POSITIVE Antibody Screen Negative 12/07/16 Range/Units 06:08 WBC (4.8-10.8) K/uL RBC (3.80-5.20) Mil/uL Hgb (11.0-16.0) g/dL Hct (34.0-47.0) % MCV (81.0-99.0) fL MCH (27.0-31.0) pg MCHC (33.0-37.0) g/dL RDW (11.5-14.5) % Plt Count (130-400) K/uL MPV (7.2-11.7) fL Neut % (Auto) (50.0-75.0) % Lymph % (Auto) (20.0-40.0) % [place] % (Auto) (0.0-10.0) % Eos % (Auto) (0.0-4.0) % Baso % (Auto) (0.0-2.0) % Neut # (1.8-7.0) K/uL Lymph # (1.0-4.3) K/uL [place] # (0.0-0.8) K/uL Eos # (0.0-0.7) K/uL Baso # (0.0-0.2) K/uL Sodium (132-148) mmol/L Potassium (3.6-5.2) mmol/L Chloride (98-107) mmol/L Carbon Dioxide (22-30) mmol/L Anion Gap (10-20) BUN (7-17) mg/dL Creatinine (0.7-1.2) MG/DL Est GFR ( Amer) Est GFR (Non-Af Amer) Random Glucose (65-105) mg/dL Calcium (8.6-10.4) mg/dl Phosphorus (2.5-4.5) mg/dL Magnesium (1.6-2.3) mg/dL Total Bilirubin (0.2-1.3) mg/dL AST (14-36) U/L ALT (9-52) U/L Alkaline Phosphatase (38-126) U/L Total Protein (6.3-8.3) g/dL Albumin 2.2 L (3.5-5.0) g/dL Globulin (2.2-3.9) gm/dL Albumin/Globulin Ratio (1.0-2.1) Blood Type Antibody Screen Laboratory Results - last 24 hr 12/07/16 12/08/16 12/08/16 06:08 06:08 10:43 WBC 5.8 RBC 2.85 L Hgb 7.5 L D 7.8 L Hct 23.6 L 24.7 L MCV 82.9 MCH 26.5 L MCHC 32.0 L RDW 17.3 H Plt Count 100 L D MPV 8.8 Neut % (Auto) 75.4 H Lymph % (Auto) 13.2 L [place] % (Auto) 7.9 Eos % (Auto) 2.8 Baso % (Auto) 0.7 Neut # 4.4 Lymph # 0.8 L [place] # 0.5 Eos # 0.2 Baso # 0.0 Sodium 139 Potassium 3.4 L Chloride 101 Carbon Dioxide 27 Anion Gap 14 BUN 8 Creatinine 0.9 Est GFR ( Amer) > 60 Est GFR (Non-Af Amer) 60 Random Glucose 72 Calcium 8.1 L Phosphorus 3.0 Magnesium 1.6 Total Bilirubin 0.3 AST 43 H D ALT 27 Alkaline Phosphatase 60 Total Protein 5.1 L Albumin 2.2 L 2.0 L Globulin 3.1 Albumin/Globulin Ratio 0.6 L Blood Type Antibody Screen 12/08/16 12:15 WBC RBC Hgb Hct MCV MCH MCHC RDW Plt Count MPV Neut % (Auto) Lymph % (Auto) [place] % (Auto) Eos % (Auto) Baso % (Auto) Neut # Lymph # [place] # Eos # Baso # Sodium Potassium Chloride Carbon Dioxide Anion Gap BUN Creatinine Est GFR ( Amer) Est GFR (Non-Af Amer) Random Glucose Calcium Phosphorus Magnesium Total Bilirubin AST ALT Alkaline Phosphatase Total Protein Albumin Globulin Albumin/Globulin Ratio Blood Type O POSITIVE Antibody Screen Negative Critical Care Progress Note - Nutrition Nutrition: Nutrition Category Date Time Status NPO Diet [DIET] Diets 12/06/16 Breakfast Active Assessment/Plan (1) Endocarditis Current Visit: Yes Status: Acute (2) Pneumonia Current Visit: Yes Status: Acute (3) Congestive heart failure Current Visit: Yes Status: Acute Comment: Continue Lasix (4) Cardiomyopathy Current Visit: No Status: Chronic Comment: to be managed outpatient not acute Attending/Attestation - Attestation I have personally seen and examined this patient.: Yes I have fully participated in the care of the patient.: Yes I have reviewed all pertinent clinical information: Yes Notes (Text): 12/08/16 16:25 Patient seen and examined in the intensive care unit. Case discussed with staff in the morning rounds. Good urine output after fluid resuscitation Transfusions one unit by PRBC Transfer to floor
[2016-12-08 10:55] LABS: HEMATOCRIT 24.7 % (34.0-47.0)
--- NOTE | 2016-12-08 14:37 | PN ---
DATE: 12/08/2016 LOCATION: ICU 2. This is an 86-year-old female post surgery for removal of a gastric polypoid lesion. Appeared to be somewhat awake, but with periods of confusion and disorientation, still n.p.o. The entire chart is r eviewed including, but not limited to, most recent lab and radiology study results, current and previ ous medication lists, current and the previous medical events. Case discussed with the surgical cons ultant on the case at length as well as the staff. Today her chest x-ray showed entire right lung with obesity and the bilateral pleural effusion right more than the left, with possible pericardial effusion increased in size. LABORATORY DATA: Showed hemoglobin low of 7.8, hematocrit 24.7 with low platelet count 100, with lo w potassium 3.4 and calcium 8.1 with low albumin and low total protein. PHYSICAL EXAMINATION: GENERAL: An 86-year-old female. VITAL SIGNS: Afebrile with pulse of 92, respiratory rate 20-22, blood pressure of 130/62. HEENT: Showed pale, dry oral mucoid membrane. Nonicteric sclerae. LUNGS: A few scattered crepitations. Decreased air entry at bases. HEART: Positive S1 and S2. ABDOMEN: Covered with clean dressing. Bowel sounds are absent. It has to be mentioned that the pathology report from the gastric polypoid lesion is still pending. IMPRESSION: 1. Gastric polypoid mass lesion. 2. Status post partial gastric resection. 3. Anemia secondary to above. 4. Known history of hyperlipidemia, hypertension, congestive heart failure. 5. Known history of atrial fibrillation. 6. Anemia, most likely secondary to above. 7. Reported history of endocarditis with possible pericardial effusion. SUGGESTION: 1. Agree with your plan. 2. Follow up on pathology report. 3. No further aggressive GI workup in the meantime. 4. Further recommendation to follow. Zuleika Garcia MD cc: 14 TT: 12/08/2016 14:36:57 Confirmation # [id number] Dictation # [id number] mn
--- NOTE | 2016-12-08 15:21 | CP.PCM.PN ---
Subjective - Date & Time of Evaluation Date of Evaluation: 12/08/16 Time of Evaluation: 10:00 - Subjective Subjective: Patient's urine output has improved; responding to fluids given. Objective - Vital Signs/Intake and Output Vital Signs (last 24 hours): Temp Pulse Resp BP Pulse Ox 96.8 F L 90 20 146/62 100 12/08/16 14:38 12/08/16 15:10 12/08/16 15:10 12/08/16 15:10 12/08/16 15:10 Intake and Output: 12/08/16 12/08/16 06:59 18:59 Intake Total 1700 600 Output Total 1005 847 Balance 695 -247 - Medications Medications: Current Medications Acetaminophen (Tylenol 325mg Tab) 325 mg PO Q12 PRN PRN Reason: Pain Famotidine (Pepcid) 20 mg IVP Q12 [facility] Last Admin: 12/08/16 09:55 Dose: 20 mg Hydromorphone HCl (Dilaudid) 0.5 mg IVP Q3H PRN PRN Reason: Pain, moderate (4-7) Last Admin: 12/07/16 22:56 Dose: 0.5 mg Ceftriaxone Sodium 2 gm/ (Sodium Chloride) 100 mls @ 100 mls/hr IVPB Q24H [facility] Last Admin: 12/08/16 09:56 Dose: 100 mls/hr Lactated Ringer's (Lactated Ringer's) 1,000 mls @ 100 mls/hr IV .Q10H [facility] Last Admin: 12/08/16 02:05 Dose: 100 mls/hr Metoclopramide HCl (Reglan) 5 mg IVP Q8H [facility] Last Admin: 12/06/16 16:18 Dose: Not Given Sucralfate (Carafate Oral Susp) 1 gm PO ACBD [facility] Last Admin: 12/06/16 07:49 Dose: 1 gm Tetrahydrozoline HCl/Zinc Sulfate (Visine 0.05% Opht Soln) 0.01 ml OU BID PRN PRN Reason: Dry eyes Last Admin: 12/04/16 15:00 Dose: 1 drop Tramadol HCl (Ultram) 25 mg PO Q12 PRN PRN Reason: Pain - Labs Labs: 12/08/16 10:43 12/08/16 06:08 PT 14.2 SECONDS (9.7-12.2) H 11/24/16 07:15 INR 1.3 11/24/16 07:15 APTT 25 SECONDS (21-34) 11/18/16 18:25 - Constitutional Appears: Non-toxic, Chronically Ill - Head Exam Head Exam: NORMOCEPHALIC - Eye Exam Eye Exam: absent: Scleral icterus - ENT Exam ENT Exam: Mucous Membranes Dry, Normal External Ear Exam - Neck Exam Neck Exam: absent: Lymphadenopathy, Thyromegaly - Respiratory Exam Respiratory Exam: Decreased Breath Sounds, Clear to Ausculation Bilateral - Cardiovascular Exam Cardiovascular Exam: REGULAR RHYTHM, +S1, +S2 - GI/Abdominal Exam GI & Abdominal Exam: Distended, Soft Assessment and Plan (1) Anemia Status: Acute (2) Bacterial pneumonia Status: Acute (3) Congestive heart failure Status: Acute (4) Pneumonia Status: Acute (5) Sepsis Status: Acute (6) 2Nd degree AV block Status: Acute (7) Endocarditis determined by echocardiography Status: Acute
[2016-12-08] MEDS: HYDROmorphone 0.5 mg/0.5 ml ISec IVP PRN (17:51)
--- NOTE | 2016-12-08 23:14 | CP.PCM.PN ---
Subjective - Date & Time of Evaluation Date of Evaluation: 12/08/16 Time of Evaluation: 12:00 - Subjective Subjective: Patient seen and evaluated No cardiac events Patient not in distress Objective - Vital Signs/Intake and Output Vital Signs (last 24 hours): Temp Pulse Resp BP Pulse Ox 97.9 F 111 H 20 128/71 97 12/08/16 18:39 12/08/16 18:39 12/08/16 18:39 12/08/16 18:39 12/08/16 18:39 Intake and Output: 12/08/16 12/09/16 18:59 06:59 Intake Total 975 0 Output Total 1137 200 Balance -162 -200 - Medications Medications: Current Medications Acetaminophen (Tylenol 325mg Tab) 325 mg PO Q12 PRN PRN Reason: Pain Famotidine (Pepcid) 20 mg IVP Q12 [facility] Last Admin: 12/08/16 21:00 Dose: 20 mg Hydromorphone HCl (Dilaudid) 0.5 mg IVP Q3H PRN PRN Reason: Pain, moderate (4-7) Last Admin: 12/08/16 17:51 Dose: 0.5 mg Ceftriaxone Sodium 2 gm/ (Sodium Chloride) 100 mls @ 100 mls/hr IVPB Q24H [facility] Last Admin: 12/08/16 09:56 Dose: 100 mls/hr Metoclopramide HCl (Reglan) 5 mg IVP Q8H [facility] Last Admin: 12/06/16 16:18 Dose: Not Given Sucralfate (Carafate Oral Susp) 1 gm PO ACBD [facility] Last Admin: 12/06/16 07:49 Dose: 1 gm Tetrahydrozoline HCl/Zinc Sulfate (Visine 0.05% Opht Soln) 0.01 ml OU BID PRN PRN Reason: Dry eyes Last Admin: 12/04/16 15:00 Dose: 1 drop Tramadol HCl (Ultram) 25 mg PO Q12 PRN PRN Reason: Pain - Labs Labs: 12/08/16 10:43 12/08/16 06:08 PT 14.2 SECONDS (9.7-12.2) H 11/24/16 07:15 INR 1.3 11/24/16 07:15 APTT 25 SECONDS (21-34) 11/18/16 18:25
[2016-12-09 06:34] LABS: BASO % 0.6 % (0.0-2.0); EOS # 0.2 K/uL (0.0-0.7); HEMATOCRIT 29.8 % (34.0-47.0); LYMPH # 0.8 K/uL (1.0-4.3); LYMPH % 12.8 % (20.0-40.0); MEAN CELL VOLUME 82.3 fL (81.0-99.0); MEAN CORPUSCULAR HEMOGLOBIN 27.1 pg (27.0-31.0); MEAN CORPUSCULAR HGB CONC 32.9 g/dL (33.0-37.0); MEAN PLATELET VOLUME 8.5 fL (7.2-11.7); MONO # 0.4 K/uL (0.0-0.8); MONO % 6.6 % (0.0-10.0); NRBC % 0.1 % (0.0-2.0); RED CELL DISTRIBUTION WIDTH 16.5 % (11.5-14.5); WHITE BLOOD COUNT 6.6 K/uL (4.8-10.8)
[2016-12-09 06:42] LABS: CHLORIDE 101 mmol/L (98-107)
[2016-12-09 06:43] LABS: POTASSIUM 3.5 mmol/L (3.6-5.2); SODIUM 140 mmol/L (132-148)
[2016-12-09 06:45] LABS: ALB/GLOB RATIO 0.6 (1.0-2.1); ALKALINE PHOSPHATASE 63 U/L (38-126); AST/SGOT 40 U/L (14-36); BILIRUBIN,TOTAL 0.9 mg/dL (0.2-1.3); CARBON DIOXIDE 27 mmol/L (22-30); GFR AFRICAN-AMERICAN > 60; TOTAL PROTEIN 5.8 g/dL (6.3-8.3)
[2016-12-09 06:46] LABS: ALT/SGPT 36 U/L (9-52); BLOOD UREA NITROGEN 8 mg/dL (7-17); CALCIUM 8.8 mg/dl (8.6-10.4); GLUCOSE,RANDOM 55 mg/dL (65-105); MAGNESIUM 1.6 mg/dL (1.6-2.3); PHOSPHOROUS 2.8 mg/dL (2.5-4.5)
--- NOTE | 2016-12-09 08:28 | CP.PCM.PN ---
Subjective - Date & Time of Evaluation Date of Evaluation: 12/09/16 Time of Evaluation: 06:50 - Subjective Subjective: General Surgery Pt S&E, Transfused yesterday. Tolerated well. Pt does not verbalize any complaints of pain. Objective - Vital Signs/Intake and Output Vital Signs (last 24 hours): Temp Pulse Resp BP Pulse Ox 98.7 F 97 H 20 136/68 95 12/08/16 23:20 12/08/16 23:20 12/08/16 23:20 12/08/16 23:20 12/08/16 23:20 Intake and Output: 12/09/16 12/09/16 06:59 18:59 Intake Total 0 Output Total 400 Balance -400 - Medications Medications: Current Medications Acetaminophen (Tylenol 325mg Tab) 325 mg PO Q12 PRN PRN Reason: Pain Famotidine (Pepcid) 20 mg IVP Q12 [facility] Last Admin: 12/08/16 21:00 Dose: 20 mg Hydromorphone HCl (Dilaudid) 0.5 mg IVP Q3H PRN PRN Reason: Pain, moderate (4-7) Last Admin: 12/08/16 17:51 Dose: 0.5 mg Ceftriaxone Sodium 2 gm/ (Sodium Chloride) 100 mls @ 100 mls/hr IVPB Q24H [facility] Last Admin: 12/08/16 09:56 Dose: 100 mls/hr Metoclopramide HCl (Reglan) 5 mg IVP Q8H [facility] Last Admin: 12/06/16 16:18 Dose: Not Given Sucralfate (Carafate Oral Susp) 1 gm PO ACBD [facility] Last Admin: 12/06/16 07:49 Dose: 1 gm Tetrahydrozoline HCl/Zinc Sulfate (Visine 0.05% Opht Soln) 0.01 ml OU BID PRN PRN Reason: Dry eyes Last Admin: 12/04/16 15:00 Dose: 1 drop Tramadol HCl (Ultram) 25 mg PO Q12 PRN PRN Reason: Pain - Labs Labs: 12/09/16 06:09 12/09/16 06:09 PT 14.2 SECONDS (9.7-12.2) H 11/24/16 07:15 INR 1.3 11/24/16 07:15 APTT 25 SECONDS (21-34) 11/18/16 18:25 - Constitutional Appears: Non-toxic, No Acute Distress - Head Exam Head Exam: ATRAUMATIC, NORMOCEPHALIC - Eye Exam Eye Exam: EOMI. absent: Scleral icterus - Respiratory Exam Respiratory Exam: NORMAL BREATHING PATTERN. absent: Respiratory Distress - GI/Abdominal Exam GI & Abdominal Exam: Soft, Tenderness (very mild at incision). absent: Distended, Firm, Guarding, Rigid, Rebound Additional comments: incision C/D/i - Neurological Exam Neurological Exam: Alert, Awake, Oriented x3 - Skin Skin Exam: Dry, Warm Assessment and Plan - Assessment and Plan (Free Text) Assessment: 86F with stomach polyp S/P Partial Gastrectomy with wedge resection of stomach. Repair of chronically incarcerated ventral hernia POD#3 Plan: Continue IVF until tolerating CLD Pain control PRN Advanced to CLD D/W Dr Zach Bullard PGY3
--- NOTE | 2016-12-09 08:37 | RAD ---
HISTORY: effusions COMPARISON: 12/08/2016 FINDINGS: LUNGS: There is improvement in the right-sided infiltrate. There is persistent vascular congestion PLEURA: No significant pleural effusion identified, no pneumothorax apparent. CARDIOVASCULAR: Mild cardiomegaly OSSEOUS STRUCTURES: No significant abnormalities. VISUALIZED UPPER ABDOMEN: Normal. OTHER FINDINGS: Dual lead pacemaker IMPRESSION: Improved right-sided infiltrate and vascular congestion
--- NOTE | 2016-12-09 09:18 | CP.PCM.PN ---
Subjective - Date & Time of Evaluation Date of Evaluation: 12/09/16 Time of Evaluation: 09:05 - Subjective Subjective: Shirley speaking in / creole; Unable to obtain ROS But able to eat a little, no n/v, no diarrhea Objective - Vital Signs/Intake and Output Vital Signs (last 24 hours): Temp Pulse Resp BP Pulse Ox 97.4 F L 104 H 20 101/53 L 98 12/09/16 08:57 12/09/16 08:57 12/09/16 08:57 12/09/16 08:57 12/09/16 08:57 Intake and Output: 12/09/16 12/09/16 06:59 18:59 Intake Total 0 Output Total 400 Balance -400 - Medications Medications: Current Medications Acetaminophen (Tylenol 325mg Tab) 325 mg PO Q12 PRN PRN Reason: Pain Famotidine (Pepcid) 20 mg IVP Q12 [facility] Last Admin: 12/08/16 21:00 Dose: 20 mg Hydromorphone HCl (Dilaudid) 0.5 mg IVP Q3H PRN PRN Reason: Pain, moderate (4-7) Last Admin: 12/08/16 17:51 Dose: 0.5 mg Ceftriaxone Sodium 2 gm/ (Sodium Chloride) 100 mls @ 100 mls/hr IVPB Q24H [facility] Last Admin: 12/08/16 09:56 Dose: 100 mls/hr Potassium Chloride/Dextrose/Sod Cl (Potassium Chl 20 Meq In D5-1/2ns) 1,000 mls @ 80 mls/hr IV .[id number] [facility] Metoclopramide HCl (Reglan) 5 mg IVP Q8H [facility] Last Admin: 12/06/16 16:18 Dose: Not Given Sucralfate (Carafate Oral Susp) 1 gm PO ACBD [facility] Last Admin: 12/06/16 07:49 Dose: 1 gm Tetrahydrozoline HCl/Zinc Sulfate (Visine 0.05% Opht Soln) 0.01 ml OU BID PRN PRN Reason: Dry eyes Last Admin: 12/04/16 15:00 Dose: 1 drop Tramadol HCl (Ultram) 25 mg PO Q12 PRN PRN Reason: Pain - Labs Labs: 12/09/16 06:09 12/09/16 06:09 PT 14.2 SECONDS (9.7-12.2) H 11/24/16 07:15 INR 1.3 11/24/16 07:15 APTT 25 SECONDS (21-34) 11/18/16 18:25 - Constitutional Appears: No Acute Distress - Eye Exam Eye Exam: Normal appearance - ENT Exam ENT Exam: Mucous Membranes Moist - Neck Exam Neck Exam: Full ROM. absent: Lymphadenopathy, Thyromegaly - Respiratory Exam Respiratory Exam: Decreased Breath Sounds. absent: Rales, Rhonchi, Wheezes - Cardiovascular Exam Cardiovascular Exam: Diastolic murmur, REGULAR RHYTHM, +S1, +S2, Murmur. absent : Gallop, JVD - GI/Abdominal Exam GI & Abdominal Exam: Soft. absent: Tenderness, Mass - Extremities Exam Extremities Exam: Full ROM, Normal Capillary Refill. absent: Calf Tenderness Assessment and Plan - Assessment and Plan (Free Text) Assessment: s/p Surgery c/o GI Bleed Cardiomyopathy; Endocarditis Cont meds/ IV antibx For subacute
[2016-12-09] MEDS: Potassium Ch 20mEq in D5-1/2NS 1,000 ML IV SCH ×3 (09:28→23:03)
[2016-12-09] MEDS: cefTRIAXone 2 GM in Sodium Chloride 0.9% 100 ML IVPB SCH (10:00)
--- NOTE | 2016-12-09 10:32 | CP.PCM.PN ---
Subjective - Date & Time of Evaluation Date of Evaluation: 12/09/16 Time of Evaluation: 08:10 - Subjective Subjective: Cardiology progress note for Dr Mendoza. Patient denies cp, or sob. Patient admits to abdominal pain. Patient is requesting food. Notified patient's nurse. No overnight acute events. Objective - Vital Signs/Intake and Output Vital Signs (last 24 hours): Temp Pulse Resp BP Pulse Ox 97.4 F L 104 H 20 101/53 L 98 12/09/16 08:57 12/09/16 08:57 12/09/16 08:57 12/09/16 08:57 12/09/16 08:57 Intake and Output: 12/09/16 12/09/16 06:59 18:59 Intake Total 0 Output Total 400 Balance -400 - Medications Medications: Current Medications Acetaminophen (Tylenol 325mg Tab) 325 mg PO Q12 PRN PRN Reason: Pain Famotidine (Pepcid) 20 mg IVP Q12 [facility] Last Admin: 12/09/16 09:28 Dose: 20 mg Hydromorphone HCl (Dilaudid) 0.5 mg IVP Q3H PRN PRN Reason: Pain, moderate (4-7) Last Admin: 12/08/16 17:51 Dose: 0.5 mg Ceftriaxone Sodium 2 gm/ (Sodium Chloride) 100 mls @ 100 mls/hr IVPB Q24H [facility] Last Admin: 12/08/16 09:56 Dose: 100 mls/hr Potassium Chloride/Dextrose/Sod Cl (Potassium Chl 20 Meq In D5-1/2ns) 1,000 mls @ 80 mls/hr IV .[id number] [facility] Last Admin: 12/09/16 09:28 Dose: 80 mls/hr Metoclopramide HCl (Reglan) 5 mg IVP Q8H [facility] Last Admin: 12/06/16 16:18 Dose: Not Given Sucralfate (Carafate Oral Susp) 1 gm PO ACBD [facility] Last Admin: 12/06/16 07:49 Dose: 1 gm Tetrahydrozoline HCl/Zinc Sulfate (Visine 0.05% Opht Soln) 0.01 ml OU BID PRN PRN Reason: Dry eyes Last Admin: 12/04/16 15:00 Dose: 1 drop Tramadol HCl (Ultram) 25 mg PO Q12 PRN PRN Reason: Pain - Labs Labs: 12/09/16 06:09 12/09/16 06:09 PT 14.2 SECONDS (9.7-12.2) H 11/24/16 07:15 INR 1.3 11/24/16 07:15 APTT 25 SECONDS (21-34) 11/18/16 18:25 - Constitutional Appears: No Acute Distress - Head Exam Head Exam: ATRAUMATIC, NORMAL INSPECTION, NORMOCEPHALIC - Eye Exam Eye Exam: EOMI, Normal appearance, PERRL. absent: Scleral icterus - ENT Exam ENT Exam: Mucous Membranes Moist - Neck Exam Neck Exam: Normal Inspection - Respiratory Exam Respiratory Exam: Clear to Ausculation Bilateral, NORMAL BREATHING PATTERN. absent: Rales, Rhonchi, Wheezes, Respiratory Distress, Stridor - Cardiovascular Exam Cardiovascular Exam: Irregular Rhythm, REGULAR RHYTHM, +S1, +S2 - GI/Abdominal Exam GI & Abdominal Exam: Soft, Tenderness (around the incision site. ), Normal Bowel Sounds. absent: Distended, Firm, Guarding - Extremities Exam Extremities Exam: Pedal Edema (trace) - Neurological Exam Neurological Exam: Alert, Awake, Oriented x3 - Psychiatric Exam Psychiatric exam: Normal Affect, Normal Mood - Skin Skin Exam: Dry, Normal Color, Warm Additional comments: surgical incision site with clean dressing. Assessment and Plan - Assessment and Plan (Free Text) Assessment: Patient is a n 86 y/o with pmh of HOCM, diastolic chf, HTN, hyperlipidemia, AFib s/p pacemaker, and breast cancer presented with AMS, and is admitted with: 1) Strep viridans bascteremia with endocartitis on AMNA 2) Diastolic CHF/CAP 3) acute on chronic anemia s/p 2 units of prbc 4) Candidial esophagitis 5) S/p gastrectomy and ventral hernia repair day 3. 6) Hypokalemia 7) htn 9) hld 10) afib with 2nd degrees av block s/p pacemaker. Plan: - Patient is currently on Rocephin for bacteremia and endocarditis. Id Following - on eliquis for afib, can resume BB if BP can sustain. - Repeat chest x-ray with improved in congestion and consolidation. - Surgery following as well. - Gi prophylaxis with pepcid, DVT porphylaxis: scd. Patient seen, examined, will discuss with Dr Mendoza.
[2016-12-09 12:10] LABS: HEMATOCRIT 28.6 % (34.0-47.0); MEAN CELL VOLUME 83.2 fL (81.0-99.0); MEAN CORPUSCULAR HEMOGLOBIN 26.8 pg (27.0-31.0); MEAN CORPUSCULAR HGB CONC 32.2 g/dL (33.0-37.0); MEAN PLATELET VOLUME 8.4 fL (7.2-11.7); RED CELL DISTRIBUTION WIDTH 16.7 % (11.5-14.5)
--- NOTE | 2016-12-09 14:56 | PN ---
DATE: 12/09/2016 LOCATION: 653, bed B. This is an 86-year-old female seen and examined post-gastric surgery without significant clinical damian nges. Case discussed with Dr. Serrano today and the pathology report for the gastric lesion is stil idalia pending. The patient is still having intermittent periods of abdominal pain, receiving Dilaudid as needed. The entire chart is reviewed, including but not limited to the most recent lab and radiology study re sults, current and previous medication lists, current and the previous medical events. Case discusse d at length with the staff. Most recent lab results showed low hemoglobin of 9.2, hematocrit 28.6 wi th low indices, highly suggestive of hypochromic microcytic anemia with low potassium 3.5 and low glu cose at times of 55 with low albumin 2.2, low total protein 5.8. Most recent chest x-ray done today, report and films are seen, indicative of improvement of right-peewee ed pneumonia and the vascular congestion. PHYSICAL EXAMINATION: GENERAL: An 86-year-old female, appeared to be awake, alert. VITAL SIGNS: Afebrile with heart rate of 100, blood pressure 110/56 with respiratory rate 20/22. HEENT: Showed pale, dry oral mucoid membrane. Nonicteric sclerae. LUNGS: Scattered crepitation, decreased air entry at bases bilaterally. HEART: Positive S1, S2 with increased rate. ABDOMEN: With clean dressing and hypoactive bowel sounds with mild generalized tenderness. No mass or organomegaly. No rebound tenderness or guarding. EXTREMITIES: Without significant clubbing or cyanosis, but with lower extremity mild edematous rooney es. NEUROLOGIC: No reported new neurological deficits. IMPRESSION: 1. Gastric polypoid mass lesion, official pathology report is still pending, removed surgically. 2. Hypochromic microcytic anemia. 3. Peptic ulcer disease. 4. Reported endocarditis by cardiology staff. 5. Known history of status post ventral hernia repair. 6. Known history of hypertension, hyperlipidemia as well as atrial fibrillation. 7. Mild congestive heart failure, improving. 8. Mild pneumonia subsiding. SUGGESTION: 1. Continue current management. 2. Repeat echo to follow up on the patient for possible pericardial effusion. Zuleika Garcia MD cc: 14 TT: 12/09/2016 14:55:19 Confirmation # [id number] Dictation # [id number] rn
--- NOTE | 2016-12-09 18:21 | CP.PCM.PN ---
Subjective - Date & Time of Evaluation Date of Evaluation: 12/09/16 Time of Evaluation: 09:00 - Subjective Subjective: events noted IVRx in progress Objective - Vital Signs/Intake and Output Vital Signs (last 24 hours): Temp Pulse Resp BP Pulse Ox 98.6 F 96 H 20 148/72 100 12/09/16 16:00 12/09/16 16:00 12/09/16 16:00 12/09/16 16:00 12/09/16 16:00 Intake and Output: 12/09/16 12/09/16 06:59 18:59 Intake Total 0 820 Output Total 400 200 Balance -400 620 - Medications Medications: Current Medications Acetaminophen (Tylenol 325mg Tab) 325 mg PO Q12 PRN PRN Reason: Pain Apixaban (Eliquis) 2.5 mg PO BID [facility] Last Admin: 12/09/16 17:28 Dose: 2.5 mg Famotidine (Pepcid) 20 mg IVP Q12 [facility] Last Admin: 12/09/16 09:28 Dose: 20 mg Hydromorphone HCl (Dilaudid) 0.5 mg IVP Q3H PRN PRN Reason: Pain, moderate (4-7) Last Admin: 12/08/16 17:51 Dose: 0.5 mg Ceftriaxone Sodium 2 gm/ (Sodium Chloride) 100 mls @ 100 mls/hr IVPB Q24H [facility] Last Admin: 12/09/16 10:00 Dose: 100 mls/hr Potassium Chloride/Dextrose/Sod Cl (Potassium Chl 20 Meq In D5-1/2ns) 1,000 mls @ 80 mls/hr IV .[id number] [facility] Last Admin: 12/09/16 09:28 Dose: 80 mls/hr Metoclopramide HCl (Reglan) 5 mg IVP Q8H [facility] Last Admin: 12/06/16 16:18 Dose: Not Given Sucralfate (Carafate Oral Susp) 1 gm PO ACBD [facility] Last Admin: 12/06/16 07:49 Dose: 1 gm Tetrahydrozoline HCl/Zinc Sulfate (Visine 0.05% Opht Soln) 0.01 ml OU BID PRN PRN Reason: Dry eyes Last Admin: 12/04/16 15:00 Dose: 1 drop Tramadol HCl (Ultram) 25 mg PO Q12 PRN PRN Reason: Pain - Labs Labs: 12/09/16 11:23 12/09/16 06:09 PT 14.2 SECONDS (9.7-12.2) H 11/24/16 07:15 INR 1.3 11/24/16 07:15 APTT 25 SECONDS (21-34) 11/18/16 18:25 - Constitutional Appears: Non-toxic, Chronically Ill - Head Exam Head Exam: NORMOCEPHALIC - Eye Exam Eye Exam: absent: Scleral icterus - ENT Exam ENT Exam: Mucous Membranes Dry - Neck Exam Neck Exam: absent: Lymphadenopathy - Respiratory Exam Respiratory Exam: Decreased Breath Sounds, Clear to Ausculation Bilateral - Cardiovascular Exam Cardiovascular Exam: REGULAR RHYTHM, +S1, +S2, Murmur - GI/Abdominal Exam GI & Abdominal Exam: Distended, Soft. 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
--- NOTE | 2016-12-09 21:24 | CP.PCM.PN ---
Subjective - Date & Time of Evaluation Date of Evaluation: 12/09/16 Time of Evaluation: 08:30 - Subjective Subjective: Patient seen and evaluated Denies chest pain and dyspnea Will start Eliquis 2.5 mg po bid Objective - Vital Signs/Intake and Output Vital Signs (last 24 hours): Temp Pulse Resp BP Pulse Ox 98.6 F 96 H 20 148/72 100 12/09/16 16:00 12/09/16 16:00 12/09/16 16:00 12/09/16 16:00 12/09/16 16:00 Intake and Output: 12/09/16 12/10/16 18:59 06:59 Intake Total 820 Output Total 200 Balance 620 - Medications Medications: Current Medications Acetaminophen (Tylenol 325mg Tab) 325 mg PO Q12 PRN PRN Reason: Pain Apixaban (Eliquis) 2.5 mg PO BID [facility] Last Admin: 12/09/16 17:28 Dose: 2.5 mg Famotidine (Pepcid) 20 mg IVP Q12 [facility] Last Admin: 12/09/16 09:28 Dose: 20 mg Hydromorphone HCl (Dilaudid) 0.5 mg IVP Q3H PRN PRN Reason: Pain, moderate (4-7) Last Admin: 12/08/16 17:51 Dose: 0.5 mg Ceftriaxone Sodium 2 gm/ (Sodium Chloride) 100 mls @ 100 mls/hr IVPB Q24H [facility] Last Admin: 12/09/16 10:00 Dose: 100 mls/hr Potassium Chloride/Dextrose/Sod Cl (Potassium Chl 20 Meq In D5-1/2ns) 1,000 mls @ 80 mls/hr IV .[id number] [facility] Last Admin: 12/09/16 09:28 Dose: 80 mls/hr Metoclopramide HCl (Reglan) 5 mg IVP Q8H [facility] Last Admin: 12/06/16 16:18 Dose: Not Given Sucralfate (Carafate Oral Susp) 1 gm PO ACBD [facility] Last Admin: 12/06/16 07:49 Dose: 1 gm Tetrahydrozoline HCl/Zinc Sulfate (Visine 0.05% Opht Soln) 0.01 ml OU BID PRN PRN Reason: Dry eyes Last Admin: 12/04/16 15:00 Dose: 1 drop Tramadol HCl (Ultram) 25 mg PO Q12 PRN PRN Reason: Pain - Labs Labs: 12/09/16 11:23 12/09/16 06:09 PT 14.2 SECONDS (9.7-12.2) H 11/24/16 07:15 INR 1.3 11/24/16 07:15 APTT 25 SECONDS (21-34) 11/18/16 18:25
--- NOTE | 2016-12-10 08:28 | CP.PCM.PN ---
Subjective - Date & Time of Evaluation Date of Evaluation: 12/10/16 Time of Evaluation: 07:35 - Subjective Subjective: Cardiology progress note for Dr Mendoza. Patient appears less responsive today. Patient able to answer few questions in Danish by pointing to the area of her body. Patient admits to abdominal pain. Denies cp, or sob. Objective - Vital Signs/Intake and Output Vital Signs (last 24 hours): Temp Pulse Resp BP Pulse Ox 98.8 F 99 H 20 160/66 H 96 12/09/16 23:15 12/09/16 23:15 12/09/16 23:15 12/09/16 23:15 12/09/16 23:15 Intake and Output: 12/10/16 12/10/16 06:59 18:59 Intake Total 690 Output Total 300 Balance 390 - Medications Medications: Current Medications Acetaminophen (Tylenol 325mg Tab) 325 mg PO Q12 PRN PRN Reason: Pain Apixaban (Eliquis) 2.5 mg PO BID [facility] Last Admin: 12/09/16 17:28 Dose: 2.5 mg Famotidine (Pepcid) 20 mg IVP Q12 [facility] Last Admin: 12/09/16 09:28 Dose: 20 mg Hydromorphone HCl (Dilaudid) 0.5 mg IVP Q3H PRN PRN Reason: Pain, moderate (4-7) Last Admin: 12/08/16 17:51 Dose: 0.5 mg Ceftriaxone Sodium 2 gm/ (Sodium Chloride) 100 mls @ 100 mls/hr IVPB Q24H [facility] Last Admin: 12/09/16 10:00 Dose: 100 mls/hr Potassium Chloride/Dextrose/Sod Cl (Potassium Chl 20 Meq In D5-1/2ns) 1,000 mls @ 80 mls/hr IV .[id number] [facility] Last Admin: 12/09/16 23:03 Dose: 80 mls/hr Metoclopramide HCl (Reglan) 5 mg IVP Q8H [facility] Last Admin: 12/06/16 16:18 Dose: Not Given Sucralfate (Carafate Oral Susp) 1 gm PO ACBD [facility] Last Admin: 12/06/16 07:49 Dose: 1 gm Tetrahydrozoline HCl/Zinc Sulfate (Visine 0.05% Opht Soln) 0.01 ml OU BID PRN PRN Reason: Dry eyes Last Admin: 12/04/16 15:00 Dose: 1 drop Tramadol HCl (Ultram) 25 mg PO Q12 PRN PRN Reason: Pain - Labs Labs: 12/09/16 11:23 12/09/16 06:09 PT 14.2 SECONDS (9.7-12.2) H 11/24/16 07:15 INR 1.3 11/24/16 07:15 APTT 25 SECONDS (21-34) 11/18/16 18:25 - Constitutional Appears: No Acute Distress - Head Exam Head Exam: ATRAUMATIC, NORMAL INSPECTION, NORMOCEPHALIC - ENT Exam ENT Exam: Mucous Membranes Moist - Neck Exam Neck Exam: Normal Inspection - Respiratory Exam Respiratory Exam: Decreased Breath Sounds, NORMAL BREATHING PATTERN. absent: Rhonchi, Wheezes, Respiratory Distress, Stridor - Cardiovascular Exam Cardiovascular Exam: REGULAR RHYTHM, +S1, +S2 - GI/Abdominal Exam GI & Abdominal Exam: Distended, Soft, Hypoactive Bowel Sounds - Extremities Exam Extremities Exam: Normal Inspection. absent: Pedal Edema - Neurological Exam Neurological Exam: Alert, Awake Additional comments: Guarded. - Psychiatric Exam Psychiatric exam: Depressed - Skin Skin Exam: Dry, Normal Color, Warm Assessment and Plan - Assessment and Plan (Free Text) Assessment: Patient is an 86 y/o with pmh of HOCM, diastolic chf, HTN, hyperlipidemia, AFib s/p pacemaker, and breast cancer presented with AMS, and is admitted with: 1) Strep viridans bascteremia with endocartitis on AMNA 2) Diastolic CHF/CAP 3) acute on chronic anemia s/p 2 units of prbc 4) Candidial esophagitis 5) S/p gastrectomy and ventral hernia repair day 4. 6) Hypokalemia 7) htn 9) hld 10) afib with 2nd degrees av block s/p pacemaker. Plan: - On Rocephin for bacteremia and endocarditis. Id Following - on eliquis for afib, will resume lopressor. - Gi prophylaxis with pepcid, DVT porphylaxis: scd. Patient seen, examined, will discuss with Dr Mendoza.
--- NOTE | 2016-12-10 08:34 | CP.PCM.PN ---
Subjective - Date & Time of Evaluation Date of Evaluation: 12/10/16 Time of Evaluation: 08:31 - Subjective Subjective: General Surgery - Dr. Serrano Pt S&E. NISHI. Pt denies any complaints this morning. She tolerated clear liquids yesterday with no N/V. She denies any abdominal pain. Pt states she wishes to eat more today. Objective - Vital Signs/Intake and Output Vital Signs (last 24 hours): Temp Pulse Resp BP Pulse Ox 98.8 F 99 H 20 160/66 H 96 12/09/16 23:15 12/09/16 23:15 12/09/16 23:15 12/09/16 23:15 12/09/16 23:15 Intake and Output: 12/10/16 12/10/16 06:59 18:59 Intake Total 690 Output Total 300 Balance 390 - Medications Medications: Current Medications Acetaminophen (Tylenol 325mg Tab) 325 mg PO Q12 PRN PRN Reason: Pain Apixaban (Eliquis) 2.5 mg PO BID [facility] Last Admin: 12/09/16 17:28 Dose: 2.5 mg Famotidine (Pepcid) 20 mg IVP Q12 [facility] Last Admin: 12/09/16 09:28 Dose: 20 mg Hydromorphone HCl (Dilaudid) 0.5 mg IVP Q3H PRN PRN Reason: Pain, moderate (4-7) Last Admin: 12/08/16 17:51 Dose: 0.5 mg Ceftriaxone Sodium 2 gm/ (Sodium Chloride) 100 mls @ 100 mls/hr IVPB Q24H [facility] Last Admin: 12/09/16 10:00 Dose: 100 mls/hr Potassium Chloride/Dextrose/Sod Cl (Potassium Chl 20 Meq In D5-1/2ns) 1,000 mls @ 80 mls/hr IV .[id number] [facility] Last Admin: 12/09/16 23:03 Dose: 80 mls/hr Metoclopramide HCl (Reglan) 5 mg IVP Q8H [facility] Last Admin: 12/06/16 16:18 Dose: Not Given Sucralfate (Carafate Oral Susp) 1 gm PO ACBD [facility] Last Admin: 12/06/16 07:49 Dose: 1 gm Tetrahydrozoline HCl/Zinc Sulfate (Visine 0.05% Opht Soln) 0.01 ml OU BID PRN PRN Reason: Dry eyes Last Admin: 12/04/16 15:00 Dose: 1 drop Tramadol HCl (Ultram) 25 mg PO Q12 PRN PRN Reason: Pain - Labs Labs: 12/09/16 11:23 12/09/16 06:09 PT 14.2 SECONDS (9.7-12.2) H 11/24/16 07:15 INR 1.3 11/24/16 07:15 APTT 25 SECONDS (21-34) 11/18/16 18:25 - Constitutional Appears: No Acute Distress - Head Exam Head Exam: ATRAUMATIC, NORMOCEPHALIC - Respiratory Exam Respiratory Exam: NORMAL BREATHING PATTERN. absent: Respiratory Distress - GI/Abdominal Exam GI & Abdominal Exam: Soft. absent: Distended, Tenderness Additional comments: surgical dressing c/d/i - Neurological Exam Neurological Exam: Alert, Awake - Skin Skin Exam: Dry, Intact Assessment and Plan - Assessment and Plan (Free Text) Assessment: 86F with stomach polyp S/P Partial Gastrectomy with wedge resection of stomach. Repair of chronically incarcerated ventral hernia POD#4 Plan: Full liquid diet Monitor for bowel function Physical therapy D/W Dr Zach Rogers, PGY2
--- NOTE | 2016-12-10 08:57 | CP.PCM.PN ---
Subjective - Date & Time of Evaluation Date of Evaluation: 12/10/16 Time of Evaluation: 08:50 - Subjective Subjective: Pt same as yesterday; Watching TV and express to go home keep speaking Creole; no CP, no SOB, no palpitation. No abd pain, no n/v, no dysuria, nodiarrhea Ate general liquid diet Objective - Vital Signs/Intake and Output Vital Signs (last 24 hours): Temp Pulse Resp BP Pulse Ox 98.8 F 99 H 20 139/67 96 12/09/16 23:15 12/09/16 23:15 12/09/16 23:15 12/10/16 08:54 12/09/16 23:15 Intake and Output: 12/10/16 12/10/16 06:59 18:59 Intake Total 690 Output Total 300 Balance 390 - Medications Medications: Current Medications Acetaminophen (Tylenol 325mg Tab) 325 mg PO Q12 PRN PRN Reason: Pain Apixaban (Eliquis) 2.5 mg PO BID [facility] Last Admin: 12/09/16 17:28 Dose: 2.5 mg Famotidine (Pepcid) 20 mg IVP Q12 [facility] Last Admin: 12/09/16 09:28 Dose: 20 mg Hydromorphone HCl (Dilaudid) 0.5 mg IVP Q3H PRN PRN Reason: Pain, moderate (4-7) Last Admin: 12/08/16 17:51 Dose: 0.5 mg Ceftriaxone Sodium 2 gm/ (Sodium Chloride) 100 mls @ 100 mls/hr IVPB Q24H [facility] Last Admin: 12/09/16 10:00 Dose: 100 mls/hr Potassium Chloride/Dextrose/Sod Cl (Potassium Chl 20 Meq In D5-1/2ns) 1,000 mls @ 80 mls/hr IV .[id number] [facility] Last Admin: 12/09/16 23:03 Dose: 80 mls/hr Metoclopramide HCl (Reglan) 5 mg IVP Q8H [facility] Last Admin: 12/06/16 16:18 Dose: Not Given Metoprolol Tartrate (Lopressor) 25 mg PO BIDBS [facility] Last Admin: 12/10/16 08:54 Dose: 25 mg Sucralfate (Carafate Oral Susp) 1 gm PO ACBD [facility] Last Admin: 12/06/16 07:49 Dose: 1 gm Tetrahydrozoline HCl/Zinc Sulfate (Visine 0.05% Opht Soln) 0.01 ml OU BID PRN PRN Reason: Dry eyes Last Admin: 12/04/16 15:00 Dose: 1 drop Tramadol HCl (Ultram) 25 mg PO Q12 PRN PRN Reason: Pain - Labs Labs: 12/09/16 11:23 12/09/16 06:09 PT 14.2 SECONDS (9.7-12.2) H 11/24/16 07:15 INR 1.3 11/24/16 07:15 APTT 25 SECONDS (21-34) 11/18/16 18:25 - Constitutional Appears: No Acute Distress - Eye Exam Eye Exam: Normal appearance - ENT Exam ENT Exam: Mucous Membranes Moist - Neck Exam Neck Exam: Full ROM. absent: Lymphadenopathy, Normal Inspection - Respiratory Exam Respiratory Exam: Decreased Breath Sounds. absent: Rales, Rhonchi, Wheezes - Cardiovascular Exam Cardiovascular Exam: Diastolic murmur, Irregular Rhythm, +S1, +S2, Murmur. absent: Gallop - GI/Abdominal Exam GI & Abdominal Exam: Soft. absent: Tenderness - Extremities Exam Extremities Exam: Full ROM, Normal Capillary Refill, Pedal Edema. absent: Calf Tenderness, Joint Swelling Assessment and Plan - Assessment and Plan (Free Text) Assessment: Endocarditis; Cardiomyopathy Cont IV antibiotic Cont BP meds
[2016-12-10] MEDS: cefTRIAXone 2 GM in Sodium Chloride 0.9% 100 ML IVPB SCH (09:19)
[2016-12-10 12:40] LABS: BASO % 1.1 % (0.0-2.0); EOS # 0.1 K/uL (0.0-0.7); EOS % 2.6 % (0.0-4.0); HEMATOCRIT 26.2 % (34.0-47.0); LYMPH # 0.6 K/uL (1.0-4.3); LYMPH % 16.6 % (20.0-40.0); MEAN CORPUSCULAR HEMOGLOBIN 26.1 pg (27.0-31.0); MEAN CORPUSCULAR HGB CONC 32.1 g/dL (33.0-37.0); MEAN PLATELET VOLUME 8.3 fL (7.2-11.7); MONO # 0.4 K/uL (0.0-0.8); MONO % 11.2 % (0.0-10.0); RED CELL DISTRIBUTION WIDTH 16.5 % (11.5-14.5); WHITE BLOOD COUNT 3.9 K/uL (4.8-10.8)
[2016-12-10 12:41] LABS: MEAN CELL VOLUME 81.2 fL (81.0-99.0)
[2016-12-10 12:48] LABS: CHLORIDE 102 mmol/L (98-107); POTASSIUM 3.5 mmol/L (3.6-5.2); SODIUM 140 mmol/L (132-148)
[2016-12-10 12:50] LABS: BILIRUBIN,TOTAL 0.3 mg/dL (0.2-1.3); GFR AFRICAN-AMERICAN > 60
[2016-12-10 12:51] LABS: ALB/GLOB RATIO 0.6 (1.0-2.1); ALKALINE PHOSPHATASE 49 U/L (38-126); ALT/SGPT 24 U/L (9-52); AST/SGOT 33 U/L (14-36); BLOOD UREA NITROGEN 6 mg/dL (7-17); CALCIUM 8.4 mg/dl (8.6-10.4); CARBON DIOXIDE 27 mmol/L (22-30); GLUCOSE,RANDOM 111 mg/dL (65-105); TOTAL PROTEIN 5.1 g/dL (6.3-8.3)
--- NOTE | 2016-12-10 12:53 | PN ---
DATE: 12/10/2016 LOCATION: 653, bed B. This is an 86-year-old female seen and examined in rounds today without significant clinical changes or reported active bleeding post-gastric surgery. Official pathology report from the gastric lesion is still pending. Case was discussed at length with the staff. PHYSICAL EXAMINATION: GENERAL: An 86-year-old female. VITAL SIGNS: Afebrile with a pulse of 94, respiratory rate 20-22, blood pressure 144/64. HEENT: Showed pale, dry oral mucoid membrane. Nonicteric sclerae. LUNGS: Few scattered crepitation, decreased air entry at bases. HEART: Positive S1 and S2 with increased rate. ABDOMEN: Covered with clean dressing and hypoactive bowel sounds with mild generalized tenderness. EXTREMITIES: With mild lower extremities edematous changes. No clubbing or cyanosis. NEUROLOGIC: No new reported neurological deficits, sensory or motor. IMPRESSION: 1. Peptic ulcer disease with status post removal of a gastric polyp, patient tolerating liquid diet post partial gastrectomy as well as status post repair of incarcerated ventral hernia. 2. Anemia, most likely secondary to above. 3. Reported endocarditis. 4. Known history of hyperlipidemia, hypertension. 5. Known history of atrial fibrillation. 6. Mild congestive heart failure, improving. 7. Reported mild pneumonia, improving clinically. SUGGESTION: 1. Continue current management. 2. Advance diet gradually as tolerated. Follow up on gastric pathology report. Zuleika Garcia MD cc: 14 TT: 12/10/2016 12:52:16 Confirmation # [id number] Dictation # [id number]
[2016-12-10] MEDS: Potassium Ch 20mEq in D5-1/2NS 1,000 ML IV SCH (13:52)
--- NOTE | 2016-12-10 16:41 | CP.PCM.PN ---
Subjective - Date & Time of Evaluation Date of Evaluation: 12/10/16 Time of Evaluation: 09:00 - Subjective Subjective: discussed on rounds needs 6 weeks iv rx after last neg blood ciulture Objective - Vital Signs/Intake and Output Vital Signs (last 24 hours): Temp Pulse Resp BP Pulse Ox 97.2 F L 69 20 133/63 98 12/10/16 15:49 12/10/16 15:49 12/10/16 15:49 12/10/16 15:49 12/10/16 15:49 Intake and Output: 12/10/16 12/10/16 06:59 18:59 Intake Total 690 1060 Output Total 300 150 Balance 390 910 - Medications Medications: Current Medications Acetaminophen (Tylenol 325mg Tab) 325 mg PO Q12 PRN PRN Reason: Pain Apixaban (Eliquis) 2.5 mg PO BID [facility] Last Admin: 12/10/16 09:19 Dose: 2.5 mg Famotidine (Pepcid) 20 mg IVP Q12 [facility] Last Admin: 12/10/16 09:20 Dose: 20 mg Ceftriaxone Sodium 2 gm/ (Sodium Chloride) 100 mls @ 100 mls/hr IVPB Q24H [facility] Last Admin: 12/10/16 09:19 Dose: 100 mls/hr Potassium Chloride/Dextrose/Sod Cl (Potassium Chl 20 Meq In D5-1/2ns) 1,000 mls @ 80 mls/hr IV .[id number] [facility] Last Admin: 12/10/16 13:52 Dose: 80 mls/hr Metoclopramide HCl (Reglan) 5 mg IVP Q8H [facility] Last Admin: 12/06/16 16:18 Dose: Not Given Metoprolol Tartrate (Lopressor) 25 mg PO BIDBS [facility] Last Admin: 12/10/16 08:54 Dose: 25 mg Sucralfate (Carafate Oral Susp) 1 gm PO ACBD [facility] Last Admin: 12/06/16 07:49 Dose: 1 gm Tetrahydrozoline HCl/Zinc Sulfate (Visine 0.05% Opht Soln) 0.01 ml OU BID PRN PRN Reason: Dry eyes Last Admin: 12/04/16 15:00 Dose: 1 drop Tramadol HCl (Ultram) 25 mg PO Q12 PRN PRN Reason: Pain - Labs Labs: 12/10/16 12:25 12/10/16 12:25 PT 14.2 SECONDS (9.7-12.2) H 11/24/16 07:15 INR 1.3 11/24/16 07:15 APTT 25 SECONDS (21-34) 11/18/16 18:25 - Constitutional Appears: Non-toxic, Cachectic, Chronically Ill - Head Exam Head Exam: NORMOCEPHALIC - Eye Exam Eye Exam: absent: Scleral icterus - ENT Exam ENT Exam: Mucous Membranes Dry - Neck Exam Neck Exam: absent: Lymphadenopathy - Respiratory Exam Respiratory Exam: Decreased Breath Sounds, Rhonchi - Cardiovascular Exam Cardiovascular Exam: REGULAR RHYTHM, +S1, +S2 - GI/Abdominal Exam GI & Abdominal Exam: Distended, Soft. 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
--- NOTE | 2016-12-10 22:38 | CP.PCM.PN ---
Subjective - Date & Time of Evaluation Date of Evaluation: 12/10/16 Time of Evaluation: 12:05 - Subjective Subjective: Patient seen and evaluated Denies chest pain and dyspnea Tolerating liquids Objective - Vital Signs/Intake and Output Vital Signs (last 24 hours): Temp Pulse Resp BP Pulse Ox 97.2 F L 69 20 131/70 98 12/10/16 15:49 12/10/16 15:49 12/10/16 15:49 12/10/16 17:49 12/10/16 15:49 Intake and Output: 12/10/16 12/11/16 18:59 06:59 Intake Total 1060 740 Output Total 150 250 Balance 910 490 - Medications Medications: Current Medications Acetaminophen (Tylenol 325mg Tab) 325 mg PO Q12 PRN PRN Reason: Pain Apixaban (Eliquis) 2.5 mg PO BID [facility] Last Admin: 12/10/16 17:49 Dose: 2.5 mg Famotidine (Pepcid) 20 mg IVP Q12 [facility] Last Admin: 12/10/16 21:39 Dose: 20 mg Ceftriaxone Sodium 2 gm/ (Sodium Chloride) 100 mls @ 100 mls/hr IVPB Q24H [facility] Last Admin: 12/10/16 09:19 Dose: 100 mls/hr Potassium Chloride/Dextrose/Sod Cl (Potassium Chl 20 Meq In D5-1/2ns) 1,000 mls @ 80 mls/hr IV .[id number] [facility] Last Admin: 12/10/16 13:52 Dose: 80 mls/hr Metoclopramide HCl (Reglan) 5 mg IVP Q8H [facility] Last Admin: 12/06/16 16:18 Dose: Not Given Metoprolol Tartrate (Lopressor) 25 mg PO BIDBS [facility] Last Admin: 12/10/16 17:49 Dose: 25 mg Sucralfate (Carafate Oral Susp) 1 gm PO ACBD [facility] Last Admin: 12/06/16 07:49 Dose: 1 gm Tetrahydrozoline HCl/Zinc Sulfate (Visine 0.05% Opht Soln) 0.01 ml OU BID PRN PRN Reason: Dry eyes Last Admin: 12/04/16 15:00 Dose: 1 drop Tramadol HCl (Ultram) 25 mg PO Q12 PRN PRN Reason: Pain - Labs Labs: 12/10/16 12:25 12/10/16 12:25 PT 14.2 SECONDS (9.7-12.2) H 11/24/16 07:15 INR 1.3 11/24/16 07:15 APTT 25 SECONDS (21-34) 11/18/16 18:25
[2016-12-11] MEDS: Potassium Ch 20mEq in D5-1/2NS 1,000 ML IV SCH ×2 (04:25→18:17)
--- NOTE | 2016-12-11 07:55 | CP.PCM.PN ---
Subjective - Date & Time of Evaluation Date of Evaluation: 12/11/16 Time of Evaluation: 07:40 Objective - Vital Signs/Intake and Output Vital Signs (last 24 hours): Temp Pulse Resp BP Pulse Ox 98.1 F 67 18 113/66 100 12/11/16 07:25 12/11/16 07:25 12/11/16 07:25 12/11/16 07:25 12/11/16 07:25 Intake and Output: 12/11/16 12/11/16 06:59 18:59 Intake Total 740 Output Total 450 Balance 290 - Medications Medications: Current Medications Acetaminophen (Tylenol 325mg Tab) 325 mg PO Q12 PRN PRN Reason: Pain Apixaban (Eliquis) 2.5 mg PO BID [facility] Last Admin: 12/10/16 17:49 Dose: 2.5 mg Famotidine (Pepcid) 20 mg IVP Q12 [facility] Last Admin: 12/10/16 21:39 Dose: 20 mg Ceftriaxone Sodium 2 gm/ (Sodium Chloride) 100 mls @ 100 mls/hr IVPB Q24H [facility] Last Admin: 12/10/16 09:19 Dose: 100 mls/hr Potassium Chloride/Dextrose/Sod Cl (Potassium Chl 20 Meq In D5-1/2ns) 1,000 mls @ 80 mls/hr IV .[id number] [facility] Last Admin: 12/11/16 04:25 Dose: 80 mls/hr Metoclopramide HCl (Reglan) 5 mg IVP Q8H [facility] Last Admin: 12/06/16 16:18 Dose: Not Given Metoprolol Tartrate (Lopressor) 25 mg PO BIDBS [facility] Last Admin: 12/11/16 07:16 Dose: 25 mg Sucralfate (Carafate Oral Susp) 1 gm PO ACBD [facility] Last Admin: 12/06/16 07:49 Dose: 1 gm Tetrahydrozoline HCl/Zinc Sulfate (Visine 0.05% Opht Soln) 0.01 ml OU BID PRN PRN Reason: Dry eyes Last Admin: 12/04/16 15:00 Dose: 1 drop Tramadol HCl (Ultram) 25 mg PO Q12 PRN PRN Reason: Pain - Labs Labs: 12/10/16 12:25 12/10/16 12:25 PT 14.2 SECONDS (9.7-12.2) H 11/24/16 07:15 INR 1.3 11/24/16 07:15 APTT 25 SECONDS (21-34) 11/18/16 18:25 Assessment and Plan (1) Congestive heart failure Status: Acute (2) Endocarditis Status: Acute (3) 2Nd degree AV block Status: Acute
--- NOTE | 2016-12-11 08:43 | CP.PCM.PN ---
Subjective - Date & Time of Evaluation Date of Evaluation: 12/11/16 Time of Evaluation: 07:00 - Subjective Subjective: General Surgery Progress Note: Dr. Serrano Patient S&E this AM. Vikas Denies n/v. She denies any abdominal pain. Abdominal dressings c/d/i. Objective - Vital Signs/Intake and Output Vital Signs (last 24 hours): Temp Pulse Resp BP Pulse Ox 98.1 F 67 18 113/66 100 12/11/16 07:25 12/11/16 07:25 12/11/16 07:25 12/11/16 07:25 12/11/16 07:25 Intake and Output: 12/11/16 12/11/16 06:59 18:59 Intake Total 740 Output Total 450 Balance 290 - Medications Medications: Current Medications Acetaminophen (Tylenol 325mg Tab) 325 mg PO Q12 PRN PRN Reason: Pain Apixaban (Eliquis) 2.5 mg PO BID [facility] Last Admin: 12/10/16 17:49 Dose: 2.5 mg Famotidine (Pepcid) 20 mg IVP Q12 [facility] Last Admin: 12/10/16 21:39 Dose: 20 mg Ceftriaxone Sodium 2 gm/ (Sodium Chloride) 100 mls @ 100 mls/hr IVPB Q24H [facility] Last Admin: 12/10/16 09:19 Dose: 100 mls/hr Potassium Chloride/Dextrose/Sod Cl (Potassium Chl 20 Meq In D5-1/2ns) 1,000 mls @ 80 mls/hr IV .[id number] [facility] Last Admin: 12/11/16 04:25 Dose: 80 mls/hr Metoclopramide HCl (Reglan) 5 mg IVP Q8H [facility] Last Admin: 12/06/16 16:18 Dose: Not Given Metoprolol Tartrate (Lopressor) 25 mg PO BIDBS [facility] Last Admin: 12/11/16 07:16 Dose: 25 mg Potassium Chloride (K-Dur 20 Meq Er Tab) 20 meq PO STAT ST[facility] Stop: 12/11/16 08:39 Sucralfate (Carafate Oral Susp) 1 gm PO ACBD [facility] Last Admin: 12/06/16 07:49 Dose: 1 gm Tetrahydrozoline HCl/Zinc Sulfate (Visine 0.05% Opht Soln) 0.01 ml OU BID PRN PRN Reason: Dry eyes Last Admin: 12/04/16 15:00 Dose: 1 drop Tramadol HCl (Ultram) 25 mg PO Q12 PRN PRN Reason: Pain - Labs Labs: 12/10/16 12:25 12/10/16 12:25 PT 14.2 SECONDS (9.7-12.2) H 11/24/16 07:15 INR 1.3 11/24/16 07:15 APTT 25 SECONDS (21-34) 11/18/16 18:25 - Constitutional Appears: No Acute Distress - Head Exam Head Exam: NORMOCEPHALIC - ENT Exam ENT Exam: Mucous Membranes Moist - Respiratory Exam Respiratory Exam: NORMAL BREATHING PATTERN - Cardiovascular Exam Cardiovascular Exam: +S1, +S2 - GI/Abdominal Exam GI & Abdominal Exam: Soft - Neurological Exam Neurological Exam: Alert, Awake - Skin Skin Exam: Normal Color, Warm Assessment and Plan - Assessment and Plan (Free Text) Assessment: 86F with stomach polyp S/P Partial Gastrectomy with wedge resection of stomach. Repair of chronically incarcerated ventral hernia POD#5. 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 -Full liquid diet -Monitor for bowel function -Cont Physical therapy Further recs per Dr. Serrano
[2016-12-11] MEDS ORDERED: Potassium Chloride 20 mEq ER Tab PO ONE (09:00)
[2016-12-11] MEDS: cefTRIAXone 2 GM in Sodium Chloride 0.9% 100 ML IVPB SCH (09:16)
[2016-12-11] MEDS: Tetrahydrozoline Opht 0.05% Sol (15 ml) OU PRN (09:20)
--- NOTE | 2016-12-11 12:59 | PN ---
DATE: 12/11/2016 LOCATION: 653, bed B. This is an 86-year-old female seen and examined in rounds without significant clinical changes. Appe ared to be awake, somewhat alert with intermittent periods of abdominal pain, but no reported active bleeding. The entire chart is reviewed, including but not limited to the most recent lab and radiology study re sults, current and previous medication list, current and the previous medical events. Case discussed with the staff at length. PHYSICAL EXAMINATION: GENERAL: An 86-year-old female. VITAL SIGNS: Afebrile with a pulse of 64, respiratory rate 20-22, blood pressure of 120/68. HEENT: Showed pale, dry oral mucoid membrane. Nonicteric sclerae. LUNGS: Few scattered crepitation, decreased air entry at bases. HEART: Positive S1 and S2. ABDOMEN: Soft with clean dressing. Bowel sounds are hypoactive. No mass or organomegaly. EXTREMITIES: Lower extremities, mild edematous changes. No clubbing or cyanosis. NEUROLOGIC: No reported new neurological deficits, sensory or motor. It has to be mentioned that the patient's latest blood workup showed hemoglobin of 8.4 with hematocri t 26.2 with platelet count of 119 low, with low white blood cells of 3.9 indicative of pancytopenia w ith low potassium 3.4, but mildly elevated blood glucose level 111 with low calcium, albumin and low total protein. Official report of the gastric mass lesion is still pending. IMPRESSION: 1. Gastrointestinal blood loss with hypochromic microcytic anemia. 2. Thrombocytopenia of unclear etiology. 3. Peptic ulcer disease with gastric polypoid mass lesion, removed surgically with partial gastrecto my. 4. Known history of hypertension with hyperlipidemia. 5. Known history of atrial fibrillation. 6. Known history of pneumonia with congestive heart failure, improved gradually. SUGGESTION: 1. Continue current management. 2. Blood transfusion to keep hemoglobin around 10 gram percent. 3. Follow up on the pathology report. Zuleika Garcia MD cc: 14 TT: 12/11/2016 12:58:32 Confirmation # [id number] Dictation # [id number]
--- NOTE | 2016-12-11 13:09 | CP.PCM.PN ---
Subjective - Date & Time of Evaluation Date of Evaluation: 12/11/16 Time of Evaluation: 13:08 - Subjective Subjective: path report noted neuroendocrine tumor No other surgery planned dues to age etc Objective - Vital Signs/Intake and Output Vital Signs (last 24 hours): Temp Pulse Resp BP Pulse Ox 98.1 F 67 18 113/66 100 12/11/16 07:25 12/11/16 07:25 12/11/16 07:25 12/11/16 07:25 12/11/16 07:25 Intake and Output: 12/11/16 12/11/16 06:59 18:59 Intake Total 740 Output Total 450 Balance 290 - Medications Medications: Current Medications Acetaminophen (Tylenol 325mg Tab) 325 mg PO Q12 PRN PRN Reason: Pain Apixaban (Eliquis) 2.5 mg PO BID [facility] Last Admin: 12/11/16 09:20 Dose: 2.5 mg Famotidine (Pepcid) 20 mg IVP Q12 [facility] Last Admin: 12/11/16 09:19 Dose: 20 mg Ceftriaxone Sodium 2 gm/ (Sodium Chloride) 100 mls @ 100 mls/hr IVPB Q24H [facility] Last Admin: 12/11/16 09:16 Dose: 100 mls/hr Potassium Chloride/Dextrose/Sod Cl (Potassium Chl 20 Meq In D5-1/2ns) 1,000 mls @ 80 mls/hr IV .[id number] [facility] Last Admin: 12/11/16 04:25 Dose: 80 mls/hr Metoclopramide HCl (Reglan) 5 mg IVP Q8H [facility] Last Admin: 12/06/16 16:18 Dose: Not Given Metoprolol Tartrate (Lopressor) 25 mg PO BIDBS [facility] Last Admin: 12/11/16 07:16 Dose: 25 mg Sucralfate (Carafate Oral Susp) 1 gm PO ACBD [facility] Last Admin: 12/06/16 07:49 Dose: 1 gm Tetrahydrozoline HCl/Zinc Sulfate (Visine 0.05% Opht Soln) 0.01 ml OU BID PRN PRN Reason: Dry eyes Last Admin: 12/11/16 09:20 Dose: 1 drop Tramadol HCl (Ultram) 25 mg PO Q12 PRN PRN Reason: Pain - Labs Labs: 12/10/16 12:25 12/10/16 12:25 PT 14.2 SECONDS (9.7-12.2) H 11/24/16 07:15 INR 1.3 11/24/16 07:15 APTT 25 SECONDS (21-34) 11/18/16 18:25
--- NOTE | 2016-12-11 15:23 | CP.PCM.PN ---
Subjective - Date & Time of Evaluation Date of Evaluation: 12/11/16 Time of Evaluation: 15:20 - Subjective Subjective: S: More awake. No fever. No complaints. Objective - Vital Signs/Intake and Output Vital Signs (last 24 hours): Temp Pulse Resp BP Pulse Ox 98.1 F 67 18 113/66 100 12/11/16 07:25 12/11/16 07:25 12/11/16 07:25 12/11/16 07:25 12/11/16 07:25 Intake and Output: 12/11/16 12/11/16 06:59 18:59 Intake Total 740 1040 Output Total 450 Balance 290 1040 - Medications Medications: Current Medications Acetaminophen (Tylenol 325mg Tab) 325 mg PO Q12 PRN PRN Reason: Pain Apixaban (Eliquis) 2.5 mg PO BID [facility] Last Admin: 12/11/16 09:20 Dose: 2.5 mg Famotidine (Pepcid) 20 mg IVP Q12 [facility] Last Admin: 12/11/16 09:19 Dose: 20 mg Ceftriaxone Sodium 2 gm/ (Sodium Chloride) 100 mls @ 100 mls/hr IVPB Q24H [facility] Last Admin: 12/11/16 09:16 Dose: 100 mls/hr Potassium Chloride/Dextrose/Sod Cl (Potassium Chl 20 Meq In D5-1/2ns) 1,000 mls @ 80 mls/hr IV .[id number] [facility] Last Admin: 12/11/16 04:25 Dose: 80 mls/hr Metoclopramide HCl (Reglan) 5 mg IVP Q8H [facility] Last Admin: 12/06/16 16:18 Dose: Not Given Metoprolol Tartrate (Lopressor) 25 mg PO BIDBS [facility] Last Admin: 12/11/16 07:16 Dose: 25 mg Sucralfate (Carafate Oral Susp) 1 gm PO ACBD [facility] Last Admin: 12/06/16 07:49 Dose: 1 gm Tetrahydrozoline HCl/Zinc Sulfate (Visine 0.05% Opht Soln) 0.01 ml OU BID PRN PRN Reason: Dry eyes Last Admin: 12/11/16 09:20 Dose: 1 drop Tramadol HCl (Ultram) 25 mg PO Q12 PRN PRN Reason: Pain - Labs Labs: 12/10/16 12:25 12/10/16 12:25 PT 14.2 SECONDS (9.7-12.2) H 11/24/16 07:15 INR 1.3 11/24/16 07:15 APTT 25 SECONDS (21-34) 11/18/16 18:25 - Constitutional Appears: Chronically Ill - Head Exam Head Exam: NORMAL INSPECTION - Eye Exam Eye Exam: Normal appearance - Neck Exam Neck Exam: Normal Inspection - Respiratory Exam Respiratory Exam: Decreased Breath Sounds - Cardiovascular Exam Cardiovascular Exam: REGULAR RHYTHM - GI/Abdominal Exam GI & Abdominal Exam: Soft - Rectal Exam Rectal Exam: Deferred - Extremities Exam Extremities Exam: absent: Pedal Edema Assessment and Plan (1) Bacterial pneumonia Status: Acute (2) Congestive heart failure Status: Acute (3) Anemia Status: Acute (4) Cardiomyopathy Status: Chronic (5) Diarrhea Status: Acute (6) Endocarditis Status: Acute - Assessment and Plan (Free Text) Plan: P: Check blood test. Continue medications
--- NOTE | 2016-12-11 20:32 | CP.PCM.PN ---
Subjective - Date & Time of Evaluation Date of Evaluation: 12/11/16 Time of Evaluation: 07:30 - Subjective Subjective: Patient stable without cardiac events Continue current meds No bleeding on Eliquis now Objective - Vital Signs/Intake and Output Vital Signs (last 24 hours): Temp Pulse Resp BP Pulse Ox 98.1 F 62 18 150/70 100 12/11/16 16:00 12/11/16 16:00 12/11/16 16:00 12/11/16 18:08 12/11/16 16:00 Intake and Output: 12/11/16 12/12/16 18:59 06:59 Intake Total 1040 Balance 1040 - Medications Medications: Current Medications Acetaminophen (Tylenol 325mg Tab) 325 mg PO Q12 PRN PRN Reason: Pain Apixaban (Eliquis) 2.5 mg PO BID [facility] Last Admin: 12/11/16 18:08 Dose: 2.5 mg Famotidine (Pepcid) 20 mg IVP Q12 [facility] Last Admin: 12/11/16 09:19 Dose: 20 mg Ceftriaxone Sodium 2 gm/ (Sodium Chloride) 100 mls @ 100 mls/hr IVPB Q24H [facility] Last Admin: 12/11/16 09:16 Dose: 100 mls/hr Potassium Chloride/Dextrose/Sod Cl (Potassium Chl 20 Meq In D5-1/2ns) 1,000 mls @ 80 mls/hr IV .[id number] [facility] Last Admin: 12/11/16 18:17 Dose: 80 mls/hr Metoclopramide HCl (Reglan) 5 mg IVP Q8H [facility] Last Admin: 12/06/16 16:18 Dose: Not Given Metoprolol Tartrate (Lopressor) 25 mg PO BIDBS [facility] Last Admin: 12/11/16 18:08 Dose: 25 mg Sucralfate (Carafate Oral Susp) 1 gm PO ACBD [facility] Last Admin: 12/06/16 07:49 Dose: 1 gm Tetrahydrozoline HCl/Zinc Sulfate (Visine 0.05% Opht Soln) 0.01 ml OU BID PRN PRN Reason: Dry eyes Last Admin: 12/11/16 09:20 Dose: 1 drop Tramadol HCl (Ultram) 25 mg PO Q12 PRN PRN Reason: Pain - Labs Labs: 12/10/16 12:25 12/10/16 12:25 PT 14.2 SECONDS (9.7-12.2) H 11/24/16 07:15 INR 1.3 11/24/16 07:15 APTT 25 SECONDS (21-34) 11/18/16 18:25
[2016-12-12 07:20] LABS: HEMATOCRIT 27.7 % (34.0-47.0); MEAN CELL VOLUME 81.8 fL (81.0-99.0); MEAN CORPUSCULAR HEMOGLOBIN 25.9 pg (27.0-31.0); MEAN CORPUSCULAR HGB CONC 31.7 g/dL (33.0-37.0); MEAN PLATELET VOLUME 7.9 fL (7.2-11.7); RED CELL DISTRIBUTION WIDTH 15.6 % (11.5-14.5); WHITE BLOOD COUNT 4.6 K/uL (4.8-10.8)
[2016-12-12 07:34] LABS: CHLORIDE 100 mmol/L (98-107); POTASSIUM 4.4 mmol/L (3.6-5.2); SODIUM 133 mmol/L (132-148)
[2016-12-12 07:36] LABS: BILIRUBIN,TOTAL 0.5 mg/dL (0.2-1.3); CARBON DIOXIDE 28 mmol/L (22-30); GFR AFRICAN-AMERICAN > 60
[2016-12-12 07:37] LABS: ALB/GLOB RATIO 0.6 (1.0-2.1); ALKALINE PHOSPHATASE 52 U/L (38-126); ALT/SGPT 21 U/L (9-52); AST/SGOT 28 U/L (14-36); BLOOD UREA NITROGEN 5 mg/dL (7-17); CALCIUM 8.6 mg/dl (8.6-10.4); GLUCOSE,RANDOM 82 mg/dL (65-105)
--- NOTE | 2016-12-12 09:03 | CP.PCM.PN ---
Subjective - Date & Time of Evaluation Date of Evaluation: 12/12/16 Time of Evaluation: 09:00 Objective - Vital Signs/Intake and Output Vital Signs (last 24 hours): Temp Pulse Resp BP Pulse Ox 98 F 63 20 144/69 100 12/12/16 08:51 12/12/16 08:51 12/12/16 08:51 12/12/16 08:51 12/12/16 08:51 Intake and Output: 12/12/16 12/12/16 06:59 18:59 Intake Total 640 Output Total 1050 Balance -410 - Medications Medications: Current Medications Acetaminophen (Tylenol 325mg Tab) 325 mg PO Q12 PRN PRN Reason: Pain Apixaban (Eliquis) 2.5 mg PO BID [facility] Last Admin: 12/11/16 18:08 Dose: 2.5 mg Famotidine (Pepcid) 20 mg IVP Q12 [facility] Last Admin: 12/11/16 22:47 Dose: 20 mg Ceftriaxone Sodium 2 gm/ (Sodium Chloride) 100 mls @ 100 mls/hr IVPB Q24H [facility] Last Admin: 12/11/16 09:16 Dose: 100 mls/hr Potassium Chloride/Dextrose/Sod Cl (Potassium Chl 20 Meq In D5-1/2ns) 1,000 mls @ 80 mls/hr IV .[id number] [facility] Last Admin: 12/11/16 18:17 Dose: 80 mls/hr Metoclopramide HCl (Reglan) 5 mg IVP Q8H [facility] Last Admin: 12/06/16 16:18 Dose: Not Given Metoprolol Tartrate (Lopressor) 25 mg PO BIDBS [facility] Last Admin: 12/12/16 06:47 Dose: 25 mg Sucralfate (Carafate Oral Susp) 1 gm PO ACBD [facility] Last Admin: 12/06/16 07:49 Dose: 1 gm Tetrahydrozoline HCl/Zinc Sulfate (Visine 0.05% Opht Soln) 0.01 ml OU BID PRN PRN Reason: Dry eyes Last Admin: 12/11/16 09:20 Dose: 1 drop Tramadol HCl (Ultram) 25 mg PO Q12 PRN PRN Reason: Pain - Labs Labs: 12/12/16 07:00 12/12/16 07:00 PT 14.2 SECONDS (9.7-12.2) H 11/24/16 07:15 INR 1.3 11/24/16 07:15 APTT 25 SECONDS (21-34) 11/18/16 18:25 Assessment and Plan (1) Congestive heart failure Status: Acute (2) Endocarditis Status: Acute (3) 2Nd degree AV block Status: Acute
--- NOTE | 2016-12-12 09:26 | PN ---
DATE: 12/12/2016 LOCATION: 653, bed B. This is an 86-year-old female seen and examined in rounds with intermittent periods of mild abdominal pain, with status post partial gastric resection due to a small polypoid gastric mass-like lesion. The entire chart is reviewed, including but not limited to most recent lab and radiology study result s, current and the previous medication list, current and the previous medical events. Case discussed at length with the staff, as well as the surgical team. LABORATORY DATA: Today's lab results showed low hemoglobin of 8.8 with hematocrit 27.7, but normal p latelet count with low white blood cells to 4.7, with low BUN and low creatinine, but normal blood gl ucose level with low total protein 5.0, low albumin 1.9. PHYSICAL EXAMINATION: GENERAL: An 86-year-old female, awake, alert. VITAL SIGNS: Afebrile with pulse of 68, respiratory rate 20-22, blood pressure of 128/62. HEENT: Showed pale, dry oral mucoid membrane. Nonicteric sclerae. LUNGS: Few scattered crepitations. Decreased air entry at bases. HEART: Positive S1 and S2. ABDOMEN: Soft. Bowel sounds are excessively hypoactive with clean dressing. EXTREMITIES: Lower extremities edematous changes. NEUROLOGIC: No reported new neurologic deficits, sensory or motor. It has to be mentioned that primary pathology report was indicative of neuroendocrine tumor. IMPRESSION: 1. Gastric polypoid mass lesion removed surgically, the primary pathology report of neuroendocrine t umor. 2. Anemia secondary to above. 3. Known history of hypertension. 4. Known history of hyperlipidemia. 5. Known history of pneumonia. 6. Atrial fibrillation with congestive heart failure, improving gradually. 7. Malnutrition with hypoalbuminemia. SUGGESTION: 1. Central hyperalimentation. 2. Out of bed with physical therapy. 3. No further aggressive GI workup in the meantime. Zuleika Garcia MD cc: 14 TT: 12/12/2016 09:26:02 Confirmation # [id number] Dictation # [id number] jn
[2016-12-12] MEDS: cefTRIAXone 2 GM in Sodium Chloride 0.9% 100 ML IVPB SCH (09:28)
[2016-12-12] MEDS: Potassium Ch 20mEq in D5-1/2NS 1,000 ML IV SCH ×2 (09:37→09:38)
--- NOTE | 2016-12-12 10:48 | CP.PCM.PN ---
Subjective - Date & Time of Evaluation Date of Evaluation: 12/12/16 Time of Evaluation: 08:15 - Subjective Subjective: General Surgery Pt S&E, NAEO. No complaints at this time. Objective - Vital Signs/Intake and Output Vital Signs (last 24 hours): Temp Pulse Resp BP Pulse Ox 98 F 63 20 144/69 100 12/12/16 08:51 12/12/16 08:51 12/12/16 08:51 12/12/16 08:51 12/12/16 08:51 Intake and Output: 12/12/16 12/12/16 06:59 18:59 Intake Total 640 Output Total 1050 Balance -410 - Medications Medications: Current Medications Acetaminophen (Tylenol 325mg Tab) 325 mg PO Q12 PRN PRN Reason: Pain Apixaban (Eliquis) 2.5 mg PO BID [facility] Last Admin: 12/12/16 09:36 Dose: 2.5 mg Famotidine (Pepcid) 20 mg IVP Q12 [facility] Last Admin: 12/12/16 09:36 Dose: 20 mg Ceftriaxone Sodium 2 gm/ (Sodium Chloride) 100 mls @ 100 mls/hr IVPB Q24H [facility] Last Admin: 12/12/16 09:28 Dose: 100 mls/hr Metoclopramide HCl (Reglan) 5 mg IVP Q8H [facility] Last Admin: 12/06/16 16:18 Dose: Not Given Metoprolol Tartrate (Lopressor) 25 mg PO BIDBS [facility] Last Admin: 12/12/16 06:47 Dose: 25 mg Sucralfate (Carafate Oral Susp) 1 gm PO ACBD [facility] Last Admin: 12/06/16 07:49 Dose: 1 gm Tetrahydrozoline HCl/Zinc Sulfate (Visine 0.05% Opht Soln) 0.01 ml OU BID PRN PRN Reason: Dry eyes Last Admin: 12/11/16 09:20 Dose: 1 drop Tramadol HCl (Ultram) 25 mg PO Q12 PRN PRN Reason: Pain - Labs Labs: 12/12/16 07:00 12/12/16 07:00 PT 14.2 SECONDS (9.7-12.2) H 11/24/16 07:15 INR 1.3 11/24/16 07:15 APTT 25 SECONDS (21-34) 11/18/16 18:25 - Constitutional Appears: Non-toxic, No Acute Distress - Head Exam Head Exam: ATRAUMATIC, NORMOCEPHALIC - Eye Exam Eye Exam: EOMI - Respiratory Exam Respiratory Exam: NORMAL BREATHING PATTERN. absent: Respiratory Distress - GI/Abdominal Exam GI & Abdominal Exam: Soft. absent: Distended, Firm, Guarding, Rigid, Tenderness Additional comments: incision C/D/I, caden intact - Neurological Exam Neurological Exam: Alert, Awake - Skin Skin Exam: Dry, Warm Assessment and Plan - Assessment and Plan (Free Text) Assessment: 86F S/P Partial Gastrectomy with wedge resection of stomach and repair of chronic incarcerated ventral hernia POD#6. For well differentiated neuroendocrine tumor. Plan: Incision open to air No further surgery planned Remove caden in 6-8 days D/W Dr. Florentin Bullard PGY3
--- NOTE | 2016-12-12 16:26 | CP.PCM.PN ---
Subjective - Date & Time of Evaluation Date of Evaluation: 12/12/16 Time of Evaluation: 07:00 - Subjective Subjective: AWAKE ALERT CONFUSED NAD ON IV RX FOR ENDOCARDITIS Objective - Vital Signs/Intake and Output Vital Signs (last 24 hours): Temp Pulse Resp BP Pulse Ox 98 F 63 20 144/69 100 12/12/16 08:51 12/12/16 08:51 12/12/16 08:51 12/12/16 08:51 12/12/16 08:51 Intake and Output: 12/12/16 12/12/16 06:59 18:59 Intake Total 640 Output Total 1050 Balance -410 - Medications Medications: Current Medications Acetaminophen (Tylenol 325mg Tab) 325 mg PO Q12 PRN PRN Reason: Pain Apixaban (Eliquis) 2.5 mg PO BID [facility] Last Admin: 12/12/16 09:36 Dose: 2.5 mg Famotidine (Pepcid) 20 mg IVP Q12 [facility] Last Admin: 12/12/16 09:36 Dose: 20 mg Ceftriaxone Sodium 2 gm/ (Sodium Chloride) 100 mls @ 100 mls/hr IVPB Q24H [facility] Last Admin: 12/12/16 09:28 Dose: 100 mls/hr Metoclopramide HCl (Reglan) 5 mg IVP Q8H [facility] Last Admin: 12/06/16 16:18 Dose: Not Given Metoprolol Tartrate (Lopressor) 25 mg PO BIDBS [facility] Last Admin: 12/12/16 06:47 Dose: 25 mg Sucralfate (Carafate Oral Susp) 1 gm PO ACBD [facility] Last Admin: 12/06/16 07:49 Dose: 1 gm Tetrahydrozoline HCl/Zinc Sulfate (Visine 0.05% Opht Soln) 0.01 ml OU BID PRN PRN Reason: Dry eyes Last Admin: 12/11/16 09:20 Dose: 1 drop Tramadol HCl (Ultram) 25 mg PO Q12 PRN PRN Reason: Pain - Labs Labs: 12/12/16 07:00 12/12/16 07:00 PT 14.2 SECONDS (9.7-12.2) H 11/24/16 07:15 INR 1.3 11/24/16 07:15 APTT 25 SECONDS (21-34) 11/18/16 18:25 - Constitutional Appears: Non-toxic, Cachectic, Chronically Ill - Head Exam Head Exam: NORMOCEPHALIC - Eye Exam Eye Exam: PERRL. absent: Scleral icterus - ENT Exam ENT Exam: Mucous Membranes Dry - Neck Exam Neck Exam: absent: Lymphadenopathy - Respiratory Exam Respiratory Exam: Decreased Breath Sounds, Clear to Ausculation Bilateral - Cardiovascular Exam Cardiovascular Exam: REGULAR RHYTHM, +S1, +S2 - GI/Abdominal Exam GI & Abdominal Exam: Distended, Soft. absent: Tenderness - Rectal Exam Rectal Exam: Deferred - Exam Exam: NORMAL INSPECTION - Extremities Exam Extremities Exam: absent: Pedal Edema - Back Exam Back Exam: absent: CVA tenderness (L), CVA tenderness (R) - Neurological Exam Neurological Exam: Alert, Awake, Oriented x3 - Psychiatric Exam Psychiatric exam: Normal Mood - Skin Skin Exam: Dry Assessment and Plan (1) Anemia Status: Acute (2) Bacterial pneumonia Status: Acute (3) Congestive heart failure Status: Acute (4) Pneumonia Status: Acute (5) Sepsis Status: Acute (6) 2Nd degree AV block Status: Acute (7) Endocarditis determined by echocardiography Status: Acute
--- NOTE | 2016-12-12 17:42 | CP.PCM.PN ---
Subjective - Date & Time of Evaluation Date of Evaluation: 12/12/16 Time of Evaluation: 12:00 - Subjective Subjective: Subjective - Date & Time of Evaluation Date of Evaluation: 12/12/16 - Subjective Subjective: Patient seen and evaluated Denies chest pain and dyspnea Objective - Vital Signs/Intake and Output Vital Signs (last 24 hours): Temp Pulse Resp BP Pulse Ox 98 F 63 20 144/69 100 12/12/16 08:51 12/12/16 08:51 12/12/16 08:51 12/12/16 08:51 12/12/16 08:51 Intake and Output: 12/12/16 12/12/16 06:59 18:59 Intake Total 640 Output Total 1050 Balance -410 - Medications Medications: Current Medications Acetaminophen (Tylenol 325mg Tab) 325 mg PO Q12 PRN PRN Reason: Pain Apixaban (Eliquis) 2.5 mg PO BID [facility] Last Admin: 12/12/16 09:36 Dose: 2.5 mg Famotidine (Pepcid) 20 mg IVP Q12 [facility] Last Admin: 12/12/16 09:36 Dose: 20 mg Ceftriaxone Sodium 2 gm/ (Sodium Chloride) 100 mls @ 100 mls/hr IVPB Q24H [facility] Last Admin: 12/12/16 09:28 Dose: 100 mls/hr Metoclopramide HCl (Reglan) 5 mg IVP Q8H [facility] Last Admin: 12/06/16 16:18 Dose: Not Given Metoprolol Tartrate (Lopressor) 25 mg PO BIDBS [facility] Last Admin: 12/12/16 06:47 Dose: 25 mg Sucralfate (Carafate Oral Susp) 1 gm PO ACBD [facility] Last Admin: 12/06/16 07:49 Dose: 1 gm Tetrahydrozoline HCl/Zinc Sulfate (Visine 0.05% Opht Soln) 0.01 ml OU BID PRN PRN Reason: Dry eyes Last Admin: 12/11/16 09:20 Dose: 1 drop Tramadol HCl (Ultram) 25 mg PO Q12 PRN PRN Reason: Pain - Labs Labs: 12/12/16 07:00 12/12/16 07:00 PT 14.2 SECONDS (9.7-12.2) H 11/24/16 07:15 INR 1.3 11/24/16 07:15 APTT 25 SECONDS (21-34) 11/18/16 18:25 - Constitutional Appears: Non-toxic, Cachectic, Chronically Ill - Head Exam Head Exam: NORMOCEPHALIC - Eye Exam Eye Exam: PERRL. absent: Scleral icterus - ENT Exam ENT Exam: Mucous Membranes Dry - Neck Exam Neck Exam: absent: Lymphadenopathy - Respiratory Exam Respiratory Exam: Decreased Breath Sounds, Clear to Ausculation Bilateral - Cardiovascular Exam Cardiovascular Exam: REGULAR RHYTHM, +S1, +S2 - GI/Abdominal Exam GI & Abdominal Exam: Distended, Soft. absent: Tenderness - Rectal Exam Rectal Exam: Deferred - Exam Exam: NORMAL INSPECTION - Extremities Exam Extremities Exam: absent: Pedal Edema - Back Exam Back Exam: absent: CVA tenderness (L), CVA tenderness (R) - Neurological Exam Neurological Exam: Alert, Awake, Oriented x3 - Psychiatric Exam Psychiatric exam: Normal Mood Objective - Vital Signs/Intake and Output Vital Signs (last 24 hours): Temp Pulse Resp BP Pulse Ox 98 F 63 20 144/69 100 12/12/16 08:51 12/12/16 08:51 12/12/16 08:51 12/12/16 08:51 12/12/16 08:51 Intake and Output: 12/12/16 12/12/16 06:59 18:59 Intake Total 640 Output Total 1050 Balance -410 - Medications Medications: Current Medications Acetaminophen (Tylenol 325mg Tab) 325 mg PO Q12 PRN PRN Reason: Pain Apixaban (Eliquis) 2.5 mg PO BID [facility] Last Admin: 12/12/16 09:36 Dose: 2.5 mg Famotidine (Pepcid) 20 mg IVP Q12 [facility] Last Admin: 12/12/16 09:36 Dose: 20 mg Ceftriaxone Sodium 2 gm/ (Sodium Chloride) 100 mls @ 100 mls/hr IVPB Q24H [facility] Last Admin: 12/12/16 09:28 Dose: 100 mls/hr Metoclopramide HCl (Reglan) 5 mg IVP Q8H [facility] Last Admin: 12/06/16 16:18 Dose: Not Given Metoprolol Tartrate (Lopressor) 25 mg PO BIDBS [facility] Last Admin: 12/12/16 06:47 Dose: 25 mg Sucralfate (Carafate Oral Susp) 1 gm PO ACBD [facility] Last Admin: 12/06/16 07:49 Dose: 1 gm Tetrahydrozoline HCl/Zinc Sulfate (Visine 0.05% Opht Soln) 0.01 ml OU BID PRN PRN Reason: Dry eyes Last Admin: 12/11/16 09:20 Dose: 1 drop Tramadol HCl (Ultram) 25 mg PO Q12 PRN PRN Reason: Pain - Labs Labs: 12/12/16 07:00 12/12/16 07:00 PT 14.2 SECONDS (9.7-12.2) H 11/24/16 07:15 INR 1.3 11/24/16 07:15 APTT 25 SECONDS (21-34) 11/18/16 18:25 Assessment and Plan - Assessment and Plan (Free Text) Assessment: Assessment and Plan (1) Anemia Status: Acute (2) Bacterial pneumonia Status: Acute (3) Congestive heart failure Status: Acute. Diastolic CHF (4) Pneumonia Status: Acute (7) Endocarditis determined by echocardiography Status: Acute On IV antibiotics
[2016-12-13] MEDS ORDERED: Sodium Chloride 0.9% 1,000 ML IV SCH (00:30)
--- NOTE | 2016-12-13 08:29 | CP.PCM.PN ---
<Daryl Sebastian - Last Filed: 12/13/16 17:56> Subjective - Date & Time of Evaluation Date of Evaluation: 12/13/16 Time of Evaluation: 08:00 - Subjective Subjective: Cardiology Note- Dr. Mendoza' service Patient was seen and examined at bedside. Patient is awake alert. [employer] used to communicate with patient in [place] Creole. Patient reports that she is having pain in both knees, which she says she has had for a while. She also says she has some mild abdominal pain, but patient refuses to allow me to examine it. No additional acute complaints. No events overnight, per nursing. Objective - Vital Signs/Intake and Output Vital Signs (last 24 hours): Temp Pulse Resp BP Pulse Ox 98.0 F 66 20 140/71 97 12/12/16 23:20 12/12/16 23:20 12/12/16 23:20 12/13/16 08:08 12/12/16 23:20 Intake and Output: 12/13/16 12/13/16 06:59 18:59 Intake Total 790 Output Total 1701 Balance -911 - Medications Medications: Current Medications Acetaminophen (Tylenol 325mg Tab) 325 mg PO Q12 PRN PRN Reason: Pain Famotidine (Pepcid) 20 mg IVP Q12 [facility] Last Admin: 12/12/16 09:36 Dose: 20 mg Ceftriaxone Sodium 2 gm/ (Sodium Chloride) 100 mls @ 100 mls/hr IVPB Q24H [facility] Last Admin: 12/12/16 09:28 Dose: 100 mls/hr Sodium Chloride (Sodium Chloride 0.9%) 1,000 mls @ 50 mls/hr IV .Q20H [facility] Last Admin: 12/13/16 01:25 Dose: 50 mls/hr Metoclopramide HCl (Reglan) 5 mg IVP Q8H [facility] Last Admin: 12/06/16 16:18 Dose: Not Given Metoprolol Tartrate (Lopressor) 25 mg PO BIDBS [facility] Last Admin: 12/13/16 08:08 Dose: 25 mg Sucralfate (Carafate Oral Susp) 1 gm PO ACBD [facility] Last Admin: 12/06/16 07:49 Dose: 1 gm Tetrahydrozoline HCl/Zinc Sulfate (Visine 0.05% Opht Soln) 0.01 ml OU BID PRN PRN Reason: Dry eyes Last Admin: 12/11/16 09:20 Dose: 1 drop Tramadol HCl (Ultram) 25 mg PO Q12 PRN PRN Reason: Pain - Labs Labs: 12/12/16 07:00 12/12/16 07:00 PT 14.2 SECONDS (9.7-12.2) H 11/24/16 07:15 INR 1.3 11/24/16 07:15 APTT 25 SECONDS (21-34) 11/18/16 18:25 - Constitutional Appears: Non-toxic, No Acute Distress - Head Exam Head Exam: ATRAUMATIC, NORMAL INSPECTION, NORMOCEPHALIC - Eye Exam Pupil Exam: NORMAL ACCOMODATION, PERRL - ENT Exam ENT Exam: Mucous Membranes Moist - Respiratory Exam Respiratory Exam: Clear to Ausculation Bilateral, NORMAL BREATHING PATTERN. absent: Prolonged Expiratory Phase, Rales, Rhonchi, Respiratory Distress - Cardiovascular Exam Cardiovascular Exam: +S1, +S2, Murmur - GI/Abdominal Exam GI & Abdominal Exam: Soft, Normal Bowel Sounds. 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 6) Hypokalemia 7) Htn 9) Hld 10) afib with 2nd degrees av block s/p pacemaker. Plan: - On Rocephin for bacteremia and endocarditis. ID Following - on Eliquis for Afib, Continue Lopressor 25mg PO BID - Gi prophylaxis with pepcid, DVT prophylaxis: SCDs Patient seen, examined, will discuss with Dr Mendoza. <Alana Mendoza - Last Filed: 12/22/16 10:47> Objective - Vital Signs/Intake and Output Vital Signs (last 24 hours): Temp Pulse Resp BP Pulse Ox 98.2 F 106 H 18 143/74 97 12/14/16 07:48 12/14/16 08:19 12/14/16 07:48 12/14/16 08:19 12/14/16 07:48 - Labs Labs: 12/12/16 07:00 12/12/16 07:00 PT 14.2 SECONDS (9.7-12.2) H 11/24/16 07:15 INR 1.3 11/24/16 07:15 APTT 25 SECONDS (21-34) 11/18/16 18:25 Assessment and Plan (1) Congestive heart failure Status: Acute (2) Endocarditis Status: Acute (3) 2Nd degree AV block Status: Acute Attending/Attestation - Attestation I have personally seen and examined this patient.: Yes I have fully participated in the care of the patient.: Yes I have reviewed all pertinent clinical information, including history, physical exam and plan: Yes Notes (Text): 12/22/16 10:47 In demand translatorused to twyla pt how she feels some joint pain no cp
[2016-12-13] MEDS: cefTRIAXone 2 GM in Sodium Chloride 0.9% 100 ML IVPB SCH (09:08)
--- NOTE | 2016-12-13 09:30 | CP.PCM.PN ---
Subjective - Date & Time of Evaluation Date of Evaluation: 12/13/16 Time of Evaluation: 09:10 - Subjective Subjective: Pt lethargic; no verbal response but awake. Objective - Vital Signs/Intake and Output Vital Signs (last 24 hours): Temp Pulse Resp BP Pulse Ox 97.9 F 70 20 140/71 100 12/13/16 07:25 12/13/16 07:25 12/13/16 07:25 12/13/16 08:08 12/13/16 07:25 Intake and Output: 12/13/16 12/13/16 06:59 18:59 Intake Total 790 Output Total 1701 Balance -911 - Medications Medications: Current Medications Acetaminophen (Tylenol 325mg Tab) 325 mg PO Q12 PRN PRN Reason: Pain Famotidine (Pepcid) 20 mg IVP Q12 [facility] Last Admin: 12/13/16 09:07 Dose: 20 mg Ceftriaxone Sodium 2 gm/ (Sodium Chloride) 100 mls @ 100 mls/hr IVPB Q24H [facility] Last Admin: 12/13/16 09:08 Dose: 100 mls/hr Sodium Chloride (Sodium Chloride 0.9%) 1,000 mls @ 50 mls/hr IV .Q20H [facility] Last Admin: 12/13/16 01:25 Dose: 50 mls/hr Metoclopramide HCl (Reglan) 5 mg IVP Q8H [facility] Last Admin: 12/06/16 16:18 Dose: Not Given Metoprolol Tartrate (Lopressor) 25 mg PO BIDBS [facility] Last Admin: 12/13/16 08:08 Dose: 25 mg Sucralfate (Carafate Oral Susp) 1 gm PO ACBD [facility] Last Admin: 12/06/16 07:49 Dose: 1 gm Tetrahydrozoline HCl/Zinc Sulfate (Visine 0.05% Opht Soln) 0.01 ml OU BID PRN PRN Reason: Dry eyes Last Admin: 12/11/16 09:20 Dose: 1 drop Tramadol HCl (Ultram) 25 mg PO Q12 PRN PRN Reason: Pain - Labs Labs: 12/12/16 07:00 12/12/16 07:00 PT 14.2 SECONDS (9.7-12.2) H 11/24/16 07:15 INR 1.3 11/24/16 07:15 APTT 25 SECONDS (21-34) 11/18/16 18:25 - Constitutional Appears: No Acute Distress - Eye Exam Eye Exam: Normal appearance - ENT Exam ENT Exam: Mucous Membranes Moist - Neck Exam Neck Exam: Full ROM. absent: Lymphadenopathy, Normal Inspection - Respiratory Exam Respiratory Exam: Decreased Breath Sounds, Rales. absent: Rhonchi, Wheezes - Cardiovascular Exam Cardiovascular Exam: JVD, +S1, +S2, Murmur. absent: Gallop - GI/Abdominal Exam GI & Abdominal Exam: Soft. absent: Tenderness, Mass - Extremities Exam Extremities Exam: Normal Capillary Refill, Pedal Edema. absent: Calf Tenderness , Joint Swelling Assessment and Plan - Assessment and Plan (Free Text) Assessment: Cellulitis w/ sepsis CHF; DNR/I On Telemetry IV lasix given; Stop IVF c/o no longer hypotensive
--- NOTE | 2016-12-13 09:36 | CP.PCM.PN ---
Subjective - Date & Time of Evaluation Date of Evaluation: 12/13/16 Time of Evaluation: 08:15 - Subjective Subjective: Pt awake; (+) answer yes and no NO CP, no SOB, no cough, no n/v, no diarrhea Objective - Vital Signs/Intake and Output Vital Signs (last 24 hours): Temp Pulse Resp BP Pulse Ox 97.9 F 70 20 140/71 100 12/13/16 07:25 12/13/16 07:25 12/13/16 07:25 12/13/16 08:08 12/13/16 07:25 Intake and Output: 12/13/16 12/13/16 06:59 18:59 Intake Total 790 Output Total 1701 Balance -911 - Medications Medications: Current Medications Acetaminophen (Tylenol 325mg Tab) 325 mg PO Q12 PRN PRN Reason: Pain Famotidine (Pepcid) 20 mg IVP Q12 [facility] Last Admin: 12/13/16 09:07 Dose: 20 mg Ceftriaxone Sodium 2 gm/ (Sodium Chloride) 100 mls @ 100 mls/hr IVPB Q24H [facility] Last Admin: 12/13/16 09:08 Dose: 100 mls/hr Sodium Chloride (Sodium Chloride 0.9%) 1,000 mls @ 50 mls/hr IV .Q20H [facility] Last Admin: 12/13/16 01:25 Dose: 50 mls/hr Metoclopramide HCl (Reglan) 5 mg IVP Q8H [facility] Last Admin: 12/06/16 16:18 Dose: Not Given Metoprolol Tartrate (Lopressor) 25 mg PO BIDBS [facility] Last Admin: 12/13/16 08:08 Dose: 25 mg Sucralfate (Carafate Oral Susp) 1 gm PO ACBD [facility] Last Admin: 12/06/16 07:49 Dose: 1 gm Tetrahydrozoline HCl/Zinc Sulfate (Visine 0.05% Opht Soln) 0.01 ml OU BID PRN PRN Reason: Dry eyes Last Admin: 12/11/16 09:20 Dose: 1 drop Tramadol HCl (Ultram) 25 mg PO Q12 PRN PRN Reason: Pain - Labs Labs: 12/12/16 07:00 12/12/16 07:00 PT 14.2 SECONDS (9.7-12.2) H 11/24/16 07:15 INR 1.3 03/01/17 07:15 APTT 25 SECONDS (21-34) 11/18/16 18:25 - Constitutional Appears: No Acute Distress - Eye Exam Eye Exam: Normal appearance - ENT Exam ENT Exam: Mucous Membranes Moist - Neck Exam Neck Exam: Full ROM. absent: Lymphadenopathy, Meningismus - Respiratory Exam Respiratory Exam: Clear to Ausculation Bilateral. absent: Rales, Rhonchi, Wheezes - Cardiovascular Exam Cardiovascular Exam: Diastolic murmur, +S1, +S2, Murmur. absent: Gallop, JVD - GI/Abdominal Exam GI & Abdominal Exam: Soft. absent: Tenderness, Mass - Extremities Exam Extremities Exam: Full ROM, Normal Capillary Refill. absent: Calf Tenderness, Joint Swelling, Pedal Edema Assessment and Plan - Assessment and Plan (Free Text) Assessment: Mitral Valve Endocarditis Cardiomyopathy; Decondtioning DJD - low back Cont , meds For subacute
--- NOTE | 2016-12-13 10:05 | CP.PCM.PN ---
Subjective - Date & Time of Evaluation Date of Evaluation: 12/13/16 Time of Evaluation: 10:02 - Subjective Subjective: General Surgery - Dr. Serrano Pt S&E. NISHI. Pt denies any complaints this morning. She is eating small amts of soft diet. Objective - Vital Signs/Intake and Output Vital Signs (last 24 hours): Temp Pulse Resp BP Pulse Ox 97.9 F 70 20 140/71 100 12/13/16 07:25 12/13/16 07:25 12/13/16 07:25 12/13/16 08:08 12/13/16 07:25 Intake and Output: 12/13/16 12/13/16 06:59 18:59 Intake Total 790 Output Total 1701 Balance -911 - Medications Medications: Current Medications Acetaminophen (Tylenol 325mg Tab) 325 mg PO Q12 PRN PRN Reason: Pain Famotidine (Pepcid) 20 mg IVP Q12 [facility] Last Admin: 12/13/16 09:07 Dose: 20 mg Ceftriaxone Sodium 2 gm/ (Sodium Chloride) 100 mls @ 100 mls/hr IVPB Q24H [facility] Last Admin: 12/13/16 09:08 Dose: 100 mls/hr Sodium Chloride (Sodium Chloride 0.9%) 1,000 mls @ 50 mls/hr IV .Q20H [facility] Last Admin: 12/13/16 01:25 Dose: 50 mls/hr Metoclopramide HCl (Reglan) 5 mg IVP Q8H [facility] Last Admin: 12/06/16 16:18 Dose: Not Given Metoprolol Tartrate (Lopressor) 25 mg PO BIDBS [facility] Last Admin: 12/13/16 08:08 Dose: 25 mg Sucralfate (Carafate Oral Susp) 1 gm PO ACBD [facility] Last Admin: 12/06/16 07:49 Dose: 1 gm Tetrahydrozoline HCl/Zinc Sulfate (Visine 0.05% Opht Soln) 0.01 ml OU BID PRN PRN Reason: Dry eyes Last Admin: 12/11/16 09:20 Dose: 1 drop Tramadol HCl (Ultram) 25 mg PO Q12 PRN PRN Reason: Pain - Labs Labs: 12/12/16 07:00 12/12/16 07:00 PT 14.2 SECONDS (9.7-12.2) H 11/24/16 07:15 INR 1.3 11/24/16 07:15 APTT 25 SECONDS (21-34) 11/18/16 18:25 - Constitutional Appears: No Acute Distress - Head Exam Head Exam: ATRAUMATIC, NORMOCEPHALIC - Eye Exam Eye Exam: Normal appearance - Respiratory Exam Respiratory Exam: NORMAL BREATHING PATTERN. absent: Respiratory Distress - GI/Abdominal Exam GI & Abdominal Exam: Soft. absent: Distended, Tenderness Additional comments: surgical incision c/d/i with caden - Neurological Exam Neurological Exam: Alert, Awake - Skin Skin Exam: Dry, Intact Assessment and Plan - Assessment and Plan (Free Text) Assessment: 86F S/P Partial Gastrectomy with wedge resection of stomach and repair of chronic incarcerated ventral hernia POD#7 -Path w/ well-differentiated neuroendocrine tumor -Continue soft diet -Leave incision open to air -Staple removal in 5-7days -No further surgical intervention -Marlo Rogers PGY2
--- NOTE | 2016-12-13 11:26 | PN ---
DATE: 12/13/2016 LOCATION: 653, bed B. SUBJECTIVE: This is an 86-year-old female seen and examined at rounds, appears to be awake, alert, o riented x 3, without reported significant clinical changes, with open abdominal wound care with sligh t intermittent complaint of abdominal pain. No reported active bleeding. The entire chart is review ed, including but not limited to the most recent lab and radiology study results, current and previou s medication list, current and the previous medical events. The patient still has low hemoglobin and hematocrit with low white blood cells, but normal platelet count with low BUN and creatinine, and lo w albumin 1.9, and low total protein 5.0 indicative of malnutrition. Case discussed at length with the staff on the floor. PHYSICAL EXAMINATION: GENERAL: An 86-year-old female. VITAL SIGNS: Afebrile with pulse of 72, respiratory rate 20-22, and blood pressure of 136/68. HEENT: Showed pale, dry oral mucoid membrane. Nonicteric sclerae. LUNGS: Scattered mild crepitation, decreased air entry at bases. HEART: Positive S1 and S2. ABDOMEN: Soft. Bowel sounds are hypoactive with slight distention. No mass or organomegaly. EXTREMITIES: With evidence of muscle wasting syndrome. No reported active bleeding. No clubbing or cyanosis. NEUROLOGIC: No reported new neurologic deficits, sensory or motor. IMPRESSION: 1. Gastric polypoid lesion removed by partial gastrectomy, official report still pending. 2. Anemia secondary to above. 3. Known history of hypertension. 4. Known history of hyperlipidemia. 5. Severe malnutrition with hypoalbuminemia and hypoproteinemia. 6. Known history of pneumonia. 7. Atrial fibrillation, congestive heart failure, slightly improving. SUGGESTION: 1. Continue current management. 2. Antireflux measure. 3. The patient will need proper 4. Albumin IV. 5. Physical therapy. Zuleika Garcia MD cc: 14 TT: 12/13/2016 11:26:04 Confirmation # [id number] Dictation # [id number] niki
--- NOTE | 2016-12-13 19:33 | CP.PCM.PN ---
Subjective - Date & Time of Evaluation Date of Evaluation: 12/13/16 Time of Evaluation: 11:30 - Subjective Subjective: Patient seen and evaluated Denies chest pain and dyspnea For transfer to subacute today As per daughter's request Eliquis started today for A Fib Objective - Vital Signs/Intake and Output Vital Signs (last 24 hours): Temp Pulse Resp BP Pulse Ox 98.3 F 72 20 130/68 100 12/13/16 15:00 12/13/16 15:00 12/13/16 15:00 12/13/16 16:39 12/13/16 15:00 Intake and Output: 12/13/16 12/14/16 18:59 06:59 Intake Total 420 Output Total 550 Balance -130 - Medications Medications: Current Medications Acetaminophen (Tylenol 325mg Tab) 325 mg PO Q12 PRN PRN Reason: Pain Apixaban (Eliquis) 2.5 mg PO BID [facility] Last Admin: 12/13/16 17:32 Dose: 2.5 mg Famotidine (Pepcid) 20 mg IVP Q12 [facility] Last Admin: 12/13/16 09:07 Dose: 20 mg Ferrous Sulfate (Feosol) 325 mg PO DAILY [facility] Last Admin: 12/13/16 15:18 Dose: 325 mg Ceftriaxone Sodium 2 gm/ (Sodium Chloride) 100 mls @ 100 mls/hr IVPB Q24H [facility] Last Admin: 12/13/16 09:08 Dose: 100 mls/hr Metoclopramide HCl (Reglan) 5 mg IVP Q8H [facility] Last Admin: 12/06/16 16:18 Dose: Not Given Metoprolol Tartrate (Lopressor) 25 mg PO BIDBS [facility] Last Admin: 12/13/16 16:39 Dose: 25 mg Sucralfate (Carafate Oral Susp) 1 gm PO ACBD [facility] Last Admin: 12/06/16 07:49 Dose: 1 gm Tetrahydrozoline HCl/Zinc Sulfate (Visine 0.05% Opht Soln) 0.01 ml OU BID PRN PRN Reason: Dry eyes Last Admin: 12/11/16 09:20 Dose: 1 drop Tramadol HCl (Ultram) 25 mg PO Q12 PRN PRN Reason: Pain Last Admin: 12/13/16 14:00 Dose: 25 mg - Labs Labs: 12/12/16 07:00 12/12/16 07:00 PT 14.2 SECONDS (9.7-12.2) H 11/24/16 07:15 INR 1.3 11/24/16 07:15 APTT 25 SECONDS (21-34) 11/18/16 18:25
[2016-12-14 07:49] VITALS: RESP 18; TEMP 98.2; O2SAT 97
[2016-12-14 08:18] VITALS: BP 143/74
[2016-12-14 08:21] VITALS: PULSE 106
--- NOTE | 2016-12-14 09:04 | CP.PCM.PN ---
Subjective - Date & Time of Evaluation Date of Evaluation: 12/14/16 Time of Evaluation: 08:50 - Subjective Subjective: Pt awake; answer appropriately no CP, no SOB, no cough Eating slowly Objective - Vital Signs/Intake and Output Vital Signs (last 24 hours): Temp Pulse Resp BP Pulse Ox 98.2 F 106 H 18 143/74 97 12/14/16 07:48 12/14/16 08:19 12/14/16 07:48 12/14/16 08:19 12/14/16 07:48 Intake and Output: 12/14/16 12/14/16 06:59 18:59 Intake Total 350 Output Total 600 Balance -250 - Medications Medications: Current Medications Acetaminophen (Tylenol 325mg Tab) 325 mg PO Q12 PRN PRN Reason: Pain Apixaban (Eliquis) 2.5 mg PO BID [facility] Last Admin: 12/13/16 17:32 Dose: 2.5 mg Famotidine (Pepcid) 20 mg IVP Q12 [facility] Last Admin: 12/13/16 21:16 Dose: 20 mg Ferrous Sulfate (Feosol) 325 mg PO DAILY [facility] Last Admin: 12/13/16 15:18 Dose: 325 mg Ceftriaxone Sodium 2 gm/ (Sodium Chloride) 100 mls @ 100 mls/hr IVPB Q24H [facility] Last Admin: 12/13/16 09:08 Dose: 100 mls/hr Metoclopramide HCl (Reglan) 5 mg IVP Q8H [facility] Last Admin: 12/06/16 16:18 Dose: Not Given Metoprolol Tartrate (Lopressor) 25 mg PO BIDBS [facility] Last Admin: 12/14/16 08:17 Dose: 25 mg Sucralfate (Carafate Oral Susp) 1 gm PO ACBD [facility] Last Admin: 12/06/16 07:49 Dose: 1 gm Tetrahydrozoline HCl/Zinc Sulfate (Visine 0.05% Opht Soln) 0.01 ml OU BID PRN PRN Reason: Dry eyes Last Admin: 12/11/16 09:20 Dose: 1 drop Tramadol HCl (Ultram) 25 mg PO Q12 PRN PRN Reason: Pain Last Admin: 12/13/16 14:00 Dose: 25 mg - Labs Labs: 12/12/16 07:00 12/12/16 07:00 PT 14.2 SECONDS (9.7-12.2) H 11/24/16 07:15 INR 1.3 11/24/16 07:15 APTT 25 SECONDS (21-34) 11/18/16 18:25 - Constitutional Appears: No Acute Distress - Eye Exam Eye Exam: Normal appearance - ENT Exam ENT Exam: Mucous Membranes Moist - Neck Exam Neck Exam: Full ROM. absent: Lymphadenopathy, Thyromegaly - Respiratory Exam Respiratory Exam: Clear to Ausculation Bilateral. absent: Rales, Rhonchi, Wheezes - Cardiovascular Exam Cardiovascular Exam: REGULAR RHYTHM, +S1, +S2. absent: Gallop - GI/Abdominal Exam GI & Abdominal Exam: Soft. absent: Tenderness, Mass - Extremities Exam Extremities Exam: Full ROM, Normal Capillary Refill. absent: Calf Tenderness, Joint Swelling, Pedal Edema Assessment and Plan - Assessment and Plan (Free Text) Assessment: Cardiomyopathy; Endocarditis Cont meds lasix, prn
[2016-12-14] MEDS: cefTRIAXone 2 GM in Sodium Chloride 0.9% 100 ML IVPB SCH (10:26)
--- NOTE | 2016-12-14 11:58 | PN ---
DATE: 12/14/2016 LOCATION: 653, bed B. This is an 86-year-old female seen and examined at rounds without significant clinical changes. No r eported active bleeding. The most recent lab results as well as current and previous medication list , current and the previous medical events were reviewed. Case discussed with the staff on the floor. The patient still has hypochromic microcytic anemia with low albumin and low total protein, which a lbumin IV is to be ordered. PHYSICAL EXAMINATION: GENERAL: An 86-year-old female, awake, alert. VITAL SIGNS: Pulse of 100, respiratory rate 20-22, blood pressure of 136/76. HEENT: Showed pale, dry oral mucoid membrane. Nonicteric sclerae. LUNGS: Few scattered crepitation, decreased air entry at bases. HEART: Positive S1 and S2. ABDOMEN: Soft, bowel sounds are excessively hypoactive, covered with clean dressing. EXTREMITIES: With mild lower extremities edematous changes. No clubbing or cyanosis. NEUROLOGIC: No reported new neurologic deficits, sensory or motor. IMPRESSION: 1. Hypochromic microcytic anemia. 2. Peptic ulcer disease. 3. Gastric neuroendocrine tumor, removed surgically. 4. History of atrial fibrillation, congestive heart failure, gradually improving. 5. Known history of pneumonia, hypertension and hyperlipidemia. 6. Severe malnutrition with hypoalbuminemia and hypoproteinemia, needs albumin IV. SUGGESTION: 1. Continue current management. 2. No need for aggressive GI workup in the meantime. Zuleika Garcia MD cc: 14 TT: 12/14/2016 11:58:39 Confirmation # [id number] Dictation # [id number]
--- NOTE | 2016-12-14 13:11 | CP.PCM.PN ---
Objective - Vital Signs/Intake and Output Vital Signs (last 24 hours): Temp Pulse Resp BP Pulse Ox 98.2 F 106 H 18 143/74 97 12/14/16 07:48 12/14/16 08:19 12/14/16 07:48 12/14/16 08:19 12/14/16 07:48 Intake and Output: 12/14/16 12/14/16 06:59 18:59 Intake Total 350 Output Total 600 Balance -250 - Medications Medications: Current Medications Acetaminophen (Tylenol 325mg Tab) 325 mg PO Q12 PRN PRN Reason: Pain Apixaban (Eliquis) 2.5 mg PO BID [facility] Last Admin: 12/14/16 10:33 Dose: 2.5 mg Famotidine (Pepcid) 20 mg IVP Q12 [facility] Last Admin: 12/14/16 10:26 Dose: 20 mg Ferrous Sulfate (Feosol) 325 mg PO DAILY [facility] Last Admin: 12/14/16 10:23 Dose: 325 mg Furosemide (Lasix) 40 mg PO DAILY PRN PRN Reason: EDEMA Stop: 12/19/16 09:05 Ceftriaxone Sodium 2 gm/ (Sodium Chloride) 100 mls @ 100 mls/hr IVPB Q24H [facility] Last Admin: 12/14/16 10:26 Dose: 100 mls/hr Metoclopramide HCl (Reglan) 5 mg IVP Q8H [facility] Last Admin: 12/06/16 16:18 Dose: Not Given Metoprolol Tartrate (Lopressor) 25 mg PO BIDBS [facility] Last Admin: 12/14/16 08:17 Dose: 25 mg Sucralfate (Carafate Oral Susp) 1 gm PO ACBD [facility] Last Admin: 12/06/16 07:49 Dose: 1 gm Tetrahydrozoline HCl/Zinc Sulfate (Visine 0.05% Opht Soln) 0.01 ml OU BID PRN PRN Reason: Dry eyes Last Admin: 12/11/16 09:20 Dose: 1 drop Tramadol HCl (Ultram) 25 mg PO Q12 PRN PRN Reason: Pain Last Admin: 12/13/16 14:00 Dose: 25 mg - Labs Labs: 12/12/16 07:00 12/12/16 07:00 PT 14.2 SECONDS (9.7-12.2) H 11/24/16 07:15 INR 1.3 03/01/17 07:15 APTT 25 SECONDS (21-34) 11/18/16 18:25
--- NOTE | 2016-12-14 13:41 | CP.PCM.PN ---
<Ruthy Cervantes - Last Filed: 12/14/16 13:38> Subjective - Date & Time of Evaluation Date of Evaluation: 12/14/16 Time of Evaluation: 13:00 - Subjective Subjective: Cardiology Progress Note for Dr. Mendoza Patient seen and examined at bedside. There were no acute overnight events. Family was at beside for translation. Patient reports feeling lethargic today with mild abdominal pain. She denies CP, SOB, n/v/d, numbness/tingling. She will be d/c today to [facility]. Objective - Vital Signs/Intake and Output Vital Signs (last 24 hours): Temp Pulse Resp BP Pulse Ox 98.2 F 106 H 18 143/74 97 12/14/16 07:48 12/14/16 08:19 12/14/16 07:48 12/14/16 08:19 12/14/16 07:48 Intake and Output: 12/14/16 12/14/16 06:59 18:59 Intake Total 350 Output Total 600 Balance -250 - Medications Medications: Current Medications Acetaminophen (Tylenol 325mg Tab) 325 mg PO Q12 PRN PRN Reason: Pain Apixaban (Eliquis) 2.5 mg PO BID [facility] Last Admin: 12/14/16 10:33 Dose: 2.5 mg Famotidine (Pepcid) 20 mg IVP Q12 [facility] Last Admin: 12/14/16 10:26 Dose: 20 mg Ferrous Sulfate (Feosol) 325 mg PO DAILY [facility] Last Admin: 12/14/16 10:23 Dose: 325 mg Furosemide (Lasix) 40 mg PO DAILY PRN PRN Reason: EDEMA Stop: 12/19/16 09:05 Ceftriaxone Sodium 2 gm/ (Sodium Chloride) 100 mls @ 100 mls/hr IVPB Q24H [facility] Last Admin: 12/14/16 10:26 Dose: 100 mls/hr Metoclopramide HCl (Reglan) 5 mg IVP Q8H [facility] Last Admin: 12/06/16 16:18 Dose: Not Given Metoprolol Tartrate (Lopressor) 25 mg PO BIDBS [facility] Last Admin: 12/14/16 08:17 Dose: 25 mg Sucralfate (Carafate Oral Susp) 1 gm PO ACBD [facility] Last Admin: 12/06/16 07:49 Dose: 1 gm Tetrahydrozoline HCl/Zinc Sulfate (Visine 0.05% Opht Soln) 0.01 ml OU BID PRN PRN Reason: Dry eyes Last Admin: 12/11/16 09:20 Dose: 1 drop Tramadol HCl (Ultram) 25 mg PO Q12 PRN PRN Reason: Pain Last Admin: 12/13/16 14:00 Dose: 25 mg - Labs Labs: 12/12/16 07:00 12/12/16 07:00 PT 14.2 SECONDS (9.7-12.2) H 11/24/16 07:15 INR 1.3 11/24/16 07:15 APTT 25 SECONDS (21-34) 11/18/16 18:25 - Constitutional Appears: No Acute Distress - Head Exam Head Exam: ATRAUMATIC, NORMAL INSPECTION, NORMOCEPHALIC - Eye Exam Eye Exam: Normal appearance Pupil Exam: NORMAL ACCOMODATION - ENT Exam ENT Exam: Mucous Membranes Moist - Respiratory Exam Respiratory Exam: Clear to Ausculation Bilateral, NORMAL BREATHING PATTERN. absent: Rales, Rhonchi, Wheezes - Cardiovascular Exam Cardiovascular Exam: REGULAR RHYTHM, +S1, +S2. absent: Gallop, Rubs, Murmur - GI/Abdominal Exam GI & Abdominal Exam: Soft, Tenderness (mild diffuse tenderness ), Normal Bowel Sounds - Extremities Exam Extremities Exam: Normal Inspection. 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
--- NOTE | 2016-12-14 16:42 | PCM.HF ---
Heart Failure Core Measure - Heart Failure Ejection Fraction: 40 % or Greater AUGUSTINE Inhibitor Prescribed: No Contraindication/Reason for not providing: LVEF >40% Beta-Himanshu Prescribed: Metoprolol Succinate Angiotensin II Receptor Himanshu Prescribed: No Contraindication/Reason for not providing: LVEF >40% AnticoagulationTherapy for Atrial Fibrillation/Atrialflutter: Yes Aldosterone Antagonist Prescribed: No Contraindication/Reason for not providing: RENAL DYSFUNCTION Hydralazine Nitrate Prescribed: No Contraindication/Reason for not providing: RENAL DYSFUNCTION Implantable Cardioverter Defibrillator Therapy: Yes Cardiac Resynchronization Therapy Prescribed: No Contraindication/Reason for not providing: HAS PACEMAKER - Follow up Will be discharged to: [facility] Follow Up Date (must be within 7 days from discharge): 12/17/16 Follow Up Time: 09:00
--- NOTE | 2016-12-14 23:42 | CP.PCM.PN ---
Subjective - Date & Time of Evaluation Date of Evaluation: 12/14/16 Time of Evaluation: 15:00 - Subjective Subjective: Patient seen and evaluated No cardiac symptoms For discharge today Objective - Vital Signs/Intake and Output Vital Signs (last 24 hours): Temp Pulse Resp BP Pulse Ox 98.2 F 106 H 18 143/74 97 12/14/16 07:48 12/14/16 08:19 12/14/16 07:48 12/14/16 08:19 12/14/16 07:48 Intake and Output: 12/14/16 12/15/16 18:59 06:59 Intake Total 350 Output Total 400 Balance -50 - Labs Labs: 12/12/16 07:00 12/12/16 07:00 PT 14.2 SECONDS (9.7-12.2) H 11/24/16 07:15 INR 1.3 11/24/16 07:15 APTT 25 SECONDS (21-34) 11/18/16 18:25
--- NOTE | 2016-12-23 12:55 | CP.PCM.DIS ---
Provider - Provider Date of Admission: 11/18/16 19:53 86 y/o female w/ Cardiomyopathy, Dementia and Gen Debility/ DJD. Patient has minimal cough but feels very weak and short of breath. She went to ER and noted to be in CHF and pneumonia Attending physician: Pietro Arteaga MD Time Spent in preparation of Discharge (in minutes): 8 Hospital Course - Lab Results Lab Results: Micro Results 12/07/16 04:30 Blood-Venous Blood Culture - Final NO GROWTH AFTER 5 DAYS 12/07/16 04:30 Blood-Venous Gram Stain - Final TEST NOT PERFORMED 12/07/16 04:00 Blood-Venous Blood Culture - Final NO GROWTH AFTER 5 DAYS 12/07/16 04:00 Blood-Venous Gram Stain - Final TEST NOT PERFORMED 12/08/16 Unknown Naris MRSA Culture - Final MRSA NOT DETECTED 12/04/16 14:15 Blood-Venous Blood Culture - Final NO GROWTH AFTER 5 DAYS 12/04/16 14:15 Blood-Venous Gram Stain - Final TEST NOT PERFORMED 12/06/16 16:13 Naris MRSA Culture (Admit) - Final MRSA NOT DETECTED 12/04/16 14:00 Blood-Venous S.aureus & Coag-Neg Staph PNA FISH - Final TEST NOT PERFORMED 12/04/16 14:00 Blood-Venous Blood Culture - Final Streptococcus Viridans 12/04/16 14:00 Blood-Venous Gram Stain - Final 11/29/16 04:00 Blood-Venous Blood Culture - Final NO GROWTH AFTER 5 DAYS 11/29/16 04:00 Blood-Venous Gram Stain - Final TEST NOT PERFORMED 11/29/16 04:00 Blood-Venous S.aureus & Coag-Neg Staph PNA FISH - Final 11/29/16 04:00 Blood-Venous Blood Culture - Final Streptococcus Viridans 11/29/16 04:00 Blood-Venous Gram Stain - Final 11/23/16 16:30 Blood-Venous S.aureus & Coag-Neg Staph PNA FISH - Final 11/23/16 16:30 Blood-Venous Blood Culture - Final Streptococcus Viridans 11/23/16 16:30 Blood-Venous Gram Stain - Final 11/23/16 17:30 Blood-Venous Blood Culture - Final NO GROWTH AFTER 5 DAYS 11/23/16 17:30 Blood-Venous Gram Stain - Final TEST NOT PERFORMED 11/18/16 Unknown Urine,Clean Catch Urine Culture - Final No Growth (<1,000 CFU/ML) Most Recent Lab Values WBC 4.6 K/uL (4.8-10.8) L 12/12/16 07:00 RBC 3.39 Mil/uL (3.80-5.20) L 12/12/16 07:00 Hgb 8.8 g/dL (11.0-16.0) L 12/12/16 07:00 Hct 27.7 % (34.0-47.0) L 12/12/16 07:00 MCV 81.8 fL (81.0-99.0) 12/12/16 07:00 MCH 25.9 pg (27.0-31.0) L 12/12/16 07:00 MCHC 31.7 g/dL (33.0-37.0) L 12/12/16 07:00 RDW 15.6 % (11.5-14.5) H 12/12/16 07:00 Plt Count 134 K/uL (130-400) 12/12/16 07:00 MPV 7.9 fL (7.2-11.7) 12/12/16 07:00 Neut % (Auto) 68.5 % (50.0-75.0) 12/10/16 12:25 Lymph % (Auto) 16.6 % (20.0-40.0) L 12/10/16 12:25 [place] % (Auto) 11.2 % (0.0-10.0) H 12/10/16 12:25 Eos % (Auto) 2.6 % (0.0-4.0) 12/10/16 12:25 Baso % (Auto) 1.1 % (0.0-2.0) 12/10/16 12:25 Neut # 2.7 K/uL (1.8-7.0) 12/10/16 12:25 Lymph # 0.6 K/uL (1.0-4.3) L 12/10/16 12:25 [place] # 0.4 K/uL (0.0-0.8) 12/10/16 12:25 Eos # 0.1 K/uL (0.0-0.7) 12/10/16 12:25 Baso # 0.0 K/uL (0.0-0.2) 12/10/16 12:25 Neutrophils % (Manual) 89 % (50-75) H 11/27/16 13:15 Band Neutrophils % 1 % (0-2) 11/18/16 18:25 Lymphocytes % (Manual) 6 % (20-40) L 11/27/16 13:15 Monocytes % (Manual) 5 % (0-10) 11/27/16 13:15 Differential Comment 12/06/16 08:03 Toxic Granulation Present 11/27/16 13:15 Platelet Estimate Normal (NORMAL) 11/27/16 13:15 Large Platelets Present 11/27/16 13:15 Polychromasia Slight 11/27/16 13:15 Hypochromasia (manual) Slight 11/27/16 13:15 Anisocytosis (manual) Slight 11/27/16 13:15 Microcytosis (manual) Slight 11/18/16 18:25 Ovalocytes Slight 11/18/16 18:25 ESR 35 mm/hr (0-20) H 11/27/16 23:44 PT 14.2 SECONDS (9.7-12.2) H 11/24/16 07:15 INR 1.3 11/24/16 07:15 APTT 25 SECONDS (21-34) 11/18/16 18:25 Puncture Site Rr 11/20/16 19:33 pCO2 36 mm/Hg (35-45) 11/20/16 19:33 pO2 142 mm/Hg (80-100) H 11/20/16 19:33 HCO3 24.7 mmol/L (21-28) 11/20/16 19:33 ABG pH 7.43 (7.35-7.45) 11/20/16 19:33 ABG Total CO2 25.0 mmol/L (22-28) 11/20/16 19:33 ABG O2 Saturation 99.6 % (95-98) H 11/20/16 19:33 ABG Base Excess -0.3 mmol/L (-2.0-3.0) 11/20/16 19:33 ABG Hemoglobin 7.6 g/dL (11.7-17.4) L 11/20/16 19:33 ABG Carboxyhemoglobin 1.7 % (0.5-1.5) H 11/20/16 19:33 POC ABG HHb (Measured) 0.4 % (0.0-5.0) 11/20/16: ABG Methemoglobin 1.2 % (0.0-3.0) 11/20/16: Gadiel Test Unable 11/20/16 19: VBG pH 7.39 (7.32-7.43) 11/18/16 18: VBG pCO2 16 mmHg (40-60) L* 11/18/16 18: VBG HCO3 15.3 mmol/L 11/18/16 18:25 VBG Total CO2 10.2 mmol/L (22-28) L 11/18/16 18:25 VBG O2 Sat (Calc) 100.7 % (40-65) H 11/18/16 18: VBG Base Excess -12.4 mmol/L (0.0-2.0) L 11/18/16 18: VBG Potassium 1.9 mmol/L (3.6-5.2) L* 11/18/16 18: A-a O2 Difference 41.0 mm/Hg 11/20/16: Respiratory Index 0.3 11/20/16 19: Hgb O2 Saturation 96.6 % (95.0-98.0) 11/20/16 19: Sodium 154.0 mmol/l (132-148) H 11/18/16 18: Chloride 133.0 mmol/L (98-107) H 11/18/16 18: Glucose 57 mg/dl (65-105) L 11/18/16 18: Lactate 1.1 mmol/L (0.7-2.1) 11/18/16 18: Liter Flow 3.0 11/20/16 19: FiO2 32.0 % 11/20/16: Crit Value Called To 11/18/16 18: Crit Value Called By Latonya 11/18/16 18: Crit Value Read Back Y 11/18/16 18: Blood Gas Notified Time 18311/18/16 18:25 Sodium 133 mmol/L (132-148) 12/12/16 07:00 Potassium 4.4 mmol/L (3.6-5.2) 12/12/16 07:00 Chloride 100 mmol/L (98-107) 12/12/16 07:00 Carbon Dioxide 28 mmol/L (22-30) 12/12/16 07:00 Anion Gap 9 (10-20) L 12/12/16 07:00 BUN 5 mg/dL (7-17) L 12/12/16 07:00 Creatinine 0.6 MG/DL (0.7-1.2) L 12/12/16 07:00 Est GFR ( Amer) > 60 12/12/16 07:00 Est GFR (Non-Af Amer) > 60 12/12/16 07:00 POC Glucose (mg/dL) 74 mg/dL (65-110) 12/08/16 21:15 Random Glucose 82 mg/dL (65-105) 12/12/16 07:00 Calcium 8.6 mg/dl (8.6-10.4) 12/12/16 07:00 Phosphorus 2.8 mg/dL (2.5-4.5) 12/09/16 06:09 Magnesium 1.6 mg/dL (1.6-2.3) 12/09/16 06:09 Iron 77 ug/dL (37-170) 12/01/16 20:28 TIBC 183 ug/dL (250-450) L 12/01/16 20:28 % Saturation 42 (20-55) 12/01/16 20:28 Erythropoietin 36.3 mIU/mL (2.6-18.5) H 11/30/16 13:42 Ferritin 135.0 ng/mL 12/01/16 20:28 Total Bilirubin 0.5 mg/dL (0.2-1.3) 12/12/16 07:00 AST 28 U/L (14-36) 12/12/16 07:00 ALT 21 U/L (9-52) 12/12/16 07:00 Alkaline Phosphatase 52 U/L (38-126) 12/12/16 07:00 Ammonia < 9 umol/L (9-33) L 11/27/16 23:44 Total Creatine Kinase 26 U/L (30-135) L 11/18/16 18:25 CK-MB (Mass) 0.95 ng/mL (0.0-3.38) 11/18/16 18:25 Troponin I 0.0680 ng/mL (0.00-0.120) 11/18/16 18:25 C-React Prot High Sens > 15.00 mg/L (1.00-3.00) H 11/27/16 23:44 NT-Pro-B Natriuret Pep 72338 pg/mL (0-900) H 11/23/16 07:11 Total Protein 5.0 g/dL (6.3-8.3) L 12/12/16 07:00 Albumin 1.9 g/dL (3.5-5.0) L 12/12/16 07:00 Globulin 3.1 gm/dL (2.2-3.9) 12/12/16 07:00 Albumin/Globulin Ratio 0.6 (1.0-2.1) L 12/12/16 07:00 Lipase 35 U/L (23-300) 11/18/16 18:25 Carcinoembryonic Ag 2.7 ng/mL (0-3.0) 11/28/16 06:35 CA 19-9 Antigen 7.0 U/mL (0-37) 11/28/16 06:35 CA 125 Antigen 19.2 U/mL (0-35) 11/28/16 06:35 Vitamin B12 946 pg/mL (239-931) H 11/27/16 23:44 Vitamin K 306 pg/mL (80-1160) 12/02/16 11:27 Folate 17.4 ng/mL 11/27/16 23:44 Prolactin 16.6 ng/mL (3.0-18.9) 11/27/16 23:44 Venous Blood Potassium 1.9 mmol/L (3.6-5.2) L* 11/18/16 18:25 Urine Color Yellow (YELLOW) 11/18/16 18:31 Urine Clarity Clear (Clear) 11/18/16 18:31 Urine pH 5.0 (5.0-8.0) 11/18/16 18:31 Ur Specific [place] 1.018 (1.003-1.030) 11/18/16 18:31 Urine Protein Negative mg/dL (NEGATIVE) 11/18/16 18:31 Urine Glucose (UA) Normal mg/dL (Normal) 11/18/16 18:31 Urine Ketones Negative mg/dL (NEGATIVE) 11/18/16 18:31 Urine Blood Negative (NEGATIVE) 11/18/16 18:31 Urine Nitrate Negative (NEGATIVE) 11/18/16 18:31 Urine Bilirubin Negative (NEGATIVE) 11/18/16 18:31 Urine Urobilinogen Normal mg/dL (0.2-1.0) 11/18/16 18:31 Ur Leukocyte Esterase Neg Noy/uL (Negative) 11/18/16 18:31 Urine WBC (Auto) 2 /hpf (0-5) 11/18/16 18:31 Urine RBC (Auto) 3 /hpf (0-3) 11/18/16 18:31 Urine Bacteria Rare (<OCC) 11/18/16 18:31 Stool Occult Blood Positive (NEGATIVE) H 11/27/16 08:15 IgG 1900 mg/dL (694-1618) H 11/30/16 13:42 IgA 330 mg/dL (81-463) 11/30/16 13:42 IgM 129 mg/dL (48-271) 11/30/16 13:42 Serum Immunofixation See note (()) 11/30/16 13:42 Urine Immunofixation See note (()) 11/30/16 13:42 RPR Nonreactive (NONREACTIVE) 11/27/16 23:44 Blood Type O POSITIVE 12/08/16 12:15 Antibody Screen Negative 12/08/16 12:15 - Hospital Course Hospital Course: Pt admitted and treated for Pneumonia. 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 Work up showed anemia secondary to chronic disease and GI bleed. Patient had eventual surgery of a pulsatile polyps on the stomach. [facility]charge Exam - Head Exam Head Exam: ATRAUMATIC, NORMAL INSPECTION, NORMOCEPHALIC - Eye Exam Eye Exam: Normal appearance - ENT Exam ENT Exam: Mucous Membranes Moist - Neck Exam Neck exam: Full Rom - Cardiovascular Exam Cardiovascular Exam: +S1, +S2. absent: Gallop, REGULAR RHYTHM, JVD, Systolic Murmur - GI/Abdominal Exam GI & Abdominal Exam: Soft. absent: Guarding, Tenderness - Extremities Exam Extremities exam: full ROM, pedal edema, pedal pulses present - Back Exam Back exam: paraspinal tenderness. absent: rash noted, vertebral tenderness Discharge Plan - Follow Up Plan Condition: GUARDED Disposition: TRANSF TO SNF Instructions: Heart Failure (DC), Endocarditis (DC), Gastrectomy (DC), Pneumonia (DC) Referrals: Joon Swain MD [Staff Provider] -
== END 2016-12-14 15:05 | DRG 326 ==
LOC: C.ER 17:43 → C.9E 19:53 → C.6T 21:29 → C.9I 12-06 14:29 → C.6T 12-08 18:25
PROVIDERS: ADMIT Internal Medicine; ATTEND Internal Medicine
PROC: 30233N1 Transfusion of Nonautologous Red Blood Cells into Peripheral Vein, Percutaneous Approach (ICD-10-PCS; 2016-11-18)
PROC: 0DB68ZX Excision of Stomach, Via Natural or Artificial Opening Endoscopic, Diagnostic (ICD-10-PCS; 2016-11-29)
PROC: 0DJD8ZZ Inspection of Lower Intestinal Tract, Via Natural or Artificial Opening Endoscopic (ICD-10-PCS; 2016-11-30)
PROC: 0DJ08ZZ Inspection of Upper Intestinal Tract, Via Natural or Artificial Opening Endoscopic (ICD-10-PCS; 2016-12-03)
PROC: 0WQF0ZZ Repair Abdominal Wall, Open Approach (ICD-10-PCS; 2016-12-06)
PROC: 0DB60ZZ Excision of Stomach, Open Approach (ICD-10-PCS; principal; 2016-12-06 08:45)
DX: C7A.092 Malignant carcinoid tumor of the stomach (principal); A40.8 Other streptococcal sepsis; R65.20 Severe sepsis without septic shock; I33.0 Acute and subacute infective endocarditis; E43 Unspecified severe protein-calorie malnutrition; G93.41 Metabolic encephalopathy; J15.9 Unspecified bacterial pneumonia; B37.81 Candidal esophagitis; I42.1 Obstructive hypertrophic cardiomyopathy; J44.0 Chronic obstructive pulmonary disease with (acute) lower respiratory infection; K43.6 Other and unspecified ventral hernia with obstruction, without gangrene; L03.90 Cellulitis, unspecified; K51.511 Left sided colitis with rectal bleeding; K43.0 Incisional hernia with obstruction, without gangrene; I50.32 Chronic diastolic (congestive) heart failure; L89.159 Pressure ulcer of sacral region, unspecified stage; I11.0 Hypertensive heart disease with heart failure; I44.1 Atrioventricular block, second degree; K31.7 Polyp of stomach and duodenum; I48.91 Unspecified atrial fibrillation; D50.0 Iron deficiency anemia secondary to blood loss (chronic); E78.5 Hyperlipidemia, unspecified; F01.50 Vascular dementia, unspecified severity, without behavioral disturbance, psychotic disturbance, mood disturbance, and anxiety; K44.9 Diaphragmatic hernia without obstruction or gangrene; K64.8 Other hemorrhoids; D69.6 Thrombocytopenia, unspecified; E87.6 Hypokalemia; I27.2 Other secondary pulmonary hypertension; D63.8 Anemia in other chronic diseases classified elsewhere; B95.4 Other streptococcus as the cause of diseases classified elsewhere; Z66 Do not resuscitate; B96.81 Helicobacter pylori [H. pylori] as the cause of diseases classified elsewhere; K27.9 Peptic ulcer, site unspecified, unspecified as acute or chronic, without hemorrhage or perforation; I25.10 Atherosclerotic heart disease of native coronary artery without angina pectoris; K29.50 Unspecified chronic gastritis without bleeding; K66.0 Peritoneal adhesions (postprocedural) (postinfection); D3A.8 Other benign neuroendocrine tumors; Z95.0 Presence of cardiac pacemaker; Z87.11 Personal history of peptic ulcer disease; Z85.3 Personal history of malignant neoplasm of breast; Z79.2 Long term (current) use of antibiotics; Z87.01 Personal history of pneumonia (recurrent)

== ENCOUNTER 2017-03-22 20:03 | Inpatient (IN) | payer MEDICAID, MEDICARE ==
[2017-03-22 20:03] VITALS: BMI 23.0
[2017-03-22] MEDS: Sodium Chloride 0.9% 1,000 ML IV SCH (20:45)
--- NOTE | 2017-03-22 20:45 | C.PDOC ---
History Of Present Illness pt brought in by daughter for fever, and not feeling well. 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 History obtained from daughter only . Time Seen by Provider: 03/22/17 20:43 Chief Complaint (Nursing): Fever History Per: Family History/Exam Limitations: other Onset/Duration Of Symptoms: Hrs Current Symptoms Are (Timing): Still Present Location Of Pain: Other (lumbar) Sick Contacts (Context): None Associated Symptoms: Fever Severity: Moderate Pain Scale Rating Of: 4 Recent travel outside of the [place]: No Additional History Per: Family Past Medical History Reviewed: Historical Data, Nursing Documentation, Vital Signs Vital Signs: Last Vital Signs Temp 101.1 F H 03/22/17 20:20 Pulse 69 03/22/17 20:14 Resp 20 03/22/17 20:14 BP 142/52 L 03/22/17 20:14 Pulse Ox 99 03/22/17 21:49 - Medical History PMH: Anemia, Atrial Fibrillation (pacemaker), 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'), Dementia, Gastritis, HTN, Hypercholesterolemia, Hyperlipidemia Denies: Chronic Kidney Disease Surgical History: Cholecystectomy, Pacemaker - [facility] Procedures EXCISION OF STOMACH, ENDO, DIAGN (11/18/16) EXCISION OF STOMACH, OPEN APPROACH (11/18/16) INSERTION OF INTRALUM DEV INTO R VENTRICLE, PERC APPROACH (02/29/16) INSPECTION OF LOWER INTESTINAL TRACT, ENDO (11/18/16) INSPECTION OF UPPER INTESTINAL TRACT, ENDO (11/18/16) MEASURE CARDIAC SAMPL & PRESSURE, BILATERAL, PERC (02/29/16) PERFORMANCE OF CARDIAC PACING, CONTINUOUS (02/29/16) PLAIN RADIOGRAPHY OF MULT COR ART USING OTH CONTRAST (02/29/16) PLAIN RADIOGRAPHY OF RIGHT AND LEFT HEART USING OTH CONTRAST (02/29/16) REPAIR ABDOMINAL WALL, OPEN APPROACH (11/18/16) TRANSFUSE NONAUT RED BLOOD CELLS IN PERIPH VEIN, PERC (11/18/16) Family History: States: Unknown Family Hx - Social History Hx Alcohol Use: No Hx Substance Use: No - Immunization History Hx Tetanus Toxoid Vaccination: No Hx Influenza Vaccination: No Hx Pneumococcal Vaccination: No Review Of Systems Review Of Systems: ROS cannot be obtained secondary to pt's inabilty to answer questions. Physical Exam - Physical Exam Appears: Non-toxic Skin: Warm, Dry Head: Normacephalic Eye(s): bilateral: Normal Inspection Oral Mucosa: Moist Neck: Trachea Midline, Supple Chest: Symmetrical Cardiovascular: Rhythm Regular Respiratory: No Rales, Rhonchi (few at bases), No Wheezing Gastrointestinal/Abdominal: Soft, No Tenderness, No Distention Back: No CVA Tenderness, Vertebral Tenderness (approx L5), No Muscle Spasm Extremity: No Tenderness, No Pedal Edema Extremity: Bilateral: Atraumatic Neurological/Psych: Other (aaox2) Gait: Unable To Assess ED Course And Treatment - Laboratory Results Result Diagrams: 03/22/17 21:14 03/22/17 21:14 ECG: Interpreted By Me, Viewed By Me ECG Rhythm: Sinus Rhythm (68), R BBB, ST/T Changes, Nonspecific Changes (occ pvc 's) O2 Sat by Pulse Oximetry: 99 Pulse Ox Interpretation: Normal - Radiology CXR Interpretation: Yes: Other (top nl heart, pacer left, resolution of rll infiltrate seen on 12/10). No: Infiltrates, Fracture, Pnemothorax Disposition Discussed With Dr.: Alvarez Arteaga Comment: accepted the pt on his service and took over the care at 11:55PM Doctor Will See Patient In The: Hospital Counseled Patient/Family Regarding: Studies Performed, Diagnosis - Disposition Disposition: HOSPITALIZED Disposition Time: 20:45 Condition: FAIR - POA Present On Arrival: None, Falls Or Trauma - Clinical Impression Clinical Impression: Fever, UTI (urinary tract infection), Back pain Decision To Admit - Pt Status Changed To: Hospital Disposition Of: Inpatient - Admit Certification Admit to Inpatient:: After my assessment, the patient will require hospitalization for at least two midnights. This is because of the severity of symptoms shown, intensity of services needed, and/or the medical risk in this patient being treated as an outpatient. - InPatient: Physician Admission Certification:: After my assessment, the patient will require hospitalization for at least two midnights. This is because of the severity of symptoms shown, intensity of services needed, and/or the medical risk in this patient being treated as an outpatient. - . Bed Request Type: Regular Admitting Physician: Alvarez Arteaga Patient Diagnosis: Fever, UTI (urinary tract infection), Back pain
[2017-03-22 21:17] LABS: BASO % 0.6 % (0.0-2.0); EOS % 0.3 % (0.0-4.0); HEMATOCRIT 29.6 % (34.0-47.0); LYMPH # 0.9 K/uL (1.0-4.3); LYMPH % 10.5 % (20.0-40.0); MEAN CELL VOLUME 81.5 fL (81.0-99.0); MEAN CORPUSCULAR HEMOGLOBIN 25.8 pg (27.0-31.0); MEAN CORPUSCULAR HGB CONC 31.7 g/dL (33.0-37.0); MEAN PLATELET VOLUME 8.8 fL (7.2-11.7); MONO # 0.5 K/uL (0.0-0.8); MONO % 6.2 % (0.0-10.0); NRBC % 0.1 % (0.0-2.0); RED CELL DISTRIBUTION WIDTH 14.6 % (11.5-14.5); WHITE BLOOD COUNT 8.6 K/uL (4.8-10.8)
[2017-03-22 21:26] LABS: CHLORIDE 105 mmol/L (98-107); POTASSIUM 3.9 mmol/L (3.6-5.2); SODIUM 137 mmol/L (132-148)
[2017-03-22 21:28] LABS: BILIRUBIN,TOTAL 0.9 mg/dL (0.2-1.3); GFR AFRICAN-AMERICAN > 60
[2017-03-22 21:28] LABS: VENOUS BLOOD GAS BASE EXCESS -6.2 mmol/L (0.0-2.0); VENOUS BLOOD GAS PCO2 31 mmHg (40-60); VENOUS BLOOD PH 7.37 (7.32-7.43)
[2017-03-22 21:29] LABS: ALB/GLOB RATIO 0.7 (1.0-2.1); ALKALINE PHOSPHATASE 52 U/L (38-126); ALT/SGPT 19 U/L (9-52); AST/SGOT 21 U/L (14-36); BLOOD UREA NITROGEN 13 mg/dL (7-17); CARBON DIOXIDE 21 mmol/L (22-30); GLUCOSE,RANDOM 103 mg/dL (65-105); TOTAL PROTEIN 7.3 g/dL (6.3-8.3)
[2017-03-22 21:30] LABS: CALCIUM 9.1 mg/dl (8.6-10.4)
[2017-03-22 21:38] LABS: INR 1.6
[2017-03-22 23:37] LABS: RBC URINE 17 /hpf (0-3); TRANSITIONAL EPITHIAL 1 /hpf (0-3); URINE BACTERIA MOD (<OCC); URINE BILIRUBIN NEGATIVE (NEGATIVE); URINE BLOOD 1+ (NEGATIVE); URINE COLOR Yellow (YELLOW); URINE GLUCOSE (UA) NORMAL (Normal); URINE KETONE TRACE mg/dL (NEGATIVE); URINE LEUKOCYTE ESTERASE 3+ Leu/uL (Negative); URINE PROTEIN 1+ mg/dL (NEGATIVE); WBC URINE 136 /hpf (0-5)
[2017-03-22] MEDS ORDERED: Piperacillin/Tazobact 3.375 gm 100 ML IVPB STA (23:55)
--- NOTE | 2017-03-23 00:48 | CT ---
EXAM: CT Lumbar Spine Without Intravenous Contrast CLINICAL HISTORY: 86 years old, female; Pain; Low back pain; Patient HX: 10-22-16 x-ray; Additional info: Fall, pain TECHNIQUE: Axial computed tomography images of the lumbar spine without intravenous contrast. This CT exam was performed using one or more of the following dose reduction techniques: automated exposure control, adjustment of the mA and/or kV according to patient size, and/or use of iterative reconstruction technique. Coronal and sagittal reformatted images were created and reviewed. COMPARISON: CR - LS SPINE AP/LAT 10/12/2015 1:11:02 PM FINDINGS: Vertebrae: Extensive degenerative disease, with multiple Schmorl's nodes and endplate changes, most prominent at the levels of T11/T12 and T12/L1. Discs/spinal canal/neural foramina: Significant degenerative disease, with osteophyte formation, disc space narrowing, endplate changes and facet arthropathy. Soft tissues: Bilateral pleural effusions (left greater than right) with adjacent compressive atelectasis. Calcified atherosclerotic disease is also noted. IMPRESSION: Degenerative disease, without acute fracture. If symptoms persist, non-emergent imaging, preferably with MRI is suggested (if the patient is clinically able)
[2017-03-23] MEDS ORDERED: Oxycodone/Acetaminophen 5/325 mg Tab ONE (01:24)
[2017-03-23] MEDS: Piperacillin/Tazobact 3.375 GM in Sodium Chloride 100 ML IVPB SCH ×2 (06:30→13:11)
[2017-03-23] MEDS ORDERED: Oxycodone/Acetaminophen 5/325 mg Tab PO PRN (06:43)
[2017-03-23] MEDS: Sodium Chloride 0.9% 1,000 ML IV SCH ×2 (06:45→17:52)
[2017-03-23] MEDS ORDERED: Dextrose 5%/0.45% NS 1,000 ML IV SCH (06:45)
[2017-03-23] MEDS ORDERED: Piperacillin/Tazobact 3.375 gm 100 ML IVPB ONE (06:47)
--- NOTE | 2017-03-23 08:59 | CP.PCM.HP ---
History of Present Illness - History of Present Illness History of Present Illness: h/o from [place] (Daughter) CC: fever 86 y/o with Hypertrophic Cardiomyopathy s/p PM placement, Anemia, Deconditioning with Gait disorder. Patient has been having increasing confusion x days. Lately daughter noted no appetite, and fever. She was sent to ER and noted for UTI Present on Admission - Present on Admission Any Indicators Present on Admission: Yes History of DVT/PE: No History of Uncontrolled Diabetes: No Review of Systems - Review of Systems Systems not reviewed;Unavailable: Acuity of Condition - Constitutional Constitutional: Daytime Sleepiness, Weight Loss, Weakness - EENT Eyes: absent: Blurred Vision, Spots in Vision Ears: Dizziness. absent: Tinnitus, Disequilibrium Nose/Mouth/Throat: absent: Nasal Discharge, Bleeding Gums, Dysphagia, Hoarsness - Cardiovascular Cardiovascular: absent: Chest Pain, Diaphoresis, Dyspnea, Leg Edema, Leg Ulcers , Palpitations, Pedal Edema - Respiratory Respiratory: absent: Dyspnea on Exertion, Wheezing, Snoring, Chest Congestion, Excessive Mucous Production, Change in Mucous Color - Gastrointestinal Gastrointestinal: absent: Bloating, Coffee Ground Emesis, Dysphagia, Heartburn, Loose Stools, Nausea, Vomiting - Genitourinary Genitourinary: Freq UTI. absent: Difficulty Urinating, Dysuria, Urinary Urgency , Bladder Distension - Musculoskeletal Musculoskeletal: Abnormal Gait, Back Pain. absent: Atrophy, Loss of Height, Muscle Weakness, Myalgias Past Patient History - Infectious Disease Hx of Infectious Diseases: None - Past Medical History & Family History Past Medical History?: Yes - Past Social History Smoking Status: Never Smoked - CARDIAC Hx Atrial Fibrillation: Yes (pacemaker) Hx Congestive Heart Failure: Yes ('fluid in lungs and heart years ago') Hx Hypercholesterolemia: Yes Hx Hypertension: Yes Hx Pacemaker: Yes - PULMONARY Hx Respiratory Disorders: No - NEUROLOGICAL Hx Dementia: Yes - HEENT Hx HEENT Problems: Yes Hx Cataracts: Yes (Had surgery) Other/Comment: uses reading glasses - RENAL Hx Chronic Kidney Disease: No - ENDOCRINE/METABOLIC Hx Endocrine Disorders: No - HEMATOLOGICAL/ONCOLOGICAL Hx Anemia: Yes - INTEGUMENTARY Hx Dermatological Problems: No - MUSCULOSKELETAL/RHEUMATOLOGICAL Hx Musculoskeletal Disorders: Yes Hx Falls: Yes - GASTROINTESTINAL Hx Gastritis: Yes - GENITOURINARY/GYNECOLOGICAL Hx Genitourinary Disorders: No - PSYCHIATRIC Hx Substance Use: No - SURGICAL HISTORY Hx Cholecystectomy: Yes - ANESTHESIA Hx Anesthesia: Yes Hx Anesthesia Reactions: No Hx Malignant Hyperthermia: No Meds Allergies/Adverse Reactions: Allergies Allergy/AdvReac Type Severity Reaction Status Date / Time No Known Allergies Allergy Verified 11/18/16 17:47 Physical Exam - Constitutional Appears: No Acute Distress - Eye Exam Eye Exam: Normal appearance - ENT Exam ENT Exam: Mucous Membranes Moist - Neck Exam Neck exam: Positive for: Full Rom. Negative for: Lymphadenopathy, Meningismus - Respiratory Exam Respiratory Exam: Decreased Breath Sounds. absent: Rales, Rhonchi, Wheezes - Cardiovascular Exam Cardiovascular Exam: REGULAR RHYTHM, +S1, Systolic Murmur. absent: Gallop, JVD - GI/Abdominal Exam GI & Abdominal Exam: Soft. absent: Mass, Tenderness - Extremities Exam Extremities exam: Positive for: full ROM, normal capillary refill. Negative for : calf tenderness, joint swelling, pedal edema Results - Vital Signs Recent Vital Signs: Last Vital Signs Temp 98.5 F 03/23/17 07:34 Pulse 74 03/23/17 07:34 Resp 20 03/23/17 07:34 BP 154/58 H 03/23/17 07:34 Pulse Ox 98 03/23/17 07:34 - Labs Result Diagrams: 03/22/17 21:14 03/22/17 21:14 - EKG Data EKG Interpreted by: Myself Rate: Normal Assessment & Plan - Assessment and Plan (Free Text) Assessment: UTI w/ Confusion Dementia; Cardiomyopathy Anemia (despite FeS04 TID) ecall GI and Cardio Start Zoxsyb and ID eval Cont Lopressor
--- NOTE | 2017-03-23 10:04 | RAD ---
PROCEDURE: CHEST RADIOGRAPH, 1 VIEW HISTORY: Shortness of breath COMPARISON: 12/09/2016. FINDINGS: LUNGS: The right lung is clear. There is left retrocardiac opacity. PLEURA: Suspect left pleural effusion. No o pneumothorax or right pleural fluid seen. CARDIOVASCULAR: The heart is enlarged. There is stable position of left-sided transvenous permanent pacing device. OSSEOUS STRUCTURES: Stable deformity in the right proximal humerus. VISUALIZED UPPER ABDOMEN: Normal. OTHER FINDINGS: None. IMPRESSION: Suspect left lower lobe atelectasis/ pneumonia and small pleural effusion. Follow-up to resolution is advised.
--- NOTE | 2017-03-23 11:10 | CARD ---
APPROVED REPORT EKG Measurement Heart [id number] <Conclusion> Sinus rhythm with premature supraventricular complexes Left axis deviation Right bundle branch block Minimal voltage criteria for LVH, may be normal variant Lateral infarct, age undetermined Abnormal ECG
--- NOTE | 2017-03-23 18:54 | CP.PCM.CON ---
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 add zyvox pending ID of organism Past Patient History - Infectious Disease Hx of Infectious Diseases: None - Past Medical History & Family History Past Medical History?: Yes - Past Social History Smoking Status: Never Smoked - CARDIAC Hx Atrial Fibrillation: Yes (pacemaker) Hx Congestive Heart Failure: Yes ('fluid in lungs and heart years ago') Hx Hypercholesterolemia: Yes Hx Hypertension: Yes Hx Pacemaker: Yes - PULMONARY Hx Respiratory Disorders: No - NEUROLOGICAL Hx Dementia: Yes - HEENT Hx HEENT Problems: Yes Hx Cataracts: Yes (Had surgery) Other/Comment: uses reading glasses - RENAL Hx Chronic Kidney Disease: No - ENDOCRINE/METABOLIC Hx Endocrine Disorders: No - HEMATOLOGICAL/ONCOLOGICAL Hx Anemia: Yes - INTEGUMENTARY Hx Dermatological Problems: No - MUSCULOSKELETAL/RHEUMATOLOGICAL Hx Falls: Yes - GASTROINTESTINAL Hx Gastritis: Yes - GENITOURINARY/GYNECOLOGICAL Hx Genitourinary Disorders: No - PSYCHIATRIC Hx Substance Use: No - SURGICAL HISTORY Hx Cholecystectomy: Yes - ANESTHESIA Hx Anesthesia: Yes Hx Anesthesia Reactions: No Hx Malignant Hyperthermia: No Meds Allergies/Adverse Reactions: Allergies Allergy/AdvReac Type Severity Reaction Status Date / Time No Known Allergies Allergy Verified 11/18/16 17:47 - Medications Medications: Current Medications Acetaminophen (Tylenol 325mg Tab) 325 mg PO TID [facility] Last Admin: 03/23/17 18:03 Dose: 325 mg Apixaban (Eliquis) 2.5 mg PO BID [facility] Last Admin: 03/23/17 18:04 Dose: 2.5 mg Famotidine (Pepcid) 20 mg PO DAILY [facility] Last Admin: 03/23/17 10:34 Dose: 20 mg Sodium Chloride (Sodium Chloride 0.9%) 1,000 mls @ 100 mls/hr IV .Q10H [facility] Last Admin: 03/23/17 17:52 Dose: 100 mls/hr Piperacillin Sod/Tazobactam Sod (Zosyn 2.25 Gm Iv Premix) 2.25 gm in 50 mls @ 100 mls/hr IVPB Q6H [facility] Last Admin: 03/23/17 18:49 Dose: 100 mls/hr Lorazepam (Ativan) 0.5 mg PO Q8 [facility] Metoprolol Tartrate (Lopressor) 25 mg PO BID [facility] Last Admin: 03/23/17 18:02 Dose: 25 mg Results - Vital Signs Recent Vital Signs: Last Vital Signs Temp 97.4 F L 03/23/17 16:02 Pulse 71 03/23/17 18:04 Resp 20 03/23/17 18:04 BP 131/48 L 03/23/17 18:04 Pulse Ox 100 03/23/17 16:02 - Labs Result Diagrams: 03/22/17 21:14 03/22/17 21:14
[2017-03-23] MEDS ORDERED: Piperacill/Tazo 2.25gm in Dex 2.25 GM/50 ML BAG IVPB SCH (19:00)
[2017-03-23] MEDS: Linezolid 600 mg in D5W 300 ml 600 MG/300 ML BAG IVPB SCH (22:37)
--- NOTE | 2017-03-23 23:10 | CP.PCM.CON ---
Past Patient History - Infectious Disease Hx of Infectious Diseases: None - Past Medical History & Family History Past Medical History?: Yes - Past Social History Smoking Status: Never Smoked - CARDIAC Hx Atrial Fibrillation: Yes (pacemaker) Hx Congestive Heart Failure: Yes ('fluid in lungs and heart years ago') Hx Hypercholesterolemia: Yes Hx Hypertension: Yes Hx Pacemaker: Yes - PULMONARY Hx Respiratory Disorders: No - NEUROLOGICAL Hx Dementia: Yes - HEENT Hx HEENT Problems: Yes Hx Cataracts: Yes (Had surgery) Other/Comment: uses reading glasses - RENAL Hx Chronic Kidney Disease: No - ENDOCRINE/METABOLIC Hx Endocrine Disorders: No - HEMATOLOGICAL/ONCOLOGICAL Hx Anemia: Yes - INTEGUMENTARY Hx Dermatological Problems: No - MUSCULOSKELETAL/RHEUMATOLOGICAL Hx Falls: Yes - GASTROINTESTINAL Hx Gastritis: Yes - GENITOURINARY/GYNECOLOGICAL Hx Genitourinary Disorders: No - PSYCHIATRIC Hx Substance Use: No - SURGICAL HISTORY Hx Cholecystectomy: Yes - ANESTHESIA Hx Anesthesia: Yes Hx Anesthesia Reactions: No Hx Malignant Hyperthermia: No Meds Allergies/Adverse Reactions: Allergies Allergy/AdvReac Type Severity Reaction Status Date / Time No Known Allergies Allergy Verified 11/18/16 17:47 - Medications Medications: Current Medications Acetaminophen (Tylenol 325mg Tab) 325 mg PO TID [facility] Last Admin: 03/23/17 18:03 Dose: 325 mg Apixaban (Eliquis) 2.5 mg PO BID [facility] Last Admin: 03/23/17 18:04 Dose: 2.5 mg Famotidine (Pepcid) 20 mg PO DAILY [facility] Last Admin: 03/23/17 10:34 Dose: 20 mg Sodium Chloride (Sodium Chloride 0.9%) 1,000 mls @ 100 mls/hr IV .Q10H [facility] Last Admin: 03/23/17 17:52 Dose: 100 mls/hr Linezolid (Zyvox 600mg/300ml D5w) 600 mg in 300 mls @ 200 mls/hr IVPB Q12 [facility] Last Admin: 03/23/17 22:37 Dose: 200 mls/hr Cefazolin Sodium 500 mg/ (Sodium Chloride) 100 mls @ 100 mls/hr IVPB Q8H [facility] Last Admin: 03/23/17 21:00 Dose: 100 mls/hr Lorazepam (Ativan) 0.5 mg PO Q8 [facility] Last Admin: 03/23/17 22:39 Dose: Not Given Metoprolol Tartrate (Lopressor) 25 mg PO BID [facility] Last Admin: 03/23/17 18:02 Dose: 25 mg Results - Vital Signs Recent Vital Signs: Last Vital Signs Temp 97.7 F 03/23/17 20:35 Pulse 63 03/23/17 20:35 Resp 20 03/23/17 20:35 BP 145/64 03/23/17 20:35 Pulse Ox 100 03/23/17 20:35 - Labs Result Diagrams: 03/22/17 21:14 03/22/17 21:14
[2017-03-24] MEDS: Sodium Chloride 0.9% 1,000 ML IV SCH ×2 (02:45→13:30)
--- NOTE | 2017-03-24 08:46 | CP.PCM.PN ---
Subjective - Date & Time of Evaluation Date of Evaluation: 03/24/17 Time of Evaluation: 08:21 - Subjective Subjective: Pt awake but confuse; No cough, still states abdominal pain No cough, no n/v; Blood C/S (+) gram (+) in chain; Had Strep viridans in November 2016 Objective - Vital Signs/Intake and Output Vital Signs (last 24 hours): Temp Pulse Resp BP Pulse Ox 97.6 F 62 20 156/76 H 98 03/24/17 06:00 03/24/17 00:00 03/24/17 00:00 03/24/17 00:00 03/24/17 06:00 Intake and Output: 03/24/17 03/24/17 06:59 18:59 Intake Total 1200 Balance 1200 - Medications Medications: Current Medications Acetaminophen (Tylenol 325mg Tab) 325 mg PO TID [facility] Last Admin: 03/23/17 18:03 Dose: 325 mg Apixaban (Eliquis) 2.5 mg PO BID [facility] Last Admin: 03/23/17 18:04 Dose: 2.5 mg Famotidine (Pepcid) 20 mg IVP Q12 [facility] Sodium Chloride (Sodium Chloride 0.9%) 1,000 mls @ 100 mls/hr IV .Q10H [facility] Last Admin: 03/24/17 02:45 Dose: Not Given Linezolid (Zyvox 600mg/300ml D5w) 600 mg in 300 mls @ 200 mls/hr IVPB Q12 [facility] Last Admin: 03/23/17 22:37 Dose: 200 mls/hr Lorazepam (Ativan) 0.5 mg PO Q8 [facility] Last Admin: 03/24/17 05:15 Dose: 0.5 mg Metoprolol Tartrate (Lopressor) 25 mg PO BID [facility] Last Admin: 03/23/17 18:02 Dose: 25 mg Pneumococcal Polyvalent Vaccine (Pneumovax 23 Vaccine) 0.5 ml IM .ONCE ONE Stop: 03/24/17 10:01 - Labs Labs: PT 18.3 SECONDS (9.7-12.2) H 03/22/17 21:14 INR 1.6 03/22/17 21:14 APTT 31 SECONDS (21-34) 03/22/17 21:14 - Constitutional Appears: No Acute Distress - Eye Exam Eye Exam: Normal appearance - ENT Exam ENT Exam: Mucous Membranes Moist - Neck Exam Neck Exam: Full ROM. absent: Lymphadenopathy, Thyromegaly - Respiratory Exam Respiratory Exam: Rhonchi. absent: Decreased Breath Sounds, Rales, Wheezes - Cardiovascular Exam Cardiovascular Exam: REGULAR RHYTHM, +S1, +S2, Murmur. absent: Gallop, JVD - GI/Abdominal Exam GI & Abdominal Exam: Soft, Tenderness. absent: Mass - Extremities Exam Extremities Exam: Full ROM. 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
[2017-03-24] MEDS ORDERED: Pneumococcal 23-Valent Vaccine IM ONE (10:00)
[2017-03-24] MEDS: Linezolid 600 mg in D5W 300 ml 600 MG/300 ML BAG IVPB SCH ×2 (11:00→21:29)
[2017-03-24] MEDS ORDERED: Phytonadione 10 mg/ml Inj (Adult) SC ONE (11:30)
[2017-03-24] MEDS: Phytonadione 10 mg/ml Inj (Adult) SC STA ×2 (11:48→11:49)
[2017-03-24 12:06] LABS: BASO # 0.1 K/uL (0.0-0.2); BASO % 0.8 % (0.0-2.0); EOS # 0.7 K/uL (0.0-0.7); EOS % 9.4 % (0.0-4.0); LYMPH # 1.2 K/uL (1.0-4.3); LYMPH % 17.7 % (20.0-40.0); MEAN CELL VOLUME 82.2 fL (81.0-99.0); MEAN CORPUSCULAR HEMOGLOBIN 25.4 pg (27.0-31.0); MEAN CORPUSCULAR HGB CONC 30.9 g/dL (33.0-37.0); MEAN PLATELET VOLUME 8.8 fL (7.2-11.7); MONO # 0.6 K/uL (0.0-0.8); MONO % 8.2 % (0.0-10.0)
[2017-03-24 12:20] LABS: CHLORIDE 112 mmol/L (98-107); POTASSIUM 3.6 mmol/L (3.6-5.2); SODIUM 141 mmol/L (132-148)
[2017-03-24 12:22] LABS: ALB/GLOB RATIO 0.7 (1.0-2.1); AST/SGOT 18 U/L (14-36); BILIRUBIN,TOTAL 0.7 mg/dL (0.2-1.3); CARBON DIOXIDE 20 mmol/L (22-30); GFR AFRICAN-AMERICAN > 60; TOTAL PROTEIN 6.4 g/dL (6.3-8.3)
[2017-03-24 12:23] LABS: ALKALINE PHOSPHATASE 49 U/L (38-126); ALT/SGPT 13 U/L (9-52); BLOOD UREA NITROGEN 7 mg/dL (7-17); GLUCOSE,RANDOM 84 mg/dL (65-105)
[2017-03-24 12:53] LABS: CARCINOEMBRYONIC ANTIGEN 3.1 ng/mL (0-3.0)
[2017-03-24 12:56] LABS: CA 19-9 8.7 U/mL (0-37)
--- NOTE | 2017-03-24 19:30 | CP.PCM.PN ---
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 in November rx as endocarditis add zyvox pending ID of organism Objective - Vital Signs/Intake and Output Vital Signs (last 24 hours): Temp Pulse Resp BP Pulse Ox 98.2 F 61 20 112/69 100 03/24/17 17:35 03/24/17 08:52 03/24/17 08:52 03/24/17 17:34 03/24/17 08:52 Intake and Output: 03/24/17 03/25/17 18:59 06:59 Intake Total 1300 Balance 1300 - Medications Medications: Current Medications Acetaminophen (Tylenol 325mg Tab) 325 mg PO TID [facility] Last Admin: 03/24/17 17:35 Dose: 325 mg Apixaban (Eliquis) 2.5 mg PO BID [facility] Last Admin: 03/24/17 11:22 Dose: Not Given Famotidine (Pepcid) 20 mg IVP DAILY [facility] Last Admin: 03/24/17 11:01 Dose: 20 mg Sodium Chloride (Sodium Chloride 0.9%) 1,000 mls @ 100 mls/hr IV .Q10H [facility] Last Admin: 03/24/17 13:30 Dose: 100 mls/hr Linezolid (Zyvox 600mg/300ml D5w) 600 mg in 300 mls @ 200 mls/hr IVPB Q12 [facility] Last Admin: 03/24/17 11:00 Dose: 200 mls/hr Lorazepam (Ativan) 0.5 mg PO Q8 [facility] Last Admin: 03/24/17 13:32 Dose: Not Given Metoprolol Tartrate (Lopressor) 25 mg PO BID [facility] Last Admin: 03/24/17 17:34 Dose: 25 mg - Labs Labs: 03/24/17 11:55 03/24/17 11:55 PT 18.3 SECONDS (9.7-12.2) H 03/22/17 21:14 INR 1.6 03/22/17 21:14 APTT 31 SECONDS (21-34) 03/22/17 21:14 - Constitutional Appears: Non-toxic, Cachectic, Chronically Ill - Head Exam Head Exam: NORMOCEPHALIC - Eye Exam Eye Exam: PERRL. absent: Scleral icterus - ENT Exam ENT Exam: Mucous Membranes Dry - Neck Exam Neck Exam: absent: Lymphadenopathy - Respiratory Exam Respiratory Exam: Decreased Breath Sounds, Clear to Ausculation Bilateral - Cardiovascular Exam Cardiovascular Exam: REGULAR RHYTHM - GI/Abdominal Exam GI & Abdominal Exam: Distended Assessment and Plan - Assessment and Plan (Free Text) Plan: r/o endocarditis iv rx ordered
--- NOTE | 2017-03-25 08:09 | CP.PCM.PN ---
Subjective - Date & Time of Evaluation Date of Evaluation: 03/25/17 Time of Evaluation: 08:01 - Subjective Subjective: Pt awake; no complain No CP, no SOB, no cough, no diarrhea, no n/v. (+) fair appetite Objective - Vital Signs/Intake and Output Vital Signs (last 24 hours): Temp Pulse Resp BP Pulse Ox 97.7 F 67 20 154/66 H 98 03/25/17 07:46 03/25/17 07:46 03/25/17 07:46 03/25/17 07:46 03/25/17 07:46 Intake and Output: 03/25/17 03/25/17 06:59 18:59 Intake Total 900 Balance 900 - Medications Medications: Current Medications Acetaminophen (Tylenol 325mg Tab) 325 mg PO TID [facility] Last Admin: 03/24/17 17:35 Dose: 325 mg Apixaban (Eliquis) 2.5 mg PO BID [facility] Last Admin: 03/24/17 11:22 Dose: Not Given Famotidine (Pepcid) 20 mg IVP DAILY [facility] Last Admin: 03/24/17 11:01 Dose: 20 mg Sodium Chloride (Sodium Chloride 0.9%) 1,000 mls @ 100 mls/hr IV .Q10H [facility] Last Admin: 03/25/17 00:00 Dose: 100 mls/hr Linezolid (Zyvox 600mg/300ml D5w) 600 mg in 300 mls @ 200 mls/hr IVPB Q12 [facility] Last Admin: 03/24/17 21:29 Dose: 200 mls/hr Lorazepam (Ativan) 0.5 mg PO Q8 [facility] Last Admin: 03/25/17 05:45 Dose: Not Given Metoprolol Tartrate (Lopressor) 25 mg PO BID [facility] Last Admin: 03/24/17 17:34 Dose: 25 mg - Labs Labs: 03/24/17 11:55 03/24/17 11:55 PT 18.3 SECONDS (9.7-12.2) H 03/22/17 21:14 INR 1.6 03/22/17 21:14 APTT 31 SECONDS (21-34) 03/22/17 21:14 Assessment and Plan - Assessment and Plan (Free Text) Assessment: 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
[2017-03-25] MEDS: Sodium Chloride 0.9% 1,000 ML IV SCH ×3 (10:02→13:19)
[2017-03-25] MEDS ORDERED: Propofol 10 mg/ml Inj (20 ML) ONE (10:50)
[2017-03-25] MEDS ORDERED: Etomidate 20 mg/10ml Inj IV ONE (10:51)
[2017-03-25] MEDS: Linezolid 600 mg in D5W 300 ml 600 MG/300 ML BAG IVPB SCH ×2 (13:20→21:31)
--- NOTE | 2017-03-25 16:52 | CP.PCM.PN ---
Subjective - Date & Time of Evaluation Date of Evaluation: 03/25/17 Time of Evaluation: 08:00 - Subjective Subjective: improving blood cultures positive may need calli Objective - Vital Signs/Intake and Output Vital Signs (last 24 hours): Temp Pulse Resp BP Pulse Ox 97.1 F L 70 14 140/65 100 03/25/17 11:05 03/25/17 11:35 03/25/17 11:35 03/25/17 11:35 03/25/17 11:35 Intake and Output: 03/25/17 03/25/17 06:59 18:59 Intake Total 900 1150 Balance 900 1150 - Medications Medications: Current Medications Acetaminophen (Tylenol 325mg Tab) 325 mg PO TID [facility] Last Admin: 03/25/17 13:19 Dose: 325 mg Apixaban (Eliquis) 2.5 mg PO BID [facility] Last Admin: 03/24/17 11:22 Dose: Not Given Famotidine (Pepcid) 20 mg IVP DAILY [facility] Last Admin: 03/25/17 10:02 Dose: Not Given Ferrous Sulfate (Feosol) 325 mg PO DAILY [facility] Last Admin: 03/25/17 13:28 Dose: 325 mg Sodium Chloride (Sodium Chloride 0.9%) 1,000 mls @ 100 mls/hr IV .Q10H [facility] Last Admin: 03/25/17 13:19 Dose: 100 mls/hr Linezolid (Zyvox 600mg/300ml D5w) 600 mg in 300 mls @ 200 mls/hr IVPB Q12 [facility] Last Admin: 03/25/17 13:20 Dose: 200 mls/hr Lorazepam (Ativan) 0.5 mg PO Q8 [facility] Last Admin: 03/25/17 13:19 Dose: 0.5 mg Metoprolol Tartrate (Lopressor) 25 mg PO BID [facility] Last Admin: 03/25/17 10:01 Dose: 25 mg - Labs Labs: 03/24/17 11:55 03/24/17 11:55 PT 18.3 SECONDS (9.7-12.2) H 03/22/17 21:14 INR 1.6 03/22/17 21:14 APTT 31 SECONDS (21-34) 03/22/17 21:14 - Constitutional Appears: Non-toxic, Cachectic, Chronically Ill - Head Exam Head Exam: NORMOCEPHALIC - Eye Exam Eye Exam: PERRL. absent: Scleral icterus - ENT Exam ENT Exam: Mucous Membranes Dry, Normal External Ear Exam - Neck Exam Neck Exam: absent: Lymphadenopathy - Respiratory Exam Respiratory Exam: Decreased Breath Sounds, Clear to Ausculation Bilateral - Cardiovascular Exam Cardiovascular Exam: REGULAR RHYTHM - GI/Abdominal Exam GI & Abdominal Exam: Distended, Soft. absent: Tenderness Assessment and Plan (1) Bacteremia Status: Acute (2) Bacteremia Status: Acute (3) Fever Status: Acute - Assessment and Plan (Free Text) Plan: needs calli
[2017-03-25 16:54] VITALS: RESP 20
--- NOTE | 2017-03-25 23:10 | CP.PCM.PN ---
Subjective - Date & Time of Evaluation Date of Evaluation: 03/24/17 Time of Evaluation: 18:05 - Subjective Subjective: Patient seen and evaluated Offers no complaints Being treated for UTI Objective - Vital Signs/Intake and Output Vital Signs (last 24 hours): Temp Pulse Resp BP Pulse Ox 97.5 F L 62 20 114/61 99 03/25/17 15:15 03/25/17 15:15 03/25/17 15:15 03/25/17 17:19 03/25/17 15:15 Intake and Output: 03/25/17 03/26/17 18:59 06:59 Intake Total 1150 750 Balance 1150 750 - Medications Medications: Current Medications Acetaminophen (Tylenol 325mg Tab) 325 mg PO TID [facility] Last Admin: 03/25/17 17:21 Dose: 325 mg Apixaban (Eliquis) 2.5 mg PO BID [facility] Last Admin: 03/24/17 11:22 Dose: Not Given Famotidine (Pepcid) 20 mg IVP DAILY [facility] Last Admin: 03/25/17 10:02 Dose: Not Given Ferrous Sulfate (Feosol) 325 mg PO DAILY [facility] Last Admin: 03/25/17 13:28 Dose: 325 mg Linezolid (Zyvox 600mg/300ml D5w) 600 mg in 300 mls @ 200 mls/hr IVPB Q12 [facility] Last Admin: 03/25/17 21:31 Dose: 200 mls/hr Lorazepam (Ativan) 0.5 mg PO Q8 [facility] Last Admin: 03/25/17 21:31 Dose: 0.5 mg Metoprolol Tartrate (Lopressor) 25 mg PO BID [facility] Last Admin: 03/25/17 17:19 Dose: 25 mg - Labs Labs: 03/24/17 11:55 03/24/17 11:55 PT 18.3 SECONDS (9.7-12.2) H 03/22/17 21:14 INR 1.6 03/22/17 21:14 APTT 31 SECONDS (21-34) 03/22/17 21:14
--- NOTE | 2017-03-25 23:12 | CP.PCM.PN ---
Subjective - Date & Time of Evaluation Date of Evaluation: 03/25/17 Time of Evaluation: 19:15 - Subjective Subjective: Patient seen and evaluated Bacteremia AMNA requested by Dr. Brynn Devries AMNA Tuesday Objective - Vital Signs/Intake and Output Vital Signs (last 24 hours): Temp Pulse Resp BP Pulse Ox 97.5 F L 62 20 114/61 99 03/25/17 15:15 03/25/17 15:15 03/25/17 15:15 03/25/17 17:19 03/25/17 15:15 Intake and Output: 03/25/17 03/26/17 18:59 06:59 Intake Total 1150 750 Balance 1150 750 - Medications Medications: Current Medications Acetaminophen (Tylenol 325mg Tab) 325 mg PO TID [facility] Last Admin: 03/25/17 17:21 Dose: 325 mg Apixaban (Eliquis) 2.5 mg PO BID [facility] Last Admin: 03/24/17 11:22 Dose: Not Given Famotidine (Pepcid) 20 mg IVP DAILY [facility] Last Admin: 03/25/17 10:02 Dose: Not Given Ferrous Sulfate (Feosol) 325 mg PO DAILY [facility] Last Admin: 03/25/17 13:28 Dose: 325 mg Linezolid (Zyvox 600mg/300ml D5w) 600 mg in 300 mls @ 200 mls/hr IVPB Q12 [facility] Last Admin: 03/25/17 21:31 Dose: 200 mls/hr Lorazepam (Ativan) 0.5 mg PO Q8 [facility] Last Admin: 03/25/17 21:31 Dose: 0.5 mg Metoprolol Tartrate (Lopressor) 25 mg PO BID [facility] Last Admin: 03/25/17 17:19 Dose: 25 mg - Labs Labs: 03/24/17 11:55 03/24/17 11:55 PT 18.3 SECONDS (9.7-12.2) H 03/22/17 21:14 INR 1.6 03/22/17 21:14 APTT 31 SECONDS (21-34) 03/22/17 21:14
[2017-03-26] MEDS: Sodium Chloride 0.9% 1,000 ML IV SCH ×2 (01:34→22:40)
--- NOTE | 2017-03-26 08:17 | CP.PCM.PN ---
Subjective - Date & Time of Evaluation Date of Evaluation: 03/26/17 Time of Evaluation: 08:00 - Subjective Subjective: Pt no complain; low back pain not hurting now No CP, no SOB, no cough; still dec appetite No diarrhea Objective - Vital Signs/Intake and Output Vital Signs (last 24 hours): Temp Pulse Resp BP Pulse Ox 97.5 F L 62 20 121/65 100 03/26/17 00:00 03/26/17 00:00 03/26/17 00:00 03/26/17 00:00 03/26/17 00:00 Intake and Output: 03/26/17 03/26/17 06:59 18:59 Intake Total 750 900 Balance 750 900 - Medications Medications: Current Medications Acetaminophen (Tylenol 325mg Tab) 325 mg PO TID [facility] Last Admin: 03/25/17 17:21 Dose: 325 mg Apixaban (Eliquis) 2.5 mg PO BID [facility] Last Admin: 03/24/17 11:22 Dose: Not Given Famotidine (Pepcid) 20 mg IVP DAILY [facility] Last Admin: 03/25/17 10:02 Dose: Not Given Ferrous Sulfate (Feosol) 325 mg PO DAILY [facility] Last Admin: 03/25/17 13:28 Dose: 325 mg Linezolid (Zyvox 600mg/300ml D5w) 600 mg in 300 mls @ 200 mls/hr IVPB Q12 [facility] Last Admin: 03/25/17 21:31 Dose: 200 mls/hr Lorazepam (Ativan) 0.5 mg PO Q8 [facility] Last Admin: 03/26/17 05:30 Dose: 0.5 mg Metoprolol Tartrate (Lopressor) 25 mg PO BID [facility] Last Admin: 03/25/17 17:19 Dose: 25 mg - Labs Labs: 03/24/17 11:55 03/24/17 11:55 PT 18.3 SECONDS (9.7-12.2) H 03/22/17 21:14 INR 1.6 03/22/17 21:14 APTT 31 SECONDS (21-34) 03/22/17 21:14 - Constitutional Appears: No Acute Distress - Eye Exam Eye Exam: Normal appearance - ENT Exam ENT Exam: Mucous Membranes Dry. absent: Mucous Membranes Moist - Neck Exam Neck Exam: Full ROM. absent: Lymphadenopathy, Tenderness - Respiratory Exam Respiratory Exam: Clear to Ausculation Bilateral. absent: Rales, Rhonchi, Wheezes - Cardiovascular Exam Cardiovascular Exam: +S1, +S2, Murmur. absent: Gallop, JVD - GI/Abdominal Exam GI & Abdominal Exam: Soft. absent: Tenderness, Mass - Extremities Exam Extremities Exam: Full ROM, Normal Capillary Refill. absent: Joint Swelling, Pedal Edema, Tenderness Assessment and Plan - Assessment and Plan (Free Text) Assessment: Endocartitis; cardio-myopathy General debility Cont meds AMNA on tuesday
[2017-03-26] MEDS: Linezolid 600 mg in D5W 300 ml 600 MG/300 ML BAG IVPB SCH ×2 (10:33→22:41)
[2017-03-27] MEDS: Linezolid 600 mg in D5W 300 ml 600 MG/300 ML BAG IVPB SCH (10:21)
--- NOTE | 2017-03-27 12:35 | CP.PCM.PN ---
Subjective - Date & Time of Evaluation Date of Evaluation: 03/27/17 Time of Evaluation: 12:32 - Subjective Subjective: S: Awake. feels silviano. No SOB, chestpain, fever. Objective - Vital Signs/Intake and Output Vital Signs (last 24 hours): Temp Pulse Resp BP Pulse Ox 98.5 F 65 20 127/65 100 03/27/17 08:45 03/27/17 08:45 03/27/17 08:45 03/27/17 10:17 03/27/17 08:45 Intake and Output: 03/27/17 03/27/17 06:59 18:59 Intake Total 860 Balance 860 - Medications Medications: Current Medications Acetaminophen (Tylenol 325mg Tab) 325 mg PO TID [facility] Last Admin: 03/27/17 10:21 Dose: 325 mg Apixaban (Eliquis) 2.5 mg PO BID [facility] Last Admin: 03/24/17 11:22 Dose: Not Given Famotidine (Pepcid) 20 mg IVP DAILY [facility] Last Admin: 03/27/17 10:21 Dose: 20 mg Ferrous Sulfate (Feosol) 325 mg PO DAILY [facility] Last Admin: 03/27/17 10:17 Dose: 325 mg Linezolid (Zyvox 600mg/300ml D5w) 600 mg in 300 mls @ 200 mls/hr IVPB Q12 [facility] Last Admin: 03/27/17 10:21 Dose: 200 mls/hr Lorazepam (Ativan) 0.5 mg PO Q8 [facility] Last Admin: 03/27/17 05:23 Dose: 0.5 mg Metoprolol Tartrate (Lopressor) 25 mg PO BID [facility] Last Admin: 03/27/17 10:17 Dose: 25 mg - Labs Labs: 03/24/17 11:55 03/24/17 11:55 PT 18.3 SECONDS (9.7-12.2) H 03/22/17 21:14 INR 1.6 03/22/17 21:14 APTT 31 SECONDS (21-34) 03/22/17 21:14 - Constitutional Appears: Chronically Ill - Head Exam Head Exam: NORMAL INSPECTION - Eye Exam Eye Exam: Normal appearance - ENT Exam ENT Exam: Normal Exam - Neck Exam Neck Exam: Normal Inspection - Respiratory Exam Respiratory Exam: NORMAL BREATHING PATTERN - Cardiovascular Exam Cardiovascular Exam: REGULAR RHYTHM, Murmur - GI/Abdominal Exam GI & Abdominal Exam: Soft - Extremities Exam Extremities Exam: Normal Inspection - Neurological Exam Neurological Exam: Alert Assessment and Plan (1) Bacteremia Assessment & Plan: Plans; Continue antibiotic. Appreciate Dr. jeffery notes Status: Acute (2) Cardiomyopathy Status: Chronic (3) Anemia Status: Chronic - Assessment and Plan (Free Text) Plan: Plans. Continue medications
--- NOTE | 2017-03-27 14:58 | CP.PCM.PN ---
Subjective - Date & Time of Evaluation Date of Evaluation: 03/27/17 Time of Evaluation: 10:00 - Subjective Subjective: awake alert confused blood c/s + strep for AMNA will likely need 6 weeks iv rx Objective - Vital Signs/Intake and Output Vital Signs (last 24 hours): Temp Pulse Resp BP Pulse Ox 98.5 F 65 20 127/65 100 03/27/17 08:45 03/27/17 08:45 03/27/17 08:45 03/27/17 10:17 03/27/17 08:45 Intake and Output: 03/27/17 03/27/17 06:59 18:59 Intake Total 860 1250 Balance 860 1250 - Medications Medications: Current Medications Acetaminophen (Tylenol 325mg Tab) 325 mg PO TID [facility] Last Admin: 03/27/17 13:10 Dose: 325 mg Apixaban (Eliquis) 2.5 mg PO BID [facility] Last Admin: 03/24/17 11:22 Dose: Not Given Famotidine (Pepcid) 20 mg IVP DAILY [facility] Last Admin: 03/27/17 10:21 Dose: 20 mg Ferrous Sulfate (Feosol) 325 mg PO DAILY [facility] Last Admin: 03/27/17 10:17 Dose: 325 mg Linezolid (Zyvox 600mg/300ml D5w) 600 mg in 300 mls @ 200 mls/hr IVPB Q12 [facility] Last Admin: 03/27/17 10:21 Dose: 200 mls/hr Lorazepam (Ativan) 0.5 mg PO Q8 [facility] Last Admin: 03/27/17 13:09 Dose: 0.5 mg Metoprolol Tartrate (Lopressor) 25 mg PO BID [facility] Last Admin: 03/27/17 10:17 Dose: 25 mg - Labs Labs: 03/24/17 11:55 03/24/17 11:55 PT 18.3 SECONDS (9.7-12.2) H 03/22/17 21:14 INR 1.6 03/22/17 21:14 APTT 31 SECONDS (21-34) 03/22/17 21:14 - Constitutional Appears: Non-toxic, Cachectic, Chronically Ill - Head Exam Head Exam: NORMOCEPHALIC - Eye Exam Eye Exam: PERRL. absent: Scleral icterus - ENT Exam ENT Exam: Mucous Membranes Dry, Normal External Ear Exam - Neck Exam Neck Exam: absent: Lymphadenopathy - Respiratory Exam Respiratory Exam: Decreased Breath Sounds, Clear to Ausculation Bilateral - Cardiovascular Exam Cardiovascular Exam: REGULAR RHYTHM, +S1, +S2 - GI/Abdominal Exam GI & Abdominal Exam: Distended, Soft. absent: Tenderness - Rectal Exam Rectal Exam: Deferred - Exam Exam: NORMAL INSPECTION - Extremities Exam Extremities Exam: absent: Calf Tenderness, Pedal Edema - Back Exam Back Exam: absent: CVA tenderness (L), CVA tenderness (R) Assessment and Plan (1) Bacteremia Status: Acute (2) Bacteremia Status: Acute (3) Fever Status: Acute - Assessment and Plan (Free Text) Assessment: sepsis/ recurrent bacteremia joseley endocarditis
[2017-03-27] MEDS ORDERED: cefTRIAXone IV 1 gm in Dextros 1 GM in Dextrose 5% In Water 50 ML IVPB SCH (15:00)
[2017-03-27] MEDS ORDERED: Penicillin G 5 Million Unit Vial IVPB SCH (15:15)
[2017-03-27] MEDS: Vancomycin 1 gm/NS 200 ml 1 GM/200 ML BAG IVPB SCH (18:14)
[2017-03-28] MEDS: Vancomycin 1 gm/NS 200 ml 1 GM/200 ML BAG IVPB SCH ×2 (04:33→17:25)
--- NOTE | 2017-03-28 05:15 | CARD ---
APPROVED REPORT EXAM: Two-dimensional and M-mode echocardiogram with Doppler and color Doppler. Other Information Quality : GoodRhythm : INDICATION Infection:Rule out subacute bacterial endocarditis Chest Pain Congestive Heart Failure HYPERTROPHIC CARDIOMYOPATHY,FEVER M-Mode DIMENSIONS RVDd0.97 (2.1-3.2cm)Left Atrium (MM)5.02 (2.5-4.0cm) IVSd1.42 (0.7-1.1cm)Aortic Root2.99 (2.2-3.7cm) LVDd4.06 (4.0-5.6cm)Aortic Cusp Exc.1.44 (1.5-2.0cm) PWd1.32 (0.7-1.1cm)FS (%) 38 % LVDs2.53 (2.0-3.8cm)LVEF (%)68 (>50%) Mitral Valve MV E Nnogivvf036.3cm/sMV A Tyzfqsfk453.3cm/sE/A ratio1.1 TDI E/Lateral E'0.0E/Medial E'0.0 Tricuspid Valve TR Peak [id number]/sTR Peak [id number] <Conclusion> Left ventricle: thickness: concentric hypertrophy; mild systolic anterior motion of the anterior mitral leaflet; turbulence in the LVoutflow tract size: doppler across the LVOT was not performedl; overall ejection fraction: 68%: diastolic filling pressures:elevated Mitral valve: annulus: normal: leaflets:,mild thickening: excursion: normal; no significant trans-mitral gradient: moderate to severe incompetence: left atrium: dilated Aortic valve: leaflets: normal: excursion: normal; indeterminate trans-aortic gradient: mild incompetence: aortic root: normal Right sided Structures: catheter noted Pulmonary valve: normal; no significant incompetence; Tricuspid valve: normal; no significant incompetence: Intra-cardiac hemodynamics: pulmonary systolic pressures: 39 mmHg; central venous pressures: normal No pericardial effusion
--- NOTE | 2017-03-28 08:14 | CP.PCM.PN ---
Subjective - Date & Time of Evaluation Date of Evaluation: 03/27/17 Time of Evaluation: 08:00 - Subjective Subjective: Patient confuse; forgetfull No CP, no SOB, no edema; no cough Objective - Vital Signs/Intake and Output Vital Signs (last 24 hours): Temp Pulse Resp BP Pulse Ox 98.5 F 65 20 151/82 H 98 03/28/17 07:42 03/28/17 07:42 03/28/17 07:42 03/28/17 07:42 03/28/17 07:42 Intake and Output: 03/28/17 03/28/17 06:59 18:59 Intake Total 720 Balance 720 - Medications Medications: Current Medications Acetaminophen (Tylenol 325mg Tab) 325 mg PO TID [facility] Last Admin: 03/27/17 18:11 Dose: 325 mg Apixaban (Eliquis) 2.5 mg PO BID [facility] Last Admin: 03/24/17 11:22 Dose: Not Given Famotidine (Pepcid) 20 mg IVP DAILY [facility] Last Admin: 03/27/17 10:21 Dose: 20 mg Ferrous Sulfate (Feosol) 325 mg PO DAILY [facility] Last Admin: 03/27/17 10:17 Dose: 325 mg Vancomycin/Sodium Chloride (Vancocin) 1 gm in 200 mls @ 133.333 mls/hr IVPB Q12H [facility] Stop: 04/01/17 16:31 Last Admin: 03/28/17 04:33 Dose: 133.333 mls/hr Penicillin G Potassium 3 mu/ (Sodium Chloride) 50 mls @ 100 mls/hr IVPB Q6H [facility] Last Admin: 03/28/17 05:32 Dose: 100 mls/hr Lorazepam (Ativan) 0.5 mg PO Q8 [facility] Last Admin: 03/28/17 05:33 Dose: 0.5 mg Metoprolol Tartrate (Lopressor) 25 mg PO BID [facility] Last Admin: 03/27/17 17:49 Dose: 25 mg - Labs Labs: 03/24/17 11:55 03/24/17 11:55 PT 18.3 SECONDS (9.7-12.2) H 03/22/17 21:14 INR 1.6 03/22/17 21:14 APTT 31 SECONDS (21-34) 03/22/17 21:14 - Constitutional Appears: No Acute Distress - Eye Exam Eye Exam: Normal appearance - ENT Exam ENT Exam: Mucous Membranes Moist, Normal Oropharynx - Neck Exam Neck Exam: Full ROM. absent: Lymphadenopathy, Meningismus - Respiratory Exam Respiratory Exam: absent: Decreased Breath Sounds, Rales, Rhonchi, Wheezes - Cardiovascular Exam Cardiovascular Exam: REGULAR RHYTHM, +S1, +S2, Murmur. absent: Gallop, JVD - GI/Abdominal Exam GI & Abdominal Exam: Soft. absent: Tenderness, Mass - Extremities Exam Extremities Exam: Calf Tenderness, Full ROM. absent: Joint Swelling Assessment and Plan (1) Bacteremia Status: Acute (2) Cardiomyopathy Status: Chronic (3) Anemia Status: Chronic - Assessment and Plan (Free Text) Plan: For AMNA Con5t meds/ ? failed treatment c/o had Endocarditis on November 2016
[2017-03-28] MEDS ORDERED: Lidocaine 4% (Laryng-O-Jet) Kit MM ONE (09:22)
[2017-03-28] MEDS ORDERED: Etomidate 20 mg/10ml Inj IV ONE (09:37)
[2017-03-28] MEDS ORDERED: ePHEDrine 50 mg/ml Inj ONE (09:37)
[2017-03-28] MEDS ORDERED: Lidocaine 2% Inj (20ml) ONE (09:38)
--- NOTE | 2017-03-28 14:43 | CARD ---
APPROVED REPORT EXAM: Transesophageal echocardiogram with color flow Doppler. Mitral Valve E/A ratio0.0 TDI E/Lateral E'0.0E/Medial E'0.0 Tricuspid Valve TR Peak [id number]/sTR Peak Gr.49mmHg LEFT VENTRICLE Normal Size There is mild concentric left ventricular hypertrophy. The left ventricular function is normal. The left ventricular ejection fraction is within the normal range. No regional wall motion abnormalities noted. No left ventricle thrombus noted on this study. There is no ventricular septal defect visualized. There is no left ventricular aneurysm. There is no mass noted in the left ventricle. RIGHT VENTRICLE The right ventricle is normal size. There is normal right ventricular wall thickness. The right ventricular systolic function is normal. A ppm wire is noted, no thrombus. ATRIA The left atrium size is dilated. The right atrium size is normal. A ppm wire is noted, no thrombus. The interatrial septum is intact with no evidence for an atrial septal defect. AORTIC VALVE The aortic valve is normal in structure and function. Trace aortic regurgitation is present. There is no aortic valvular stenosis. There is no aortic valvular vegetation. MITRAL VALVE The anterior leaflet is thickened, .5 cm. THere is a small, .4 cm mobile vegetation on the atrial surface of the anterior leaflet. There is no evidence of mitral valve prolapse. There is no mitral valve stenosis. Moderate to severe regurgitation is noted, directed opposite and away from the affected anterior leaflet. TRICUSPID VALVE The tricuspid valve is normal in structure and function. There is mild tricuspid valve regurgitation noted. estimated PA systolic pressure is 68 mm Hg. There is no tricuspid valve prolapse or vegetation. There is no tricuspid valve stenosis. PULMONIC VALVE The pulmonary valve is normal in structure and function. There is trace pulmonic valvular regurgitation. There is no pulmonic valvular stenosis. GREAT VESSELS The aortic root is normal in size. The ascending aorta is normal in size. The pulmonary artery is normal. The IVC is dilated in size and collapses <50% with inspiration. PERICARDIAL EFFUSION The pericardium appears normal. There is a pleural effusion. 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 Moderate , possible severe regurgitation (eccentric jet, no PISA). Moderate to severe pulmonary HTN with small pleural effusion.
--- NOTE | 2017-03-28 14:54 | CP.PCM.PN ---
Subjective - Date & Time of Evaluation Date of Evaluation: 03/28/17 Time of Evaluation: 10:00 - Subjective Subjective: endocarditis confirmed may not be a candidate for valve replacement dr alvarez to arrange for CT surgery eval will cont iv rx for 6 weeks will likely need PICC line if repeat cultures negative Objective - Vital Signs/Intake and Output Vital Signs (last 24 hours): Temp Pulse Resp BP Pulse Ox 98.5 F 65 20 151/82 H 98 03/28/17 07:42 03/28/17 07:42 03/28/17 07:42 03/28/17 10:35 03/28/17 07:42 Intake and Output: 03/28/17 03/28/17 06:59 18:59 Intake Total 720 250 Balance 720 250 - Medications Medications: Current Medications Acetaminophen (Tylenol 325mg Tab) 325 mg PO TID [facility] Last Admin: 03/28/17 13:39 Dose: Not Given Apixaban (Eliquis) 2.5 mg PO BID [facility] Last Admin: 03/24/17 11:22 Dose: Not Given Famotidine (Pepcid) 20 mg IVP DAILY [facility] Last Admin: 03/28/17 10:32 Dose: 20 mg Ferrous Sulfate (Feosol) 325 mg PO DAILY [facility] Last Admin: 03/28/17 10:32 Dose: 325 mg Vancomycin/Sodium Chloride (Vancocin) 1 gm in 200 mls @ 133.333 mls/hr IVPB Q12H [facility] Stop: 04/01/17 16:31 Last Admin: 03/28/17 04:33 Dose: 133.333 mls/hr Penicillin G Potassium 3 mu/ (Sodium Chloride) 50 mls @ 100 mls/hr IVPB Q6H [facility] Last Admin: 03/28/17 10:35 Dose: 100 mls/hr Lorazepam (Ativan) 0.5 mg PO Q8 [facility] Last Admin: 03/28/17 13:39 Dose: Not Given Metoprolol Tartrate (Lopressor) 25 mg PO BID [facility] Last Admin: 03/28/17 10:35 Dose: 25 mg - Labs Labs: 03/24/17 11:55 03/24/17 11:55 PT 18.3 SECONDS (9.7-12.2) H 03/22/17 21:14 INR 1.6 03/22/17 21:14 APTT 31 SECONDS (21-34) 03/22/17 21:14 - Constitutional Appears: Non-toxic, Chronically Ill - Head Exam Head Exam: NORMOCEPHALIC - Eye Exam Eye Exam: PERRL - ENT Exam ENT Exam: Mucous Membranes Dry - Neck Exam Neck Exam: absent: Lymphadenopathy - Respiratory Exam Respiratory Exam: Decreased Breath Sounds - Cardiovascular Exam Cardiovascular Exam: REGULAR RHYTHM - GI/Abdominal Exam GI & Abdominal Exam: Distended, Soft Assessment and Plan (1) Bacteremia Status: Acute (2) Bacteremia Status: Acute (3) Fever Status: Acute
--- NOTE | 2017-03-28 17:46 | CP.PCM.PN ---
Subjective - Date & Time of Evaluation Date of Evaluation: 03/28/17 Time of Evaluation: 13:00 - Subjective Subjective: Patient s/p AMNA Patient still has vegetation in AML of Mitral valve Moderate MR Discussed surgical option due to persistent bacteremia As per the daughter Roula, her mom does not want any surgery due to her age and fragility Recommend continue antibiotic therapy as per ID Objective - Vital Signs/Intake and Output Vital Signs (last 24 hours): Temp Pulse Resp BP Pulse Ox 98.5 F 65 20 106/61 98 03/28/17 07:42 03/28/17 07:42 03/28/17 07:42 03/28/17 17:25 03/28/17 07:42 Intake and Output: 03/28/17 03/28/17 06:59 18:59 Intake Total 720 250 Balance 720 250 - Medications Medications: Current Medications Acetaminophen (Tylenol 325mg Tab) 325 mg PO TID [facility] Last Admin: 03/28/17 17:26 Dose: 325 mg Apixaban (Eliquis) 2.5 mg PO BID [facility] Last Admin: 03/24/17 11:22 Dose: Not Given Famotidine (Pepcid) 20 mg IVP DAILY [facility] Last Admin: 03/28/17 10:32 Dose: 20 mg Ferrous Sulfate (Feosol) 325 mg PO DAILY [facility] Last Admin: 03/28/17 10:32 Dose: 325 mg Vancomycin/Sodium Chloride (Vancocin) 1 gm in 200 mls @ 133.333 mls/hr IVPB Q12H [facility] Stop: 04/01/17 16:31 Last Admin: 03/28/17 17:25 Dose: 133.333 mls/hr Penicillin G Potassium 3 mu/ (Sodium Chloride) 50 mls @ 100 mls/hr IVPB Q6H [facility] Last Admin: 03/28/17 16:31 Dose: 100 mls/hr Lorazepam (Ativan) 0.5 mg PO Q8 [facility] Last Admin: 03/28/17 13:39 Dose: Not Given Metoprolol Tartrate (Lopressor) 25 mg PO BID [facility] Last Admin: 03/28/17 17:25 Dose: Not Given - Labs Labs: 03/24/17 11:55 03/24/17 11:55 PT 18.3 SECONDS (9.7-12.2) H 03/22/17 21:14 INR 1.6 03/22/17 21:14 APTT 31 SECONDS (21-34) 03/22/17 21:14
[2017-03-29] MEDS: Vancomycin 1 gm/NS 200 ml 1 GM/200 ML BAG IVPB SCH (04:30)
--- NOTE | 2017-03-29 11:54 | CP.PCM.PN ---
Subjective - Date & Time of Evaluation Date of Evaluation: 03/29/17 Time of Evaluation: 11:52 - Subjective Subjective: S: Awake. Sleepy. Spoke to daughter at bedside. Objective - Vital Signs/Intake and Output Vital Signs (last 24 hours): Temp Pulse Resp BP Pulse Ox 97.9 F 62 20 130/70 100 03/29/17 07:36 03/29/17 07:36 03/29/17 07:36 03/29/17 10:55 03/29/17 07:36 Intake and Output: 03/29/17 03/29/17 06:59 18:59 Intake Total 770 Balance 770 - Medications Medications: Current Medications Acetaminophen (Tylenol 325mg Tab) 325 mg PO TID [facility] Last Admin: 03/29/17 10:54 Dose: 325 mg Apixaban (Eliquis) 2.5 mg PO BID [facility] Last Admin: 03/29/17 10:55 Dose: 2.5 mg Famotidine (Pepcid) 20 mg IVP DAILY [facility] Last Admin: 03/29/17 10:55 Dose: 20 mg Ferrous Sulfate (Feosol) 325 mg PO DAILY [facility] Last Admin: 03/29/17 10:54 Dose: 325 mg Penicillin G Potassium 3 mu/ (Sodium Chloride) 50 mls @ 100 mls/hr IVPB Q6H [facility] Last Admin: 03/29/17 11:03 Dose: 100 mls/hr Vancomycin/Sodium Chloride (Vancocin) 1 gm in 200 mls @ 167 mls/hr IVPB DAILY [facility] Stop: 04/04/17 11:01 Lorazepam (Ativan) 0.5 mg PO Q8 [facility] Last Admin: 03/29/17 05:53 Dose: 0.5 mg Metoprolol Tartrate (Lopressor) 25 mg PO BID [facility] Last Admin: 03/29/17 10:55 Dose: 25 mg - Labs Labs: 03/24/17 11:55 03/24/17 11:55 PT 18.3 SECONDS (9.7-12.2) H 03/22/17 21:14 INR 1.6 03/22/17 21:14 APTT 31 SECONDS (21-34) 03/22/17 21:14 - Constitutional Appears: Chronically Ill - Head Exam Head Exam: NORMAL INSPECTION - ENT Exam ENT Exam: Normal Exam - Neck Exam Neck Exam: Normal Inspection - Respiratory Exam Respiratory Exam: NORMAL BREATHING PATTERN - Cardiovascular Exam Cardiovascular Exam: Murmur - GI/Abdominal Exam GI & Abdominal Exam: Soft - Rectal Exam Rectal Exam: Deferred - Extremities Exam Extremities Exam: absent: Pedal Edema Assessment and Plan (1) Bacteremia Status: Acute (2) Cardiomyopathy Status: Chronic (3) Anemia Status: Chronic - Assessment and Plan (Free Text) Plan: Plans: Continue medications. Appreciate ID and Cardiology notes
--- NOTE | 2017-03-30 08:51 | CP.PCM.PN ---
Subjective - Date & Time of Evaluation Date of Evaluation: 03/30/17 Time of Evaluation: 08:05 - Subjective Subjective: Patient very confuse; talking Creo only No diarrhea, no cough as per staff; no ROS can be obtained Objective - Vital Signs/Intake and Output Vital Signs (last 24 hours): Temp Pulse Resp BP Pulse Ox 98 F 63 20 150/68 98 03/30/17 00:00 03/30/17 00:00 03/30/17 00:00 03/30/17 00:00 03/30/17 00:00 Intake and Output: 03/30/17 03/30/17 06:59 18:59 Intake Total 470 Balance 470 - Medications Medications: Current Medications Acetaminophen (Tylenol 325mg Tab) 325 mg PO TID [facility] Last Admin: 03/29/17 18:21 Dose: Not Given Apixaban (Eliquis) 2.5 mg PO BID [facility] Last Admin: 03/29/17 18:21 Dose: 2.5 mg Famotidine (Pepcid) 20 mg IVP DAILY [facility] Last Admin: 03/29/17 10:55 Dose: 20 mg Ferrous Sulfate (Feosol) 325 mg PO DAILY [facility] Last Admin: 03/29/17 10:54 Dose: 325 mg Penicillin G Potassium 3 mu/ (Sodium Chloride) 50 mls @ 100 mls/hr IVPB Q6H [facility] Last Admin: 03/30/17 05:31 Dose: 100 mls/hr Vancomycin/Sodium Chloride (Vancocin) 1 gm in 200 mls @ 167 mls/hr IVPB DAILY [facility] Stop: 04/04/17 11:01 Metoprolol Tartrate (Lopressor) 25 mg PO BID [facility] Last Admin: 03/29/17 18:22 Dose: 25 mg - Labs Labs: 03/24/17 11:55 03/24/17 11:55 PT 18.3 SECONDS (9.7-12.2) H 03/22/17 21:14 INR 1.6 03/22/17 21:14 APTT 31 SECONDS (21-34) 03/22/17 21:14 - Constitutional Appears: No Acute Distress - Eye Exam Eye Exam: Normal appearance - ENT Exam ENT Exam: Mucous Membranes Moist - Neck Exam Neck Exam: Full ROM. absent: Lymphadenopathy, Normal Inspection - Respiratory Exam Respiratory Exam: Decreased Breath Sounds. absent: Rales, Rhonchi, Wheezes - Cardiovascular Exam Cardiovascular Exam: REGULAR RHYTHM, +S1, +S2, Murmur. absent: Gallop, JVD - GI/Abdominal Exam GI & Abdominal Exam: Soft. absent: Tenderness, Mass - Extremities Exam Extremities Exam: Full ROM, Normal Capillary Refill. absent: Calf Tenderness, Joint Swelling, Pedal Edema Assessment and Plan - Assessment and Plan (Free Text) Assessment: Endocarditis; Cardiomyopathy DJD; Dementia w/ increase confusion Cont meds; AMNA result noted Spoke w/ daughter - Psych eval w/ Dr Esquivel
[2017-03-30] MEDS: Vancomycin 1 gm/NS 200 ml 1 GM/200 ML BAG IVPB SCH (11:54)
--- NOTE | 2017-03-30 12:35 | CP.PCM.CON ---
History of Present Illness - History of Present Illness History of Present Illness: This is a case of 86 year old female currently admitted for increasing confusion , poor appetite and fever.Patient referred by Dr. Arteaga for evaluation of increasing confusion. Patient dx to have UTI. Patient noted to be not eating well and complaining of back pain. Patient is feeling weak . Patient was given Ativan prn but got sedated.Patient only asking Tyleono for back pain. She has been cooperative with meds intake and care. Past psych Hx - denies any Medical hx-hx of UTI, Cardiomyopathy CHF, sepsis, pneumonia Drug and Alcohol hx- denies any Psychosocial hx- lives with family MSE- frail looking elderly female, looks stated age, still with periods of confusion. Oriented x 2. Mood is dysphoric, affect is reactive. Speech is slow. TP -confused at times. TC- no si or hi. no psychosis. Attention and Memory- limited, Insight and Judgment limited. Impulse control guarded. Review of Systems - Review of Systems Systems not reviewed;Unavailable: Altered Mental Status - Constitutional Constitutional: Anorexia, Weakness - EENT Additional comments: no blurring of vision, no dizziness - Respiratory Additional comments: no dyspnea - Gastrointestinal Additional comments: has poor appetite, no nausea or vomiting - Musculoskeletal Additional comments: feels weak - Integumentary Additional comments: no pruritus - Neurological Neurological: Weakness - Psychiatric Psychiatric: Change in Appetite, Confusion Past Patient History - Infectious Disease Hx of Infectious Diseases: None - Past Medical History & Family History Past Medical History?: Yes - Past Social History Smoking Status: Never Smoked - CARDIAC Hx Atrial Fibrillation: Yes (pacemaker) Hx Congestive Heart Failure: Yes ('fluid in lungs and heart years ago') Hx Hypercholesterolemia: Yes Hx Hypertension: Yes Hx Pacemaker: Yes - PULMONARY Hx Respiratory Disorders: No - NEUROLOGICAL Hx Dementia: Yes - HEENT Hx HEENT Problems: Yes Hx Cataracts: Yes (Had surgery) Other/Comment: uses reading glasses - RENAL Hx Chronic Kidney Disease: No - ENDOCRINE/METABOLIC Hx Endocrine Disorders: No - HEMATOLOGICAL/ONCOLOGICAL Hx Anemia: Yes - INTEGUMENTARY Hx Dermatological Problems: No - MUSCULOSKELETAL/RHEUMATOLOGICAL Hx Falls: Yes - GASTROINTESTINAL Hx Gastritis: Yes - GENITOURINARY/GYNECOLOGICAL Hx Genitourinary Disorders: No - PSYCHIATRIC Hx Substance Use: No - SURGICAL HISTORY Hx Cholecystectomy: Yes - ANESTHESIA Hx Anesthesia: Yes Hx Anesthesia Reactions: No Hx Malignant Hyperthermia: No Meds Allergies/Adverse Reactions: Allergies Allergy/AdvReac Type Severity Reaction Status Date / Time No Known Allergies Allergy Verified 11/18/16 17:47 - Medications Medications: Current Medications Acetaminophen (Tylenol 325mg Tab) 325 mg PO TID [facility] Last Admin: 03/30/17 11:48 Dose: 325 mg Apixaban (Eliquis) 2.5 mg PO BID [facility] Last Admin: 03/30/17 11:50 Dose: 2.5 mg Famotidine (Pepcid) 20 mg IVP DAILY [facility] Last Admin: 03/30/17 11:50 Dose: 20 mg Penicillin G Potassium 3 mu/ (Sodium Chloride) 50 mls @ 100 mls/hr IVPB Q6H [facility] Last Admin: 03/30/17 11:54 Dose: 100 mls/hr Vancomycin/Sodium Chloride (Vancocin) 1 gm in 200 mls @ 167 mls/hr IVPB DAILY [facility] Stop: 04/04/17 11:01 Last Admin: 03/30/17 11:54 Dose: 167 mls/hr Metoprolol Tartrate (Lopressor) 25 mg PO BID [facility] Last Admin: 03/30/17 11:50 Dose: 25 mg Results - Vital Signs Recent Vital Signs: Last Vital Signs Temp 97.0 F L 03/30/17 08:00 Pulse 67 03/30/17 08:00 Resp 20 03/30/17 08:00 BP 163/53 H 03/30/17 11:50 Pulse Ox 100 03/30/17 08:00 - Labs Result Diagrams: 03/24/17 11:55 03/24/17 11:55 Labs: Laboratory Results - last 24 hr 03/30/17 08:19 Vancomycin Trough 9.1 Assessment & Plan - Assessment and Plan (Free Text) Assessment: Metabolic Encephalopahty sec to UTI Plan: Keept off sedatives for now. Continue antibiotics as ordered.
--- NOTE | 2017-03-30 16:44 | CP.PCM.PN ---
Subjective - Date & Time of Evaluation Date of Evaluation: 03/30/17 Time of Evaluation: 07:00 - Subjective Subjective: improving on iv rx awake alert confused rx in progress for home iv rx for 6 weeks IV PCN Objective - Vital Signs/Intake and Output Vital Signs (last 24 hours): Temp Pulse Resp BP Pulse Ox 97.0 F L 67 20 163/53 H 100 03/30/17 08:00 03/30/17 08:00 03/30/17 08:00 03/30/17 11:50 03/30/17 08:00 Intake and Output: 03/30/17 03/30/17 06:59 18:59 Intake Total 470 Balance 470 - Medications Medications: Current Medications Acetaminophen (Tylenol 325mg Tab) 325 mg PO TID [facility] Last Admin: 03/30/17 14:45 Dose: 325 mg Apixaban (Eliquis) 2.5 mg PO BID [facility] Last Admin: 03/30/17 11:50 Dose: 2.5 mg Famotidine (Pepcid) 20 mg IVP DAILY [facility] Last Admin: 03/30/17 11:50 Dose: 20 mg Penicillin G Potassium 3 mu/ (Sodium Chloride) 50 mls @ 100 mls/hr IVPB Q6H [facility] Last Admin: 03/30/17 11:54 Dose: 100 mls/hr Vancomycin/Sodium Chloride (Vancocin) 1 gm in 200 mls @ 167 mls/hr IVPB DAILY [facility] Stop: 04/04/17 11:01 Last Admin: 03/30/17 11:54 Dose: 167 mls/hr Metoprolol Tartrate (Lopressor) 25 mg PO BID [facility] Last Admin: 03/30/17 11:50 Dose: 25 mg - Labs Labs: 03/24/17 11:55 03/24/17 11:55 PT 18.3 SECONDS (9.7-12.2) H 03/22/17 21:14 INR 1.6 03/22/17 21:14 APTT 31 SECONDS (21-34) 03/22/17 21:14 - Constitutional Appears: Non-toxic, Cachectic, Chronically Ill - Head Exam Head Exam: NORMOCEPHALIC - Eye Exam Eye Exam: PERRL. absent: Scleral icterus - ENT Exam ENT Exam: Mucous Membranes Dry, Normal External Ear Exam - Neck Exam Neck Exam: absent: Lymphadenopathy - Respiratory Exam Respiratory Exam: Decreased Breath Sounds - Cardiovascular Exam Cardiovascular Exam: REGULAR RHYTHM, +S1, +S2, Murmur - GI/Abdominal Exam GI & Abdominal Exam: Distended, Soft Assessment and Plan (1) Bacteremia Status: Acute (2) Bacteremia Status: Acute (3) Fever Status: Acute
--- NOTE | 2017-03-30 23:26 | CP.PCM.PN ---
Subjective - Date & Time of Evaluation Date of Evaluation: 03/30/17 Time of Evaluation: 07:20 - Subjective Subjective: Patient seen and evaluated On therapy for endocarditis Objective - Vital Signs/Intake and Output Vital Signs (last 24 hours): Temp Pulse Resp BP Pulse Ox 98 F 64 20 157/63 H 97 03/30/17 15:00 03/30/17 15:00 03/30/17 15:00 03/30/17 22:10 03/30/17 15:00 Intake and Output: 03/30/17 03/31/17 18:59 06:59 Intake Total 500 200 Balance 500 200 - Medications Medications: Current Medications Acetaminophen (Tylenol 325mg Tab) 325 mg PO TID [facility] Last Admin: 03/30/17 17:22 Dose: 325 mg Apixaban (Eliquis) 2.5 mg PO BID [facility] Last Admin: 03/30/17 17:21 Dose: 2.5 mg Famotidine (Pepcid) 20 mg IVP DAILY [facility] Last Admin: 03/30/17 11:50 Dose: 20 mg Penicillin G Potassium 3 mu/ (Sodium Chloride) 50 mls @ 100 mls/hr IVPB Q6H [facility] Last Admin: 03/30/17 22:02 Dose: 100 mls/hr Vancomycin/Sodium Chloride (Vancocin) 1 gm in 200 mls @ 167 mls/hr IVPB DAILY [facility] Stop: 04/04/17 11:01 Last Admin: 03/30/17 11:54 Dose: 167 mls/hr Metoprolol Tartrate (Lopressor) 25 mg PO BID [facility] Last Admin: 03/30/17 22:10 Dose: 25 mg - Labs Labs: 03/24/17 11:55 03/24/17 11:55 PT 18.3 SECONDS (9.7-12.2) H 03/22/17 21:14 INR 1.6 03/22/17 21:14 APTT 31 SECONDS (21-34) 03/22/17 21:14
--- NOTE | 2017-03-31 08:25 | CP.PCM.PN ---
Subjective - Date & Time of Evaluation Date of Evaluation: 03/31/17 Time of Evaluation: 08:20 - Subjective Subjective: Patient no complain of n/v; states good appetite but staff says otherwise No CP, no SOB, no n/v, no cough Objective - Vital Signs/Intake and Output Vital Signs (last 24 hours): Temp Pulse Resp BP Pulse Ox 97.7 F 63 20 166/84 H 100 03/31/17 00:00 03/31/17 00:00 03/31/17 00:00 03/31/17 00:00 03/31/17 00:00 Intake and Output: 03/31/17 03/31/17 06:59 18:59 Intake Total 200 Balance 200 - Medications Medications: Current Medications Acetaminophen (Tylenol 325mg Tab) 325 mg PO TID [facility] Last Admin: 03/30/17 17:22 Dose: 325 mg Apixaban (Eliquis) 2.5 mg PO BID [facility] Last Admin: 03/30/17 17:21 Dose: 2.5 mg Famotidine (Pepcid) 20 mg IVP DAILY [facility] Last Admin: 03/30/17 11:50 Dose: 20 mg Penicillin G Potassium 3 mu/ (Sodium Chloride) 50 mls @ 100 mls/hr IVPB Q6H [facility] Last Admin: 03/31/17 04:16 Dose: 100 mls/hr Vancomycin/Sodium Chloride (Vancocin) 1 gm in 200 mls @ 167 mls/hr IVPB DAILY [facility] Stop: 04/04/17 11:01 Last Admin: 03/30/17 11:54 Dose: 167 mls/hr Metoprolol Tartrate (Lopressor) 25 mg PO BID [facility] Last Admin: 03/30/17 22:10 Dose: 25 mg - Labs Labs: 03/24/17 11:55 03/24/17 11:55 PT 18.3 SECONDS (9.7-12.2) H 03/22/17 21:14 INR 1.6 03/22/17 21:14 APTT 31 SECONDS (21-34) 03/22/17 21:14 - Constitutional Appears: No Acute Distress - Eye Exam Eye Exam: Normal appearance - ENT Exam ENT Exam: Mucous Membranes Moist - Neck Exam Neck Exam: Full ROM. absent: Lymphadenopathy, Normal Inspection - Respiratory Exam Respiratory Exam: absent: Decreased Breath Sounds, Rales, Rhonchi, Wheezes - Cardiovascular Exam Cardiovascular Exam: REGULAR RHYTHM, +S1, +S2, Murmur. absent: Gallop, JVD - GI/Abdominal Exam GI & Abdominal Exam: Soft. absent: Tenderness, Mass - Extremities Exam Extremities Exam: Full ROM. absent: Joint Swelling, Normal Capillary Refill Assessment and Plan - Assessment and Plan (Free Text) Assessment: Strep Endocarditis; Dementia w/ confusion Cardiomyopathy Cont meds For discharge after PICC line
[2017-03-31] MEDS: Vancomycin 1 gm/NS 200 ml 1 GM/200 ML BAG IVPB SCH (09:35)
--- NOTE | 2017-03-31 11:05 | PCM.SURG1 ---
Surgeon's Initial Post Op Note - Surgeon's Notes Surgeon: Ferdinand East MD Blowing Weasand: NONE Type of Anesthesia: Local Pre-Operative Diagnosis: Poor venous access Operative Findings: Small right basilic and brachial vein. Patent left brachial vein, suitable for picc. Post-Operative Diagnosis: Poor venous access Operation Performed: Single lumen picc left brachial vein, 35 cm. Tip in SVC. Specimen/Specimens Removed: None Estimated Blood Loss: EBL {In ML}: 2 Blood Products Given: N/A Drains Used: No Drains Post-Op Condition: Fair Date of Surgery/Procedure: 03/31/17 Time of Surgery/Procedure: 11:00
[2017-03-31 12:11] LABS: BASO # 0.1 K/uL (0.0-0.2); BASO % 1.2 % (0.0-2.0); EOS # 0.2 K/uL (0.0-0.7); EOS % 2.8 % (0.0-4.0); HEMATOCRIT 29.2 % (34.0-47.0); LYMPH # 1.3 K/uL (1.0-4.3); LYMPH % 22.6 % (20.0-40.0); MEAN CELL VOLUME 80.6 fL (81.0-99.0); MEAN CORPUSCULAR HEMOGLOBIN 25.8 pg (27.0-31.0); MEAN PLATELET VOLUME 7.9 fL (7.2-11.7); MONO # 0.3 K/uL (0.0-0.8); MONO % 6.2 % (0.0-10.0); NRBC % 0.1 % (0.0-2.0); RED CELL DISTRIBUTION WIDTH 15.2 % (11.5-14.5); WHITE BLOOD COUNT 5.6 K/uL (4.8-10.8)
[2017-03-31 12:20] LABS: CHLORIDE 106 mmol/L (98-107); SODIUM 137 mmol/L (132-148)
[2017-03-31 12:22] LABS: GFR AFRICAN-AMERICAN > 60
[2017-03-31 12:23] LABS: ALKALINE PHOSPHATASE 49 U/L (38-126); ALT/SGPT 13 U/L (9-52); AST/SGOT 24 U/L (14-36); BILIRUBIN,TOTAL 0.6 mg/dL (0.2-1.3); BLOOD UREA NITROGEN 8 mg/dL (7-17); CALCIUM 9.7 mg/dl (8.6-10.4); CARBON DIOXIDE 25 mmol/L (22-30); GLUCOSE,RANDOM 81 mg/dL (65-105); TOTAL PROTEIN 6.3 g/dL (6.3-8.3)
[2017-03-31 12:25] LABS: ALB/GLOB RATIO 0.8 (1.0-2.1)
--- NOTE | 2017-03-31 13:53 | US ---
Date of procedure: 03/31/2017 Procedure: Ultrasound guidance for vascular access HISTORY: Infection requiring long-term IV antibiotics TECHNIQUE: Following informed consent and procedure time-out, the patient placed supine on the interventional table and the right arm prepped and draped in the usual sterile fashion. Ultrasound showed very small basilic vein. The brachial vein is also small in caliber. Veins in the right arm are not suitable for PICC placement. . IMPRESSION: Ultrasound guidance for vascular access for placement of PICC.
--- NOTE | 2017-03-31 18:14 | CP.PCM.PN ---
Subjective - Date & Time of Evaluation Date of Evaluation: 03/31/17 Time of Evaluation: 18:11 - Subjective Subjective: Patient seen inher room and noted to be drowsy. As per staff, family is asking for Ativan 05 mg po tid prn as part of the discharge meds . Sleepy when seen but still confused. MSE- elderly female, sleepy, still confused, sppech is slow. mood is dysphoric, affect is restricted. TP- confused off and on. TC- no si o rhi, no psychosis, Attention and Memory limited. Insight and Judgment limited. Impulse control fair. Objective - Vital Signs/Intake and Output Vital Signs (last 24 hours): Temp Pulse Resp BP Pulse Ox 98 F 68 20 165/69 H 96 03/31/17 15:00 03/31/17 15:00 03/31/17 15:00 03/31/17 15:30 03/31/17 15:00 Intake and Output: 03/31/17 03/31/17 06:59 18:59 Intake Total 200 Balance 200 - Medications Medications: Current Medications Acetaminophen (Tylenol 325mg Tab) 325 mg PO TID [facility] Last Admin: 03/31/17 14:00 Dose: Not Given Apixaban (Eliquis) 2.5 mg PO BID [facility] Last Admin: 03/31/17 09:24 Dose: 2.5 mg Famotidine (Pepcid) 20 mg IVP DAILY [facility] Last Admin: 03/31/17 09:26 Dose: 20 mg Penicillin G Potassium 3 mu/ (Sodium Chloride) 50 mls @ 100 mls/hr IVPB Q6H [facility] Last Admin: 03/31/17 16:09 Dose: 100 mls/hr Vancomycin/Sodium Chloride (Vancocin) 1 gm in 200 mls @ 167 mls/hr IVPB DAILY [facility] Stop: 04/04/17 11:01 Last Admin: 03/31/17 09:35 Dose: 167 mls/hr Lorazepam (Ativan) 0.5 mg PO TID PRN PRN Reason: Agitation Metoprolol Tartrate (Lopressor) 25 mg PO BID [facility] Last Admin: 03/31/17 09:25 Dose: 25 mg - Labs Labs: 03/31/17 12:04 03/31/17 12:04 PT 18.3 SECONDS (9.7-12.2) H 03/22/17 21:14 INR 1.6 03/22/17 21:14 APTT 31 SECONDS (21-34) 03/22/17 21:14 - Constitutional Appears: No Acute Distress, Confused, Chronically Ill - Head Exam Head Exam: NORMOCEPHALIC - Eye Exam Eye Exam: Normal appearance - ENT Exam ENT Exam: Normal Exam - Neck Exam Neck Exam: Full ROM - Respiratory Exam Respiratory Exam: NORMAL BREATHING PATTERN - Cardiovascular Exam Additional comments: no chest pain - GI/Abdominal Exam Additional comments: no abdominal pain - Exam Additional comments: no dysuria - Back Exam Additional comments: no back pain - Neurological Exam Neurological Exam: Altered - Psychiatric Exam Psychiatric exam: Flat Affect - Skin Skin Exam: Normal Color Assessment and Plan - Assessment and Plan (Free Text) Assessment: Delirum,metabolic encephalopathy, UTI CHF sepsis Plan: Continue antibiotics and Ativan prn for now.
--- NOTE | 2017-03-31 22:16 | CP.PCM.PN ---
Subjective - Date & Time of Evaluation Date of Evaluation: 03/31/17 Time of Evaluation: 07:05 - Subjective Subjective: Patient seen and evaluated On antibiotics for endocarditis No cardiac events Objective - Vital Signs/Intake and Output Vital Signs (last 24 hours): Temp Pulse Resp BP Pulse Ox 98 F 68 20 133/66 96 03/31/17 15:00 03/31/17 15:00 03/31/17 15:00 03/31/17 18:12 03/31/17 15:00 - Medications Medications: Current Medications Acetaminophen (Tylenol 325mg Tab) 325 mg PO TID [facility] Last Admin: 03/31/17 18:13 Dose: Not Given Apixaban (Eliquis) 2.5 mg PO BID [facility] Last Admin: 03/31/17 18:12 Dose: 2.5 mg Famotidine (Pepcid) 20 mg IVP DAILY [facility] Last Admin: 03/31/17 09:26 Dose: 20 mg Penicillin G Potassium 3 mu/ (Sodium Chloride) 50 mls @ 100 mls/hr IVPB Q6H [facility] Last Admin: 03/31/17 16:09 Dose: 100 mls/hr Vancomycin/Sodium Chloride (Vancocin) 1 gm in 200 mls @ 167 mls/hr IVPB DAILY [facility] Stop: 04/04/17 11:01 Last Admin: 03/31/17 09:35 Dose: 167 mls/hr Lorazepam (Ativan) 0.5 mg PO TID PRN PRN Reason: Agitation Metoprolol Tartrate (Lopressor) 25 mg PO BID [facility] Last Admin: 03/31/17 18:12 Dose: 25 mg - Labs Labs: 03/31/17 12:04 03/31/17 12:04 PT 18.3 SECONDS (9.7-12.2) H 03/22/17 21:14 INR 1.6 03/22/17 21:14 APTT 31 SECONDS (21-34) 03/22/17 21:14
--- NOTE | 2017-04-01 08:05 | CP.PCM.PN ---
Subjective - Date & Time of Evaluation Date of Evaluation: 04/01/17 Time of Evaluation: 08:50 - Subjective Subjective: Pt asleep; confuse No diarrhea, no cough, no/v Objective - Vital Signs/Intake and Output Vital Signs (last 24 hours): Temp Pulse Resp BP Pulse Ox 97.9 F 61 20 149/69 99 04/01/17 00:00 04/01/17 00:00 04/01/17 00:00 04/01/17 00:00 04/01/17 00:00 Intake and Output: 04/01/17 04/01/17 06:59 18:59 Intake Total 620 Balance 620 - Medications Medications: Current Medications Acetaminophen (Tylenol 325mg Tab) 325 mg PO TID [facility] Last Admin: 03/31/17 18:13 Dose: Not Given Apixaban (Eliquis) 2.5 mg PO BID [facility] Last Admin: 03/31/17 18:12 Dose: 2.5 mg Famotidine (Pepcid) 20 mg IVP DAILY [facility] Last Admin: 03/31/17 09:26 Dose: 20 mg Penicillin G Potassium 3 mu/ (Sodium Chloride) 50 mls @ 100 mls/hr IVPB Q6H [facility] Last Admin: 04/01/17 05:06 Dose: 100 mls/hr Vancomycin/Sodium Chloride (Vancocin) 1 gm in 200 mls @ 167 mls/hr IVPB DAILY [facility] Stop: 04/04/17 11:01 Last Admin: 03/31/17 09:35 Dose: 167 mls/hr Lorazepam (Ativan) 0.5 mg PO TID PRN PRN Reason: Agitation Last Admin: 04/01/17 05:06 Dose: 0.5 mg Metoprolol Tartrate (Lopressor) 25 mg PO BID [facility] Last Admin: 03/31/17 18:12 Dose: 25 mg - Labs Labs: 03/31/17 12:04 03/31/17 12:04 PT 18.3 SECONDS (9.7-12.2) H 03/22/17 21:14 INR 1.6 03/22/17 21:14 APTT 31 SECONDS (21-34) 03/22/17 21:14 - Constitutional Appears: No Acute Distress - Eye Exam Eye Exam: Normal appearance - ENT Exam ENT Exam: Mucous Membranes Moist, Normal Oropharynx - Neck Exam Neck Exam: Full ROM. absent: Lymphadenopathy, Normal Inspection - Respiratory Exam Respiratory Exam: Clear to Ausculation Bilateral. absent: Rales, Rhonchi, Wheezes - Cardiovascular Exam Cardiovascular Exam: REGULAR RHYTHM, +S1, Murmur. absent: Gallop, JVD - GI/Abdominal Exam GI & Abdominal Exam: Soft. absent: Tenderness, Normal Bowel Sounds - Extremities Exam Extremities Exam: Full ROM. absent: Joint Swelling, Normal Capillary Refill, Pedal Edema Assessment and Plan - Assessment and Plan (Free Text) Assessment: Endocarditis; Cardiomyopathy Dementia w/ Confusion Cont meds/ for discharge today
[2017-04-01 09:16] VITALS: PULSE 74; TEMP 98.4; O2SAT 100
[2017-04-01] MEDS: Vancomycin 1 gm/NS 200 ml 1 GM/200 ML BAG IVPB SCH (10:35)
[2017-04-01 10:36] VITALS: BP 158/85
--- NOTE | 2017-04-01 12:54 | CP.PCM.PN ---
Subjective - Date & Time of Evaluation Date of Evaluation: 04/01/17 Time of Evaluation: 12:54 - Subjective Subjective: PT CLEARED FOR D/C HOME TODAY PER DR. DOLL. PT ALREADY HAS HOME ANTIBIOTIC INFUSION ARRANGED AND HAS PICC LINE. NO OTHER NEW MEDS. TO F/U WITH DR. DOLL OR PMD. SW TO ARRANGE TRANSPORT HOME THIS AFTERNOON. NO FURTHER ORDERS. Objective - Vital Signs/Intake and Output Vital Signs (last 24 hours): Temp Pulse Resp BP Pulse Ox 98.4 F 74 20 158/85 H 100 04/01/17 08:00 04/01/17 08:00 04/01/17 08:00 04/01/17 10:33 04/01/17 08:00 Intake and Output: 04/01/17 04/01/17 06:59 18:59 Intake Total 620 Balance 620 - Medications Medications: Current Medications Acetaminophen (Tylenol 325mg Tab) 325 mg PO TID [facility] Last Admin: 04/01/17 10:34 Dose: 325 mg Famotidine (Pepcid) 20 mg IVP DAILY [facility] Last Admin: 04/01/17 10:33 Dose: 20 mg Penicillin G Potassium 3 mu/ (Sodium Chloride) 50 mls @ 100 mls/hr IVPB Q6H [facility] Last Admin: 04/01/17 10:34 Dose: 100 mls/hr Vancomycin/Sodium Chloride (Vancocin) 1 gm in 200 mls @ 167 mls/hr IVPB DAILY [facility] Stop: 04/04/17 11:01 Last Admin: 04/01/17 10:35 Dose: 167 mls/hr Lorazepam (Ativan) 0.5 mg PO TID PRN PRN Reason: Agitation Last Admin: 04/01/17 05:06 Dose: 0.5 mg Metoprolol Tartrate (Lopressor) 25 mg PO BID [facility] Last Admin: 04/01/17 10:33 Dose: 25 mg - Labs Labs: 03/31/17 12:04 03/31/17 12:04 PT 18.3 SECONDS (9.7-12.2) H 03/22/17 21:14 INR 1.6 03/22/17 21:14 APTT 31 SECONDS (21-34) 03/22/17 21:14
--- NOTE | 2017-04-01 12:57 | CP.PCM.PN ---
Subjective - Date & Time of Evaluation Date of Evaluation: 04/01/17 Time of Evaluation: 12:54 - Subjective Subjective: Patient is still confused with bouts of agitation but will be going home today. MSE- frail looking female, still confused, sppech is slow. affect is reactive. mood is dysphoric. TP -confused off and on. TC- no si or hi, no psychosis. Attention/Memory limited. Insight and Judgment limited. Impulse control guarded. Objective - Vital Signs/Intake and Output Vital Signs (last 24 hours): Temp Pulse Resp BP Pulse Ox 98.4 F 74 20 158/85 H 100 04/01/17 08:00 04/01/17 08:00 04/01/17 08:00 04/01/17 10:33 04/01/17 08:00 Intake and Output: 04/01/17 04/01/17 06:59 18:59 Intake Total 620 Balance 620 - Medications Medications: Current Medications Acetaminophen (Tylenol 325mg Tab) 325 mg PO TID [facility] Last Admin: 04/01/17 10:34 Dose: 325 mg Famotidine (Pepcid) 20 mg IVP DAILY [facility] Last Admin: 04/01/17 10:33 Dose: 20 mg Penicillin G Potassium 3 mu/ (Sodium Chloride) 50 mls @ 100 mls/hr IVPB Q6H [facility] Last Admin: 04/01/17 10:34 Dose: 100 mls/hr Vancomycin/Sodium Chloride (Vancocin) 1 gm in 200 mls @ 167 mls/hr IVPB DAILY [facility] Stop: 04/04/17 11:01 Last Admin: 04/01/17 10:35 Dose: 167 mls/hr Lorazepam (Ativan) 0.5 mg PO TID PRN PRN Reason: Agitation Last Admin: 04/01/17 05:06 Dose: 0.5 mg Metoprolol Tartrate (Lopressor) 25 mg PO BID [facility] Last Admin: 04/01/17 10:33 Dose: 25 mg - Labs Labs: 03/31/17 12:04 03/31/17 12:04 PT 18.3 SECONDS (9.7-12.2) H 03/22/17 21:14 INR 1.6 03/22/17 21:14 APTT 31 SECONDS (21-34) 03/22/17 21:14 - Constitutional Appears: No Acute Distress, Confused, Chronically Ill - Head Exam Head Exam: NORMOCEPHALIC - Eye Exam Eye Exam: Normal appearance Pupil Exam: NORMAL ACCOMODATION - Neck Exam Neck Exam: Full ROM - Respiratory Exam Respiratory Exam: NORMAL BREATHING PATTERN - Cardiovascular Exam Additional comments: no chest pain - GI/Abdominal Exam Additional comments: no abdominal pain - Exam Additional comments: no dysuria - Extremities Exam Extremities Exam: Normal Inspection - Back Exam Back Exam: NORMAL INSPECTION - Neurological Exam Neurological Exam: Alert, Awake - Psychiatric Exam Psychiatric exam: Normal Affect, Normal Mood - Skin Skin Exam: Normal Color Assessment and Plan - Assessment and Plan (Free Text) Assessment: Dementia Delirium UTI Plan: Patient may go home with few doses of Ativan prn as ordered. Continue tx plan as ordered.
--- NOTE | 2017-04-01 14:25 | RAD ---
PROCEDURE: Date of procedure: 03/31/2017 Procedure: 1. Fluoro guidance for PICC placement Total Fluoro time: 58.7 seconds Radiation: 7.524 MGy HISTORY: Infection requiring long-term IV antibiotics TECHNIQUE: Fluoro guidance for vascular access was utilized in the right arm. Total fluoro time was 58.7 seconds and radiation was 7.524 mGy. IMPRESSION: Fluoro guidance for vascular access.
--- NOTE | 2017-04-01 15:50 | CP.PCM.PN ---
Subjective - Date & Time of Evaluation Date of Evaluation: 04/01/17 Time of Evaluation: 08:00 - Subjective Subjective: EVENTS NOTED ARRANGEMENTS MADE FOR HOME IV RX SOHAN 6 WEEKS Objective - Vital Signs/Intake and Output Vital Signs (last 24 hours): Temp Pulse Resp BP Pulse Ox 98.4 F 74 20 158/85 H 100 04/01/17 08:00 04/01/17 08:00 04/01/17 08:00 04/01/17 14:55 04/01/17 08:00 Intake and Output: 04/01/17 04/01/17 06:59 18:59 Intake Total 620 Balance 620 - Medications Medications: Current Medications Acetaminophen (Tylenol 325mg Tab) 325 mg PO TID [facility] Last Admin: 04/01/17 14:42 Dose: 325 mg Famotidine (Pepcid) 20 mg IVP DAILY [facility] Last Admin: 04/01/17 10:33 Dose: 20 mg Penicillin G Potassium 3 mu/ (Sodium Chloride) 50 mls @ 100 mls/hr IVPB Q6H [facility] Last Admin: 04/01/17 10:34 Dose: 100 mls/hr Vancomycin/Sodium Chloride (Vancocin) 1 gm in 200 mls @ 167 mls/hr IVPB DAILY [facility] Stop: 04/04/17 11:01 Last Admin: 04/01/17 10:35 Dose: 167 mls/hr Lorazepam (Ativan) 0.5 mg PO TID PRN PRN Reason: Agitation Last Admin: 04/01/17 05:06 Dose: 0.5 mg Metoprolol Tartrate (Lopressor) 25 mg PO BID [facility] Last Admin: 04/01/17 10:33 Dose: 25 mg - Labs Labs: 03/31/17 12:04 03/31/17 12:04 PT 18.3 SECONDS (9.7-12.2) H 03/22/17 21:14 INR 1.6 03/22/17 21:14 APTT 31 SECONDS (21-34) 03/22/17 21:14 - Constitutional Appears: Non-toxic - Head Exam Head Exam: NORMOCEPHALIC - Eye Exam Eye Exam: PERRL - ENT Exam ENT Exam: Mucous Membranes Dry - Neck Exam Neck Exam: absent: Lymphadenopathy - Cardiovascular Exam Cardiovascular Exam: REGULAR RHYTHM - GI/Abdominal Exam GI & Abdominal Exam: Distended Assessment and Plan (1) Bacteremia Status: Acute (2) Bacteremia Status: Acute (3) Fever Status: Acute
--- NOTE | 2017-04-13 12:41 | CON ---
DATE OF CONSULTATION: 03/23/2017 I was called for a GI consultation by the admitting medical team. The patient is seen and fully examined on 03/23/2017 as recommended by the admitting medical staff. The entire chart was reviewed including, but not limited to the most recent lab and radiology study results, current and the previous medication list, current and the previous medical events, allergy to medication list, as well as all the available current and the previous medical records. Case was discussed at length with the staff at the time of my consultation on 03/23/2017. A short written consultation sheet was left in the chart at the time of my physical examination. Due to dictation system malfunction, this dictation note is dictated now. This is a 56-year-old female who was admitted to the hospital accompanied by her family, her daughter, due to low-grade fever, generalized weakness and malaise, dyspepsia, postprandial abdominal distention, with poor oral intake prior to her admission. The patient also had been complaining of lower back pain with recent change of bowel movement habits. After being admitted to the hospital, initial blood workup showed low hemoglobin of 9.4 with low hematocrit of 29.6, with low CO2 content at 21 indicative of metabolic acidosis. PAST MEDICAL HISTORY: Including, but not limited to hypertension, congestive heart failure, atrial fibrillation, peptic ulcer disease, dementia, hyperlipidemia, bronchitis, and anemia. The patient has a history of status post pacemaker insertion, as well as status post cholecystectomy. It has to be mentioned that the patient had a recent upper endoscopy done due to her severe anemia and guaiac-positive stool indicative of gastritis. FAMILY HISTORY: Unknown. SOCIAL HISTORY: No known recent history of cigarette smoking or alcohol intake. ALLERGIES TO MEDICATIONS: Unclear. CURRENT MEDICATIONS: Medication list was reviewed. It has to be mentioned that most of the information was obtained from the patient's daughter, as well as the medical records. PHYSICAL EXAMINATION GENERAL: A 56-year-old female with low-grade temperature of 100.2, pulse is 72, respiratory rate is 20-22, with blood pressure 136/54. HEENT: Showed pale, dry oral mucous membranes, nonicteric sclerae. LYMPH NODES: No lymphadenitis or lymphadenopathy. LUNGS: Scattered crepitations with decreased air entry at bases with bilateral few rhonchi. HEART: Positive S1 and S2. ABDOMEN: Soft with generalized tenderness. Bowel sounds are hyperactive. No mass or organomegaly. No rebound tenderness or guarding, but with mild distention. EXTREMITIES: Both lower extremities with mild edematous changes. No clubbing or cyanosis. NEUROLOGIC: No new or reported neurological deficits, sensory or motor. Peripheral pulse are present bilaterally, but weak. IMPRESSION: 1. Anemia, rule out gastrointestinal blood loss, upper versus lower, keeping in the mind that the patient has a known history of peptic ulcer disease with gastric ulcer, as well as reported guaiac-positive stool. 2. To rule out occult gastrointestinal malignancy. 3. Multiple past medical history including, but not limited to atrial fibrillation, congestive heart failure, hypertension, dementia, hyperlipidemia, as well as anemia before. SUGGESTION: 1. I agree with your plan. 2. Correct any underlying coagulopathy. 3. Proton pump inhibitors. 4. Cancer markers. 5. Peripheral hyperalimentation. 6. Endoscopic evaluation of the upper GI tract when the patient is more stable clinically. 7. Further recommendation to follow and abdominal and pelvic CAT scan to be ordered. Thank you for letting me to participate in your patient's case management. Norbert Wilson MD CC: Dr. Alvarez Arteaga
--- NOTE | 2017-04-21 08:32 | PN ---
Hospital: [facility]. Patient is 86 years-old female, seen and examined around presence of a family. At bedside, ____ including, but not limited to, the most recent lab panel direct list of results current and previous medication list, current and previous medical events was all significant of clinical changes. Patient still has intermittent ____ abdominal pain and lower back pain, but much less than before with decreased appetite. No reported nausea, vomiting, diarrhea, guarding, ____. After this review including, including but not limited , to the most recent lab and results, current and previous medication lists, current and previous medical events. The patient is still having low hemoglobin and hematocrit with low albumen. ____ level is elevated to 3.1 from previous testing; today's lab is still pending. Pathology report from the gastric may cause our report still pending. Physical Examination: 1. General, 86 years-old female, has a pulse of 62, respiratory 20-22, blood pressure of 120/56. HEENT: show ____ brain, non-icteric scleral lines ____. Heart: S1, S2 Abdomen: soft, bowel sounds are present, no organomegaly, no other tenderness or guarding Extremities: significant clubbing ____, but with mild edematous changes No reported neurological deficits sensory or motor Impression: 1. Anemia 2. 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 3. Mild ____ hypoalbuminemia Known history of congestive heart failure, cardiac arrhythmia, atrial fibrillation with pacemaker in session, with history of dementia, hyperlipidemia , and hypertension. Unknown history of cholecystectomy Suggestion: Continue current management for number 2 and hyperalimentation Recommendation to follow, and Dr. Garcia, patient will need take ____ if symptoms persist. Will support oral intake that Dr. Garcia placed. Send dictation to office and another copy on patient chart. ROBY
--- NOTE | 2017-04-26 09:19 | CP.PCM.DIS ---
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 Patient was noted n not eating, more conguse x days. (+) Fever x 2 days and sent to ER. In ER lin was admitted for UTI/ Sepsis. Attending physician: Alvarez Doll MD Time Spent in preparation of Discharge (in minutes): 11 Hospital Course - Lab Results Lab Results: Micro Results 03/29/17 11:00 Blood Blood Culture - Final NO GROWTH AFTER 5 DAYS 03/29/17 11:00 Blood Gram Stain - Final TEST NOT PERFORMED 03/29/17 10:45 Blood Blood Culture - Final NO GROWTH AFTER 5 DAYS 03/27/17 17:00 Blood Blood Culture - Final NO GROWTH AFTER 5 DAYS 03/27/17 17:00 Blood Gram Stain - Final TEST NOT PERFORMED 03/27/17 17:00 Blood Blood Culture - Final Streptococcus Viridans 03/27/17 17:00 Blood Gram Stain - Final Most Recent Lab Values WBC 5.6 K/uL (4.8-10.8) 03/31/17 12:04 RBC 3.63 Mil/uL (3.80-5.20) L 03/31/17 12:04 Hgb 9.3 g/dL (11.0-16.0) L 03/31/17 12:04 Hct 29.2 % (34.0-47.0) L 03/31/17 12:04 MCV 80.6 fL (81.0-99.0) L 03/31/17 12:04 MCH 25.8 pg (27.0-31.0) L 03/31/17 12:04 MCHC 32.0 g/dL (33.0-37.0) L 03/31/17 12:04 RDW 15.2 % (11.5-14.5) H 03/31/17 12:04 Plt Count 162 K/uL (130-400) 03/31/17 12:04 MPV 7.9 fL (7.2-11.7) 03/31/17 12:04 Neut % (Auto) 67.2 % (50.0-75.0) 03/31/17 12:04 Lymph % (Auto) 22.6 % (20.0-40.0) 03/31/17 12:04 Morrill % (Auto) 6.2 % (0.0-10.0) 03/31/17 12:04 Eos % (Auto) 2.8 % (0.0-4.0) 03/31/17 12:04 Baso % (Auto) 1.2 % (0.0-2.0) 03/31/17 12:04 Neut # 3.8 K/uL (1.8-7.0) 03/31/17 12:04 Lymph # 1.3 K/uL (1.0-4.3) 03/31/17 12:04 Morrill # 0.3 K/uL (0.0-0.8) 03/31/17 12:04 Eos # 0.2 K/uL (0.0-0.7) 03/31/17 12:04 Baso # 0.1 K/uL (0.0-0.2) 03/31/17 12:04 PT 18.3 SECONDS (9.7-12.2) H 03/22/17 21:14 INR 1.6 03/22/17 21:14 APTT 31 SECONDS (21-34) 03/22/17 21:14 pO2 30 mm/Hg (30-55) 03/22/17 21:22 VBG pH 7.37 (7.32-7.43) 03/22/17 21:22 VBG pCO2 31 mmHg (40-60) L 03/22/17 21:22 VBG HCO3 18.9 mmol/L 03/22/17 21:22 VBG Total CO2 18.9 mmol/L (22-28) L 03/22/17 21:22 VBG O2 Sat (Calc) 63.9 % (40-65) 03/22/17 21:22 VBG Base Excess -6.2 mmol/L (0.0-2.0) L 03/22/17 21:22 VBG Potassium 2.9 mmol/L (3.6-5.2) L 03/22/17 21:22 Sodium 146.0 mmol/l (132-148) 03/22/17 21:22 Chloride 119.0 mmol/L (98-107) H 03/22/17 21:22 Glucose 76 mg/dl (65-105) 03/22/17 21:22 Lactate 1.3 mmol/L (0.7-2.1) 03/22/17 21:22 Sodium 137 mmol/L (132-148) 03/31/17 12:04 Potassium 4.0 mmol/L (3.6-5.2) 03/31/17 12:04 Chloride 106 mmol/L (98-107) 03/31/17 12:04 Carbon Dioxide 25 mmol/L (22-30) 03/31/17 12:04 Anion Gap 10 (10-20) 03/31/17 12:04 BUN 8 mg/dL (7-17) 03/31/17 12:04 Creatinine 0.7 MG/DL (0.7-1.2) 03/31/17 12:04 Est GFR ( Amer) > 60 03/31/17 12:04 Est GFR (Non-Af Amer) > 60 03/31/17 12:04 Random Glucose 81 mg/dL (65-105) 03/31/17 12:04 Calcium 9.7 mg/dl (8.6-10.4) 03/31/17 12:04 Total Bilirubin 0.6 mg/dL (0.2-1.3) 03/31/17 12:04 AST 24 U/L (14-36) 03/31/17 12:04 ALT 13 U/L (9-52) 03/31/17 12:04 Alkaline Phosphatase 49 U/L (38-126) 03/31/17 12:04 Total Protein 6.3 g/dL (6.3-8.3) 03/31/17 12:04 Albumin 2.7 g/dL (3.5-5.0) L 03/31/17 12:04 Globulin 3.6 gm/dL (2.2-3.9) 03/31/17 12:04 Albumin/Globulin Ratio 0.8 (1.0-2.1) L 03/31/17 12:04 Carcinoembryonic Ag 3.1 ng/mL (0-3.0) H 03/24/17 11:55 CA 19-9 Antigen 8.7 U/mL (0-37) 03/24/17 11:55 CA 125 Antigen 15.3 U/mL (0-35) 03/24/17 11:55 Venous Blood Potassium 2.9 mmol/L (3.6-5.2) L 03/22/17 21:22 Urine Color Yellow (YELLOW) 03/22/17 23:37 Urine Clarity Hazy (Clear) 03/22/17 23:37 Urine pH 5.0 (5.0-8.0) 03/22/17 23:37 Ur Specific Warren 1.020 (1.003-1.030) 03/22/17 23:37 Urine Protein 1+ mg/dL (NEGATIVE) H 03/22/17 23:37 Urine Glucose (UA) Normal mg/dL (Normal) 03/22/17 23:37 Urine Ketones Trace mg/dL (NEGATIVE) 03/22/17 23:37 Urine Blood 1+ (NEGATIVE) H 03/22/17 23:37 Urine Nitrate Negative (NEGATIVE) 03/22/17 23:37 Urine Bilirubin Negative (NEGATIVE) 03/22/17 23:37 Urine Urobilinogen 2.0 mg/dL (0.2-1.0) H 03/22/17 23:37 Ur Leukocyte Esterase 3+ Noy/uL (Negative) H 03/22/17 23:37 Urine WBC (Auto) 136 /hpf (0-5) H 03/22/17 23:37 Urine RBC (Auto) 17 /hpf (0-3) H 03/22/17 23:37 Ur Squamous Epith Cells 18 /hpf (0-5) H 03/22/17 23:37 Ur Transition Epith Cell 1 /hpf (0-3) 03/22/17 23:37 Urine Bacteria Mod (<OCC) H 03/22/17 23:37 Vancomycin Trough 9.1 ug/mL (5.0-10.0) 03/30/17 08:19 - Hospital Course Hospital Course: Pt treated for Sepsis and referred to ID, Cardio and GI. Patient work up showed Strep endocarditis. Repeat AMNA showed smaller vegetation. Surgical option was contemplated c/o has failed previous 6 week s of antibiotic but family declined c/o high risk surgery. Pt also referred to Psychiatry c/o confusion. Patient had PICC line inserted and refer back for Subacute rehab & prolong IV antiobiotic. Discharge Exam - Head Exam Head Exam: NORMOCEPHALIC Discharge Plan - Discharge Medications Prescriptions: LORazepam [Ativan] 0.5 mg PO TID PRN #15 tab PRN Reason: Agitation Vancomycin/0.9 % Sod Chloride [Vanco 1 Gram/250 ml-0.9% NaCl] 1 gm IV DAILY #42 plast..bag - Follow Up Plan Condition: FAIR Disposition: DISCHARGED TO HOME CARE Instructions: Lorazepam (By mouth), Vancomycin (By injection), Urinary Tract Infection in Women (DC), Acute Low Back Pain (DC), Bacteremia (DC) Additional Instructions: FOLLOW UP WITH YOUR PRIMARY DOCTOR IN THE OFFICE IN 5-7 DAYS---CALL FOR APPT TIME. CONTINUE YOUR MEDICATIONS USUAL. YOU WILL CONTINUE THE ANTIBIOTICS AT HOME ORDERED BY YOUR DOCTOR. FOR FURTHER QUESTIONS, CONTACT DR. DOLL. Referrals: Israel Cruz MD [Staff Provider] - Alvarez Doll MD [Staff Provider] - Jeffrey Mcmullen MD [Staff Provider] - Norbert Garcia [Staff Provider] - Joon Swain MD [Staff Provider] -
== END 2017-04-01 15:20 | disposition home health service (06) | DRG 584 ==
LOC: C.ER 20:03 → C.9E 23:58 → C.3T 03-23 19:03
PROVIDERS: ADMIT Internal Medicine; ATTEND Internal Medicine
PROC: 0DB68ZX Excision of Stomach, Via Natural or Artificial Opening Endoscopic, Diagnostic (ICD-10-PCS; principal; 2017-03-25 10:52)
PROC: B246ZZ4 Ultrasonography of Right and Left Heart, Transesophageal (ICD-10-PCS; 2017-03-28)
PROC: 02HV33Z Insertion of Infusion Device into Superior Vena Cava, Percutaneous Approach (ICD-10-PCS; 2017-03-31)
PROC: B5181ZA Fluoroscopy of Superior Vena Cava using Low Osmolar Contrast, Guidance (ICD-10-PCS; 2017-03-31)
DX: A40.9 Streptococcal sepsis, unspecified (principal); I33.0 Acute and subacute infective endocarditis; G93.41 Metabolic encephalopathy; N39.0 Urinary tract infection, site not specified; I42.2 Other hypertrophic cardiomyopathy; F03.90 Unspecified dementia, unspecified severity, without behavioral disturbance, psychotic disturbance, mood disturbance, and anxiety; I50.9 Heart failure, unspecified; I11.0 Hypertensive heart disease with heart failure; I48.91 Unspecified atrial fibrillation; D64.9 Anemia, unspecified; M54.5 Low back pain; R26.9 Unspecified abnormalities of gait and mobility; K29.50 Unspecified chronic gastritis without bleeding; B95.5 Unspecified streptococcus as the cause of diseases classified elsewhere; R63.0 Anorexia; K21.0 Gastro-esophageal reflux disease with esophagitis; K44.9 Diaphragmatic hernia without obstruction or gangrene

== ENCOUNTER 2017-11-12 10:43 | Emergency (ER) | payer MEDICARE, MEDICAID ==
[2017-11-12 10:43] VITALS: BMI 23.0
[2017-11-12 11:11] VITALS: RESP 16; TEMP 97.3
--- NOTE | 2017-11-12 11:20 | C.PDOC ---
History Of Present Illness LIMITED DUE TO DEMENTIA, CLIN COND 87-YEAR-OLD FEMALE, PRESENTS TO ED W COMPLAINT OF GRADUAL AMS. PER FAMILY, RECUR HALLUCINATIONS WORSENING X 1 MO. +DARK URINE, CONCERN FOR RECURRENT UTI. TM 99. HO DEMENTIA. PREVIOUS SIM SX 2017. HO ENDOCARDITIS, RECENT "NEGATIVE ECHO " [address] PIRES. NO OTHER ASSOC SX. PT DENIES PAIN AT THIS TIME. ROS UTO NAD NONTOXIC HEENT ATRAUM LUNGS CTA B/L NO W/R/R CV RRR ABD NEG NEURO NO FOCAL DEF AO2 PSYCH +ACTIVE AUDITORY HALLUINCATIONS NO SI/SA GOOD TURGOR REMAINDER NEG Time Seen by Provider: 11/12/17 11:08 Chief Complaint (Nursing): Female Genitourinary History Per: Family History/Exam Limitations: Clinical Condition Onset/Duration Of Symptoms: Days Current Symptoms Are (Timing): Worse Past Medical History Reviewed: Historical Data, Nursing Documentation, Vital Signs Vital Signs: Last Vital Signs Temp 97.3 F L 11/12/17 11:02 Pulse 78 11/12/17 11:02 Resp 16 11/12/17 11:02 BP 164/72 H 11/12/17 11:02 Pulse Ox 99 11/12/17 13:06 - Medical History PMH: Anemia, Atrial Fibrillation (pacemaker), 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'), Dementia, Gastritis, HTN, Hypercholesterolemia, Hyperlipidemia Surgical History: Cholecystectomy, Pacemaker - [facility] Procedures EXCISION OF STOMACH, ENDO, DIAGN (03/22/17) EXCISION OF STOMACH, OPEN APPROACH (11/18/16) FLUOROSCOPY OF SUP VENA CAVA USING L OSM CONTRAST, GUIDANCE (03/22/17) INSERTION OF INFUSION DEV INTO SUP VENA CAVA, PERC APPROACH (03/22/17) INSERTION OF INTRALUM DEV INTO R VENTRICLE, PERC APPROACH (02/29/16) INSPECTION OF LOWER INTESTINAL TRACT, ENDO (11/18/16) INSPECTION OF UPPER INTESTINAL TRACT, ENDO (11/18/16) MEASURE CARDIAC SAMPL & PRESSURE, BILATERAL, PERC (02/29/16) PERFORMANCE OF CARDIAC PACING, CONTINUOUS (02/29/16) PLAIN RADIOGRAPHY OF MULT COR ART USING OTH CONTRAST (02/29/16) PLAIN RADIOGRAPHY OF RIGHT AND LEFT HEART USING OTH CONTRAST (02/29/16) REPAIR ABDOMINAL WALL, OPEN APPROACH (11/18/16) TRANSFUSE NONAUT RED BLOOD CELLS IN PERIPH VEIN, PERC (11/18/16) ULTRASONOGRAPHY OF RIGHT AND LEFT HEART, TRANSESOPHAGEAL (03/22/17) Family History: States: No Known Family Hx - Social History Hx Alcohol Use: No Hx Substance Use: No - Immunization History Hx Tetanus Toxoid Vaccination: No Hx Influenza Vaccination: No Hx Pneumococcal Vaccination: No Review Of Systems Review Of Systems: ROS cannot be obtained secondary to pt's inabilty to answer questions. Physical Exam - Physical Exam Appears: Non-toxic, No Acute Distress, Other ( +ACTIVE AUDITORY HALLUINCATIONS NO SI/SA) Skin: Normal Color, Warm, Dry, No Rash, Other (GOOD TURGOR) Head: Atraumatic, Normacephalic Eye(s): bilateral: Normal Inspection Neck: Normal ROM Chest: Symmetrical Cardiovascular: Rhythm Regular, No Murmur Respiratory: Normal Breath Sounds, No Accessory Muscle Use Gastrointestinal/Abdominal: Soft, No Tenderness Extremity: Normal ROM Neurological/Psych: Other (NO FOCAL DEF AO2) ED Course And Treatment - Laboratory Results Result Diagrams: 11/12/17 12:01 11/12/17 12:52 ECG: Interpreted By Me ECG Rhythm: AV Paced Rate From EC O2 Sat by Pulse Oximetry: 99 Pulse Ox Interpretation: Normal - Radiology CXR: Interpreted by Me CXR Interpretation: Yes: No Acute Disease, Other (PPM) Progress - Re-Evaluation Re-evaluation Note: 11/12/17 13:42 APPEARS COMFORTABLE VSS EATING WO DIFF. ED RESULTS D/W FAMILY, NO INDICATION FOR ADMISISON. FAMILY AGREES W DC PLAN - Data Reviewed Data Reviewed: Lab, Diagnostic imaging, EKG, Old records - Continuity of Care Discussed patient case with:: Patient, Family-HIPPA compliant Disposition Counseled Patient/Family Regarding: Studies Performed, Diagnosis, Need For Followup - Disposition Referrals: YOUR,PMD [Other] Disposition: HOME/ ROUTINE Disposition Time: 13:42 Condition: GOOD Instructions: Dementia (DC) Forms: [facility] (Swedish) - Clinical Impression Clinical Impression: Dementia - Scribe Statement The provider has reviewed the documentation as recorded by the Scribe (Miles Allred) All medical record entries made by the Scribe were at my direction and personally dictated by me. I have reviewed the chart and agree that the record accurately reflects my personal performance of the history, physical exam, medical decision making, and the department course for this patient. I have also personally directed, reviewed, and agree with the discharge instructions and disposition.
[2017-11-12 12:05] LABS: EOS # 0.1 K/uL (0.0-0.7); EOS % 2.8 % (0.0-4.0); LYMPH # 1.5 K/uL (1.0-4.3); NRBC % 0.1 % (0.0-2.0)
[2017-11-12 12:11] LABS: BASO % 0.7 % (0.0-2.0); MEAN CORPUSCULAR HEMOGLOBIN 28.1 pg (27.0-31.0); MEAN PLATELET VOLUME 9.4 fL (7.2-11.7); MONO # 0.4 K/uL (0.0-0.8); MONO % 8.9 % (0.0-10.0); NEUT # 2.8 K/uL (1.8-7.0); NEUT % 56.6 % (50.0-75.0); RBC 4.21 Mil/uL (3.80-5.20); RED CELL DISTRIBUTION WIDTH 13.2 % (11.5-14.5); WHITE BLOOD COUNT 4.9 K/uL (4.8-10.8)
[2017-11-12 12:12] LABS: HEMOGLOBIN 11.8 g/dL (11.0-16.0); MEAN CELL VOLUME 85.3 fL (81.0-99.0)
[2017-11-12 12:16] LABS: VENOUS BLOOD GAS BASE EXCESS -1.3 mmol/L (0.0-2.0); VENOUS BLOOD GAS PCO2 43 mmHg (40-60); VENOUS BLOOD GAS PO2 33 mm/Hg (30-55); VENOUS BLOOD PH 7.36 (7.32-7.43)
--- NOTE | 2017-11-12 12:24 | CT ---
PROCEDURE: CT HEAD WITHOUT CONTRAST. HISTORY: AMS COMPARISON: Comparison is made to the previous study dated 11/28/2016 TECHNIQUE: Axial computed tomography images were obtained through the head/brain without intravenous contrast. Radiation dose: Total exam DLP = 943.22 mGy-cm. This CT exam was performed using one or more of the following dose reduction techniques: Automated exposure control, adjustment of the mA and/or kV according to patient size, and/or use of iterative reconstruction technique. FINDINGS: HEMORRHAGE: No intracranial hemorrhage. BRAIN: No mass effect or edema. No atrophy or chronic microvascular ischemic changes. VENTRICLES: Unremarkable. No hydrocephalus. CALVARIUM: Unremarkable. PARANASAL SINUSES: Moderate mucosal thickening noted in the sphenoid sinuses. MASTOID AIR CELLS: Unremarkable as visualized. No inflammatory changes. OTHER FINDINGS: None. IMPRESSION: No evidence of acute intracranial hemorrhage intracranial collection mass effect or midline shift. Moderate mucosal thickening noted in the sphenoid sinuses.
[2017-11-12 12:36] LABS: SQUAMOUS EPITHIAL 8 /hpf (0-5); URINE BACTERIA RARE (<OCC); URINE BILIRUBIN NEGATIVE (NEGATIVE); URINE BLOOD 2+ (NEGATIVE); URINE CLARITY Hazy (Clear); URINE COLOR Yellow (YELLOW); URINE GLUCOSE (UA) NORMAL (Normal); URINE LEUKOCYTE ESTERASE TRACE Leu/uL (Negative); URINE NITRATE NEGATIVE (NEGATIVE); URINE PROTEIN 1+ mg/dL (NEGATIVE)
[2017-11-12 13:15] LABS: ALBUMIN 3.8 g/dL (3.5-5.0); ALT/SGPT 14 U/L (9-52); AST/SGOT 30 U/L (14-36); BLOOD UREA NITROGEN 19 mg/dL (7-17); GFR AFRICAN-AMERICAN > 60; GFR NON-AFRICAN AMERICAN 53
[2017-11-12 13:49] VITALS: BP 154/62; PULSE 72; O2SAT 100
--- NOTE | 2017-11-12 13:51 | RAD ---
PROCEDURE: CHEST RADIOGRAPH, 1 VIEW HISTORY: AMS COMPARISON: Comparison is made with 03/22/2017. FINDINGS: LUNGS: No evidence of new infiltrate or consolidation in the lungs. PLEURA: No pneumothorax or pleural fluid seen. CARDIOVASCULAR: The cardiac silhouette is prominent in size. There is a left-sided pacemaker seen in place. OSSEOUS STRUCTURES: No significant abnormalities. VISUALIZED UPPER ABDOMEN: Normal. OTHER FINDINGS: None. IMPRESSION: No active disease.
--- NOTE | 2017-11-14 22:00 | CARD ---
APPROVED REPORT EKG Measurement Heart [id number] MS P81 [id number] <Conclusion> Ventricular-paced rhythm with frequent AV dual-paced complexes and premature atrial complexes with ventricular paced beats. Abnormal ECG
== END 2017-11-12 14:03 | disposition home or self-care (01) ==
LOC: C.ER 10:43
DX: F03.90 Unspecified dementia, unspecified severity, without behavioral disturbance, psychotic disturbance, mood disturbance, and anxiety (principal); I11.0 Hypertensive heart disease with heart failure; I50.9 Heart failure, unspecified; I48.91 Unspecified atrial fibrillation; D64.9 Anemia, unspecified; E78.00 Pure hypercholesterolemia, unspecified

== ENCOUNTER 2019-01-25 13:05 | Outpatient (CLI) | payer MEDICARE, MEDICAID | END 2019-01-25 13:06 | disposition home or self-care (01) | LOC: C.RADH 13:05 ==